=== PATIENT | female | born 1975 | race Caucasian/White ===

== ENCOUNTER 2017-03-28 13:32 | Emergency (ER) | payer MEDICAID, SELFPAY | END 2017-03-28 15:24 | disposition home or self-care (01) | PROVIDERS: Emergency Provider Nurse Practitioner; Family Provider Internal Medicine Adolescent Medicine; Visit Provider Nurse Practitioner | DX: A08.4 Viral intestinal infection, unspecified (principal); E78.5 Hyperlipidemia, unspecified; Z87.891 Personal history of nicotine dependence | CPT/HCPCS: 87804; 99201 ==

== ENCOUNTER 2017-04-06 15:56 | Emergency (ER) | payer OTHER, MEDICAID, SELFPAY | END 2017-04-06 18:46 | disposition left against medical advice (07) | LOC: UTC 16:13 | PROVIDERS: Emergency Provider Nurse Practitioner Family; Family Provider Internal Medicine Adolescent Medicine; PCP Internal Medicine Adolescent Medicine | DX: Z53.29 Procedure and treatment not carried out because of patient's decision for other reasons (principal) ==

== ENCOUNTER → 2017-06-15 17:10 | Outpatient (CLI) | payer MEDICAID, SELFPAY ==
--- NOTE | 2017-06-15 17:43 | XR_ITS ---
XR knee RT 3V HISTORY: ITS.REASON: RIGHT ANTERIOR KNEE PAIN ORDERING PHYSICIAN: Alia Recinos PATIENT AGE: 41 years COMPARISON: None FINDINGS: No fracture or dislocation. No lytic or blastic change. Normal mineralization. There is mild bony spurring along the lateral tibial plateau. No lytic or blastic change. IMPRESSION: Mild osteoarthritis of the lateral compartment
== END ==
PROVIDERS: PCP Nurse Practitioner Family; Visit Provider Nurse Practitioner Family
DX: M25.561 Pain in right knee (principal)
CPT/HCPCS: 73562

== ENCOUNTER 2017-06-24 17:41 | Emergency (ER) | payer MEDICAID, SELFPAY ==
[2017-06-24 18:03] VITALS: BP 138/92; PULSE 68; RESP 20; TEMP 36.6; O2SAT 97; BMI 34.4
--- NOTE | 2017-06-24 18:19 | HMH.EDUTC ---
[facility] [place] Disposition Clinical Impression: Viral upper respiratory illness Disposition: Home, Self-Care Condition on Discharge: Good Instructions: DI for Viral Upper Respiratory Infection -- Adult Additional Instructions: * Monitor Temp. Tylenol and/or Ibuprofen as needed. ER if fever is no less than 101 despite alternating Tylenol and Ibuprofen * Encourage fluids, water, Gatorade, powerade, pedialyte if infant/toddler/or child * Warm salt water gargles for throat irritation *Warm fluids *Sore throat lozenges *Sleep elevated *humidifier or vaporizer Lots of rest Increase fluids, water, Gatorade, powerade *Bromfed may cause drowsiness. Know how it effect you or your child. Before driving, caring for small children or sending your child to school *Your throat swab was sent to lab for culture. Those results area typically sent to your primary care physician. Be sure to follow up in 2-3 days if no improvement so they can review those results and treat if necessary If you dont have primary care I recommend you get one, but in the mean time you will have to return to a walk in clinic Follow up IMMEDIATELY for new or worsening of symptoms OR no noticeable improvement over the next 48-72 hours. 911 immediately for any life threatening symptoms such as chest pain or difficulty breathing Prescriptions: Brompheniramine/Pseudoephed/Dm [Bromfed DM Cough Syrup 5mL] 10 ml PO Q4HP PRN #350 ml PRN Reason: Cough Referrals: Alia Recinos APRN [Primary Care Provider] - Time of Disposition: 18:30 Medical Decision Making - Medical Records Medical records reviewed: Yes: I reviewed the patient's medical records. - Cassius Inquiry Pt receiving controlled substance: No Cassius was queried for this patient: No Vital Signs: 06/24/17 18:03 Temperature 97.9 F Temperature Source Oral Pulse Rate [Right Brachial] 68 Respiratory Rate 20 Blood Pressure [Right Arm] 138/92 Blood Pressure Mean [Right Arm] 107 Blood Pressure Source [Right Arm] Automatic Cuff Blood Pressure Position [Right Arm] Sitting 02 Sat by Pulse Oximetry 97 Oxygen Delivery Method Room Air - Lab Data Lab results reviewed: Yes: I reviewed the patient's lab results. [facility] [place] HPI - General Stated complaint: weakness, body aches Time Seen by Provider: 06/24/17 18:05 Mode of Arrival: Family Vehicle Source of Information: Patient Limitations: No Limitations Description of Symptoms (Recalled from Triage Doc. by RN): SORE THROAT, BODY AHES AND CHILLS X 2 DAYS HEENT Symptoms (Recalled from RN notes): Yes Resp Symptoms (Recalled from RN notes): No Skin Symptoms (Recalled from RN notes): No MS Symptoms (Recalled from RN notes): Yes Functional Status (Recalled from RN notes): N/A - History of Present Illness Provider Complaint: Patient state that she has been having chills, body aches, nausea and sore throat for about 2 days now State that she was recently around someone with the flu State that today she has wanted to lay around alot so she was worried that she may have the flu so she came in to get checked out - Related Data Home Medications Medication Instructions Recorded Confirmed ALPRAZolam [Xanax 0.5mg tab] 0.5 mg PO BID 06/24/17 06/24/17 Cetirizine HCl [Zyrtec] 10 mg PO DAILY 06/24/17 06/24/17 Imipramine HCl 50 mg PO DAILY 06/24/17 06/24/17 Montelukast Sodium [Singulair 10mg 10 mg PO PM 06/24/17 06/24/17 tablet] Pantoprazole Sodium [Protonix 40mg 40 mg PO DAILY 06/24/17 06/24/17 tablet] Previous Rx's Medication Instructions Recorded Brompheniramine/Pseudoephed/Dm 10 ml PO Q4HP PRN #350 ml 06/24/17 [Bromfed DM Cough Syrup 5mL] Allergies Allergy/AdvReac Type Severity Reaction Status Date / Time codeine Allergy Intermediate CHEST PAIN Verified 06/24/17 18:07 - Worker's Comp Is this a Worker's Comp case?: No [facility] History I have reviewed the patient's past medical history: Yes Laterality Cases: Bilateral: Myringotomy (Ear Tubes)
--- NOTE | 2017-06-24 18:25 | ED_ITS ---
[facility] [place] Disposition Clinical Impression: Viral upper respiratory illness Disposition: Home, Self-Care Condition on Discharge: Good Instructions: DI for Viral Upper Respiratory Infection -- Adult Additional Instructions: * Monitor Temp. Tylenol and/or Ibuprofen as needed. ER if fever is no less than 101 despite alternating Tylenol and Ibuprofen * Encourage fluids, water, Gatorade, powerade, pedialyte if infant/toddler/or child * Warm salt water gargles for throat irritation *Warm fluids *Sore throat lozenges *Sleep elevated *humidifier or vaporizer Lots of rest Increase fluids, water, Gatorade, powerade *Bromfed may cause drowsiness. Know how it effect you or your child. Before driving, caring for small children or sending your child to school *Your throat swab was sent to lab for culture. Those results area typically sent to your primary care physician. Be sure to follow up in 2-3 days if no improvement so they can review those results and treat if necessary If you don? t have primary care I recommend you get one, but in the mean time you will have to return to a walk in clinic Follow up IMMEDIATELY for new or worsening of symptoms OR no noticeable improvement over the next 48-72 hours. 911 immediately for any life threatening symptoms such as chest pain or difficulty breathing Prescriptions: Brompheniramine/Pseudoephed/Dm [Bromfed DM Cough Syrup 5mL] 10 ml PO Q4HP PRN # 350 ml PRN Reason: Cough Referrals: Alia Recinos APRN [Primary Care Provider] - Time of Disposition: 18:30 Medical Decision Making - Medical Records Medical records reviewed: Yes: I reviewed the patient's medical records. - Cassius Inquiry Pt receiving controlled substance: No Cassius was queried for this patient: No Vital Signs: 06/24/17 18:03 Temperature 97.9 F Temperature Source Oral Pulse Rate [Right Brachial] 68 Respiratory Rate 20 Blood Pressure [Right Arm] 138/92 Blood Pressure Mean [Right Arm] 107 Blood Pressure Source [Right Arm] Automatic Cuff Blood Pressure Position [Right Arm] Sitting 02 Sat by Pulse Oximetry 97 Oxygen Delivery Method Room Air - Lab Data Lab results reviewed: Yes: I reviewed the patient's lab results. [facility] [place] HPI - General Stated complaint: weakness, body aches Time Seen by Provider: 06/24/17 18:05 Mode of Arrival: Family Vehicle Source of Information: Patient Limitations: No Limitations Description of Symptoms (Recalled from Triage Doc. by RN): SORE THROAT, BODY AHES AND CHILLS X 2 DAYS HEENT Symptoms (Recalled from RN notes): Yes Resp Symptoms (Recalled from RN notes): No Skin Symptoms (Recalled from RN notes): No MS Symptoms (Recalled from RN notes): Yes Functional Status (Recalled from RN notes): N/A - History of Present Illness Provider Complaint: Patient state that she has been having chills, body aches, nausea and sore throat for about 2 days now State that she was recently around someone with the flu State that today she has wanted to lay around alot so she was worried that she may have the flu so she came in to get checked out - Related Data Home Medications Medication Instructions Recorded Confirmed ALPRAZolam [Xanax 0.5mg tab] 0.5 mg PO BID 06/24/17 06/24/17 Cetirizine HCl [Zyrtec] 10 mg PO DAILY 06/24/17 06/24/17 Imipramine HCl 50 mg PO DAILY 06/24/17 06/24/17 Montelukast Sodium [Singulair 10mg 10 mg PO PM 06/24/17 06/24/17 tablet] Pantoprazole Sodium [Protonix
[2017-06-24 18:44] LABS: UTC Influenza A Antigen Negative (Negative); UTC Influenza B Antigen Negative (Negative); UTC Strep Screen (Rapid) Negative (Negative)
[2017-06-24 18:50] VITALS: BP 136/90; PULSE 70; RESP 20; TEMP 36.6; O2SAT 97
== END 2017-06-24 18:53 | disposition home or self-care (01) ==
PROVIDERS: Emergency Provider Nurse Practitioner; Family Provider Internal Medicine Adolescent Medicine; PCP Nurse Practitioner Family
DX: J06.9 Acute upper respiratory infection, unspecified (principal)
CPT/HCPCS: 87804; 87880; 99202

== ENCOUNTER 2017-07-26 15:00 | Outpatient (RCR) | payer MEDICAID, SELFPAY ==
--- NOTE | 2017-06-20 17:45 | HMH.PTOPEV ---
Rehab Outpatient Evaluation Rehab OP Evaluation Start: 06/20/17 17:23 Freq: Status: Active Protocol: Document 06/20/17 17:23 JESUSMARSHA (Rec: 06/20/17 17:38 FLIP [id number]) Electronically Signed By Luis Miguel Sena, PT 06/20/17 17:23 Outpatient Therapy Subjective History Subjective History Patient is a 41 year old female presenting to outpatient PT with reports of right knee pain of insidious onset starting approximatley 1 year ago with the most recent exacerbation starting 1 week ago. She was recently prescribed oral anti- inflammatories and bought a neoprene sleeve knee brace, both which have provided minimal relief. Most recent diagnostics indicate mild OA. Significant genu valgus noted . Chief Complaint Pain Stiff Clicks Swelling Catches/Locks Weakness Symptom Type Ache Sharp Shooting Symptoms Relieved By Rest/Positioning Brace/Support OTC Meds Prescription Meds Symptoms Aggravated By Sitting Standing Bending/Stooping Physical Activity Walking Prior Functional Limitations None Current Functional Limitations Lifting Housework Driving Sleeping Standing Sitting Squatting Recreation Activity Walking Stairs Balance Bending/Stooping Symptom Description Constant but Variable Level of pain today (0-10) 5 Pain scale - at its best (0-10) 10 Pain scale - at its worst (0-10) 5 Hip/Knee Eval Gait Observation General Gait Pattern Observation Antalgic Gait Palpation Tenderness right Knee Palpation Finding Tenderness
== END 2017-07-26 15:01 | disposition home or self-care (01) ==
LOC: PT 15:00
PROVIDERS: Family Provider Internal Medicine Adolescent Medicine; PCP Nurse Practitioner Family; Visit Provider Nurse Practitioner Family
DX: M25.561 Pain in right knee (principal)
CPT/HCPCS: 97014; 97016; 97033; 97035; 97110; G0283

== ENCOUNTER → 2017-09-21 15:43 | Outpatient (CLI) | payer MEDICAID, SELFPAY | PROVIDERS: Family Provider Internal Medicine Adolescent Medicine; PCP Internal Medicine Adolescent Medicine; Referring Provider Nurse Practitioner Family; Visit Provider Nurse Practitioner Family | DX: Z12.31 Encounter for screening mammogram for malignant neoplasm of breast (principal); Z00.00 Encounter for general adult medical examination without abnormal findings ==

== ENCOUNTER → 2017-09-28 17:04 | Outpatient (CLI) | payer MEDICAID, SELFPAY ==
[2017-09-28 17:37] LABS: Basophils % 0.4 % (0.1-2.0); Eosinophils # 0.2 K/mm3 (0.0-0.4); Eosinophils % 1.6 % (0.1-12.0); Hematocrit 41.5 % (37.0-47.0); Hemoglobin 13.1 g/dL (12.2-16.2); Lymphocytes # 3.3 K/mm3 (0.7-4.5); Lymphocytes % 29.9 K/mm3 (10-50); Mean Corpuscular HGB Conc 31.6 g/dL (31.8-35.4); Mean Corpuscular Hemoglobin 28.7 pg (27.0-31.2); Mean Corpuscular Volume 90.8 fl (81-99); Mean Platelet Volume 7.2 fl (7.4-10.4); Monocytes # 0.5 K/mm3 (0.1-1.0); Monocytes % 4.9 % (1.7-9.3); Neutrophils # 6.9 K/mm3 (1.8-7.8); Neutrophils % 63.1 % (37.0-80.0); Platelet Count 445 K/mm3 (142-424); Red Blood Count 4.57 M/mm3 (4.20-5.40); Red Cell Distribution Width 13.4 % (11.5-17.5); White Blood Count 10.9 K/mm3 (4.8-10.8)
[2017-09-28 18:12] LABS: Alanine Aminotransferase 34 U/L (12-78); Albumin Level 3.6 gm/dL (3.4-5.0); Alkaline Phosphatase 92 U/L (46-116); Anion Gap 14.1 mEq/L (5-15); Aspartate Amino Transferase 21 U/L (15-37); Bilirubin,Total 0.5 mg/dL (0.2-1.0); Blood Urea Nitrogen 7 mg/dL (7-18); Calcium 8.8 mg/dL (8.5-10.1); Carbon Dioxide 26 mmol/L (21.0-32.0); Chloride 105 mmol/L (98-107); Chol/HDL Ratio 6.2 (1-3.5); Cholesterol 231 mg/dL (140-200); Creatinine,Serum 0.84 mg/dL (0.55-1.02); Estimated Glomerular Filt Rate 74 ml/min (>60); GFR (African American) 90 ML/MIN (>60); Globulin 3.6 gm/dl (1.3-3.2); Glucose 90 mg/dL (74-106); HDL Cholesterol 37 mg/dL (29-89); LDL Cholesterol 153 mg/dL (0-130); Potassium 4.1 mmoL/L (3.5-5.1); Sodium 141 mmol/L (136-145); Thyroid Stimulating Hormone 1.35 uIU/ml (0.358-3.740); Total Protein,Serum 7.2 gm/dL (6.4-8.2); Triglycerides 203 mg/dL (30-200); VLDL Cholesterol 41 mg/dL (0-40)
[2017-09-30 18:07] LABS: Vitamin B12 1472 pg/mL (232-1245)
[2017-09-30 18:09] LABS: Vitamin D 25 Hydroxy 24.7 ng/mL (30.0-100.0)
== END ==
PROVIDERS: Visit Provider Nurse Practitioner Family
DX: Z00.00 Encounter for general adult medical examination without abnormal findings (principal); R53.83 Other fatigue
CPT/HCPCS: 36415; 80053; 80061; 82607; 82652; 84443; 85025

== ENCOUNTER 2017-10-10 20:36 | Observation (INO) ==
[2017-10-10 21:05] LABS: Microscopic, Urine URINE MICROSCOPIC (MICROSCOPIC)
[2017-10-10 21:08] LABS: Appearance,Urine CLEAR (Clear); Bilirubin,Urine Negative (Negative); Blood, Urine Negative (Negative); Color,Urine YELLOW (Yellow); Glucose,Urine (UA) Negative (Negative); Ketones,Urine Negative (Negative); Leukocyte Esterase,Urine Negative (Negative); PH,Urine 7.5 (5.0-8.5); Protein,Urine Negative (Negative); Urobilinogen,Urine 0.2 EU/dl (0.2)
[2017-10-10 21:12] LABS: Basophils # 0.1 K/mm3 (0-0.2); Basophils % 0.4 % (0.1-2.0); Eosinophils # 0.2 K/mm3 (0.0-0.4); Eosinophils % 1.2 % (0.1-12.0); Hematocrit 40.4 % (37.0-47.0); Hemoglobin 12.9 g/dL (12.2-16.2); Lymphocytes # 3.7 K/mm3 (0.7-4.5); Lymphocytes % 28.3 K/mm3 (10-50); Mean Corpuscular HGB Conc 31.9 g/dL (31.8-35.4); Mean Platelet Volume 7.2 fl (7.4-10.4); Monocytes # 0.7 K/mm3 (0.1-1.0); Monocytes % 5.1 % (1.7-9.3); Neutrophils # 8.4 K/mm3 (1.8-7.8); Platelet Count 423 K/mm3 (142-424); Red Blood Count 4.44 M/mm3 (4.20-5.40); Red Cell Distribution Width 13.7 % (11.5-17.5)
[2017-10-10 21:21] LABS: Albumin Level 3.4 gm/dL (3.4-5.0); Albumin/Globulin Ratio 0.8 (1.1-1.8); Anion Gap 9.9 mEq/L (5-15); Bilirubin,Total 0.5 mg/dL (0.2-1.0); Calcium 9.1 mg/dL (8.5-10.1); Globulin 4.3 gm/dl (1.3-3.2); Potassium 3.9 mmoL/L (3.5-5.1); Total Protein,Serum 7.7 gm/dL (6.4-8.2)
[2017-10-10 21:31] LABS: Bacteria,Urine Trace /lpf
--- NOTE | 2017-10-10 23:36 | Emergency Department Note ---
ED Disposition Clinical Impression: Diverticulitis Disposition: Admitted as Observation Condition on Discharge: Good Instructions: DI for Acute Abdomen Referrals: Darnell Montemayor MD [Primary Care Provider] - - Critical Care Critical Care Time: No Attestation: On 10/10/17, the high probability of a clinically significant, sudden or life threatening deterioration of the following system(s) required my full and direct attention, intervention and personal management. The time I documented below is in addition to time spent performing reported procedures but includes the following listed in this critical care notation. Medical Decision Making - Medical Records Medical records reviewed: Yes: I reviewed the patient's medical records. - Cassius Inquiry Pt receiving controlled substance: No Vital Signs: 10/10/17 20:44 Temperature 98.5 F Temperature Source Oral Pulse Rate [Right Radial] 111 H Respiratory Rate 20 Blood Pressure [Right Arm] 123/99 Blood Pressure Mean [Right Arm] 107 02 Sat by Pulse Oximetry 95 - Lab Data Lab results reviewed: Yes: I reviewed the patient's lab results. Lab Results 10/10/17 20:49: Urine Color Yellow, Urine Appearance Clear, Urine pH 7.5, Ur Specific [place] 1.010, Urine Protein Negative, Urine Glucose (UA) Negative, Urine Ketones Negative, Urine Blood Negative, Urine Nitrate Negative, Urine Bilirubin Negative, Urine Urobilinogen 0.2, Ur Leukocyte Esterase Negative, Urine RBC None, Urine WBC None, Ur Squamous Epith Cells 3-5, Urine Bacteria Trace 10/10/17 20:49: Urine HCG, Qual Negative 10/10/17 21:00: WBC 13.0 H, RBC 4.44, Hgb 12.9, Hct 40.4, MCV 91.0, MCH 29.0, MCHC 31.9, RDW 13.7, Plt Count 423, MPV 7.2 L, Neut % (Auto) 65.0, Lymph % (Auto ) 28.3, [place] % (Auto) 5.1, Eos % (Auto) 1.2, Baso % (Auto) 0.4, Neut # (Auto) 8.4 H, Lymph # (Auto) 3.7, [place] # (Auto) 0.7, Eos # (Auto) 0.2, Baso # (Auto) 0.1 10/10/17 21:00: Sodium 140, Potassium 3.9, Chloride 106, Carbon Dioxide 28, Anion Gap 9.9, BUN 9, Creatinine 0.92, Estimated Creat Clear 146, Estimated GFR 67, Est GFR ( Amer) 81, Glucose 102, Calcium 9.1, Total Bilirubin 0.5, AST 18, ALT 29, Alkaline Phosphatase 105, Total Protein 7.7, Albumin 3.4, Globulin 4.3 H, Albumin/Globulin Ratio 0.8 L, Amylase 36, Lipase 217 10/10/17 21:00: ESR 51 H 10/10/17 21:00: C-Reactive Protein 1.5 H 10/10/17 22:00: Lactic Acid 0.6 Result diagrams: 10/10/17 21:00 10/10/17 21:00 Orders (Tests/Meds): ED MEDICATIONS Generic Name Dose Route Start Last Admin Trade Name Freq PRN Reason Stop Dose Admin Levofloxacin/Dextrose 750 mg in 150 mls @ 100 mls/hr 10/10/17 22:08 Levofloxacin 750mg/150ml Premix IV 10/24/17 22:07 Q24H DIO Protocol Metronidazole 100 mls @ 100 mls/hr 10/10/17 22:08 10/10/17 22:30 Flagyl 500mg/100ml Ivpb IV 10/24/17 22:07 100 mls/hr Q8H DIO Administration Protocol Discontinued Medications Generic Name Dose Route Start Last Admin Trade Name Freq PRN Reason Stop Dose Admin Sodium Chloride 1,000 mls @ 999 mls/hr 10/10/17 21:00 10/10/17 20:57 Sod Chlor 0.9% 1000ml Bag IV 10/10/17 22:00 999 mls/hr .Q1H1M DIO Administration Sodium Chloride 1,000 mls @ 999 mls/hr 10/10/17 22:15 10/10/17 22:30 Sod Chlor 0.9% 1000ml Bag IV 10/10/17 23:15 999 mls/hr .Q1H1M DIO Administration Ketorolac Tromethamine 30 mg 10/10/17 20:48 10/10/17 20:57 Toradol 30mg/Ml Vial IV 10/10/17 20:49 30 mg ONCE ONE Administration Morphine Sulfate 4 mg 10/10/17 22:09 10/10/17 22:30 Morphine 4mg/Ml Syringe IV 10/10/17 22:10 4 mg ONCE ONE Administration Ondansetron HCl 4 mg 10/10/17 20:48 10/10/17 20:57 Zofran 4mg/2ml Vial IV 10/10/17 20:49 4 mg ONCE ONE Administration Ondansetron HCl 4 mg 10/10/17 22:09 10/10/17 22:30 Zofran 4mg/2ml Vial IV 10/10/17 22:10 4 mg ONCE ONE Administration Ondansetron HCl 4 mg 10/10/17 22:09 10/10/17 20:58 Zofran 4mg/2ml Vial IV 10/10/17 22:10 4 mg ONCE ONE Administration ORDERS Category Date Time Status CT abdomen pelvis wo con Stat Cat Scan 10/10/17 20:48 Taken Blood Culture Stat Micro 10/10/17 22:00 Received - CT Data CT Scan: Abdomen, Pelvis Time Received: 23:[address] Reviewed: Yes: I have viewed the radiologist's interpretation Preliminary Findings: Abnormal (diverticulitis) Nausea/Vomiting/Diarrhea HPI - General Chief complaint: Abdominal Pain Stated complaint: under right breast pain Time Seen by Provider: 10/10/17 21:00 Mode of Arrival: Family Vehicle Source of Information: Patient, Relative, Medical Record Limitations: No Limitations Description of Symptoms (Recalled from ER Triage Doc. by RN): pt with c/o chills , pain under right breast that radiates into right side of abdomen. denies n/v/ d. pt states she chronically has difficulty voiding and pain with urination. - History of Present Illness HPI Narrative: pt with progressive abd pain mostly on rt with inc pain tonight - she has nausea and loose stool but no blood in stool - no fever - has seen pcp for same pain MD complaint: nausea, vomiting, abdominal pain Onset (ago): day(s) Associated Abdominal Pain: Yes Location of pain: RUQ, RLQ Severity: moderate Consistency: colicky Associated symptoms: fever/chills - Related Data Home Medications Medication Instructions Recorded Confirmed ALPRAZolam [Xanax 0.5mg tab] 0.5 mg PO BID 06/24/17 10/10/17 Cetirizine HCl [Zyrtec] 10 mg PO DAILY 06/24/17 10/10/17 Montelukast Sodium [Singulair 10mg 10 mg PO PM 06/24/17 10/10/17 tablet] Pantoprazole Sodium [Protonix 40mg 40 mg PO DAILY 06/24/17 10/10/17 tablet] Atorvastatin Calcium [Atorvastatin 20 mg PO DAILY 10/10/17 10/10/17 20mg Tab] Citalopram Hydrobromide [Celexa 10 mg PO DAILY 10/10/17 10/10/17 10mg Tablet] Linaclotide [Linzess] 72 mcg PO DAILY 10/10/17 10/10/17 Allergies Allergy/AdvReac Type Severity Reaction Status Date / Time codeine Allergy Intermediate CHEST PAIN Verified 10/10/17 20:48 [facility] History I have reviewed the patient's past medical history: Yes Medical History: Denies:: Cancer, Diabetes Mellitus Type 1, Diabetes Mellitus Type 2, Hypertension, MRSA Laterality Cases: Bilateral: Myringotomy (Ear Tubes) Amputation: No Fractures: No - Social History Smoking Status: Current every day smoker Alcohol Intake: never - Psychiatric History Expresses thoughts of harming self/others: None Suicide Plan Description: No Plan ROS Obtained: Yes All systems reviewed & no additional complaints - Constitutional Constitutional: Reports as per HPI, Reports chills, Denies fever(s) - Eyes Eyes: Denies change in vision - ENT Ears, Nose, Mouth, and Throat: Denies sore throat - Cardiovascular Cardiovascular: Denies chest pain - Respiratory Respiratory: No cough - Gastrointestinal Gastrointestingal: Reports: abdominal pain, nausea. Denies: diarrhea, vomiting - Genitourinary Female Genitourinary: Denies hematuria - Musculoskeletal Musculoskeletal: Denies joint pain, Denies joint swelling - Integumentary/Breasts Skin/Breast: Denies rash - Neurologic Neurologic: Denies headache(s), Denies seizure-like activity Physical Exam - General General appearance: in no apparent distress - Head Head exam: normocephalic - Eye Eye exam: Present: PERRL, EOMI. Absent: scleral icterus - ENT ENT exam: Present: mucous membranes moist - Neck Neck exam: Present: trachea midline - Respiratory Respiratory exam: Absent: respiratory distress - Cardiovascular Cardiovascular exam: Present: regular rate. Absent: systolic murmur - Abdominal Exam Abdominal exam: Present: soft, tenderness Abdominal tenderness: Present: RUQ, RLQ, moderate - Extremities Exam Extremities exam: Present: full ROM - Back Exam Back exam: Absent: CVA tenderness (R) - Neurological Exam Neurological exam: Present: alert, oriented X3, CN II-XII intact - Psychiatric Psychiatric exam: Present: normal affect - Skin Skin exam: Absent: rash
[2017-10-11 06:19] LABS: Anion Gap 9.9 mEq/L (5-15); Potassium 3.9 mmoL/L (3.5-5.1)
[2017-10-11 06:33] LABS: Basophils % 0.3 % (0.1-2.0); Eosinophils # 0.2 K/mm3 (0.0-0.4); Eosinophils % 1.8 % (0.1-12.0); Hematocrit 38.2 % (37.0-47.0); Lymphocytes # 2.9 K/mm3 (0.7-4.5); Lymphocytes % 31.7 K/mm3 (10-50); Mean Corpuscular HGB Conc 31.3 g/dL (31.8-35.4); Mean Corpuscular Hemoglobin 28.6 pg (27.0-31.2); Mean Corpuscular Volume 91.4 fl (81-99); Mean Platelet Volume 7.3 fl (7.4-10.4); Monocytes # 0.5 K/mm3 (0.1-1.0); Monocytes % 5.1 % (1.7-9.3); Neutrophils # 5.5 K/mm3 (1.8-7.8); Neutrophils % 61.1 % (37.0-80.0); Platelet Count 381 K/mm3 (142-424); Red Blood Count 4.18 M/mm3 (4.20-5.40); Red Cell Distribution Width 13.5 % (11.5-17.5)
[2017-10-11 06:34] LABS: Calcium 7.9 mg/dL (8.5-10.1)
--- NOTE | 2017-10-11 07:44 | History & Physical Report ---
*Admission Date: 10/11/17 *Chief complaint: Abdominal pain *History of present illness: 41-year-old white female with no significant GI history except for cholecystectomy in the remote past she has had 2-3 weeks of insidious abdominal pain that is failed to improve with OTC therapy. She has had some diarrhea, some swelling and cramping, has had both upper quadrants hurting and yesterday evening began to have bilateral lower quadrant pain. Came to the emergency department, found to have mild leukocytosis, significant tenderness in her abdomen and CT scan was done which revealed diverticulitis of the sigmoid colon. Interested reader refer to the CT scan report. She is admitted for IV antibiotics and steroids. [facility] History I have reviewed the patient's past medical history: Yes Medical History: Reports:: Hyperlipidemia, MRSA (spider bite in 2010) Denies:: Cancer, Diabetes Mellitus Type 1, Diabetes Mellitus Type 2, Hypertension Other Medical History: Reports: Thyroid Disease Laterality Cases: Bilateral: Myringotomy (Ear Tubes) Other Surgeries: Yes: Colonoscopy Amputation: No Fractures: No - *Social History Educational Level: Completed High School Smoking Status: Former smoker Alcohol Intake: never Occupational Status: employed Housing: house Household Members: children - Psychiatric History Expresses thoughts of harming self/others: None Suicide Plan Description: No Plan *Family Hx:: Cancer, Heart Attack, Hypertension Review of Systems - Review of Systems Review of systems:: pertinent systems reviewed and negative unless documented below - Constitutional Reports anorexia, Denies body ache(s) - Eyes Denies blind spots, Denies blurry vision - ENT Denies abnormal hearing, Denies bleeding gums - *Cardiovascular Denies chest pain, Denies chest pain at rest, Denies excessive sweating - *Respiratory Denies change in phlegm color, Denies chest congestion - *Gastrointestinal Reports abdominal pain, Reports belching - *Neurologic Denies headache(s), Denies seizure-like activity Meds Home Medications Medication Instructions Recorded Confirmed Type ALPRAZolam [Xanax 0.5mg tab] 0.5 mg PO BID 06/24/17 10/11/17 History Cetirizine HCl [Zyrtec] 10 mg PO DAILY 06/24/17 10/11/17 History Montelukast Sodium [Singulair 10mg 10 mg PO PM 06/24/17 10/11/17 History tablet] Pantoprazole Sodium [Protonix 40mg 40 mg PO DAILY 06/24/17 10/11/17 History tablet] Atorvastatin Calcium [Atorvastatin 20 mg PO DAILY 10/10/17 10/11/17 History 20mg Tab] Citalopram Hydrobromide [Celexa 10 mg PO DAILY 10/10/17 10/11/17 History 10mg Tablet] Linaclotide [Linzess] 72 mcg PO DAILY 10/10/17 10/10/17 History Famotidine [Pepcid] 20 mg PO BID 10/11/17 10/11/17 History Ibuprofen [Ibuprofen 800mg Tab] 800 mg PO TID 10/11/17 10/11/17 History Varenicline Tartrate [Chantix 1mg 1 mg PO BID 10/11/17 10/11/17 History tablet] Allergies Allergy/AdvReac Type Severity Reaction Status Date / Time codeine Allergy Intermediate CHEST PAIN Verified 10/10/17 20:48 Exam Vital signs and Labs for Last 24 Hours: Temp Pulse Resp BP Pulse Ox 97.8 F 83 16 112/56 95 10/11/17 04:00 10/11/17 04:00 10/11/17 04:00 10/11/17 04:00 10/11/17 04:00 Laboratory Results - last 24 hr 10/10/17 20:49: Urine Color Yellow, Urine Appearance Clear, Urine pH 7.5, Ur Specific [place] 1.010, Urine Protein Negative, Urine Glucose (UA) Negative, Urine Ketones Negative, Urine Blood Negative, Urine Nitrate Negative, Urine Bilirubin Negative, Urine Urobilinogen 0.2, Ur Leukocyte Esterase Negative, Urine RBC None, Urine WBC None, Ur Squamous Epith Cells 3-5, Urine Bacteria Trace 10/10/17 20:49: Urine HCG, Qual Negative 10/10/17 21:00: WBC 13.0 H, RBC 4.44, Hgb 12.9, Hct 40.4, MCV 91.0, MCH 29.0, MCHC 31.9, RDW 13.7, Plt Count 423, MPV 7.2 L, Neut % (Auto) 65.0, Lymph % (Auto ) 28.3, [place] % (Auto) 5.1, Eos % (Auto) 1.2, Baso % (Auto) 0.4, Neut # (Auto) 8.4 H, Lymph # (Auto) 3.7, [place] # (Auto) 0.7, Eos # (Auto) 0.2, Baso # (Auto) 0.1 10/10/17 21:00: Sodium 140, Potassium 3.9, Chloride 106, Carbon Dioxide 28, Anion Gap 9.9, BUN 9, Creatinine 0.92, Estimated Creat Clear 146, Estimated GFR 67, Est GFR ( Amer) 81, Glucose 102, Calcium 9.1, Total Bilirubin 0.5, AST 18, ALT 29, Alkaline Phosphatase 105, Total Protein 7.7, Albumin 3.4, Globulin 4.3 H, Albumin/Globulin Ratio 0.8 L, Amylase 36, Lipase 217 10/10/17 21:00: ESR 51 H 10/10/17 21:00: C-Reactive Protein 1.5 H 10/10/17 22:00: Lactic Acid 0.6 10/11/17 05:45: WBC 9.0 D, RBC 4.18 L, Hgb 12.0 L, Hct 38.2, MCV 91.4, MCH 28.6 , MCHC 31.3 L, RDW 13.5, Plt Count 381, MPV 7.3 L, Neut % (Auto) 61.1, Lymph % ( Auto) 31.7, [place] % (Auto) 5.1, Eos % (Auto) 1.8, Baso % (Auto) 0.3, Neut # (Auto ) 5.5, Lymph # (Auto) 2.9, [place] # (Auto) 0.5, Eos # (Auto) 0.2, Baso # (Auto) 0.0 10/11/17 05:45: Sodium 141, Potassium 3.9, Chloride 110 H, Carbon Dioxide 25, Anion Gap 9.9, BUN 8, Creatinine 0.81, Estimated Creat Clear 166, Estimated GFR 78, Est GFR ( Amer) 94, Glucose 100, Calcium 7.9 L D I & O for Last 24 hours: Intake & Output 10/08/17 10/09/17 10/10/17 10/11/17 11:59 11:59 11:59 11:59 Intake Total 1999 Balance 1999 Weight 256 lb 3.011 oz Narrative: Patient is pleasant, alert, oriented 3. No jaundice or scleral icterus. Lungs in the anterior youngblood are clear, heart rate regular. Abdomen is soft but tender in the sigmoid area of the abdomen. No rebound or guarding. No peritoneal signs. No CVA tenderness. No abdominal bruising. No distal edema. Able to move all extremities well. H&P: Result - Labs Labs: Short CBC 10/10/17 10/11/17 Range/Units 21:00 05:45 WBC 13.0 H 9.0 D (4.8-10.8) K/mm3 Hgb 12.9 12.0 L (12.2-16.2) g/dL Hct 40.4 38.2 (37.0-47.0) % Plt Count 423 381 (142-424) K/mm3 BMP 10/10/17 10/11/17 21:00 05:45 Sodium 140 141 Potassium 3.9 3.9 Chloride 106 110 H Carbon Dioxide 28 25 BUN 9 8 Creatinine 0.92 0.81 Glucose 102 100 Calcium 9.1 7.9 L D Liver Function 10/10/17 Range/Units 21:00 Total Bilirubin 0.5 (0.2-1.0) mg/dL AST 18 (15-37) U/L ALT 29 (12-78) U/L Alkaline Phosphatase 105 (46-116) U/L Albumin 3.4 (3.4-5.0) gm/dL Urine 10/10/17 Range/Units 20:49 Urine Color Yellow (Yellow) Urine Appearance Clear (Clear) Urine pH 7.5 (5.0-8.5) Ur Specific [place] 1.010 (1.005-1.030) Urine Protein Negative (Negative) Urine Glucose (UA) Negative (Negative) Assessment and Plan (1) Diverticulitis Current visit: Yes Status: Acute Category: Medical Code(s): K57.92 - Diverticulitis of intestine, part unspecified, without perforation or abscess without bleeding Agree with admission to hospital. IV steroids, IV antibiotics. Advance to clear liquids. Patient will need colonoscopy when this problem has calm down. Surgical consultation to follow in hospital.
--- NOTE | 2017-10-11 08:31 | Pharmacy Consult Notes ---
[facility] Pharmacy VTE Monitoring - Patient Demographics Admission date: 10/11/17 Report Date: 10/11/17 Time: 08:31 Allergies/Adverse Reactions: Patient Allergies codeine Allergy (Intermediate, Verified 10/10/17 20:48) CHEST PAIN Height: 1.75 m Weight: 116.205 kg Patient Problems: Current Active Problems Diverticulitis (Acute) - VTE Risk Labs: VTE Related Lab Results Hgb 12.0 g/dL (12.2-16.2) L 10/11/17 05:45 Hct 38.2 % (37.0-47.0) 10/11/17 05:45 Plt Count 381 K/mm3 (142-424) 10/11/17 05:45 BUN 8 mg/dL (7-18) 10/11/17 05:45 Creatinine 0.81 mg/dL (0.55-1.02) 10/11/17 05:45 Estimated Creat Clear 166 mL/min (0-300) 10/11/17 05:45 Was VTE Risk Assessment Performed: Yes VTE Score: 5 VTE Risk Level: Low Risk Clinical Trial Participant: No - Prophylaxis VTE Prophylaxis Ordered?: Yes Types of VTE Prophylaxis: TEDS Knee High
--- NOTE | 2017-10-11 09:54 | Consult Report ---
*Admission Date: 10/11/17 *Chief complaint: Right-sided abdominal pain *History of present illness: This is a 41-year-old female seen in consultation from Dr. Montemayor for evaluation regarding diverticulitis. She has a long history of pain that is mostly in the right upper quadrant. She presented to the emergency department overnight with increasing right upper quadrant pain and vague pain within the lower abdomen. She was found to have radiographic evidence of sigmoid diverticulitis. No jaundice. No definitive fevers. She describes her pain as "pretty much on the right side and sharp". Some nausea. No jaundice. She is status post laparoscopic cholecystectomy. Below is a forwarded copy of the patient's history of present illness from her admission H&P: 41-year-old white female with no significant GI history except for cholecystectomy in the remote past she has had 2-3 weeks of insidious abdominal pain that is failed to improve with OTC therapy. She has had some diarrhea, some swelling and cramping, has had both upper quadrants hurting and yesterday evening began to have bilateral lower quadrant pain. Came to the emergency department, found to have mild leukocytosis, significant tenderness in her abdomen and CT scan was done which revealed diverticulitis of the sigmoid colon. Interested reader refer to the CT scan report. She is admitted for IV antibiotics and steroids. Review of Systems - Constitutional Denies lack of energy - Eyes Denies change in vision - *Cardiovascular Denies chest pain - *Respiratory Denies cough - *Gastrointestinal Reports abdominal pain, Reports nausea, Denies vomiting blood, Denies bright, red blood in stools, Denies black, tarry stools - *Neurologic Denies abnormal hearing, Denies headache(s), Denies seizure-like activity - Hematologic/Lymphatic Denies easy bleeding [facility] History Medical History: Reports:: Hyperlipidemia, MRSA (spider bite in 2010) Denies:: Cancer, Diabetes Mellitus Type 1, Diabetes Mellitus Type 2, Hypertension Other Medical History: Reports: Thyroid Disease Laterality Cases: Bilateral: Myringotomy (Ear Tubes) Other Surgeries: Yes: Colonoscopy Amputation: No Fractures: No - *Social History Educational Level: Completed High School Smoking Status: Former smoker Alcohol Intake: never Occupational Status: employed Housing: house Household Members: children - Psychiatric History Expresses thoughts of harming self/others: None Suicide Plan Description: No Plan *Family Hx:: Cancer, Heart Attack, Hypertension Meds Home Medications Medication Instructions Recorded Confirmed Type ALPRAZolam [Xanax 0.5mg tab] 0.5 mg PO BID 06/24/17 10/11/17 History Cetirizine HCl [Zyrtec] 10 mg PO DAILY 06/24/17 10/11/17 History Montelukast Sodium [Singulair 10mg 10 mg PO PM 06/24/17 10/11/17 History tablet] Pantoprazole Sodium [Protonix 40mg 40 mg PO DAILY 06/24/17 10/11/17 History tablet] Atorvastatin Calcium [Atorvastatin 20 mg PO HS 10/10/17 10/11/17 History 20mg Tab] Citalopram Hydrobromide [Celexa 10 mg PO DAILY 10/10/17 10/11/17 History 10mg Tablet] Famotidine [Pepcid] 20 mg PO BID 10/11/17 10/11/17 History Ibuprofen [Ibuprofen 800mg Tab] 800 mg PO TID 10/11/17 10/11/17 History Varenicline Tartrate [Chantix 1mg 1 mg PO BID 10/11/17 10/11/17 History tablet] Allergies Allergy/AdvReac Type Severity Reaction Status Date / Time codeine Allergy Intermediate CHEST PAIN Verified 10/10/17 20:48 Exam Vital signs and Labs for Last 24 Hours: Temp Pulse Resp BP Pulse Ox 98.1 F 78 18 124/71 96 10/11/17 07:46 10/11/17 07:46 10/11/17 07:46 10/11/17 07:46 10/11/17 08:38 Laboratory Results - last 24 hr 10/10/17 20:49: Urine Color Yellow, Urine Appearance Clear, Urine pH 7.5, Ur Specific [place] 1.010, Urine Protein Negative, Urine Glucose (UA) Negative, Urine Ketones Negative, Urine Blood Negative, Urine Nitrate Negative, Urine Bilirubin Negative, Urine Urobilinogen 0.2, Ur Leukocyte Esterase Negative, Urine RBC None, Urine WBC None, Ur Squamous Epith Cells 3-5, Urine Bacteria Trace 10/10/17 20:49: Urine HCG, Qual Negative 10/10/17 21:00: WBC 13.0 H, RBC 4.44, Hgb 12.9, Hct 40.4, MCV 91.0, MCH 29.0, MCHC 31.9, RDW 13.7, Plt Count 423, MPV 7.2 L, Neut % (Auto) 65.0, Lymph % (Auto ) 28.3, [place] % (Auto) 5.1, Eos % (Auto) 1.2, Baso % (Auto) 0.4, Neut # (Auto) 8.4 H, Lymph # (Auto) 3.7, [place] # (Auto) 0.7, Eos # (Auto) 0.2, Baso # (Auto) 0.1 10/10/17 21:00: Sodium 140, Potassium 3.9, Chloride 106, Carbon Dioxide 28, Anion Gap 9.9, BUN 9, Creatinine 0.92, Estimated Creat Clear 146, Estimated GFR 67, Est GFR ( Amer) 81, Glucose 102, Calcium 9.1, Total Bilirubin 0.5, AST 18, ALT 29, Alkaline Phosphatase 105, Total Protein 7.7, Albumin 3.4, Globulin 4.3 H, Albumin/Globulin Ratio 0.8 L, Amylase 36, Lipase 217 10/10/17 21:00: ESR 51 H 10/10/17 21:00: C-Reactive Protein 1.5 H 10/10/17 22:00: Lactic Acid 0.6 10/11/17 05:45: WBC 9.0 D, RBC 4.18 L, Hgb 12.0 L, Hct 38.2, MCV 91.4, MCH 28.6 , MCHC 31.3 L, RDW 13.5, Plt Count 381, MPV 7.3 L, Neut % (Auto) 61.1, Lymph % ( Auto) 31.7, [place] % (Auto) 5.1, Eos % (Auto) 1.8, Baso % (Auto) 0.3, Neut # (Auto ) 5.5, Lymph # (Auto) 2.9, [place] # (Auto) 0.5, Eos # (Auto) 0.2, Baso # (Auto) 0.0 10/11/17 05:45: Sodium 141, Potassium 3.9, Chloride 110 H, Carbon Dioxide 25, Anion Gap 9.9, BUN 8, Creatinine 0.81, Estimated Creat Clear 166, Estimated GFR 78, Est GFR ( Amer) 94, Glucose 100, Calcium 7.9 L D I & O for Last 24 hours: Intake & Output 10/08/17 10/09/17 10/10/17 10/11/17 11:59 11:59 11:59 11:59 Intake Total 1999 Balance 1999 Weight 256 lb 3.011 oz - Constitutional no acute distress - *Routine Respiratory Exam Absent: respiratory distress - *Routine Cardiovascular Exam Present: RRR - *Routine Abdominal Exam Present: soft, tenderness Comments: epigastric and RUQ TTP (minimal TTP otherwise) Results - Labs 10/11/17 05:45 10/11/17 05:45 Laboratory Results - last 24 hr 10/10/17 20:49: Urine Color Yellow, Urine Appearance Clear, Urine pH 7.5, Ur Specific [place] 1.010, Urine Protein Negative, Urine Glucose (UA) Negative, Urine Ketones Negative, Urine Blood Negative, Urine Nitrate Negative, Urine Bilirubin Negative, Urine Urobilinogen 0.2, Ur Leukocyte Esterase Negative, Urine RBC None, Urine WBC None, Ur Squamous Epith Cells 3-5, Urine Bacteria Trace 10/10/17 20:49: Urine HCG, Qual Negative 10/10/17 21:00: WBC 13.0 H, RBC 4.44, Hgb 12.9, Hct 40.4, MCV 91.0, MCH 29.0, MCHC 31.9, RDW 13.7, Plt Count 423, MPV 7.2 L, Neut % (Auto) 65.0, Lymph % (Auto ) 28.3, [place] % (Auto) 5.1, Eos % (Auto) 1.2, Baso % (Auto) 0.4, Neut # (Auto) 8.4 H, Lymph # (Auto) 3.7, [place] # (Auto) 0.7, Eos # (Auto) 0.2, Baso # (Auto) 0.1 10/10/17 21:00: Sodium 140, Potassium 3.9, Chloride 106, Carbon Dioxide 28, Anion Gap 9.9, BUN 9, Creatinine 0.92, Estimated Creat Clear 146, Estimated GFR 67, Est GFR ( Amer) 81, Glucose 102, Calcium 9.1, Total Bilirubin 0.5, AST 18, ALT 29, Alkaline Phosphatase 105, Total Protein 7.7, Albumin 3.4, Globulin 4.3 H, Albumin/Globulin Ratio 0.8 L, Amylase 36, Lipase 217 07/10/18 21:00: ESR 51 H 10/10/17 21:00: C-Reactive Protein 1.5 H 10/10/17 22:00: Lactic Acid 0.6 10/11/17 05:45: WBC 9.0 D, RBC 4.18 L, Hgb 12.0 L, Hct 38.2, MCV 91.4, MCH 28.6 , MCHC 31.3 L, RDW 13.5, Plt Count 381, MPV 7.3 L, Neut % (Auto) 61.1, Lymph % ( Auto) 31.7, [place] % (Auto) 5.1, Eos % (Auto) 1.8, Baso % (Auto) 0.3, Neut # (Auto ) 5.5, Lymph # (Auto) 2.9, [place] # (Auto) 0.5, Eos # (Auto) 0.2, Baso # (Auto) 0.0 10/11/17 05:45: Sodium 141, Potassium 3.9, Chloride 110 H, Carbon Dioxide 25, Anion Gap 9.9, BUN 8, Creatinine 0.81, Estimated Creat Clear 166, Estimated GFR 78, Est GFR ( Amer) 94, Glucose 100, Calcium 7.9 L D - Imaging CT scan - abdomen: report reviewed, image reviewed CT scan - pelvis: report reviewed, image reviewed Assessment and Plan (1) Diverticulitis Current visit: Yes Status: Acute Category: Medical Code(s): K57.92 - Diverticulitis of intestine, part unspecified, without perforation or abscess without bleeding Continue antibiotics Continue serial abdominal exams Outpatient colonoscopy in 6-8 weeks The patient's long-standing symptoms are not consistent with her acute diagnosis of sigmoid diverticulitis. Consideration of gastroenterology consultation (?Sphincter of Oddi Syndrome or other anomaly) is warranted. As she may benefit from esophagogastroduodenoscopy, HIDA scan, and/or ERCP...her needed colonoscopy will likely be deferred to gastroenterology. (2) RUQ pain Current visit: Yes Status: Acute Category: Medical Code(s): R10.11 - Right upper quadrant pain ? Sphincter of Oddi Syndrome Further evaluation may include ERCP and/or HIDA scan; therefore, possible EGD/ colonoscopy will be deferred to gastroenterology.
[2017-10-12 06:15] LABS: Eosinophils % 0.2 % (0.1-12.0); Hematocrit 39.3 % (37.0-47.0); Hemoglobin 12.3 g/dL (12.2-16.2); Lymphocytes # 1.3 K/mm3 (0.7-4.5); Lymphocytes % 6.8 K/mm3 (10-50); Mean Corpuscular HGB Conc 31.3 g/dL (31.8-35.4); Mean Corpuscular Hemoglobin 28.9 pg (27.0-31.2); Mean Corpuscular Volume 92.3 fl (81-99); Mean Platelet Volume 7.3 fl (7.4-10.4); Monocytes # 0.3 K/mm3 (0.1-1.0); Monocytes % 1.4 % (1.7-9.3); Neutrophils # 17.3 K/mm3 (1.8-7.8); Neutrophils % 91.7 % (37.0-80.0); Platelet Count 424 K/mm3 (142-424); Red Blood Count 4.25 M/mm3 (4.20-5.40); Red Cell Distribution Width 13.4 % (11.5-17.5); White Blood Count 18.8 K/mm3 (4.8-10.8)
[2017-10-12 07:00] LABS: Albumin Level 2.8 gm/dL (3.4-5.0); Albumin/Globulin Ratio 0.7 (1.1-1.8); Bilirubin,Total 0.4 mg/dL (0.2-1.0); Calcium 8.6 mg/dL (8.5-10.1); Globulin 3.9 gm/dl (1.3-3.2); Total Protein,Serum 6.7 gm/dL (6.4-8.2)
--- NOTE | 2017-10-12 07:24 | Progress Note ---
Subjective Patient reports: other (some increased RUQ pain yesterday...better now.) Exam Vital signs and Labs for Last 24 Hours: Temp Pulse Resp BP Pulse Ox 97.7 F 87 16 134/74 90 L 10/12/17 04:00 10/12/17 04:00 10/12/17 04:00 10/12/17 04:00 10/12/17 04:00 Laboratory Results - last 24 hr 10/12/17 05:44: WBC 18.8 H D, RBC 4.25, Hgb 12.3, Hct 39.3, MCV 92.3, MCH 28.9, MCHC 31.3 L, RDW 13.4, Plt Count 424, MPV 7.3 L, Neut % (Auto) 91.7 H, Lymph % ( Auto) 6.8 L, [place] % (Auto) 1.4 L, Eos % (Auto) 0.2, Baso % (Auto) 0.0 L, Neut # (Auto) 17.3 H, Lymph # (Auto) 1.3, [place] # (Auto) 0.3, Eos # (Auto) 0.0, Baso # ( Auto) 0.0 10/12/17 05:44: BUN 5 L D, Creatinine 0.71, Estimated Creat Clear 189, Estimated GFR 90, Est GFR ( Amer) 109, Glucose 160 H D, Calcium 8.6, Total Bilirubin 0.4, ALT 27, Alkaline Phosphatase 81, Total Protein 6.7, Albumin 2.8 L D, Globulin 3.9 H, Albumin/Globulin Ratio 0.7 L I & O for Last 24 hours: Intake & Output 10/09/17 10/10/17 10/11/17 10/12/17 11:59 11:59 11:59 11:59 Intake Total 1999 1422 / 1422 Output Total 850 / 850 Balance 1999 572 / 572 Weight 256 lb 3.011 oz 256 lb 3.011 oz - Constitutional no acute distress - *Routine Respiratory Exam Absent: respiratory distress - *Routine Abdominal Exam Present: soft, tenderness Comments: RUQ TTP essentially unchanged Progress Note: A&P (1) Diverticulitis Status: Acute Assessment and plan: Complete course of abx Close outpatient f/u Outpatient colonoscopy in 6-8 weeks (this can be deferred to gastroenterology secondary to need for evaluation regarding possible Sphincter of Oddi Syndrome) Current Visit: Yes (2) RUQ pain Status: Acute Assessment and plan: Possibility of peptic ulcer disease/gastritis and possibility of Sphincter of Oddi Syndrome Outpatient gastroenterology evaluation with possible HIDA/ERCP Would likely benefit from EGD in near future Current Visit: Yes
[2017-10-12 07:26] LABS: Potassium 4.3 mmoL/L (3.5-5.1)
[2017-10-12 07:29] VITALS: BP 122/74
[2017-10-12 07:35] LABS: Anion Gap 14.3 mEq/L (5-15)
[2017-10-12 08:23] LABS: Lymphocytes % 5 % (10-50); Neutrophils % 94 % (42-76); Total Cells Counted 100
[2017-10-12 08:31] LABS: RBC Morphology Normal
--- NOTE | 2017-10-12 08:56 | Discharge Summary ---
General - General Admission date:: 10/10/17 Discharge date: 10/12/17 HPI HPI: This is a 41-year-old female seen in consultation from Dr. Montemayor for evaluation regarding diverticulitis. She has a long history of pain that is mostly in the right upper quadrant. She presented to the emergency department overnight with increasing right upper quadrant pain and vague pain within the lower abdomen. She was found to have radiographic evidence of sigmoid diverticulitis. No jaundice. No definitive fevers. She describes her pain as "pretty much on the right side and sharp". Some nausea. No jaundice. She is status post laparoscopic cholecystectomy. Below is a forwarded copy of the patient's history of present illness from her admission H&P: 41-year-old white female with no significant GI history except for cholecystectomy in the remote past she has had 2-3 weeks of insidious abdominal pain that is failed to improve with OTC therapy. She has had some diarrhea, some swelling and cramping, has had both upper quadrants hurting and yesterday evening began to have bilateral lower quadrant pain. Came to the emergency department, found to have mild leukocytosis, significant tenderness in her abdomen and CT scan was done which revealed diverticulitis of the sigmoid colon. Interested reader refer to the CT scan report. She is admitted for IV antibiotics and steroids. Hospital Course Hospital Course: Patient was admitted for IV antibiotics and steroids. She was given IV infusions of levaquin and flagyl, as well as solu-medrol. CT of the abdomen/ pelvis was obtained which showed mild diverticulitis of rectosigmoid area and previous cholecystectomy with no ductal dilatation. Surgery was consulted for evaluation. Lower abdominal pain and tenderness has improved. RUQ pain has been an ongoing issue. Surgery recommends referral to Dr. Brice for evaluation of possible PUD/gastritis verses Spincter of Oddi Syndrome. She will need colonoscopy as outpatient in 6-7 weeks, as well. Her diet has been increased and she is tolerating well with no nausea, vomiting or increase in pain. Discharge home on flagyl and prednisone. See medication reconciliation for complete list. FU with myself in one week, Dr. Hewitt in 1-[address] Brice when available. Objective Vital signs: Temp Pulse Resp BP Pulse Ox 98.4 F 83 16 122/74 96 10/12/17 07:28 10/12/17 07:28 10/12/17 07:28 10/12/17 07:28 10/12/17 07:28 Narrative: Alert and oriented x3. Rate and rhythm regular. No LE edema. LS clear. Abdomen soft with RUQ tenderness, no rebound or guarding. No distention Results Labs on day of discharge: Labs from last 24 hours 10/12/17 10/12/17 05:44 05:44 WBC 18.8 H D RBC 4.25 Hgb 12.3 Hct 39.3 MCV 92.3 MCH 28.9 MCHC 31.3 L RDW 13.4 Plt Count 424 MPV 7.3 L Neut % (Auto) 91.7 H Lymph % (Auto) 6.8 L [place] % (Auto) 1.4 L Eos % (Auto) 0.2 Baso % (Auto) 0.0 L Neut # (Auto) 17.3 H Lymph # (Auto) 1.3 [place] # (Auto) 0.3 Eos # (Auto) 0.0 Baso # (Auto) 0.0 Total Counted 100 Neutrophils % (Manual) 94 H Band Neutrophils % 1.0 Lymphocytes % (Manual) 5 L Platelet Estimate Normal RBC Morphology Normal Sodium 141 Potassium 4.3 Chloride 111 H Carbon Dioxide 20 L Anion Gap 14.3 BUN 5 L D Creatinine 0.71 Estimated Creat Clear 189 Estimated GFR 90 Est GFR ( Amer) 109 Glucose 160 H D Calcium 8.6 Total Bilirubin 0.4 AST 16 ALT 27 Alkaline Phosphatase 81 Total Protein 6.7 Albumin 2.8 L D Globulin 3.9 H Albumin/Globulin Ratio 0.7 L DS: Diagnosis - Discharge Diagnosis (1) Diverticulitis Status: Acute (2) RUQ pain Status: Acute Discharge Plan - Patient Discharge Instructions ACTIVITY: Continue current activity DIET: continue same diet Patient Instructions: Low-Fiber/Low-Residue Diet - Follow up Plan Follow up with: Neo Hewitt MD [Staff Physician] - 1 week Unknown provider or service follow up:: FU with myself in one week, FU with Dr. Brice when available Disposition: Home, Self-Snf Medications: Home Medications Medication Instructions Recorded Confirmed Type ALPRAZolam [Xanax 0.5mg tab] 0.5 mg PO BID 06/24/17 10/11/17 History Cetirizine HCl [Zyrtec] 10 mg PO DAILY 06/24/17 10/11/17 History Montelukast Sodium [Singulair 10mg 10 mg PO PM 06/24/17 10/11/17 History tablet] Pantoprazole Sodium [Protonix 40mg 40 mg PO DAILY 06/24/17 10/11/17 History tablet] Atorvastatin Calcium [Atorvastatin 20 mg PO HS 10/10/17 10/11/17 History 20mg Tab] Citalopram Hydrobromide [Celexa 10 mg PO DAILY 10/10/17 10/11/17 History 10mg Tablet] Famotidine [Pepcid] 20 mg PO BID 10/11/17 10/11/17 History Ibuprofen [Ibuprofen 800mg Tab] 800 mg PO TID 10/11/17 10/11/17 History Varenicline Tartrate [Chantix 1mg 1 mg PO BID 10/11/17 10/11/17 History tablet] Prescriptions/Medication Reconciliation: New predniSONE [Deltasone 20mg tablet] 20 mg PO BID 5 Days #10 tab metroNIDAZOLE [Flagyl] 500 mg PO TID 7 Days #21 tab Continue Pantoprazole Sodium [Protonix 40mg tablet] 40 mg PO DAILY Montelukast Sodium [Singulair 10mg tablet] 10 mg PO PM Cetirizine HCl [Zyrtec] 10 mg PO DAILY ALPRAZolam [Xanax 0.5mg tab] 0.5 mg PO BID Citalopram Hydrobromide [Celexa 10mg Tablet] 10 mg PO DAILY Atorvastatin Calcium [Atorvastatin 20mg Tab] 20 mg PO HS Varenicline Tartrate [Chantix 1mg tablet] 1 mg PO BID Famotidine [Pepcid] 20 mg PO BID Discontinued Ibuprofen [Ibuprofen 800mg Tab] 800 mg PO TID
== END 2017-10-12 10:30 | disposition home or self-care (01) ==
LOC: ER 20:36 → 2ND 20:36
PROVIDERS: ADMIT Emergency Medicine; ATTEND Internal Medicine Adolescent Medicine

== ENCOUNTER → 2017-10-18 15:47 | Outpatient (CLI) | payer MEDICAID, SELFPAY ==
[2017-10-18 16:03] LABS: Basophils % 0.2 % (0.1-2.0); Eosinophils # 0.3 K/mm3 (0.0-0.4); Hematocrit 39.1 % (37.0-47.0); Hemoglobin 12.5 g/dL (12.2-16.2); Lymphocytes # 3.2 K/mm3 (0.7-4.5); Lymphocytes % 24.5 K/mm3 (10-50); Mean Corpuscular HGB Conc 32.1 g/dL (31.8-35.4); Mean Corpuscular Hemoglobin 29.5 pg (27.0-31.2); Mean Corpuscular Volume 91.8 fl (81-99); Mean Platelet Volume 7.5 fl (7.4-10.4); Monocytes # 0.4 K/mm3 (0.1-1.0); Neutrophils # 9.1 K/mm3 (1.8-7.8); Neutrophils % 70.4 % (37.0-80.0); Platelet Count 418 K/mm3 (142-424); Red Blood Count 4.26 M/mm3 (4.20-5.40); Red Cell Distribution Width 13.4 % (11.5-17.5); White Blood Count 12.9 K/mm3 (4.8-10.8)
--- NOTE | 2017-10-18 16:04 | MR_ITS ---
MR knee RT w con Ordering Physician: Alia Recinos Patient Age: 41 years: Female HISTORY: ITS.REASON: RIGHT ANTERIOR KNEE PAIN Anterior right knee pain. Pain extends lateral. TECHNIQUE: Sagittal STIR, T1, T2, axial T1 and T2. On 1.5T Siemens wide bore MRI. 3-D MR myelogram image set obtained & performed on MRI workstation. Additional sagittal thin section T2 weighted dataset obtained from this latter acquisition as well (---76 CPT) COMPARISON : Plain films of right knee 06/15/2017 FINDINGS Patellofemoral joint. Normal relationships. Cartilage fairly well-maintained Moderate joint effusion most evident at suprapatellar bursa. Prominent Martines's cyst posterior to the knee 4.5 cm AP, X up to nearly 9 length extending down towards posterior aspect of the upper calf overlying the medial head of gastrocnemius.. In fact the entire Martines's cyst extends beyond the field of view on sagittal images of the with inferior aspect imaged on axial views. There is some wispy edema inferior to this overlying gastrocnemius Lateral compartment . Lateral meniscal tear most pronounced at the body of lateral meniscus and extending towards anterior horn.. There may be a subtle oblique tear at the posterior horn as well but this is less definitive Bone signal changes at lateral margin lateral tibial plateau. These reflect reactive bone changes along with some small osteochondral irregularities seen at the lateral tibial plateau. Both contributing to the increased signal beneath the articular cortex at lateral tibial plateau. . Early Arthritic changes at the lateral compartment with mild joint space narrowing subtle chondral thinning most evident towards its lateral margin and likely involving both lateral tibial plateau and lateral femoral condyle.. Marginal osteophytes most evident about the lateral compartment, most evident laterally lateral margin. Medial compartment. Cartilage well-maintained Medial meniscus intact. The generous volume. Linear signal at posterior horn most likely reflecting grade 2 signal I do not see definitive claudication with the inferior surface although this is somewhat questionable on sagittal image 22 is there is a could be a very subtle inferior meniscal surface disruption. Equivocal at best. The ACL, PCL intact. The medial and lateral collateral ligaments intact. The quadriceps and patellar tendon intact. Minimal nonspecific fluid overlying patella noted. IMPRESSION-------- 1. Lateral meniscal tear. A meniscal tear Most pronounced at the body & extending towards anterior hornlateral meniscus. 2. Joint effusion. 3. Very large Martines's cyst which extends for ~ 9 cm in length. It overlies the medial head gastrocnemius as it extends into the upper calf. Likely palpable . 4... Early degenerative changes, most evident at lateral compartment. ... Mild chondral thinning well compartment.. ... Minor osteochondral irregularities lateral tibial plateau. .
[2017-10-18 16:14] LABS: Alanine Aminotransferase 31 U/L (12-78); Albumin/Globulin Ratio 0.9 (1.1-1.8); Alkaline Phosphatase 96 U/L (46-116); Anion Gap 8.8 mEq/L (5-15); Aspartate Amino Transferase 10 U/L (15-37); Bilirubin,Total 0.5 mg/dL (0.2-1.0); Blood Urea Nitrogen 8 mg/dL (7-18); Calcium 8.6 mg/dL (8.5-10.1); Carbon Dioxide 28 mmol/L (21.0-32.0); Chloride 104 mmol/L (98-107); Creatinine,Serum 1.07 mg/dL (0.55-1.02); Estimated Glomerular Filt Rate 56 ml/min (>60); GFR (African American) 68 ML/MIN (>60); Globulin 3.5 gm/dl (1.3-3.2); Glucose 122 mg/dL (74-106); Potassium 3.8 mmoL/L (3.5-5.1); Sodium 137 mmol/L (136-145); Total Protein,Serum 6.5 gm/dL (6.4-8.2)
== END ==
PROVIDERS: Nurse Practitioner Family; Family Provider Internal Medicine Adolescent Medicine; PCP Internal Medicine Adolescent Medicine; Visit Provider Nurse Practitioner Family
DX: K57.32 Diverticulitis of large intestine without perforation or abscess without bleeding (principal); M25.561 Pain in right knee
CPT/HCPCS: 36415; 73722; 80053; 85025

== ENCOUNTER → 2017-10-30 16:45 | Outpatient (CLI) | payer MEDICAID, SELFPAY ==
[2017-10-30 16:59] LABS: Basophils % 0.4 % (0.1-2.0); Eosinophils # 0.1 K/mm3 (0.0-0.4); Eosinophils % 0.8 % (0.1-12.0); Lymphocytes # 3.4 K/mm3 (0.7-4.5); Lymphocytes % 33.5 K/mm3 (10-50); Mean Corpuscular HGB Conc 33.4 g/dL (31.8-35.4); Mean Corpuscular Hemoglobin 30.9 pg (27.0-31.2); Mean Corpuscular Volume 92.3 fl (81-99); Mean Platelet Volume 6.9 fl (7.4-10.4); Monocytes # 0.4 K/mm3 (0.1-1.0); Monocytes % 3.6 % (1.7-9.3); Neutrophils # 6.3 K/mm3 (1.8-7.8); Neutrophils % 61.7 % (37.0-80.0); Platelet Count 400 K/mm3 (142-424); White Blood Count 10.3 K/mm3 (4.8-10.8)
[2017-10-30 18:43] LABS: Carbon Dioxide 28 mmol/L (21.0-32.0)
[2017-10-30 18:56] LABS: Anion Gap 13.9 mEq/L (5-15); Blood Urea Nitrogen 7 mg/dL (7-18); Calcium 8.6 mg/dL (8.5-10.1); Chloride 106 mmol/L (98-107); Creatinine,Serum 0.88 mg/dL (0.55-1.02); Estimated Glomerular Filt Rate 70 ml/min (>60); GFR (African American) 85 ML/MIN (>60); Glucose 92 mg/dL (74-106); Potassium 3.9 mmoL/L (3.5-5.1); Sodium 142 mmol/L (136-145)
[2017-11-01 17:12] LABS: Vitamin B12 494 pg/mL (232-1245)
== END ==
PROVIDERS: Visit Provider Nurse Practitioner Family
DX: D72.829 Elevated white blood cell count, unspecified (principal); E87.6 Hypokalemia; E53.8 Deficiency of other specified B group vitamins
CPT/HCPCS: 36415; 80048; 82607; 85025

== ENCOUNTER → 2017-11-29 13:47 | Outpatient (CLI) | payer MEDICAID, SELFPAY ==
--- NOTE | 2017-11-29 14:00 | XR_ITS ---
XR hand RT min 3V HISTORY: Pain ITS.REASON: ARTHRITIS, CMC ORDERING PHYSICIAN: Darnell Montemayor MD PATIENT AGE: 42 years COMPARISON: 08/17/2016 FINDINGS: There are osteoarthritic changes of the first metacarpal carpal joint with some bony hypertrophic changes at the base of the second metacarpal and base of the first metacarpal. No fracture or dislocation. No erosive change. IMPRESSION: Osteoarthritic change of the first metacarpal carpal joint otherwise negative
[2017-11-29 14:05] LABS: Basophils % 0.3 % (0.1-2.0); Eosinophils # 0.1 K/mm3 (0.0-0.4); Hematocrit 37.8 % (37.0-47.0); Hemoglobin 12.3 g/dL (12.2-16.2); Lymphocytes % 33.1 K/mm3 (10-50); Mean Corpuscular HGB Conc 32.4 g/dL (31.8-35.4); Mean Corpuscular Hemoglobin 29.8 pg (27.0-31.2); Mean Corpuscular Volume 91.9 fl (81-99); Monocytes # 0.3 K/mm3 (0.1-1.0); Monocytes % 3.8 % (1.7-9.3); Neutrophils # 5.6 K/mm3 (1.8-7.8); Neutrophils % 61.8 % (37.0-80.0); Platelet Count 366 K/mm3 (142-424); Red Blood Count 4.12 M/mm3 (4.20-5.40); Red Cell Distribution Width 13.6 % (11.5-17.5); White Blood Count 9.1 K/mm3 (4.8-10.8)
[2017-11-29 15:25] LABS: Erythrocyte Sedimentation Rate 34 mm/hr (0-20)
[2017-11-29 15:36] LABS: Alanine Aminotransferase 30 U/L (12-78); Albumin Level 3.3 gm/dL (3.4-5.0); Alkaline Phosphatase 90 U/L (46-116); Anion Gap 13.1 mEq/L (5-15); Aspartate Amino Transferase 12 U/L (15-37); Bilirubin,Total 0.6 mg/dL (0.2-1.0); Blood Urea Nitrogen 9 mg/dL (7-18); Calcium 9.1 mg/dL (8.5-10.1); Carbon Dioxide 27 mmol/L (21.0-32.0); Chloride 105 mmol/L (98-107); Creatinine,Serum 0.91 mg/dL (0.55-1.02); Estimated Glomerular Filt Rate 67 ml/min (>60); GFR (African American) 82 ML/MIN (>60); Globulin 3.4 gm/dl (1.3-3.2); Glucose 101 mg/dL (74-106); Potassium 4.1 mmoL/L (3.5-5.1); Sodium 141 mmol/L (136-145); Total Protein,Serum 6.7 gm/dL (6.4-8.2); Uric Acid 3.9 mg/dL (2.6-7.2)
== END ==
PROVIDERS: PCP Internal Medicine Adolescent Medicine; Visit Provider Internal Medicine Adolescent Medicine
DX: M18.11 Unilateral primary osteoarthritis of first carpometacarpal joint, right hand (principal)
CPT/HCPCS: 36415; 73130; 80053; 84550; 85025; 85651

== ENCOUNTER → 2018-03-01 18:28 | Outpatient (CLI) | payer MEDICAID, SELFPAY ==
[2018-03-01 18:32] LABS: Adenovirus F 40/41, stool Not Detected (NotDetected); Astrovirus Not Detected (NotDetected); Campylobacter Not Detected (NotDetected); Clostridium Difficile A/B, PCR Not Detected (NotDetected); Cryptosporidium Not Detected (NotDetected); Cyclospora Cayetanesis Not Detected (NotDetected); Entamoeba histolytica Not Detected (NotDetected); Enteroaggregative E coli Not Detected (NotDetected); Enteropathogenic E coli Not Detected (NotDetected); Enterotoxigenic E coli Not Detected (NotDetected); Giardia lamblia Not Detected (NotDetected); Norovirus Not Detected (NotDetected); Plesimonas Shigalloides, PCR Not Detected (NotDetected); Rotavirus A Not Detected (NotDetected); Salmonella, PCR Not Detected (NotDetected); Sapovirus Not Detected (NotDetected); Shiga-like toxin E coli Not Detected (NotDetected); Shigella Enterovasive E coli Not Detected (NotDetected); Vibrio Cholerae Not Detected (NotDetected); Vibrio, PCR Not Detected (NotDetected); Yersinia Entercolitica, PCR Not Detected (NotDetected)
== END ==
PROVIDERS: Visit Provider Internal Medicine Adolescent Medicine
DX: R10.32 Left lower quadrant pain (principal)
CPT/HCPCS: 87507

== ENCOUNTER → 2018-05-17 14:58 | Outpatient (CLI) | payer MEDICAID, SELFPAY ==
[2018-05-17 15:45] LABS: HCG Qualitative, Serum Negative (Negative)
[2018-05-17 15:51] LABS: Basophils # 0.1 K/mm3 (0-0.2); Basophils % 0.5 % (0.1-2.0); Eosinophils # 0.1 K/mm3 (0.0-0.4); Eosinophils % 0.9 % (0.1-12.0); Hematocrit 40.3 % (37.0-47.0); Hemoglobin 12.8 g/dL (12.2-16.2); Lymphocytes # 3.1 K/mm3 (0.7-4.5); Lymphocytes % 33.9 % (10-50); Mean Corpuscular HGB Conc 31.6 g/dL (31.8-35.4); Mean Corpuscular Hemoglobin 30.3 pg (27.0-31.2); Mean Corpuscular Volume 95.7 fl (81-99); Mean Platelet Volume 7.2 fl (7.4-10.4); Monocytes # 0.4 K/mm3 (0.1-1.0); Monocytes % 4.2 % (1.7-9.3); Neutrophils # 5.5 K/mm3 (1.8-7.8); Neutrophils % 60.5 % (37.0-80.0); Platelet Count 424 K/mm3 (142-424); Red Blood Count 4.21 M/mm3 (4.20-5.40); Red Cell Distribution Width 13.9 % (11.5-17.5)
[2018-05-17 18:15] LABS: Anion Gap 11.1 mEq/L (5-15); Blood Urea Nitrogen 8 mg/dL (7-18); Calcium 8.7 mg/dL (8.5-10.1); Carbon Dioxide 28 mmol/L (21.0-32.0); Chloride 106 mmol/L (98-107); Creatinine,Serum 0.88 mg/dL (0.55-1.02); Estimated Glomerular Filt Rate 70 ml/min (>60); GFR (African American) 85 ML/MIN (>60); Glucose 110 mg/dL (74-106); Potassium 4.1 mmoL/L (3.5-5.1); Sodium 141 mmol/L (136-145)
== END ==
PROVIDERS: PCP Internal Medicine Adolescent Medicine; Visit Provider Orthopaedic Surgery
DX: Z01.818 Encounter for other preprocedural examination (principal); S83.241A Other tear of medial meniscus, current injury, right knee, initial encounter
CPT/HCPCS: 36415; 80048; 84703; 85025

== ENCOUNTER → 2018-05-25 09:00 | Outpatient (CLI) | payer MEDICAID, SELFPAY ==
--- NOTE | 2018-05-25 09:09 | XR_ITS ---
XR knee RT 2V HISTORY: Follow-up surgery, knee pain ITS.REASON: ap lateral NON WEIGHTBEARING ORDERING PHYSICIAN: Francois Brody MD PATIENT AGE: 42 years COMPARISON: 05/22/2018 FINDINGS: Status post subchondral plasty in the lateral aspect of the proximal tibia with increased density in that region along with a central lucency from the needle tract. Normal alignment. No fracture or dislocation. There is mild osteoarthritic change of the lateral compartment. IMPRESSION: Status post subchondral plasty lateral aspect of the proximal tibia with mild osteoarthritis
== END ==
PROVIDERS: PCP Internal Medicine Adolescent Medicine; Visit Provider Orthopaedic Surgery
DX: Z47.89 Encounter for other orthopedic aftercare (principal); M25.561 Pain in right knee
CPT/HCPCS: 73560

== ENCOUNTER → 2018-07-06 08:50 | Outpatient (CLI) | payer MEDICAID, SELFPAY ==
--- NOTE | 2018-07-06 09:02 | XR_ITS ---
XR XR knee RT 4V Comparison: May 25, 2018 & May 22, 2018 intraoperative images History: Previous procedure May2018 Technique: Weightbearing AP, lateral and [place] views were performed as well as oblique. Findings: . There is increased bone density seen at the lateral proximal tibia- beneath the lateral tibial plateau reflecting the previous subchondral plasty performed in May. On this area appears similar distribution to what was seen on the prior 05/25/2018 right knee study. Similar if degree of bone density. Slightly slightly denser appearance on today's study I believe merely due to technique Degenerative arthritic changes at the right knee are again evident with narrowing of the lateral compartment.-Narrowing lateral compartment & Slightly more evident on today's standing films versus previous nonweightbearing views from 05/25/2018.. Marginal osteophytes most evident about the margin of the lateral compartment-these is been seen previously Patellofemoral relationships appear normal. Medial compartment maintained unremarkable. No joint effusion. IMPRESSION 1. Status post subchondral plasty of beneath the lateral tibial plateau. Similar appearance to the previous 05/25/2018 study. 2. Degenerative arthritic changes at the lateral compartment. Narrowing lateral joint space and marginal osteophytes
== END ==
PROVIDERS: PCP Internal Medicine Adolescent Medicine; Visit Provider Orthopaedic Surgery
DX: M25.561 Pain in right knee (principal); Z09 Encounter for follow-up examination after completed treatment for conditions other than malignant neoplasm
CPT/HCPCS: 73564

== ENCOUNTER 2018-07-19 10:30 | Outpatient (RCR) | payer MEDICAID, SELFPAY ==
--- NOTE | 2018-06-11 14:13 | HMH.PTOPEV ---
PT Outpatient Evaluation Rehab PT Outpatient Evaluation Start: 06/11/18 14:05 Freq: Status: Active Protocol: Document 06/11/18 14:05 FRANDY (Rec: 06/11/18 14:12 FRANDY [id number]) Electronically Signed By Chris Diaz, PT 06/11/18 14:05 Outpatient Therapy Subjective History Subjective History Pt presents s/p R knee scope w /lateral meniscectomy, and subchondroplasty on 05/22/18. Pt reports significant post-op R knee soreness, and numbness around incision area. Pt reports limited ROM and strength d/t pain w/follow-up scheduled for 07/06/18. Chief Complaint Pain Stiff Paresthesia Weakness Symptom Type Ache Sharp Dull Numbness Symptoms Relieved By Rest/Positioning Ice Symptoms Aggravated By Standing Physical Activity Walking Prior Functional Limitations Housework Standing Walking Bending/Stooping Current Functional Limitations Housework Standing Squatting Walking Stairs Symptom Description Constant but Variable Level of pain today (0-10) 3 Pain scale - at its best (0-10) 2 Pain scale - at its worst (0-10) 6 Hip/Knee Eval Gait Observation General Gait Pattern Observation Antalgic Gait Wide Based Gait Decrease Weight Bear (R) Assistive Device Assistive Devices None / NA Palpation Tenderness right Knee Palpation Finding Tenderness Knee Palpation Overall Comment 3/4 lateral jt line, anterio- medial jt line MMT Hip Flexion Strength Grade 4- Good- Hip Abduction Strength Grade 4- Good- Hip Adduction Strength Grade 4- Good- Hip Extension Strength Grade 4 Good Hip External Rotation Strength Grade 4 Good Hip Internal Rotation Strength Grade 4 Good Knee Extension Strength Grade 4- Good- Knee Flexion Strength Grade 4- Good- ROM left Knee Flexion Active Range of Motion ( 0-135 degrees) Knee ROM Reason Not Measured Within Functional Limits ri
== END 2018-07-19 10:35 | disposition home or self-care (01) ==
LOC: PT 10:30
PROVIDERS: Visit Provider Orthopaedic Surgery
DX: M25.561 Pain in right knee (principal)
CPT/HCPCS: 97010; 97014; 97016; 97033; 97035; 97110; 97163; 97164; G0283

== ENCOUNTER → 2018-07-23 10:37 | Outpatient (CLI) | payer MEDICAID, SELFPAY ==
--- NOTE | 2018-07-23 10:39 | MR_ITS ---
MR knee RT wo con Ordering Physician: Francois Brody MD Patient Age: 42 years: Female HISTORY: ITS.REASON: surgery 05/22/18, still having pain Diffuse pain about the knee. Swelling. TECHNIQUE: Multiplanar multisequence imaging on 1.5 [facility]. COMPARISON :Plain films right knee now just become available. 07/06/2018 into May MRI of right knee 10/18/2017 & FINDINGS MEDIAL COMPARTMENT Interval left meniscal repair May 2017. With Marked changes at lateral compartment The anterior horn & body region of the lateral meniscus now with diffuse increased intensity signal. Appear to be diffuse edematous and suspect meniscal injury and possible additional meniscal tears involving anterior horn & anterior body with this MR appearance- although this appearance requires correlation with surgical history/procedure. On sagittal image 7 there appears to be a Horizontal meniscal tear likely extends to the free inner margin. This is near the posterior horn, body junction.. Continuing further posteriorly the at the far posterior meniscus and meniscal root appear intact.. Moving further posteriorly, the posterior horn lateral meniscus it now appears quite truncation. Abrupt loss of inner margin. Slight increased signal here throughout the posterior horn. This may reflect meniscal trimming/postsurgical change although could reflect interval inner margin tear tear. ------ The arthritic changes, marginal osteophytes & Diffuse chondral loss at lateral Compartment was seen before but appears more pronounced today. Additional chondral thinning and edema lateral compartment.. There is a now a large area of abnormal signal beneath the lateral tibial plateau. I suspect there may have been a a previous subchondral plasty procedure accounting for these changes beneath the lateral tibial plateau. Period prior sclerosis is been seen on May and now recent plain films right knee If no interval subchondroplasty then this may reflect reactive bone change or mightalso consider with this appearance bone infarct or AVN. . This low signal area from the subchoplasty procedure spans spans 2.5 cm, immediately at and beneath the lateral tibial plateau cortex. High signal bone edema pattern then surrounding this low signal area. The bone edema extending to the proximal tibial metaphysis laterally & tracking towards tibial spines medially. There is a subtle line transversing this low signal area-possibly reflect residual of the old close growth plate or less likely a microfracture transversing this region. I would note that the Cortex of the tibial plateau remains intact with no focal defect nor concavity.. No impaction.. Its configuration appears similar to previous study. No discrete cortical disruption or fracture involving the tibial plateau cortex .--- LATERAL COMPARTMENT the lateral compartment remains well maintained. The lateral meniscus intact. Cartilage at the joint space better maintained. 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 This Martines's cyst extends at least 9 cm length overlying the medial head of gastrocnemius, x 2.2 cm wide times at least 3.5 cm AP. There could be some minimal leakage from the Martines's cyst as it has somewhat ill-defined margins. Or this could be merely some generalized edema adjacent to it. PATELLOFEMORAL JOINT.. Slight motion the axial view but patellofemoral joint appears stable and intact. Cartilage well-maintained. LIGAMENTS/tendons The ACL and PCL intact. Medial collateral and lateral collateral ligaments unremarkable. . There is slight redundancy of the patellar tendon inferiorly near its its tibial insertion of but I see no associated tear of patellar tendon nor quadriceps tendon. S
== END ==
PROVIDERS: PCP Internal Medicine Adolescent Medicine; Visit Provider Orthopaedic Surgery
DX: M25.561 Pain in right knee (principal); Z09 Encounter for follow-up examination after completed treatment for conditions other than malignant neoplasm
CPT/HCPCS: 73721

== ENCOUNTER → 2018-07-26 10:27 | Outpatient (CLI) | payer MEDICAID, SELFPAY ==
[2018-07-26 10:47] LABS: Basophils % 0.3 % (0.1-2.0); Eosinophils # 0.1 K/mm3 (0.0-0.4); Eosinophils % 1.1 % (0.1-12.0); Hematocrit 39.4 % (37.0-47.0); Lymphocytes % 30.2 % (10-50); Mean Corpuscular HGB Conc 32.9 g/dL (31.8-35.4); Mean Corpuscular Hemoglobin 30.5 pg (27.0-31.2); Mean Corpuscular Volume 92.8 fl (81-99); Mean Platelet Volume 6.6 fl (7.4-10.4); Monocytes # 0.4 K/mm3 (0.1-1.0); Monocytes % 4.1 % (1.7-9.3); Neutrophils # 6.3 K/mm3 (1.8-7.8); Neutrophils % 64.3 % (37.0-80.0); Platelet Count 413 K/mm3 (142-424); Red Blood Count 4.24 M/mm3 (4.20-5.40); Red Cell Distribution Width 13.2 % (11.5-17.5); White Blood Count 9.8 K/mm3 (4.8-10.8)
[2018-07-26 11:07] LABS: C-Reactive Protein 0.8 mg/L (0.0-0.9)
[2018-07-26 11:32] LABS: Erythrocyte Sedimentation Rate 47 mm/hr (0-20)
== END ==
PROVIDERS: Visit Provider Orthopaedic Surgery
DX: Z48.89 Encounter for other specified surgical aftercare (principal)
CPT/HCPCS: 36415; 85025; 85651; 86140; 87070; 87205

== ENCOUNTER → 2018-08-02 08:56 | Outpatient (CLI) | payer MEDICAID, SELFPAY ==
[2018-08-02 09:13] LABS: Basophils # 0.1 K/mm3 (0-0.2); Basophils % 0.8 % (0.1-2.0); Eosinophils # 0.1 K/mm3 (0.0-0.4); Eosinophils % 1.9 % (0.1-12.0); Hematocrit 38.3 % (37.0-47.0); Hemoglobin 12.8 g/dL (12.2-16.2); Lymphocytes # 2.7 K/mm3 (0.7-4.5); Mean Corpuscular HGB Conc 33.3 g/dL (31.8-35.4); Mean Corpuscular Hemoglobin 30.4 pg (27.0-31.2); Mean Corpuscular Volume 91.1 fl (81-99); Mean Platelet Volume 6.7 fl (7.4-10.4); Monocytes # 0.3 K/mm3 (0.1-1.0); Monocytes % 4.4 % (1.7-9.3); Neutrophils # 4.2 K/mm3 (1.8-7.8); Neutrophils % 56.9 % (37.0-80.0); Platelet Count 465 K/mm3 (142-424); White Blood Count 7.4 K/mm3 (4.8-10.8)
[2018-08-02 09:51] LABS: C-Reactive Protein 0.6 mg/L (0.0-0.9)
[2018-08-02 10:02] LABS: Erythrocyte Sedimentation Rate 48 mm/hr (0-20)
--- NOTE | 2018-08-02 11:55 | XR_ITS ---
XR knee RT 4V HISTORY: Persistent knee pain ITS.REASON: 4 views weightbearing ORDERING PHYSICIAN: Francois Brody MD PATIENT AGE: 42 years COMPARISON: 07/06/2018 FINDINGS: Status post lateral subchondral plasty of the proximal tibia. There are mild osteoarthritic changes of the medial and lateral compartment. IMPRESSION: No change osteoarthritic changes and post subacute chondroplasty changes of the right lateral tibial condyle
== END ==
PROVIDERS: PCP Internal Medicine Adolescent Medicine; Visit Provider Orthopaedic Surgery
DX: Z09 Encounter for follow-up examination after completed treatment for conditions other than malignant neoplasm (principal); B99.9 Unspecified infectious disease; M25.561 Pain in right knee
CPT/HCPCS: 36415; 73564; 85025; 85651; 86140

== ENCOUNTER → 2018-08-09 16:17 | Outpatient (CLI) | payer MEDICAID, SELFPAY ==
[2018-08-09 16:43] LABS: Basophils # 0.1 K/mm3 (0-0.2); Basophils % 0.7 % (0.1-2.0); Eosinophils % 0.5 % (0.1-12.0); Hematocrit 38.2 % (37.0-47.0); Hemoglobin 12.7 g/dL (12.2-16.2); Lymphocytes # 2.9 K/mm3 (0.7-4.5); Lymphocytes % 36.8 % (10-50); Mean Corpuscular HGB Conc 33.4 g/dL (31.8-35.4); Mean Corpuscular Hemoglobin 30.3 pg (27.0-31.2); Mean Corpuscular Volume 90.9 fl (81-99); Mean Platelet Volume 6.9 fl (7.4-10.4); Monocytes # 0.4 K/mm3 (0.1-1.0); Neutrophils # 4.5 K/mm3 (1.8-7.8); Neutrophils % 56.8 % (37.0-80.0); Platelet Count 462 K/mm3 (142-424); Red Cell Distribution Width 13.1 % (11.5-17.5); White Blood Count 7.9 K/mm3 (4.8-10.8)
[2018-08-09 16:54] LABS: C-Reactive Protein < 0.2 mg/L (0.0-0.9)
[2018-08-09 17:51] LABS: Erythrocyte Sedimentation Rate 30 mm/hr (0-20)
== END ==
PROVIDERS: Visit Provider Orthopaedic Surgery
DX: Z48.89 Encounter for other specified surgical aftercare (principal)
CPT/HCPCS: 36415; 85025; 85651; 86140

== ENCOUNTER → 2018-08-10 07:43 | Outpatient (CLI) | payer MEDICAID, SELFPAY ==
--- NOTE | 2018-08-10 07:45 | NM_ITS ---
NM bone 3 phase CLINICAL INDICATION: Right knee pain and swelling, recent knee surgery ITS.REASON: rule out infection; limited study RIGHT KNEE. ORDERING PHYSICIAN: Francois Brody MD PATIENT AGE: 42 years Comparison: 08/02/2018 DOSE: 26.3 mCi technetium MDP FINDINGS: Limited images are obtained of the knees. Blood flow images show increased blood flow to the lateral aspect of the right knee. Blood flow and delayed images also show increased activity to the lateral aspect of the right knee in the proximal right tibia laterally becoming intense on the delayed images. These findings are suspicious for osteomyelitis. IMPRESSION: Abnormal 3 phase bone scan showing increased activity to the lateral aspect of the right knee/proximal tibia on all 3 phases consistent with osteomyelitis
== END ==
PROVIDERS: PCP Internal Medicine Adolescent Medicine; Visit Provider Orthopaedic Surgery
DX: Z48.89 Encounter for other specified surgical aftercare (principal); B99.9 Unspecified infectious disease; M17.11 Unilateral primary osteoarthritis, right knee
CPT/HCPCS: 78315; A9503

== ENCOUNTER → 2018-08-28 17:02 | Outpatient (CLI) | payer MEDICAID, SELFPAY ==
[2018-08-28 17:42] LABS: Basophils % 0.6 % (0.1-2.0); Eosinophils % 0.5 % (0.1-12.0); Hematocrit 37.6 % (37.0-47.0); Hemoglobin 12.8 g/dL (12.2-16.2); Lymphocytes # 2.6 K/mm3 (0.7-4.5); Mean Corpuscular Hemoglobin 30.5 pg (27.0-31.2); Mean Corpuscular Volume 89.5 fl (81-99); Mean Platelet Volume 6.8 fl (7.4-10.4); Monocytes # 0.3 K/mm3 (0.1-1.0); Monocytes % 3.8 % (1.7-9.3); Neutrophils # 4.2 K/mm3 (1.8-7.8); Neutrophils % 59.2 % (37.0-80.0); Platelet Count 382 K/mm3 (142-424); Red Cell Distribution Width 13.2 % (11.5-17.5); White Blood Count 7.1 K/mm3 (4.8-10.8)
[2018-08-28 17:50] LABS: C-Reactive Protein 0.5 mg/L (0.0-0.9)
[2018-08-28 18:21] LABS: Erythrocyte Sedimentation Rate 33 mm/hr (0-20)
== END ==
PROVIDERS: Visit Provider Orthopaedic Surgery
DX: Z48.89 Encounter for other specified surgical aftercare (principal); Z09 Encounter for follow-up examination after completed treatment for conditions other than malignant neoplasm
CPT/HCPCS: 36415; 85025; 85651; 86140

== ENCOUNTER 2018-09-01 13:15 | Emergency (ER) | payer MEDICAID, SELFPAY ==
[2018-09-01 13:28] VITALS: BP 133/87; PULSE 102; RESP 20; TEMP 37.1; O2SAT 96; BMI 34.2
--- NOTE | 2018-09-01 13:31 | HMH.EDUTC ---
[facility] [place] Disposition Clinical Impression: Vomiting and diarrhea Disposition: Home, Self-Care Condition on Discharge: Good Instructions: Diarrhea, DI for Nausea -- Adult, DI for Vomiting -- Adult, Nausea and Vomiting-Adult Additional Instructions: ? Drink extra fluids with and between meals. If you have difficulty drinking, try very small amounts of water or suck on ice chips. ? Avoid fruit juices, as these do not replace minerals and can actually increase diarrhea. ? Children and adults can use sports drinks to replenish electrolytes. Younger children and infants should use products formulated for children, like oral rehydration solutions. ? Eat food in small amounts and let your stomach recover. ? Get lots of rest. You may feel tired or weak. ? No greasy or fried foods for the next 24-48 hours BRAT diet Bananas Rice Apples and [place] ? Make sure to drink plenty of liquids ? Return if needed ? Straight to ER if any life threatening symptoms ? Zofran as prescribed You was given out patient order for a diarrhea panel, collect diarrhea sample and bring back to hospital to out patient lab then follow up with family doctor the next day or call back to the [facility] for results Follow up with family doctor in the next 48-72 hours or sooner if no improvement or any worsening of symptoms Prescriptions: Ondansetron [Zofran 4mg ODT] 4 mg PO Q8HP PRN #10 tab.rapdis PRN Reason: Nausea Referrals: Darnell Montemayor MD [Primary Care Provider] - As needed Forms: Work/School Release Medical Decision Making - Cassius Inquiry Pt receiving controlled substance: No Cassius was queried for this patient: No Vital Signs: 09/01/18 13:28 Temperature 98.7 F Temperature Source Oral Pulse Rate [Right Brachial] 102 H Respiratory Rate 20 Blood Pressure [Right Arm] 133/87 Blood Pressure Mean [Right Arm] 102 Blood Pressure Source [Right Arm] Automatic Cuff Blood Pressure Position [Right Arm] Sitting 02 Sat by Pulse Oximetry 96 Oxygen Delivery Method Room Air Orders (Tests/Meds): ED MEDICATIONS Discontinued Medications Generic Name Dose Route Start Last Admin Trade Name Freq PRN Reason Stop Dose Admin Ondansetron HCl 4 mg 09/01/18 13:33 09/01/18 13:35 Zofran 4mg Odt SL 09/01/18 13:34 4 mg ONCE ONE Administration - Reevaluation(s) Time: 13:51 Reevaluation #1: Patient state that nausea is much better after medication and able to drink water without vomiting [facility] [place] HPI - General Stated complaint: Vomiting/Fever Time Seen by Provider: 09/01/18 13:32 Mode of Arrival: Family Vehicle Source of Information: Patient Limitations: No Limitations Description of Symptoms (Recalled from Triage Doc. by RN): c/o nausea and vomiting and cant keep anything down since last night HEENT Symptoms (Recalled from RN notes): No Resp Symptoms (Recalled from RN notes): No Skin Symptoms (Recalled from RN notes): No MS Symptoms (Recalled from RN notes): No Functional Status (Recalled from RN notes): n/a - History of Present Illness Provider Complaint: Patient state that last night she started having nausea, vomiting, and diarrhea States that she hasn't been able to keep anything down States that this morning she felt like she had a fever and took some Tyelnol States that she laid back down and has continued to have vomiting and diarrhea so she came in States that she is unsure if she has been around someone with the virus but she works at a [employer] - Related Data Home Medications Medication Instructions Recorded Confirmed ALPRAZolam [Xanax 0.5mg tab] 0.5 mg PO BID 06/24/17 08/02/18 Cetirizine HCl [Zyrtec] 10 mg PO DAILY 06/24/17 08/02/18 Pantoprazole Sodium [Protonix 40mg 40 mg PO DAILY 06/24/17 08/02/18 tablet] Atorvastatin Calcium [Atorvastatin 20 mg PO HS 10/10/17 08/02/18 20mg Tab] Citalopram Hydrobromide [Celexa 10 mg PO DAILY 10/10/17 08/02/18 10mg Tablet] Famotidine [Pepcid] 20 mg PO BID 10/11/17 08/02/18 di
--- NOTE | 2018-09-01 13:36 | ED_ITS ---
[facility] [place] Clinical Impression: Vomiting and diarrhea Disposition: Home, Self-Care Condition on Discharge: Good Instructions: Diarrhea, DI for Nausea -- Adult, DI for Vomiting -- Adult, Nausea and Vomiting-Adult Additional Instructions: ? Drink extra fluids with and between meals. If you have difficulty drinking, try very small amounts of water or suck on ice chips. ? Avoid fruit juices, as these do not replace minerals and can actually increase diarrhea. ? Children and adults can use sports drinks to replenish electrolytes. Younger children and infants should use products formulated for children, like oral rehydration solutions. ? Eat food in small amounts and let your stomach recover. ? Get lots of rest. You may feel tired or weak. ? No greasy or fried foods for the next 24-48 hours BRAT diet Bananas Rice Apples and [place] ? Make sure to drink plenty of liquids ? Return if needed ? Straight to ER if any life threatening symptoms ? Zofran as prescribed You was given out patient order for a diarrhea panel, collect diarrhea sample and bring back to hospital to out patient lab then follow up with family doctor the next day or call back to the [facility] for results Follow up with family doctor in the next 48-72 hours or sooner if no improvement or any worsening of symptoms Prescriptions: Ondansetron [Zofran 4mg ODT] 4 mg PO Q8HP PRN #10 tab.rapdis PRN Reason: Nausea Referrals: Darnell Montemayor MD [Primary Care Provider] - As needed Forms: Work/School Release Medical Decision Making - Cassius Inquiry Pt receiving controlled substance: No Cassius was queried for this patient: No Vital Signs: 09/01/18 13:28 Temperature 98.7 F Temperature Source Oral Pulse Rate [Right Brachial] 102 H Respiratory Rate 20 Blood Pressure [Right Arm] 133/87 Blood Pressure Mean [Right Arm] 102 Blood Pressure Source [Right Arm] Automatic Cuff Blood Pressure Position [Right Arm] Sitting 02 Sat by Pulse Oximetry 96 Oxygen Delivery Method Room Air Orders (Tests/Meds): ED MEDICATIONS Discontinued Medications Generic Name Dose Route Start Last Admin Trade Name Freq PRN Reason Stop Dose Admin Ondansetron HCl 4 mg 09/01/18 13:33 09/01/18 13:35 Zofran 4mg Odt SL 09/01/18 13:34 4 mg ONCE ONE Administration - Reevaluation(s) Time: 13:51 Reevaluation #1: Patient state that nausea is much better after medication and able to drink water without vomiting [facility] [place] HPI - General Stated complaint: Vomiting/Fever Time Seen by Provider: 09/01/18 13:32 Mode of Arrival: Family Vehicle Source of Information: Patient Limitations: No Limitations Description of Symptoms (Recalled from Triage Doc. by RN): c/o nausea and vomiting and cant keep anything down since last night HEENT Symptoms (Recalled from RN notes): No Resp Symptoms (Recalled from RN notes): No Skin Symptoms (Recalled from RN notes): No MS Symptoms (Recalled from RN notes): No Functional Status (Recalled from RN notes): n/a - History of Present Illness Provider Complaint: Patient state that last night she started having nausea, vomiting, and diarrhea States that she hasn't been able to keep anything down States that this morning she felt like she had a fever and took some Tyelnol States that she laid back down and has continued to have vomiting and d
[2018-09-01 13:53] VITALS: BP 133/87; PULSE 102; RESP 20; TEMP 37.1; O2SAT 96
== END 2018-09-01 13:57 | disposition home or self-care (01) ==
PROVIDERS: Emergency Provider Nurse Practitioner; PCP Internal Medicine Adolescent Medicine
DX: R11.2 Nausea with vomiting, unspecified (principal); F41.8 Other specified anxiety disorders; K21.9 Gastro-esophageal reflux disease without esophagitis; F17.210 Nicotine dependence, cigarettes, uncomplicated; Z88.5 Allergy status to narcotic agent
CPT/HCPCS: 99201

== ENCOUNTER → 2018-09-06 11:01 | Outpatient (CLI) | payer MEDICAID, SELFPAY ==
[2018-09-06 13:28] LABS: Alanine Aminotransferase 32 U/L (12-78); Albumin Level 3.2 gm/dL (3.4-5.0); Albumin/Globulin Ratio 0.9 (1.1-1.8); Alkaline Phosphatase 99 U/L (46-116); Anion Gap 11.6 mEq/L (5-15); Aspartate Amino Transferase 16 U/L (15-37); Bilirubin,Total 0.5 mg/dL (0.2-1.0); Blood Urea Nitrogen 8 mg/dL (7-18); Calcium 8.6 mg/dL (8.5-10.1); Carbon Dioxide 26 mmol/L (21.0-32.0); Chloride 108 mmol/L (98-107); Chol/HDL Ratio 4.3 (1-3.5); Cholesterol 171 mg/dL (140-200); Estimated Glomerular Filt Rate 78 ml/min (>60); GFR (African American) 95 ML/MIN (>60); Globulin 3.4 gm/dl (1.3-3.2); Glucose 97 mg/dL (74-106); HDL Cholesterol 40 mg/dL (29-89); LDL Cholesterol 98 mg/dL (0-130); Potassium 4.6 mmoL/L (3.5-5.1); Sodium 141 mmol/L (136-145); Thyroid Stimulating Hormone 0.93 uIU/ml (0.358-3.740); Total Protein,Serum 6.6 gm/dL (6.4-8.2); Triglycerides 166 mg/dL (30-200); VLDL Cholesterol 33 mg/dL (0-40)
[2018-09-07 20:49] LABS: Vitamin B12 316 pg/mL (232-1245); Vitamin D 25 Hydroxy 30.7 ng/mL (30.0-100.0)
== END ==
PROVIDERS: Visit Provider Nurse Practitioner Family
DX: Z00.00 Encounter for general adult medical examination without abnormal findings (principal); F41.1 Generalized anxiety disorder; R53.83 Other fatigue
CPT/HCPCS: 36415; 80053; 80061; 82607; 82652; 84443

== ENCOUNTER → 2018-09-11 12:10 | Outpatient (CLI) | payer MEDICAID, SELFPAY ==
--- NOTE | 2018-09-11 12:14 | NVE_ITS ---
Venous Exam Indications: 729.81 Swelling of limb. IMPRESSIONS 1. There is no evidence of significant Reflux. 2. No evidence of deep or superficial vein thrombosis involving the right lower extremity Right lower extremity venous duplex evaluation. Doppler flow study including spectral analysis, color and munroe scale imaging. Location: Vascular laboratory. Patient status: Outpatient. CRITICAL FINDINGS - Reported to: Chen Montemayor's office - Read back and verified. - 09/11/18 - 1230 - None Tables: Venous flow and imaging: + +-------+ + Location Overall Flow properties + +-------+ + Right common femoral Patent Normal phasicity; spontaneous; normal augmentation; compressible + +-------+ + Right saphenofemoral junction Patent Compressible + +-------+ + Right profunda femoral Patent Compressible + +-------+ + Right femoral Patent Normal phasicity; spontaneous; normal augmentation; compressible + +-------+ + Right greater saphenous Patent Normal phasicity; spontaneous; normal augmentation; compressible + +-------+ + Right popliteal Patent Normal phasicity; spontaneous; normal augmentation; compressible + +-------+ + Right posterior tibial Patent Compressible + +-------+ + Right peroneal Patent Compressible + +-------+ + Right gastrocnemius Patent Compressible + +-------+ + Right soleal Patent Compressible + +-------+ + (Report amended ) Electronically signed by: Luke Yanes [id number]
== END ==
PROVIDERS: PCP Internal Medicine Adolescent Medicine; Visit Provider Nurse Practitioner
DX: M79.604 Pain in right leg (principal); M79.89 Other specified soft tissue disorders
CPT/HCPCS: 93971

== ENCOUNTER → 2018-09-12 12:26 | Outpatient (CLI) | payer MEDICAID, SELFPAY ==
--- NOTE | 2018-09-12 12:29 | XR_ITS ---
XR knee RT 4V HISTORY: Status post surgery/subchondral plasty ITS.REASON: sp RT knee surgery follow up sx 05/22/18 ORDERING PHYSICIAN: Francois Brody MD PATIENT AGE: 42 years COMPARISON: 08/02/2018 FINDINGS: There are mild osteoarthritic changes of the lateral compartment and patellofemoral joint. Heterogeneous sclerosis involves the proximal aspect of the tibia laterally consistent with subchondral plasty. No fracture or dislocation. No lytic changes. IMPRESSION: No change osteoarthritis of the right knee with post subchondral plasty changes
[2018-09-12 12:46] LABS: MANUAL DIFFERENTIAL MANUAL DIFFERENTIAL (MANUAL DIFF)
[2018-09-12 13:18] LABS: Basophils % 0.5 % (0.1-2.0); Eosinophils # 0.1 K/mm3 (0.0-0.4); Eosinophils % 1.1 % (0.1-12.0); Hemoglobin 12.3 g/dL (12.2-16.2); Lymphocytes # 2.2 K/mm3 (0.7-4.5); Lymphocytes % 33.2 % (10-50); Mean Corpuscular HGB Conc 33.1 g/dL (31.8-35.4); Mean Corpuscular Hemoglobin 30.2 pg (27.0-31.2); Mean Corpuscular Volume 91.1 fl (81-99); Monocytes # 0.4 K/mm3 (0.1-1.0); Monocytes % 6.2 % (1.7-9.3); Platelet Count 446 K/mm3 (142-424); Red Blood Count 4.07 M/mm3 (4.20-5.40); Red Cell Distribution Width 13.7 % (11.5-17.5); White Blood Count 6.8 K/mm3 (4.8-10.8)
[2018-09-12 13:43] LABS: C-Reactive Protein < 0.2 mg/L (0.0-0.9)
[2018-09-12 14:07] LABS: Erythrocyte Sedimentation Rate 35 mm/hr (0-20)
[2018-09-12 14:45] LABS: Eosinophils % 1 % (0-3); Lymphocytes % 33 % (10-50); Monocytes % 5 % (2-9); Neutrophils % 60 % (42-76); Platelet Estimate Slight Increase; RBC Morphology Normal; Total Cells Counted 100
== END ==
PROVIDERS: PCP Internal Medicine Adolescent Medicine; Visit Provider Orthopaedic Surgery
DX: Z09 Encounter for follow-up examination after completed treatment for conditions other than malignant neoplasm (principal)
CPT/HCPCS: 36415; 73564; 85007; 85014; 85018; 85048; 85049; 85651; 86140

== ENCOUNTER 2018-09-14 15:30 | Outpatient (RCR) | payer MEDICAID, SELFPAY ==
--- NOTE | 2018-09-06 11:18 | HMH.PTOPEV ---
PT Outpatient Evaluation Rehab PT Outpatient Evaluation Start: 09/06/18 11:05 Freq: Status: Active Protocol: Document 09/06/18 11:06 FLIP (Rec: 09/06/18 11:18 FLIP [id number]) Electronically Signed By Luis Miguel Sena, PT 09/06/18 11:06 Outpatient Therapy Subjective History Subjective History Patient is a 42 year old female presenting to outpatient PT with reports of chronic knee pain. Pain is insidious in nature. She has previously underwent 2 episodes of PT for the R knee. She had R knee arthroscopy on 05/22/18. She had 8 visits of PT and was experiencing persistent pain levels. Follow-up with MD revealed a bone infection. Pt reports that she has been taking oral anti-biotics for approximately 4 weeks. Initial onset of R knee pain began approx 1 year ago. Comorbidities include elevated BMI. Chief Complaint Pain,Stiff,Swelling,Weakness Symptom Type Ache,Sharp Symptoms Relieved By Rest/Positioning,Prescription Meds Symptoms Aggravated By Sitting,Standing,Bending/ Stooping,Physical Activity, Walking,Lifting Prior Functional Limitations None Current Functional Limitations Housework,Standing,Sitting, Squatting,Recreation Activity, Walking,Stairs,Balance,Bending /Stooping Symptom Description Constant but Variable Level of pain today (0-10) 4 Pain scale - at its best (0-10) 4 Pain scale - at its worst (0-10) 7 Hip/Knee Eval Gait Observation General Gait Pattern Observation No Deviations/Normal Assistive Device Assistive Devices None / NA Palpation Tenderness right Knee Palpation Finding Tenderness Knee Palpation Overall Comment med/lat joint line; lateral HS insertion; popliteal fossa MMT Hip Flexion Strength Grade 4 Good Hip Abduction Strength Grade 4- Good- Hip Adduction Strength Grade 4- Good- Hip Extension Strength Grade 4 Good Hip External Rotation Strength Grade 4- Good- Hip Internal Rotation Strength Grade 4- Good- Knee Extension Strength Grade 4- Good- Knee Flexion Strength Grade 3+ Fair+ ROM Hip ROM Re
== END 2018-09-14 15:35 | disposition home or self-care (01) ==
LOC: PT 15:30
PROVIDERS: Visit Provider Orthopaedic Surgery
DX: M25.561 Pain in right knee (principal); M17.11 Unilateral primary osteoarthritis, right knee
CPT/HCPCS: 97163

== ENCOUNTER → 2018-10-29 07:54 | Outpatient (CLI) | payer MEDICAID, SELFPAY ==
--- NOTE | 2018-10-29 07:55 | MR_ITS ---
MR knee RT wo con HISTORY: Right knee pain, injury, right knee surgery and meniscal tear May 23, 2018, recent injury with pain and instability with inability to straighten leg ITS.REASON: evaluate for mensical tear ORDERING PHYSICIAN: Francois Brody MD PATIENT AGE: 43 years Comparison: 05/25/2018, 09/12/2018 TECHNIQUE: Standard multiplanar multiecho sequences are performed without contrast. FINDINGS: The anterior cruciate ligament is ill-defined and is not identified in its entirety consistent with at least partial tear or severe sprain of the ACL. The PCL appears intact. There is some thinning of the lateral collateral ligament at the tibiofibular component which may be due to a partial chronic tear. The medial collateral ligament has an unremarkable appearance. The quadriceps tendon is unremarkable. There is some buckling of the patellar tendon but no obvious tendon tear. Tendinopathy/tendinosis suspected in the proximal patellar tendon with increased T1 and T2 signal. Menisci: The anterior horn of the lateral meniscus is not identified and could be due to prior meniscectomy or chronic meniscal tear with maceration. Horizontal tear suspected in the posterior horn of the lateral meniscus similar to the previous exam. Not significant changed and nondisplaced. Similar to the previous exam Unremarkable medial meniscus. There is a small knee joint effusion.. There is a Martines's cyst as before. There does remain diffuse decreased T1 and heterogeneous PD and T2 signal within the subarticular region of the right lateral tibial plateau consistent with a prior study subchondroplasty This had a similar appearance on the previous exam. IMPRESSION: 1. Suspect tear or severe sprain of the anterior cruciate ligament 2. No change in the postsurgical changes of the lateral meniscus anterior horn. 3. No change nondisplaced horizontal tear posterior horn medial meniscus. 4. No change in the subchondroplasty changes with medium sized knee joint effusion and Martines's cyst
== END ==
PROVIDERS: PCP Internal Medicine Adolescent Medicine; Visit Provider Orthopaedic Surgery
DX: S89.91XA Unspecified injury of right lower leg, initial encounter (principal)
CPT/HCPCS: 73721

== ENCOUNTER 2018-12-25 19:51 | Inpatient (IN) ==
[2018-12-25 20:16] LABS: Basophils % 0.3 % (0.1-2.0); Eosinophils # 0.1 K/mm3 (0.0-0.4); Eosinophils % 1.1 % (0.1-12.0); Hematocrit 41.7 % (37.0-47.0); Hemoglobin 12.9 g/dL (12.2-16.2); Lymphocytes # 2.7 K/mm3 (0.7-4.5); Lymphocytes % 22.9 % (10-50); Mean Corpuscular Volume 95.7 fl (81-99); Mean Platelet Volume 7.3 fl (7.4-10.4); Monocytes # 0.4 K/mm3 (0.1-1.0); Monocytes % 3.1 % (1.7-9.3); Neutrophils # 8.6 K/mm3 (1.8-7.8); Neutrophils % 72.7 % (37.0-80.0); Platelet Count 466 K/mm3 (142-424); Red Blood Count 4.36 M/mm3 (4.20-5.40); Red Cell Distribution Width 14.4 % (11.5-17.5); White Blood Count 11.8 K/mm3 (4.8-10.8)
[2018-12-25 20:20] LABS: Microscopic, Urine URINE MICROSCOPIC (MICROSCOPIC)
[2018-12-25 20:22] LABS: Appearance,Urine CLEAR (Clear); Bilirubin,Urine Negative (Negative); Blood, Urine Negative (Negative); Color,Urine YELLOW (Yellow); Glucose,Urine (UA) Negative (Negative); Ketones,Urine Negative (Negative); Leukocyte Esterase,Urine Negative (Negative); Protein,Urine Negative (Negative); Specific Gravity, Urine 1.015 (1.005-1.030); Urobilinogen,Urine 0.2 EU/dl (0.2)
--- NOTE | 2018-12-25 20:23 | Emergency Department Note ---
ED Disposition Clinical Impression: Diverticulitis, Hypokalemia, Obesity (BMI 30.0-34.9) Disposition: Admitted As Inpatient Condition on Discharge: Good Instructions: DI for Acute Abdomen Referrals: Darnell Montemayor MD [Primary Care Provider] - - Critical Care Critical Care Time: No Attestation: On , the high probability of a clinically significant, sudden or life threatenin g deterioration of the following system(s) required my full and direct attention, intervention and personal management. The time I documented below is in addition to time spent performing reported procedures but includes the following listed in this critical care notation. Medical Decision Making - Medical Records Medical records reviewed: Yes: I reviewed the patient's medical records. - Cassius Inquiry Pt receiving controlled substance: No Vital Signs: 12/25/18 20:02 Temperature 98.2 F Temperature Source Oral Pulse Rate [Right Brachial] 119 H Respiratory Rate 17 Blood Pressure [Right Arm] 122/84 Blood Pressure Mean [Right Arm] 96 Blood Pressure Source [Right Arm] Automatic Cuff Blood Pressure Position [Right Arm] Sitting 02 Sat by Pulse Oximetry 97 Oxygen Delivery Method Room Air - Lab Data Lab results reviewed: Yes: I reviewed the patient's lab results. Lab Results 12/25/18 20:07: WBC 11.8 H, RBC 4.36, Hgb 12.9, Hct 41.7, MCV 95.7, MCH 29.6, M CHC 31.0 L, RDW 14.4, Plt Count 466 H, MPV 7.3 L, Neut % (Auto) 72.7, Lymph % (Auto) 22.9, [place] % (Auto) 3.1, Eos % (Auto) 1.1, Baso % (Auto) 0.3, Neut # (Auto) 8.6 H, Lymph # (Auto) 2.7, [place] # (Auto) 0.4, Eos # (Auto) 0.1, Baso # (Auto) 0.0 12/25/18 20:07: Sodium 140, Potassium 2.9 L*, Chloride 101, Carbon Dioxide 28, Anion Gap 13.9, BUN 3 L, Creatinine 0.92, Estimated Creat Clear 134, Estimated GFR 66, Est GFR ( Amer) 80, Glucose 115 H, Calcium 8.8, Total Bilirubin 0.7, AST 13 L, ALT 22, Alkaline Phosphatase 112, Total Protein 7.5, Albumin 3.0 L, Globulin 4.5 H, Albumin/Globulin Ratio 0.7 L, Amylase 20 L, Lipase 78 12/25/18 20:15: Urine Color Yellow, Urine Appearance Clear, Urine pH 6.0, Ur Specific [place] 1.015, Urine Protein Negative, Urine Glucose (UA) Negative, Urine Ketones Negative, Urine Blood Negative, Urine Nitrate Negative, Urine Bilirubin Negative, Urine Urobilinogen 0.2, Ur Leukocyte Esterase Negative, Urine WBC 3-5, Ur Squamous Epith Cells 5-10, Urine Bacteria 1+, Urine Mucus 1+ 12/25/18 21:45: Lactate 0.4 Result diagrams: 12/25/18 20:07 12/25/18 20:07 Orders (Tests/Meds): ED MEDICATIONS Discontinued Medications Generic Name Dose Route Start Last Admin Trade Name Freq PRN Reason Stop Dose Admin Ioversol 75 ml 12/25/18 21:06 12/25/18 21:08 Rad-Optiray 350 100ml Vial IV 12/25/18 21:07 75 ml ONCE ONE Administration Protocol Morphine Sulfate 4 mg 12/25/18 20:07 12/25/18 20:23 Morphine 4mg/Ml Syringe IV 12/25/18 20:08 4 mg ONCE ONE Administration Ondansetron HCl 4 mg 12/25/18 20:07 12/25/18 20:23 Zofran 4mg/2ml Vial IV 12/25/18 20:08 4 mg ONCE ONE Administration Sodium Chloride 10 ml 12/25/18 21:06 12/25/18 21:08 Rad-Saline Flush 10ml Syringe IV 12/25/18 21:07 10 ml ONCE ONE Administration ORDERS Category Date Time Status CT abdomen pelvis w con Stat Cat Scan 12/25/18 20:07 Taken - CT Data CT Scan: Abdomen, Pelvis Time Received: 21:[address] Reviewed: Yes: I have viewed the radiologist's interpretation Preliminary Findings: Abnormal (diverticulitis) - Physician Consults Physician Consulted: deneen Reason -: Admission Nausea/Vomiting/Diarrhea HPI - General Chief complaint: Abdominal Pain Stated complaint: abd pain Time Seen by Provider: 12/25/18 20:10 Mode of Arrival: Family Vehicle Source of Information: Patient, Relative, Medical Record Limitations: No Limitations Description of Symptoms (Recalled from ER Triage Doc. by RN): PT STATES IS HAVING RECURRENT LEFT AND MID ABD PAIN; HISTORY OF CHRONIC DIVERTICULITIS; JUST COMPLETED ATB'S - History of Present Illness HPI Narrative: pt with progressive lt side abd pain over the last few dayswith hx of diverticulitis - has also seen dr dennis Zamudio MD complaint: nausea, abdominal pain Onset (ago): day(s) Associated Abdominal Pain: Yes Location of pain: LLQ Severity: moderate Associated symptoms: denies other symptoms - Related Data Home Medications Medication Instructions Recorded Confirmed ALPRAZolam [Xanax 0.5mg tab] 0.5 mg PO BID 06/24/17 12/25/18 Cetirizine HCl [Zyrtec] 10 mg PO DAILY 06/24/17 12/25/18 Atorvastatin Calcium [Atorvastatin 20 mg PO HS 10/10/17 12/25/18 20mg Tab] Citalopram Hydrobromide [Celexa 10 mg PO DAILY 10/10/17 12/25/18 10mg Tablet] Famotidine [Pepcid] 20 mg PO BID 10/11/17 12/25/18 diclofenac sodium 75 mg 75 mg PO BID 12/06/17 12/25/18 tablet,delayed release Montelukast Sodium [Montelukast 10 mg PO HS 12/11/17 12/25/18 10mg Tab] hydrocodone 5 mg-acetaminophen 325 1 tab PO Q4-6H PRN 09/14/18 12/25/18 mg tablet Ciprofloxacin HCl [Cipro 500mg 500 mg PO BID 12/25/18 Tab] Ibuprofen [Ibuprofen 800mg 800 mg PO TID 12/25/18 12/25/18 Tablet] Previous Rx's Medication Instructions Recorded Albuterol Sulfate [Albuterol HFA 1 - 2 puffs IH Q4-6H PRN #1 inh 02/19/18 Inhaler] Ondansetron [Zofran 4mg ODT] 4 mg PO Q8HP PRN #10 tab.rapdis 09/01/18 Oxycodone HCl/Acetaminophen 1 tab PO Q6H PRN 3 Days #12 tab 11/10/18 [Percocet 10-325 mg Tablet] Allergies Allergy/AdvReac Type Severity Reaction Status Date / Time codeine Allergy Intermediate CHEST PAIN Verified 11/08/18 10:23 [facility] History - Hepatitis A Screen Drug use history?: No High risk sexual behaviors?: No History of sexually transmitted infection?: No Currently employed?: No Childcare worker?: Yes Do you have indoor plumbing?: Yes Do you have electricity?: Yes Attestation statement:: This patient has been screened for Hepatitis A risk factors. I have reviewed the patient's past medical history: Yes Medical History: Reports:: Anxiety, Depression, Gastroesophageal Reflux Disease(GERD), Hyperlipidemia, MRSA Denies:: Cancer, Diabetes Mellitus Type 1, Diabetes Mellitus Type 2, Hyp ertension, Internal Pacemaker, Seizures Other Medical History: Reports: Anemia, Arthritis, Thyroid Disease. Denies: Blood Transfusion Reaction Laterality Cases: Left: Other, Right: Arthroscopy Knee, Bilateral: Myringotomy (Ear Tubes) Other Surgeries: Yes: Cholecystectomy, Colonoscopy. No: Pacemaker Amputation: No Fractures: No - Social History Smoking Status: Current some day smoker Tobacco Type: cigarettes # Packs/Day (cigarettes): 1 Alcohol Intake: never Alcohol Intake Frequency:: other Substance Use Type: denies use Occupational Status: employed Housing: house Household Members: children - Psychiatric History Pschychiatric History:: Reports:: Anxiety, Depression Family Hx:: Cancer, Heart Attack, Hypertension ROS Obtained: Yes All systems reviewed & no additional complaints - Constitutional Constitutional: Denies fever(s) - Eyes Eyes: Denies change in vision - ENT Ears, Nose, Mouth, and Throat: Denies sore throat - Cardiovascular Cardiovascular: Denies chest pain - Respiratory Respiratory: No cough - Gastrointestinal Gastrointestingal: Reports: as per HPI, abdominal pain, nausea, vomiting. D enies: diarrhea, bright red blood in stools, black, tarry stools - Genitourinary Female Genitourinary: Denies flank pain - Musculoskeletal Musculoskeletal: Denies joint swelling - Integumentary/Breasts Skin/Breast: Denies rash - Neurologic Neurologic: Denies focal weakness, Denies seizure-like activity Physical Exam - General General appearance: alert, obese - Head Head exam: normocephalic - Eye Eye exam: Present: PERRL, EOMI. Absent: scleral icterus - ENT ENT exam: Present: mucous membranes dry - Neck Neck exam: Present: trachea midline - Respiratory Respiratory exam: Absent: respiratory distress - Cardiovascular Cardiovascular exam: Present: regular rate - Abdominal Exam Abdominal exam: Present: soft, tenderness. Absent: guarding, rebound, rigidity Abdominal tenderness: Present: LLQ, moderate - Extremities Exam Extremities exam: Present: full ROM - Neurological Exam Neurological exam: Present: alert, oriented X3, CN II-XII intact - Psychiatric Psychiatric exam: Present: normal affect - Skin Skin exam: Absent: rash
[2018-12-25 20:30] LABS: Albumin/Globulin Ratio 0.7 (1.1-1.8); Anion Gap 13.9 mEq/L (5-15); Bilirubin,Total 0.7 mg/dL (0.2-1.0); Calcium 8.8 mg/dL (8.5-10.1); Globulin 4.5 gm/dl (1.3-3.2); Total Protein,Serum 7.5 gm/dL (6.4-8.2)
[2018-12-25 20:42] LABS: Bacteria,Urine 1+ /lpf; Mucus,Urine 1+ /lpf
[2018-12-26 06:58] LABS: Basophils % 0.2 % (0.1-2.0); Eosinophils # 0.1 K/mm3 (0.0-0.4); Eosinophils % 1.6 % (0.1-12.0); Hematocrit 35.1 % (37.0-47.0); Lymphocytes % 26.2 % (10-50); Mean Corpuscular HGB Conc 30.1 g/dL (31.8-35.4); Mean Corpuscular Volume 96.1 fl (81-99); Mean Platelet Volume 7.3 fl (7.4-10.4); Monocytes # 0.4 K/mm3 (0.1-1.0); Neutrophils # 4.9 K/mm3 (1.8-7.8); Platelet Count 347 K/mm3 (142-424); Red Blood Count 3.66 M/mm3 (4.20-5.40); Red Cell Distribution Width 14.6 % (11.5-17.5); White Blood Count 7.4 K/mm3 (4.8-10.8)
[2018-12-26 07:11] LABS: Anion Gap 8.2 mEq/L (5-15); Calcium 8.1 mg/dL (8.5-10.1); Hemoglobin 10.6 g/dL (12.2-16.2)
--- NOTE | 2018-12-26 07:34 | Pharmacy Consult Notes ---
[facility] Pharmacy VTE Monitoring - Patient Demographics Admission date: 12/25/18 Report Date: 12/26/18 Time: 07:34 Allergies/Adverse Reactions: Patient Allergies codeine Allergy (Intermediate, Verified 11/08/18 10:23) CHEST PAIN Height: 1.8 m Weight: 104.922 kg Patient Problems: Current Active Problems Diverticulitis (Acute) Hypokalemia (Acute) Obesity (BMI 30.0-34.9) (Acute) - VTE Risk Labs: VTE Related Lab Results Hgb 10.6 g/dL (12.2-16.2) L D 12/26/18 05:49 Hct 35.1 % (37.0-47.0) L 12/26/18 05:49 Plt Count 347 K/mm3 (142-424) D 12/26/18 05:49 BUN 4 mg/dL (7-18) L D 12/26/18 05:49 Creatinine 0.82 mg/dL (0.55-1.02) 12/26/18 05:49 Estimated Creat Clear 145 mL/min (50-200) 12/26/18 05:49 VTE Score: 5 VTE Risk Level: Low Risk - Prophylaxis VTE Prophylaxis Ordered?: Yes Types of VTE Prophylaxis: TEDS Knee High Location of Applied Device: Bilateral Lower Extremeties - VTE Diagnosis Confirmed Treatment or plan recommended: Continue Current Treatment
--- NOTE | 2018-12-26 08:33 | History & Physical Report ---
*Admission Date: 12/25/18 *Chief complaint: Left lower quadrant pain *History of present illness: 43-year-old white female with history of recurrent diverticulitis, multiple admissions over the past couple of years, has had several colonoscopies from Dr. Brice as well as Dr. Herrera in [place]. Developed left lower quadrant pain, nausea and abdominal discomfort and came to the emergency department. CT scan confirmed the finding of inflamed acute diverticulitis. Admitted to hospital. This morning she states that she feels somewhat better. Of note has an appointment with Dr. Herrera in [place] tomorrow for reevaluation of her recurrent diverticulitis. He has mentioned before referral for surgical resection of the problem area. [facility] History I have reviewed the patient's past medical history: Yes Medical History: Reports:: Anxiety, Depression, Gastroesophageal Reflux Disease(GERD), Hyperlipidemia, MRSA Denies:: Cancer, Diabetes Mellitus Type 1, Diabetes Mellitus Type 2, Hypertension, Internal Pacemaker, Seizures *Have you ever received a pneumonia vaccine?: No *Have you received a flu vaccine this season?: No Other Medical History: Reports: Anemia, Arthritis, Thyroid Disease. Denies: Blood Transfusion Reaction Laterality Cases: Left: Other, Right: Arthroscopy Knee, Bilateral: Myringotomy (Ear Tubes) Other Surgeries: Yes: Cholecystectomy, Colonoscopy. No: Pacemaker Amputation: No Fractures: No - *Social History Educational Level: Completed High School Smoking Status: Current every day smoker Tobacco Type: cigarettes # Packs/Day (cigarettes): 1 Alcohol Intake: current Alcohol Intake Frequency:: holidays/special occasions only Substance Use Type: denies use *Occupational Status:: unemployed Housing: house Household Members: children *Travel in the last 8 weeks: None - Psychiatric History Pschychiatric History:: Reports:: Anxiety, Depression Family Hx:: Hypertension, Stroke Review of Systems - Review of Systems Review of systems:: pertinent systems reviewed and negative unless documented below - Constitutional Reports anorexia, Reports fever(s) - Eyes Denies blind spots, Denies blurry vision - ENT Denies abnormal hearing, Denies dizziness, Denies dry mouth - *Cardiovascular Denies chest pain, Denies chest pain at rest, Denies excessive sweating, Denies irregular heart rhythm - *Respiratory Denies change in phlegm color, Denies chest congestion, Denies shortness of breath with activity - *Gastrointestinal Reports abdominal pain - *Neurologic Denies localized weakness, Denies seizure-like activity Meds Home Medications Medication Instructions Recorded Confirmed Type ALPRAZolam [Xanax 0.5mg tab] 0.5 mg PO BID 06/24/17 12/25/18 History Cetirizine HCl [Zyrtec] 10 mg PO DAILY 06/24/17 12/25/18 History Atorvastatin Calcium [Atorvastatin 20 mg PO HS 10/10/17 12/25/18 History 20mg Tab] Citalopram Hydrobromide [Celexa 10 mg PO DAILY 10/10/17 12/25/18 History 10mg Tablet] diclofenac sodium 75 mg 75 mg PO DAILY 12/06/17 12/26/18 History tablet,delayed release Montelukast Sodium [Montelukast 10 mg PO HS 12/11/17 12/25/18 History 10mg Tab] hydrocodone 5 mg-acetaminophen 325 1 tab PO Q4-6H PRN 09/14/18 12/25/18 History mg tablet Oxycodone HCl/Acetaminophen 1 tab PO Q6H PRN 3 Days #12 tab 11/10/18 12/25/18 Rx [Percocet 10-325 mg Tablet] Imipramine HCl 50 mg PO DAILY 12/25/18 12/25/18 History raNITIdine HCl [Ranitidine HCl] 150 mg PO BID 12/25/18 12/25/18 History Allergies Allergy/AdvReac Type Severity Reaction Status Date / Time codeine Allergy Intermediate CHEST PAIN Verified 11/08/18 10:23 Exam Vital signs and Labs for Last 24 Hours: Temp Pulse Resp BP Pulse Ox 98.5 F 83 15 101/56 L 93 L 12/26/18 04:00 12/26/18 04:00 12/26/18 04:00 12/26/18 04:00 12/26/18 04:00 Laboratory Results - last 24 hr 12/25/18 20:07: WBC 11.8 H, RBC 4.36, Hgb 12.9, Hct 41.7, MCV 95.7, MCH 29.6, MCHC 31.0 L, RDW 14.4, Plt Count 466 H, MPV 7.3 L, Neut % (Auto) 72.7, Lymph % (Auto) 22.9, [place] % (Auto) 3.1, Eos % (Auto) 1.1, Baso % (Auto) 0.3, Neut # (Auto) 8.6 H, Lymph # (Auto) 2.7, [place] # (Auto) 0.4, Eos # (Auto) 0.1, Baso # (Auto) 0.0 12/25/18 20:07: Sodium 140, Potassium 2.9 L*, Chloride 101, Carbon Dioxide 28, Anion Gap 13.9, BUN 3 L, Creatinine 0.92, Estimated Creat Clear 134, Estimated GFR 66, Est GFR ( Amer) 80, Glucose 115 H, Calcium 8.8, Total Bilirubin 0.7, AST 13 L, ALT 22, Alkaline Phosphatase 112, Total Protein 7.5, Albumin 3.0 L, Globulin 4.5 H, Albumin/Globulin Ratio 0.7 L, Amylase 20 L, Lipase 78 12/25/18 20:15: Urine Color Yellow, Urine Appearance Clear, Urine pH 6.0, Ur Specific [place] 1.015, Urine Protein Negative, Urine Glucose (UA) Negative, Urine Ketones Negative, Urine Blood Negative, Urine Nitrate Negative, Urine Bilirubin Negative, Urine Urobilinogen 0.2, Ur Leukocyte Esterase Negative, Urine WBC 3-5, Ur Squamous Epith Cells 5-10, Urine Bacteria 1+, Urine Mucus 1+ 12/25/18 21:45: Lactate 0.4 12/26/18 05:49: WBC 7.4 D, RBC 3.66 L, Hgb 10.6 L D, Hct 35.1 L, MCV 96.1, MCH 28.9, MCHC 30.1 L, RDW 14.6, Plt Count 347 D, MPV 7.3 L, Neut % (Auto) 66.0, Lymph % (Auto) 26.2, [place] % (Auto) 6.0, Eos % (Auto) 1.6, Baso % (Auto) 0.2, Neut # (Auto) 4.9, Lymph # (Auto) 2.0, [place] # (Auto) 0.4, Eos # (Auto) 0.1, Baso # (Auto) 0.0 12/26/18 05:49: Sodium 141, Potassium 3.2 L, Chloride 106, Carbon Dioxide 30, Anion Gap 8.2, BUN 4 L D, Creatinine 0.82, Estimated Creat Clear 145, Estimated GFR 76, Est GFR ( Amer) 92, Glucose 87 D, Calcium 8.1 L I & O for Last 24 hours: Intake & Output 12/23/18 12/24/18 12/25/18 12/26/18 11:59 11:59 11:59 11:59 Intake Total 546 / 546 Balance 546 / 546 Weight 231 lb 5 oz Narrative: Patient is alert, pleasant. Talkative, oriented x3. Lungs are clear bilaterally. Heart rate regular without murmurs. No CVA tenderness. No clubbing, no edema. Neurologic exam intact. Oropharynx clear. No JVD. Tender in the left lower quadrant, no rebound or guarding. No rash noted Assessment and Plan (1) Diverticulitis Current visit: Yes Status: Acute Category: Medical Code(s): K57.92 - Diverticulitis of intestine, part unspecified, without perforation or abscess without bleeding Recurrent episodes of diverticulitis. Agree with plan from the ER in regards to an IV antibiotics. Clear liquids today. I will get surgery involvement to discuss possible resection of diseased area. (2) Obesity (BMI 30.0-34.9) Current visit: Yes Status: Acute Category: Medical Code(s): E66.9 - Obesity, unspecified Complicates all aspects of her care
--- NOTE | 2018-12-26 11:58 | Consult Report ---
*Admission Date: 12/25/18 *Reason for consult:: Persistent/recurrent diverticulitis *History of present illness: This is a 43-year-old female seen in consultation from the service of Dr. Montemayor for evaluation regarding persistent/recurrent diverticulitis. She states that she was diagnosed with diverticulitis approximately 3 months ago and has been on antibiotics "at least 2 or 3 times". She states that she is "fine while on antibiotics but everything flares up once antibiotics are finished". She is als o been treated for recent C. difficile infection. She was admitted for further evaluation management after presenting yesterday with increasing lower abdominal pain. Please see HPI from admission history and physical forwarded below: 43-year-old white female with history of recurrent diverticulitis, multiple admissions over the past couple of years, has had several colonoscopies from Dr. Brice as well as Dr. Herrera in [place]. Developed left lower quadrant pain, nausea and abdominal discomfort and came to the emergency department. CT scan confirmed the finding of inflamed acute diver ticulitis. Admitted to hospital. This morning she states that she feels somewhat better. Of note has an appointment with Dr. Herrera in [place] tomorrow for reevaluation of her recurrent diverticulitis. He has mentioned before referral for surgical resection of the problem area. Review of Systems - Constitutional Denies chills - Eyes Denies change in vision - ENT Denies change in voice - *Cardiovascular Denies chest pain - *Respiratory Denies cough - *Gastrointestinal Reports abdominal pain, Denies bright, red blood in stools, Denies black, tarry stools - *Genitourinary Denies painful urination - *Musculoskeletal Denies deformity - Integumentary/Breasts Denies changing lesions - *Neurologic Denies abnormal hearing, Denies dizziness, Denies localized weakness, Denies seizure-like activity - Psychiatric Denies anxiety - Hematologic/Lymphatic Denies easy bleeding [facility] History Medical History: Reports:: Anxiety, Depression, Gastroesophageal Reflux Disease(GERD), Hyperlipidemia, MRSA Denies:: Cancer, Diabetes Mellitus Type 1, Diabetes Mellitus Type 2, Hypertension, Internal Pacemaker, Seizures *Have you ever received a pneumonia vaccine?: No *Have you received a flu vaccine this season?: No Other Medical History: Reports: Anemia, Arthritis, Thyroid Disease. Denies: Blood Transfusion Reaction Laterality Cases: Left: Other, Right: Arthroscopy Knee, Bilateral: Myringotomy (Ear Tubes) Other Surgeries: Yes: Cholecystectomy, Colonoscopy. No: Pacemaker Amputation: No Fractures: No - *Social History Educational Level: Completed High School Smoking Status: Current every day smoker Tobacco Type: cigarettes # Packs/Day (cigarettes): 1 Alcohol Intake: current Alcohol Intake Frequency:: holidays/special occasions only Substance Use Type: denies use *Occupational Status:: unemployed Housing: house Household Members: children *Travel in the last 8 weeks: None - Psychiatric History Pschychiatric History:: Reports:: Anxiety, Depression Family Hx:: Hypertension, Stroke Meds Home Medications Medication Instructions Recorded Confirmed Type ALPRAZolam [Xanax 0.5mg tab] 0.5 mg PO BID 06/24/17 12/25/18 History Cetirizine HCl [Zyrtec] 10 mg PO DAILY 06/24/17 12/25/18 History Atorvastatin Calcium [Atorvastatin 20 mg PO HS 10/10/17 12/25/18 History 20mg Tab] Citalopram Hydrobromide [Celexa 10 mg PO DAILY 10/10/17 12/25/18 History 10mg Tablet] diclofenac sodium 75 mg 75 mg PO DAILY 12/06/17 12/26/18 History tablet,delayed release Montelukast Sodium [Montelukast 10 mg PO HS 12/11/17 12/25/18 History 10mg Tab] hydrocodone 5 mg-acetaminophen 325 1 tab PO Q4-6H PRN 09/14/18 12/25/18 History mg tablet Oxycodone HCl/Acetaminophen 1 tab PO Q6H PRN 3 Days #12 tab 11/10/18 12/25/18 Rx [Percocet 10-325 mg Tablet] Imipramine HCl 50 mg PO DAILY 12/25/18 12/25/18 History raNITIdine HCl [Ranitidine HCl] 150 mg PO BID 12/25/18 12/25/18 History Allergies Allergy/AdvReac Type Severity Reaction Status Date / Time codeine Allergy Intermediate CHEST PAIN Verified 11/08/18 10:23 Exam Vital signs and Labs for Last 24 Hours: Temp Pulse Resp BP Pulse Ox 97.6 F 76 16 93/48 L 91 L 12/26/18 08:00 12/26/18 08:00 12/26/18 08:00 12/26/18 08:00 12/26/18 08:00 Laboratory Results - last 24 hr 12/25/18 20:07: WBC 11.8 H, RBC 4.36, Hgb 12.9, Hct 41.7, MCV 95.7, MCH 29.6, MCHC 31.0 L, RDW 14.4, Plt Count 466 H, MPV 7.3 L, Neut % (Auto) 72.7, Lymph % (Auto) 22.9, [place] % (Auto) 3.1, Eos % (Auto) 1.1, Baso % (Auto) 0.3, Neut # (Auto) 8.6 H, Lymph # (Auto) 2.7, [place] # (Auto) 0.4, Eos # (Auto) 0.1, Baso # (Auto) 0.0 12/25/18 20:07: Sodium 140, Potassium 2.9 L*, Chloride 101, Carbon Dioxide 28, Anion Gap 13.9, BUN 3 L, Creatinine 0.92, Estimated Creat Clear 134, Estimated GFR 66, Est GFR ( Amer) 80, Glucose 115 H, Calcium 8.8, Total Bilirubin 0.7, AST 13 L, ALT 22, Alkaline Phosphatase 112, Total Protein 7.5, Albumin 3.0 L, Globulin 4.5 H, Albumin/Globulin Ratio 0.7 L, Amylase 20 L, Lipase 78 12/25/18 20:15: Urine Color Yellow, Urine Appearance Clear, Urine pH 6.0, Ur Specific [place] 1.015, Urine Protein Negative, Urine Glucose (UA) Negative, Urine Ketones Negative, Urine Blood Negative, Urine Nitrate Negative, Urine Bilirubin Negative, Urine Urobilinogen 0.2, Ur Leukocyte Esterase Negative, Urine WBC 3-5, Ur Squamous Epith Cells 5-10, Urine Bacteria 1+, Urine Mucus 1+ 12/25/18 21:45: Lactate 0.4 12/26/18 05:49: WBC 7.4 D, RBC 3.66 L, Hgb 10.6 L D, Hct 35.1 L, MCV 96.1, MCH 28.9, MCHC 30.1 L, RDW 14.6, Plt Count 347 D, MPV 7.3 L, Neut % (Auto) 66.0, Lymph % (Auto) 26.2, [place] % (Auto) 6.0, Eos % (Auto) 1.6, Baso % (Auto) 0.2, Neut # (Auto) 4.9, Lymph # (Auto) 2.0, [place] # (Auto) 0.4, Eos # (Auto) 0.1, Baso # (Auto) 0.0 12/26/18 05:49: Sodium 141, Potassium 3.2 L, Chloride 106, Carbon Dioxide 30, Anion Gap 8.2, BUN 4 L D, Creatinine 0.82, Estimated Creat Clear 145, Estimated GFR 76, Est GFR ( Amer) 92, Glucose 87 D, Calcium 8.1 L I & O for Last 24 hours: Intake & Output 12/23/18 12/24/18 12/25/18 12/26/18 11:59 11:59 11:59 11:59 Intake Total 546 / 546 Balance 546 / 546 Weight 231 lb 5 oz - Constitutional no acute distress - *Routine Respiratory Exam Absent: respiratory distress - *Routine Cardiovascular Exam Present: RRR - *Routine Abdominal Exam Present: soft, tenderness. Absent: distended Results - Labs 12/26/18 05:49 12/26/18 05:49 Laboratory Results - last 24 hr 12/25/18 20:07: WBC 11.8 H, RBC 4.36, Hgb 12.9, Hct 41.7, MCV 95.7, MCH 29.6, MCHC 31.0 L, RDW 14.4, Plt Count 466 H, MPV 7.3 L, Neut % (Auto) 72.7, Lymph % (Auto) 22.9, [place] % (Auto) 3.1, Eos % (Auto) 1.1, Baso % (Auto) 0.3, Neut # (A uto) 8.6 H, Lymph # (Auto) 2.7, [place] # (Auto) 0.4, Eos # (Auto) 0.1, Baso # (Auto) 0.0 12/25/18 20:07: Sodium 140, Potassium 2.9 L*, Chloride 101, Carbon Dioxide 28, Anion Gap 13.9, BUN 3 L, Creatinine 0.92, Estimated Creat Clear 134, Estimated GFR 66, Est GFR ( Amer) 80, Glucose 115 H, Calcium 8.8, Total Bilirubin 0.7, AST 13 L, ALT 22, Alkaline Phosphatase 112, Total Protein 7.5, Albumin 3.0 L, Globulin 4.5 H, Albumin/Globulin Ratio 0.7 L, Amylase 20 L, Lipase 78 12/25/18 20:15: Urine Color Yellow, Urine Appearance Clear, Urine pH 6.0, Ur Specific [place] 1.015, Urine Protein Negative, Urine Glucose (UA) Negative, Urine Ketones Negative, Urine Blood Negative, Urine Nitrate Negative, Urine Bilirubin Negative, Urine Urobilinogen 0.2, Ur Leukocyte Esterase Negative, Urine WBC 3-5, Ur Squamous Epith Cells 5-10, Urine Bacteria 1+, Urine Mucus 1+ 12/25/18 21:45: Lactate 0.4 12/26/18 05:49: WBC 7.4 D, RBC 3.66 L, Hgb 10.6 L D, Hct 35.1 L, MCV 96.1, MCH 28.9, MCHC 30.1 L, RDW 14.6, Plt Count 347 D, MPV 7.3 L, Neut % (Auto) 66.0, Lymph % (Auto) 26.2, [place] % (Auto) 6.0, Eos % (Auto) 1.6, Baso % (Auto) 0.2, Neut # (Auto) 4.9, Lymph # (Auto) 2.0, [place] # (Auto) 0.4, Eos # (Auto) 0.1, Baso # (Auto) 0.0 12/26/18 05:49: Sodium 141, Potassium 3.2 L, Chloride 106, Carbon Dioxide 30, Anion Gap 8.2, BUN 4 L D, Creatinine 0.82, Estimated Creat Clear 145, Estimated GFR 76, Est GFR ( Amer) 92, Glucose 87 D, Calcium 8.1 L - Imaging CT scan - abdomen: report reviewed, image reviewed CT scan - pelvis: report reviewed, image reviewed Assessment and Plan (1) Diverticulitis Current visit: Yes Status: Acute Category: Medical Code(s): K57.92 - Diverticulitis of intestine, part unspecified, without perforation or abscess without bleeding Recurrent/persistent diverticulitis with approximately 3 months of fluctuating symptomatology and a history of hospitalizations previously. Continue antibiotics for now No need for emergent surgical intervention Her current episode represents a significant recurrence and is also a somewhat complicated variant of diverticulitis. I have discussed and have recommended elective (unless her condition deteriorates and more urgent intervention becomes necessary) surgical resection. She wishes to have ongoing discussion with her chainstitch seat joiner (Dr. Herrera) prior to making any further decisions. She does seem interested in surgical resection and understands that ideally this would be done at a time other than "an acute flareup". She is uncertain if she prefers to have this done at this facility or at a facility with "full-time gastroentero logy services". Specifically she may prefer to have interventions completed in [place] where her chainstitch seat joiner practices. (2) Obesity (BMI 30.0-34.9) Current visit: Yes Status: Acute Category: Medical Code(s): E66.9 - Obesity, unspecified
--- NOTE | 2018-12-26 17:54 | Discharge Summary ---
General - General Admission date:: 12/25/18 Discharge date: 12/26/18 HPI HPI: 43-year-old white female with history of recurrent diverticulitis, multiple admissions over the past couple of years, has had several colonoscopies from Dr. Brice as well as Dr. Herrera in [place]. Developed left lower quadrant pain, nausea and abdominal discomfort and came to the emergency department. CT scan confirmed the finding of inflamed acute diverticulitis. Admitted to hospital. This morning she states that she feels somewhat better. Of note has an appointment with Dr. Herrera in [place] tomorrow for reevaluation of her recurrent diverticulitis. He has mentioned before referral for surgical resection of the problem area. Hospital Course Hospital Course: Patient was admitted, placed on IV antibiotics, tolerated this well. Surgical consultation obtained, agreed with current inpatient plan and slowly advance diet as well as contemplation of subtotal colon resection in the near future because of repetitive episodes of diverticulitis. Patient did well through the day and began to eat a little better. She was able to tolerate p.o. medications and fluids and plan will be to discharge her home tonight on antibiotics and low-dose steroids. I will have her see her internal medicine specialist in [place], they will discuss further referral for surgery/repeat colonoscopy. Objective Vital signs: Temp Pulse Resp BP Pulse Ox 98.0 F 96 H 18 108/66 L 96 12/26/18 16:00 12/26/18 16:00 12/26/18 16:00 12/26/18 16:00 12/26/18 16:00 Narrative: Alert, oriented x3. Neurologically intact, oropharynx clear, no JVD. Lungs clear, heart rate regular, abdomen obese but soft, still with tenderness in the left lower quadrant but much better with no rebound or guarding. No edema or clubbing. Results Labs on day of discharge: Labs from last 24 hours 12/26/18 12/26/18 12/25/18 05:49 05:49 21:45 WBC 7.4 D RBC 3.66 L Hgb 10.6 L D Hct 35.1 L MCV 96.1 MCH 28.9 MCHC 30.1 L RDW 14.6 Plt Count 347 D MPV 7.3 L Neut % (Auto) 66.0 Lymph % (Auto) 26.2 [place] % (Auto) 6.0 Eos % (Auto) 1.6 Baso % (Auto) 0.2 Neut # (Auto) 4.9 Lymph # (Auto) 2.0 [place] # (Auto) 0.4 Eos # (Auto) 0.1 Baso # (Auto) 0.0 Sodium 141 Potassium 3.2 L Chloride 106 Carbon Dioxide 30 Anion Gap 8.2 BUN 4 L D Creatinine 0.82 Estimated Creat Clear 145 Estimated GFR 76 Est GFR ( Amer) 92 Glucose 87 D Lactate 0.4 Calcium 8.1 L Total Bilirubin AST ALT Alkaline Phosphatase Total Protein Albumin Globulin Albumin/Globulin Ratio Amylase Lipase Urine Color Urine Appearance Urine pH Ur Specific [place] Urine Protein Urine Glucose (UA) Urine Ketones Urine Blood Urine Nitrate Urine Bilirubin Urine Urobilinogen Ur Leukocyte Esterase Urine WBC Ur Squamous Epith Cells Urine Bacteria Urine Mucus 12/25/18 12/25/18 12/25/18 20:15 20:07 20:07 WBC 11.8 H RBC 4.36 Hgb 12.9 Hct 41.7 MCV 95.7 MCH 29.6 MCHC 31.0 L RDW 14.4 Plt Count 466 H MPV 7.3 L Neut % (Auto) 72.7 Lymph % (Auto) 22.9 [place] % (Auto) 3.1 Eos % (Auto) 1.1 Baso % (Auto) 0.3 Neut # (Auto) 8.6 H Lymph # (Auto) 2.7 [place] # (Auto) 0.4 Eos # (Auto) 0.1 Baso # (Auto) 0.0 Sodium 140 Potassium 2.9 L* Chloride 101 Carbon Dioxide 28 Anion Gap 13.9 BUN 3 L Creatinine 0.92 Estimated Creat Clear 134 Estimated GFR 66 Est GFR ( Amer) 80 Glucose 115 H Lactate Calcium 8.8 Total Bilirubin 0.7 AST 13 L ALT 22 Alkaline Phosphatase 112 Total Protein 7.5 Albumin 3.0 L Globulin 4.5 H Albumin/Globulin Ratio 0.7 L Amylase 20 L Lipase 78 Urine Color Yellow Urine Appearance Clear Urine pH 6.0 Ur Specific [place] 1.015 Urine Protein Negative Urine Glucose (UA) Negative Urine Ketones Negative Urine Blood Negative Urine Nitrate Negative Urine Bilirubin Negative Urine Urobilinogen 0.2 Ur Leukocyte Esterase Negative Urine WBC 3-5 Ur Squamous Epith Cells 5-10 Urine Bacteria 1+ Urine Mucus 1+ DS: Diagnosis - Discharge Diagnosis (1) Diverticulitis Status: Acute (2) Obesity (BMI 30.0-34.9) Status: Acute Discharge Plan - Patient Discharge Instructions ACTIVITY: Continue current activity DIET: continue same diet, low fat, low cholesterol Patient Instructions: [place] Diet, DI for Diverticulitis, DI for Hypokalemia - Follow up Plan Follow up with: Noam Herrera [Referring] - Disposition: Home, Self-Chcf Medications: Home Medications Medication Instructions Recorded Confirmed Type ALPRAZolam [Xanax 0.5mg tab] 0.5 mg PO BID 06/24/17 12/25/18 History Cetirizine HCl [Zyrtec] 10 mg PO DAILY 06/24/17 12/25/18 History Atorvastatin Calcium [Atorvastatin 20 mg PO HS 10/10/17 12/25/18 History 20mg Tab] Citalopram Hydrobromide [Celexa 10 mg PO DAILY 10/10/17 12/25/18 History 10mg Tablet] diclofenac sodium 75 mg 75 mg PO DAILY 12/06/17 12/26/18 History tablet,delayed release Montelukast Sodium [Montelukast 10 mg PO HS 12/11/17 12/25/18 History 10mg Tab] hydrocodone 5 mg-acetaminophen 325 1 tab PO Q4-6H PRN 09/14/18 12/25/18 History mg tablet Oxycodone HCl/Acetaminophen 1 tab PO Q6H PRN 3 Days #12 tab 11/10/18 12/25/18 Rx [Percocet 10-325 mg Tablet] Imipramine HCl 50 mg PO DAILY 12/25/18 12/25/18 History raNITIdine HCl [Ranitidine HCl] 150 mg PO BID 12/25/18 12/25/18 History Naloxegol Oxalate [Movantik] 25 mg PO DAILY 12/26/18 12/26/18 History levoFLOXacin [Levaquin 500mg 500 mg PO DAILY #7 tab 12/26/18 Rx tab] metroNIDAZOLE [Flagyl 500mg 500 mg PO TID #21 tab 12/26/18 Rx Tablet] predniSONE [Deltasone 20mg 20 mg PO BID 7 Days #14 tab 12/26/18 Rx tablet] raNITIdine HCl [Ranitidine HCl] 150 mg PO BID 12/26/18 12/26/18 History Prescriptions/Medication Reconciliation: New metroNIDAZOLE [Flagyl 500mg Tablet] 500 mg PO TID #21 tab levoFLOXacin [Levaquin 500mg tab] 500 mg PO DAILY #7 tab predniSONE [Deltasone 20mg tablet] 20 mg PO BID 7 Days #14 tab Continued diclofenac sodium 75 mg tablet,delayed release 75 mg PO DAILY hydrocodone 5 mg-acetaminophen 325 mg tablet 1 tab PO Q4-6H PRN PRN Reason: PAIN Cetirizine HCl [Zyrtec] 10 mg PO DAILY ALPRAZolam [Xanax 0.5mg tab] 0.5 mg PO BID Citalopram Hydrobromide [Celexa 10mg Tablet] 10 mg PO DAILY Atorvastatin Calcium [Atorvastatin 20mg Tab] 20 mg PO HS Montelukast Sodium [Montelukast 10mg Tab] 10 mg PO HS Oxycodone HCl/Acetaminophen [Percocet 10-325 mg Tablet] 1 tab PO Q6H PRN 3 Days #12 tab PRN Reason: Moderate Pain Imipramine HCl 50 mg PO DAILY raNITIdine HCl [Ranitidine HCl] 150 mg PO BID Naloxegol Oxalate [Movantik] 25 mg PO DAILY raNITIdine HCl [Ranitidine HCl] 150 mg PO BID - Problem Reconciliation Problems Reviewed?: Yes
== END 2018-12-26 18:35 | disposition home or self-care (01) | DRG 392 ==
LOC: ER 19:51 → 2ND 22:30
PROVIDERS: ADMIT Internal Medicine Adolescent Medicine; ATTEND Internal Medicine Adolescent Medicine
CPT/HCPCS: 36415; 74177; 80048; 80053; 81001; 82150; 83605; 83690; 85025; 96365; 96367; 96375; 99284; J1956; J2405; Q9967

== ENCOUNTER 2019-01-14 09:00 | Outpatient (RCR) | payer MEDICAID, OTHER, SELFPAY | END 2019-01-14 09:05 | disposition home or self-care (01) | LOC: PT 09:00 | PROVIDERS: Visit Provider Orthopaedic Surgery | DX: S89.91XD Unspecified injury of right lower leg, subsequent encounter (principal) | CPT/HCPCS: 97010; 97014; 97016; 97033; 97035; 97110; 97163; 97164; G0283 ==

== ENCOUNTER → 2019-02-21 11:59 | Outpatient (CLI) | payer OTHER, SELFPAY ==
[2019-02-21 13:35] LABS: Alanine Aminotransferase 26 U/L (12-78); Albumin Level 2.9 gm/dL (3.4-5.0); Albumin/Globulin Ratio 0.8 (1.1-1.8); Alkaline Phosphatase 113 U/L (46-116); Anion Gap 9.2 mEq/L (5-15); Aspartate Amino Transferase 19 U/L (15-37); Bilirubin,Total 0.9 mg/dL (0.2-1.0); Blood Urea Nitrogen 10 mg/dL (7-18); Carbon Dioxide 26 mmol/L (21.0-32.0); Chloride 105 mmol/L (98-107); Chol/HDL Ratio 3.7 (1-3.5); Cholesterol 201 mg/dL (140-200); Creatinine,Serum 0.82 mg/dL (0.55-1.02); Estimated Glomerular Filt Rate 76 ml/min (>60); GFR (African American) 92 ML/MIN (>60); Globulin 3.5 gm/dl (1.3-3.2); Glucose 86 mg/dL (74-106); HDL Cholesterol 54 mg/dL (29-89); LDL Cholesterol 124 mg/dL (0-130); Potassium 4.2 mmoL/L (3.5-5.1); Sodium 136 mmol/L (136-145); Total Protein,Serum 6.4 gm/dL (6.4-8.2); Triglycerides 113 mg/dL (30-200); VLDL Cholesterol 23 mg/dL (0-40)
[2019-02-25 06:36] LABS: Vitamin B12 307 pg/mL (232-1245); Vitamin D 25 Hydroxy 22.3 ng/mL (30.0-100.0)
== END ==
PROVIDERS: Visit Provider Nurse Practitioner Family
DX: E78.5 Hyperlipidemia, unspecified (principal); E53.8 Deficiency of other specified B group vitamins; R53.83 Other fatigue; E55.9 Vitamin D deficiency, unspecified
CPT/HCPCS: 36415; 80053; 80061; 82607; 82652

== ENCOUNTER → 2019-06-05 10:05 | Outpatient (CLI) | payer OTHER, SELFPAY ==
[2019-06-05 10:37] LABS: Basophils % 0.4 % (0.1-2.0); Eosinophils # 0.1 K/mm3 (0.0-0.4); Eosinophils % 1.1 % (0.1-12.0); Hematocrit 40.2 % (37.0-47.0); Hemoglobin 12.8 g/dL (12.2-16.2); Lymphocytes # 2.1 K/mm3 (0.7-4.5); Lymphocytes % 20.9 % (10-50); Mean Corpuscular HGB Conc 31.8 g/dL (31.8-35.4); Mean Corpuscular Volume 94.2 fl (81-99); Mean Platelet Volume 7.4 fl (7.4-10.4); Monocytes # 0.4 K/mm3 (0.1-1.0); Monocytes % 3.7 % (1.7-9.3); Neutrophils # 7.4 K/mm3 (1.8-7.8); Platelet Count 444 K/mm3 (142-424); Red Blood Count 4.27 M/mm3 (4.20-5.40); Red Cell Distribution Width 14.6 % (11.5-17.5)
[2019-06-05 11:28] LABS: Alanine Aminotransferase 26 U/L (12-78); Albumin Level 3.4 g/dl (3.5-5.0); Albumin/Globulin Ratio 1.3 (1.1-1.8); Alkaline Phosphatase 87 U/L (38-126); Aspartate Amino Transferase 22 U/L (14-36); Bilirubin,Total 0.5 mg/dl (0.2-1.3); Blood Urea Nitrogen 10 mg/dl (7-17); Calcium 9.3 mg/dl (8.4-10.2); Carbon Dioxide 30 mmol/L (22.0-30.0); Chloride 104 mmol/L (98-107); Chol/HDL Ratio 3.6 (1-3.5); Cholesterol 175 mg/dl (140-200); Estimated Glomerular Filt Rate 91 ml/min (>60); GFR (African American) 110 ML/MIN (>60); Globulin 2.7 g/dL (1.3-3.2); Glucose 100 mg/dl (74-100); HDL Cholesterol 49 mg/dl (40-60); Sodium 136 mmol/L (136-145); Total Protein,Serum 6.1 g/dl (6.3-8.2); Triglycerides 135 mg/dl (30-150); VLDL Cholesterol 27 mg/dL (0-40)
[2019-06-05 11:39] LABS: Direct LDL Cholesterol 92.68 mg/dL (100-129)
[2019-06-05 11:45] LABS: Barbiturates Screen,Urine Negative ng/ml (<200); Benzodiazepines Screen,Urine Positive ng/ml (<200)
[2019-06-05 11:46] LABS: Amphetamine/Metha Screen,Urine Negative ng/ml (<1000)
[2019-06-05 11:47] LABS: Cannabinoid Screen,Urine Negative ng/ml (<50); Methadone Screen,Urine Negative ng/ml (<300)
[2019-06-05 11:48] LABS: Cocaine Screen,Urine Negative ng/ml (<300)
[2019-06-05 11:49] LABS: Opiate Screen,Urine Negative ng/ml (<300); Phencyclidine Screen,Urine Negative ng/ml (<25)
== END ==
PROVIDERS: Visit Provider Internal Medicine Adolescent Medicine
DX: E78.5 Hyperlipidemia, unspecified (principal); F41.8 Other specified anxiety disorders; M17.11 Unilateral primary osteoarthritis, right knee
CPT/HCPCS: 36415; 80053; 80061; 80305; 85025

== ENCOUNTER → 2019-08-20 14:51 | Outpatient (CLI) | payer OTHER, SELFPAY ==
--- NOTE | 2019-08-20 14:56 | XR_ITS ---
PROCEDURE: XR KNEE RT 3V CLINICAL INDICATION: RT KNEE PAIN Right knee pain following injury COMPARISON: [id number] XR knee RT 3V from 06/15/2017 KNEELMRT XR knee RT 2V from 05/22/2018 KNEELMRT XR knee RT 2V from 05/25/2018 [id number] XR knee RT 4V from 07/06/2018 FINDINGS: Osteosclerosis is present involving the medial tibial plateau consistent with sub chondroplasty changes. There are osteoarthritic changes involving all 3 compartments. Increased density is present in the suprapatellar region consistent with knee joint effusion. Subcortical lucency is present involving the proximal aspect of the tibia laterally IMPRESSION: The osteoarthritic changes with suprapatellar effusion. Status post sub chondroplasty of the proximal tibia laterally. There is a sub chondral lucency in this region possibly related to the previous trocar track from the subchondroplasty. Dictated by: Luke Yanes MD 08/20/2019 15:25 Electronically signed by Luke Yanes MD in [place] 08/20/2019 15:25
== END ==
PROVIDERS: PCP Nurse Practitioner Family; Visit Provider Nurse Practitioner Family
DX: M25.561 Pain in right knee (principal)
CPT/HCPCS: 73562

== ENCOUNTER 2019-11-17 12:09 | Emergency (ER) | payer OTHER, SELFPAY ==
[2019-11-17 12:10] VITALS: BP 144/86; PULSE 119; RESP 18; TEMP 36.8; O2SAT 98; BMI 29.9
--- NOTE | 2019-11-17 12:16 | HMH.EDABDPAI ---
ED Disposition Clinical Impression: Colitis Disposition: Home, Self-Care Condition on Discharge: Good Instructions: DI for Colitis Additional Instructions: Follow-up with your colorectal surgeon or GI doctor within the next several days for reevaluation. Return to the emergency department if you develop fever, acute worsening of symptoms. Consider using Imodium [id number] if needed for diarrhea. Prescriptions: Dicyclomine HCl [Bentyl 10mg capsule] 20 mg PO TID PRN 5 Days cap PRN Reason: abdominal pain Prescription Printed Ondansetron [Zofran 4mg ODT] 4 mg PO Q6 PRN #10 tab.rapdis PRN Reason: Nausea Prescription Printed Referrals: Darnell Montemayor MD [Primary Care Provider] - 3 days - Critical Care Critical Care Time: No Attestation: On , the high probability of a clinically significant, sudden or life threatening deterioration of the following system(s) required my full and direct attention, intervention and personal management. The time I documented below is in addition to time spent performing reported procedures but includes the following listed in this critical care notation. Medical Decision Making - Medical Records Medical records reviewed: Yes: I reviewed the patient's medical records. - Cassius Inquiry Pt receiving controlled substance: No Vital Signs: 11/17/19 12:10 11/17/19 13:10 11/17/19 13:26 Temperature 98.2 F Temperature Source Oral Pulse Rate [Left Radial] 119 H 74 82 Respiratory Rate 18 20 Blood Pressure [Right Arm] 144/86 H 117/77 117/77 Blood Pressure Mean [Right Arm] 105 90 90 Blood Pressure Source [Right Arm] Automatic Cuff Blood Pressure Position [Right Arm] Sitting Sitting Sitting 02 Sat by Pulse Oximetry 98 97 Oxygen Delivery Method Room Air Room Air - Lab Data Lab Results 11/17/19 12:30: WBC 11.3 H, RBC 4.41, Hgb 13.3, Hct 39.6, MCV 89.8, MCH 30.0, MCHC 33.4, RDW 14.5, Plt Count 509 H, MPV 7.2 L, Neut % (Auto) 72.2, Lymph % (Auto) 22.7, [place] % (Auto) 3.6, Eos % (Auto) 1.2, Baso % (Auto) 0.3, Neut # (Auto) 8.2 H, Lymph # (Auto) 2.6, [place] # (Auto) 0.4, Eos # (Auto) 0.1, Baso # (Auto) 0.0 11/17/19 12:30: Sodium 140, Potassium 3.8, Chloride 108 H, Carbon Dioxide 25, Anion Gap 10.8, BUN 7, Creatinine 0.70, Estimated Creat Clear 156, Estimated GFR 90, Est GFR ( Amer) 109, Glucose 99, Calcium 9.2, Total Bilirubin 0.7, AST 17, ALT 15, Alkaline Phosphatase 111, Total Protein 7.0, Albumin 3.7, Globulin 3.3 H, Albumin/Globulin Ratio 1.1, Lipase 62 11/17/19 12:30: Lactate 0.8 Result diagrams: 11/17/19 12:30 11/17/19 12:30 Orders (Tests/Meds): ED MEDICATIONS Generic Name Dose Route Start Last Admin Trade Name Freq PRN Reason Stop Dose Admin Sodium Chloride 1,000 mls @ 999 mls/hr 11/17/19 12:30 11/17/19 13:01 Sod Chlor 0.9% 1000ml Bag IV 11/17/19 13:30 999 mls/hr .Q1H1M DIO Administration Discontinued Medications Generic Name Dose Route Start Last Admin Trade Name Freq PRN Reason Stop Dose Admin Dicyclomine HCl 20 mg 11/17/19 13:00 11/17/19 13:02 Dicyclomine 20mg/2ml Vial IM 11/17/19 13:01 20 mg ONCE ONE Administration Ioversol 75 ml 11/17/19 12:58 11/17/19 12:59 Rad-Optiray 350 100ml Vial IV 11/17/19 12:59 75 ml ONCE ONE Administration Protocol Sodium Chloride 10 ml 11/17/19 12:58 11/17/19 13:00 Rad-Saline Flush 10ml Syringe IV 11/17/19 12:59 10 ml ONCE ONE Administration ORDERS Category Date Time Status CT abdomen pelvis w con Stat Cat Scan 11/17/19 12:23 Taken - CT Data CT Scan: Abdomen, Pelvis Time Received: 13:[address] Reviewed: Yes: I have reviewed the patient's CT results Findings Narrative: Colitis, No diverticulitis, no perforation Medical Decision Narrative: Patient with CT scan that shows colitis, no abscess or perforation. No need for antibiotics at this time, no diverticulitis. She is given fluids with improving heart rate. Tolerating p.o. well. Discha
--- NOTE | 2019-11-17 12:23 | CT_ITS ---
PROCEDURE: CT ABDOMEN PELVIS W CON CLINICAL INDICATION: bloody diarrhea history of diverticulitis COMPARISON: CT CT ABDOMEN PELVIS W CON from 12/25/2018 TECHNIQUE: IV Contrast: 75ML OPTIRAY 350 Oral Contrast none given Axial images obtained with sagittal and coronal reformats. All CT scans at the facility use one or more dose reduction, viz: automated exposure control, ma/kV adjustment per patient size (including targeted exams where dose is matched to indication, i.e. head), or iterative reconstruction technique. FINDINGS: Lower thorax: The lower lung [place] are clear and there is no pleural fluid. ABDOMEN: Liver: No masses or biliary dilatation. Gallbladder: Post cholecystectomy. Pancreas: No masses or peripancreatic fluid collections. Spleen: unremarkable Adrenals: unremarkable Kidneys/ureters: The kidneys are normal size and show symmetrical function both appearing normal. ABDOMEN & PELVIS: Stomach bowel: The stomach and duodenal sweep appear normal. The small bowel is grossly normal. There is moderate scattered stool and gas in the ascending and transverse colon. There is mild wall thickening of the proximal transverse colon possibly due to lack of distention and or a focal area of colitis. The descending and sigmoid colon is basically decompressed. There are surgical clips in the lower sigmoid colon and there is mild bowel wall thickening in the lower sigmoid colon possibly postsurgical nature and/or secondary to repeated episodes of diverticulitis. There is no evidence of acute diverticulitis at this time. Peritoneum: There is minimal postsurgical scarring in the periumbilical location. Lymph nodes: No enlarged lymph nodes apparent. Vasculature: No evidence of abdominal aortic aneurysm. No retroperitoneal hemorrhage evident. Bones: No acute fracture PELVIS: Reproductive: The uterus is normal size and in the midline. There is a hypodense oval lesion right adnexa likely an ovarian cyst measuring approximately 3 point 5 cm in greatest long axis diameter. There is a surgical clip left-sided pelvis probably from previous tubal ligation. Bladder: The urinary bladder is decompressed. There is no free fluid in the pelvis. Appendix: There are no findings to suggest appendicitis. IMPRESSION: Postsurgical changes lower sigmoid colon, question focal area of colitis involving the proximal and mid transverse colon. Dictated by: Dr. Stepan Loco MD 11/17/2019 19:26 Dr. Stepan Loco MD in [place] 11/17/2019 19:26
--- NOTE | 2019-11-17 12:36 | PC.NURSE ---
notified RT of incentive spirometer order, spoke with maria t
--- NOTE | 2019-11-17 12:41 | PC.NURSE ---
GONE TO CT
[2019-11-17 12:49] LABS: Basophils % 0.3 % (0.1-2.0); Eosinophils # 0.1 K/mm3 (0.0-0.4); Eosinophils % 1.2 % (0.1-12.0); Hematocrit 39.6 % (37.0-47.0); Hemoglobin 13.3 g/dL (12.2-16.2); Lymphocytes # 2.6 K/mm3 (0.7-4.5); Lymphocytes % 22.7 % (10-50); Mean Corpuscular HGB Conc 33.4 g/dL (31.8-35.4); Mean Corpuscular Volume 89.8 fl (81-99); Mean Platelet Volume 7.2 fl (7.4-10.4); Monocytes # 0.4 K/mm3 (0.1-1.0); Monocytes % 3.6 % (1.7-9.3); Neutrophils # 8.2 K/mm3 (1.8-7.8); Neutrophils % 72.2 % (37.0-80.0); Platelet Count 509 K/mm3 (142-424); Red Blood Count 4.41 M/mm3 (4.20-5.40); Red Cell Distribution Width 14.5 % (11.5-17.5); White Blood Count 11.3 K/mm3 (4.8-10.8)
[2019-11-17 12:51] LABS: Chloride 108 mmol/L (98-107)
[2019-11-17 12:52] LABS: Potassium 3.8 mmoL/L (3.5-5.1); Sodium 140 mmol/L (136-145)
[2019-11-17 12:54] LABS: Alanine Aminotransferase 15 U/L (12-78); Alkaline Phosphatase 111 U/L (38-126); Anion Gap 10.8 mEq/L (5-15); Aspartate Amino Transferase 17 U/L (14-36); Bilirubin,Total 0.7 mg/dl (0.2-1.3); Blood Urea Nitrogen 7 mg/dl (7-17); Calcium 9.2 mg/dl (8.4-10.2); Carbon Dioxide 25 mmol/L (22.0-30.0); Creatinine Clearance Estimated 156 mL/min (50-200); Estimated Glomerular Filt Rate 90 ml/min (>60); GFR (African American) 109 ML/MIN (>60); Glucose 99 mg/dl (74-100); Lactic Acid 0.8 mmol/L (0.7-2.1)
[2019-11-17 12:55] LABS: Albumin Level 3.7 g/dl (3.5-5.0); Albumin/Globulin Ratio 1.1 (1.1-1.8); Globulin 3.3 g/dL (1.3-3.2); Lipase 62 U/L (23-300)
[2019-11-17 13:10] VITALS: BP 117/77; PULSE 74; RESP 20; O2SAT 97
[2019-11-17 13:26] VITALS: BP 117/77; PULSE 82
[2019-11-17 13:30] VITALS: BP 136/88; PULSE 76; RESP 20; O2SAT 100
[2019-11-17 14:05] VITALS: BP 127/78; PULSE 87; RESP 16; TEMP 36.6; O2SAT 98
== END 2019-11-17 14:15 | disposition home or self-care (01) ==
PROVIDERS: Emergency Provider Emergency Medicine; PCP Internal Medicine Adolescent Medicine
DX: K52.9 Noninfective gastroenteritis and colitis, unspecified (principal); E78.5 Hyperlipidemia, unspecified; F41.8 Other specified anxiety disorders; K21.9 Gastro-esophageal reflux disease without esophagitis; Z90.49 Acquired absence of other specified parts of digestive tract; F17.210 Nicotine dependence, cigarettes, uncomplicated; Z79.899 Other long term (current) drug therapy
CPT/HCPCS: 74177; 80053; 83605; 83690; 85025; 96365; 96372; 96375; 99283; Q9967

== ENCOUNTER → 2019-12-13 11:59 | Outpatient (CLI) | payer OTHER, SELFPAY ==
[2019-12-13 14:20] LABS: Erythrocyte Sedimentation Rate 31 mm/hr (0-20)
[2019-12-13 15:48] LABS: C-Reactive Protein 4.1 mg/L (0-4)
== END ==
PROVIDERS: Visit Provider Physician Assistant Surgical
DX: M17.11 Unilateral primary osteoarthritis, right knee (principal); Z96.651 Presence of right artificial knee joint
CPT/HCPCS: 36415; 85651; 86140

== ENCOUNTER 2019-12-20 11:45 | Emergency (ER) | payer OTHER, SELFPAY ==
[2019-12-20 11:56] VITALS: BP 124/89; PULSE 104; RESP 20; TEMP 36.7; O2SAT 98; BMI 30.8
--- NOTE | 2019-12-20 11:57 | CT_ITS ---
PROCEDURE: CT ABDOMEN PELVIS W CON CLINICAL INDICATION: Pain off and on for 1 week, history of partial sigmoid colon resection this past April for diverticulitis COMPARISON: CT CT ABDOMEN PELVIS W CON from 11/17/2019 TECHNIQUE: IV Contrast: 75ML OPTIRAY 350 Oral Contrast none given Axial images obtained with sagittal and coronal reformats. All CT scans at the facility use one or more dose reduction, viz: automated exposure control, ma/kV adjustment per patient size (including targeted exams where dose is matched to indication, i.e. head), or iterative reconstruction technique. FINDINGS: Lower thorax: The lower lung youngblood are clear and there is no pleural fluid. ABDOMEN: Liver: No masses or biliary dilatation. Gallbladder: Post cholecystectomy Pancreas: No masses or peripancreatic fluid collections. Spleen: unremarkable Adrenals: unremarkable Kidneys/ureters: The kidneys are normal size and show symmetrical function both appearing normal. ABDOMEN & PELVIS: Stomach bowel: The stomach is moderately distended with ingested food particles. There are mildly dilated proximal small bowel loops the mid and distal small bowel appear normal. There is a moderately large amount stool in the ascending and transverse colon. The descending colon is decompressed. There are postsurgical changes with surgical sutures at the anastomotic site lower sigmoid colon. Peritoneum: No abnormal fluid collections. No obvious inflammatory changes. No free air. Minimal postsurgical scarring of the anterior abdominal wall near the umbilicus. Lymph nodes: No enlarged lymph nodes apparent. Vasculature: No evidence of abdominal aortic aneurysm. No retroperitoneal hemorrhage evident. Bones: No acute fracture PELVIS: Reproductive: The uterus is normal. There are bilateral ovarian cyst the right side measuring 2.5 by 4.1 cm the left side measuring 2.3 x 1.9 cm. There is no free fluid in the pelvis. Surgical clips left side of the pelvis likely from previous tubal ligation. Bladder: Bladder is moderately distended with urine and appears normal. Appendix: The appendix is not definitely identified but there are no pericecal inflammatory changes. IMPRESSION: Mildly dilated fluid-filled loops of proximal small bowel which may reflect a mild degree of enteritis, bilateral ovarian cyst noted no other significant abdominal or pelvic pathology identified. Dictated by: Dr. Stepan Loco MD 12/20/2019 13:30 Dr. Stepan Loco MD in [place] 12/20/2019 13:30
--- NOTE | 2019-12-20 12:07 | PC.NURSE ---
rad notified of ct order
--- NOTE | 2019-12-20 12:10 | HMH.EDABDPAI ---
ED Disposition Clinical Impression: Enteritis Disposition: Home, Self-Care Condition on Discharge: Good Instructions: DI for Enteritis Prescriptions: Promethazine HCl [Phenergan 25mg tab] 25 mg PO TID PRN #12 tab PRN Reason: Nausea And Vomiting Prescription Printed Referrals: Darnell Montemayor MD [Primary Care Provider] - - Critical Care Critical Care Time: No Attestation: On 12/20/19, the high probability of a clinically significant, sudden or life threatening deterioration of the following system(s) required my full and direct attention, intervention and personal management. The time I documented below is in addition to time spent performing reported procedures but includes the following listed in this critical care notation. Medical Decision Making - Medical Records Medical records reviewed: Yes: I reviewed the patient's medical records. - Cassius Inquiry Pt receiving controlled substance: Yes Cassius was queried for this patient: No Risks and benefits of using a controlled substance: were discussed with pt by me Vital Signs: 12/20/19 11:56 Temperature 98.0 F Temperature Source Oral Pulse Rate [Right Radial] 104 H Respiratory Rate 20 Blood Pressure [Right Arm] 124/89 Blood Pressure Mean [Right Arm] 100 Blood Pressure Source [Right Arm] Automatic Cuff Blood Pressure Position [Right Arm] Sitting 02 Sat by Pulse Oximetry 98 Oxygen Delivery Method Room Air - Lab Data Lab Results 12/20/19 12:30: Urine Color Yellow, Urine Appearance Clear, Urine pH 6.0, Ur Specific [place] <= 1.005, Urine Protein Negative, Urine Glucose (UA) Negative, Urine Ketones Negative, Urine Blood Negative, Urine Nitrate Negative, Urine Bilirubin Negative, Urine Urobilinogen 0.2, Ur Leukocyte Esterase Negative, Urine RBC Occasional, Urine WBC 5-10, Ur Squamous Epith Cells 5-10, Urine Bacteria Trace 12/20/19 12:30: WBC 10.6, RBC 4.32, Hgb 13.2, Hct 38.8, MCV 89.8, MCH 30.4, MCHC 33.9, RDW 14.6, Plt Count 444 H, MPV 7.7, Neut % (Auto) 71.6, Lymph % (Auto) 23.3, Bremer % (Auto) 3.6, Eos % (Auto) 1.0, Baso % (Auto) 0.5, Neut # (Auto) 7.6, Lymph # (Auto) 2.5, Bremer # (Auto) 0.4, Eos # (Auto) 0.1, Baso # (Auto) 0.1 12/20/19 12:30: Sodium 139, Potassium 3.6, Chloride 110 H, Carbon Dioxide 25, Anion Gap 7.6, BUN 5 L, Creatinine 0.70, Estimated Creat Clear 156, Estimated GFR 90, Est GFR ( Amer) 109, Glucose 111 H, Calcium 9.1, Total Bilirubin 0.6, AST 21, ALT 19, Alkaline Phosphatase 128 H, Total Protein 6.8, Albumin 3.7, Globulin 3.1, Albumin/Globulin Ratio 1.2, Lipase 76 Result diagrams: 12/20/19 12:30 12/20/19 12:30 Orders (Tests/Meds): ED MEDICATIONS Discontinued Medications Generic Name Dose Route Start Last Admin Trade Name Freq PRN Reason Stop Dose Admin Ioversol 75 ml 12/20/19 13:15 12/20/19 13:16 Rad-Optiray 350 100ml Vial IV 12/20/19 13:16 75 ml ONCE ONE Administration Protocol Morphine Sulfate 4 mg 12/20/19 11:57 12/20/19 12:25 Morphine 4mg/Ml Syringe IV 12/20/19 11:58 4 mg ONCE ONE Administration Ondansetron HCl 4 mg 12/20/19 11:57 12/20/19 12:25 Zofran 4mg/2ml Vial IV 12/20/19 11:58 4 mg ONCE ONE Administration Sodium Chloride 10 ml 12/20/19 13:15 12/20/19 13:16 Rad-Saline Flush 10ml Syringe IV 12/20/19 13:16 10 ml ONCE ONE Administration - CT Data CT Scan: Abdomen, Pelvis Time Received: 13:39 Findings Narrative: IMPRESSION: Mildly dilated fluid-filled loops of proximal small bowel which may reflect a mild degree of enteritis, bilateral ovarian cyst noted no other significant abdominal or pelvic pathology identified. - Reevaluation(s) Time: 13:53 Reevaluation #1: On reevaluation, patient is feeling better. Tolerating oral intake. Repeat abdominal exam does not show any acute abdomen. Patient does need repeat examination as scheduled by her primary creel clerk. If she is having worsening pain or discomfort she is return to the
[2019-12-20 12:50] LABS: Microscopic, Urine URINE MICROSCOPIC (MICROSCOPIC)
[2019-12-20 12:54] LABS: Appearance,Urine CLEAR (Clear); Basophils # 0.1 K/mm3 (0-0.2); Basophils % 0.5 % (0.1-2.0); Bilirubin,Urine Negative (Negative); Blood, Urine Negative (Negative); Color,Urine YELLOW (Yellow); Eosinophils # 0.1 K/mm3 (0.0-0.4); Glucose,Urine (UA) Negative (Negative); Hematocrit 38.8 % (37.0-47.0); Hemoglobin 13.2 g/dL (12.2-16.2); Ketones,Urine Negative (Negative); Leukocyte Esterase,Urine Negative (Negative); Lymphocytes # 2.5 K/mm3 (0.7-4.5); Lymphocytes % 23.3 % (10-50); Mean Corpuscular HGB Conc 33.9 g/dL (31.8-35.4); Mean Corpuscular Hemoglobin 30.4 pg (27.0-31.2); Mean Corpuscular Volume 89.8 fl (81-99); Mean Platelet Volume 7.7 fl (7.4-10.4); Monocytes # 0.4 K/mm3 (0.1-1.0); Monocytes % 3.6 % (1.7-9.3); Neutrophils # 7.6 K/mm3 (1.8-7.8); Neutrophils % 71.6 % (37.0-80.0); Nitrate,Urine Negative (Negative); Platelet Count 444 K/mm3 (142-424); Protein,Urine Negative (Negative); Red Blood Count 4.32 M/mm3 (4.20-5.40); Red Cell Distribution Width 14.6 % (11.5-17.5); Specific Gravity, Urine <= 1.005 (1.005-1.030); Urobilinogen,Urine 0.2 EU/dl (0.2); White Blood Count 10.6 K/mm3 (4.8-10.8)
[2019-12-20 13:03] LABS: Alanine Aminotransferase 19 U/L (12-78); Albumin Level 3.7 g/dl (3.5-5.0); Albumin/Globulin Ratio 1.2 (1.1-1.8); Alkaline Phosphatase 128 U/L (38-126); Anion Gap 7.6 mEq/L (5-15); Aspartate Amino Transferase 21 U/L (14-36); Bilirubin,Total 0.6 mg/dl (0.2-1.3); Blood Urea Nitrogen 5 mg/dl (7-17); Calcium 9.1 mg/dl (8.4-10.2); Carbon Dioxide 25 mmol/L (22.0-30.0); Chloride 110 mmol/L (98-107); Creatinine Clearance Estimated 156 mL/min (50-200); Estimated Glomerular Filt Rate 90 ml/min (>60); GFR (African American) 109 ML/MIN (>60); Globulin 3.1 g/dL (1.3-3.2); Glucose 111 mg/dl (74-100); Lipase 76 U/L (23-300); Potassium 3.6 mmoL/L (3.5-5.1); Sodium 139 mmol/L (136-145); Total Protein,Serum 6.8 g/dl (6.3-8.2)
--- NOTE | 2019-12-20 13:03 | PC.NURSE ---
Pt to rad.
[2019-12-20 13:08] LABS: Bacteria,Urine Trace /lpf; RBC,Urine Occasional #/hpf (0-3)
[2019-12-20 14:46] VITALS: BP 142/87; PULSE 87; RESP 16; TEMP 36.6; O2SAT 98
== END 2019-12-20 14:48 | disposition home or self-care (01) ==
PROVIDERS: Emergency Provider Emergency Medicine; PCP Internal Medicine Adolescent Medicine
DX: K52.9 Noninfective gastroenteritis and colitis, unspecified (principal); E03.9 Hypothyroidism, unspecified; E78.5 Hyperlipidemia, unspecified; F41.8 Other specified anxiety disorders; K21.9 Gastro-esophageal reflux disease without esophagitis; Z88.5 Allergy status to narcotic agent; Z79.899 Other long term (current) drug therapy; F17.210 Nicotine dependence, cigarettes, uncomplicated; Z90.49 Acquired absence of other specified parts of digestive tract
CPT/HCPCS: 74177; 80053; 81001; 83690; 85025; 96374; 96375; 96376; 99283; J2405; Q9967

== ENCOUNTER 2020-01-12 12:32 | Emergency (ER) | payer OTHER, SELFPAY ==
[2020-01-12 13:18] VITALS: BP 127/88; PULSE 82; RESP 18; TEMP 36.8; O2SAT 96; BMI 31.8
--- NOTE | 2020-01-12 13:18 | HMH.EDUTC ---
[facility] [place] Clinical Impression: Viral syndrome Disposition: Home, Self-Care Condition on Discharge: Good Instructions: DI for Viral Syndrome, Preventing the Spread of Coronavirus Discharge Instructions Additional Instructions: Drink plenty of fluids. Take tylenol for pain or fever. Take the medications as directed. Follow up with your regular doctor. GO TO THE ER FOR ANY WORSENING SYMPTOMS FOLLOW THE DIRECTIONS ON THE COVID-19 HAND OUT THAT WE GAVE YOU REGARDING SELF-ISOLATION UNTIL YOU KNOW YOUR COVID-19 RESULTS Prescriptions: Brompheniramine/Pseudoephed/Dm [Bromfed Dm Cough Syrup] 5 ml PO Q6HP PRN #240 syrup PRN Reason: Cough [facility]: [facility] Ondansetron [Zofran 4mg ODT] 4 mg PO Q8HP PRN #9 tab.rapdis PRN Reason: Nausea Transmission Status: Received by [facility] Azithromycin [Z-Domingo 250mg Tab*] 250 mg PO UD DOSE PK #6 tab Transmission Status: [facility] Referrals: Darnlel Montemayor MD [Primary Care Provider] - Forms: Work/School Release Time of Disposition: 13:46 Medical Decision Making - Medical Records Medical records reviewed: No: I reviewed the patient's medical records. - Cassius Inquiry Pt receiving controlled substance: No Vital Signs: 01/12/20 13:18 01/12/20 13:57 Temperature 98.3 F 98.3 F Temperature Source Oral Pulse Rate 82 Pulse Rate [Right Radial] 82 Respiratory Rate 18 18 Blood Pressure 127/88 Blood Pressure [Right Arm] 127/88 Blood Pressure Mean [Right Arm] 101 Blood Pressure Source [Right Arm] Automatic Cuff Blood Pressure Position [Right Arm] Sitting 02 Sat by Pulse Oximetry 96 Oxygen Delivery Method Room Air - Lab Data Lab results reviewed: Yes: I reviewed the patient's lab results. Lab Results 01/12/20 13:36: Influenza Type A Ag Negative, Influenza Type B Ag Negative 01/12/20 13:36: Strep Scn Rapid Clinic Negative Orders (Tests/Meds): ORDERS Category Date Time Status Strep Screen Confirmation Stat Micro 01/12/20 13:36 Re[place] [facility] [place] - General Stated complaint: stomach pain dont feel good Time Seen by Provider: 01/12/20 13:18 - History of Present Illness Provider Complaint: She c/o n/d, abdominal cramping, sinus congestion, sore throat and a cough for the past 3 days. - Related Data Home Medications Medication Instructions Recorded Confirmed ALPRAZolam [Xanax 0.5mg tab] 0.5 mg PO BID 06/24/17 12/25/18 Cetirizine HCl [Zyrtec] 10 mg PO DAILY 06/24/17 12/25/18 Atorvastatin Calcium [Lipitor 20mg 20 mg PO HS 10/10/17 12/25/18 Tab] Citalopram Hydrobromide 10 mg PO DAILY 10/10/17 12/25/18 [Citalopram 10mg Tablet] diclofenac sodium 75 mg 75 mg PO DAILY 12/06/17 12/26/18 tablet,delayed release Montelukast Sodium [Montelukast 10 mg PO HS 12/11/17 12/25/18 10mg Tab] hydrocodone 5 mg-acetaminophen 325 1 tab PO Q4-6H PRN 09/14/18 12/25/18 mg tablet Imipramine HCl 50 mg PO DAILY 12/25/18 12/25/18 raNITIdine HCL [Ranitidine HCl] 150 mg PO BID 12/25/18 12/25/18 Naloxegol Oxalate [Movantik] 25 mg PO DAILY 12/26/18 12/26/18 raNITIdine HCL [Ranitidine HCl] 150 mg PO BID 12/26/18 12/26/18 Previous Rx's Medication Instructions Recorded Oxycodone HCl/Acetaminophen 1 tab PO Q6H PRN 3 Days #12 tab 11/10/18 [Percocet 10-325 mg Tablet] levoFLOXacin [Levaquin 500mg 500 mg PO DAILY #7 tab 12/26/18 tab] metroNIDAZOLE [Flagyl 500mg 500 mg PO TID #21 tab 12/26/18 Tablet] predniSONE [Deltasone 20mg 20 mg PO BID 7 Days #14 tab 12/26/18 tablet] Amoxicillin/Potassium Clav 1 tab PO Q12H 7 Days #14 tab 03/20/19 [Augmentin 875-125 Tablet] Fluticasone Propionate [Flonase 2 spr NS DAILY #1 bottle 03/20/19 50mcg nasal spray 16gm] Azithromycin [Z-Domingo 250mg Tab*] 250 mg PO UD DOSE PK #6 tab 03/28/19 Oseltamivir Phosphate [Tamiflu 75 mg PO BID #10 cap 03/28/19 75mg Capsule] methylPREDNISolone [Medrol
--- NOTE | 2020-01-12 13:38 | PC.NURSE ---
notified lab of covid swab order, spoke with anna
[2020-01-12 13:48] LABS: UTC Influenza A Antigen Negative (Negative); UTC Influenza B Antigen Negative (Negative); UTC Strep Screen (Rapid) Negative (Negative)
[2020-01-12 13:57] VITALS: BP 127/88; PULSE 82; RESP 18; TEMP 36.8; O2SAT 96
== END 2020-01-12 14:02 | disposition home or self-care (01) ==
PROVIDERS: Emergency Provider Nurse Practitioner Family; PCP Internal Medicine Adolescent Medicine
DX: B34.9 Viral infection, unspecified (principal); Z20.828 Contact with and (suspected) exposure to other viral communicable diseases; F41.8 Other specified anxiety disorders; E78.5 Hyperlipidemia, unspecified; K21.9 Gastro-esophageal reflux disease without esophagitis; F17.210 Nicotine dependence, cigarettes, uncomplicated; Z90.49 Acquired absence of other specified parts of digestive tract
CPT/HCPCS: 87804; 87880; 99202; U0003

== ENCOUNTER 2020-01-14 20:30 | Emergency (ER) | payer OTHER, SELFPAY ==
[2020-01-14 20:41] VITALS: BP 119/73; PULSE 95; RESP 17; TEMP 36.7; O2SAT 97; BMI 33.7
--- NOTE | 2020-01-14 20:56 | HMH.EDNVD ---
ED Disposition Clinical Impression: Abdominal pain Qualifiers: Abdominal location: lower abdomen, unspecified Qualified Code(s): R10.30 - Lower abdominal pain, unspecified Disposition: Left Against Medical Advice Condition on Discharge: Good Instructions: DI for Acute Abdomen Additional Instructions: call pcp - felt better after meds and wanted no more testing Referrals: Darnell Montemayor MD [Primary Care Provider] - - Critical Care Critical Care Time: No Attestation: On 01/14/20, the high probability of a clinically significant, sudden or life threatening deterioration of the following system(s) required my full and direct attention, intervention and personal management. The time I documented below is in addition to time spent performing reported procedures but includes the following listed in this critical care notation. Medical Decision Making - Medical Records Medical records reviewed: Yes: I reviewed the patient's medical records. - Cassius Inquiry Pt receiving controlled substance: No Vital Signs: 01/14/20 20:41 01/14/20 21:00 01/14/20 21:38 Temperature 98.1 F 98 F Temperature Source Oral Oral Pulse Rate 80 Pulse Rate [Right Brachial] 95 H 89 Respiratory Rate 17 17 16 Blood Pressure 141/79 H Blood Pressure [Right Arm] 119/73 125/74 Blood Pressure Mean [Right Arm] 88 91 Blood Pressure Source Automatic Cuff Blood Pressure Source [Right Arm] Automatic Cuff Automatic Cuff Blood Pressure Position Sitting Blood Pressure Position [Right Arm] Sitting Supine 02 Sat by Pulse Oximetry 97 98 Oxygen Delivery Method Room Air Room Air Room Air - Lab Data Lab results reviewed: Yes: I reviewed the patient's lab results. Orders (Tests/Meds): ED MEDICATIONS Generic Name Dose Route Start Last Admin Trade Name Freq PRN Reason Stop Dose Admin Sodium Chloride 500 mls @ 999 mls/hr 01/14/20 21:15 01/14/20 21:06 Sod Chlor 0.9% 1000ml Bag IV 01/14/20 21:45 999 mls/hr .Q31M DIO Administration Sodium Chloride 8 ml 01/14/20 21:01 Sodium Chloride 0.9% 10ml Vial IV 02/13/20 21:00 NEEDED PRN dilute pepcid Discontinued Medications Generic Name Dose Route Start Last Admin Trade Name Freq PRN Reason Stop Dose Admin Famotidine 20 mg 01/14/20 21:01 01/14/20 21:04 Famotidine 20mg/2ml Vial IV 01/14/20 21:02 20 mg ONCE ONE Administration Ketorolac Tromethamine 30 mg 01/14/20 21:01 01/14/20 21:04 Ketorolac 30mg/Ml Vial IV 01/14/20 21:02 30 mg ONCE ONE Administration Metoclopramide HCl 10 mg 01/14/20 21:01 01/14/20 21:04 Metoclopramide Hcl 10mg/2ml Vial IVP 01/14/20 21:02 10 mg ONCE ONE Administration Ondansetron HCl 4 mg 01/14/20 21:03 01/14/20 21:04 Ondansetron 4mg/2ml Vial IV 01/14/20 21:04 4 mg ONCE ONE Administration Nausea/Vomiting/Diarrhea HPI - General Chief complaint: Abdominal Pain Stated complaint: lOWER ABD PAIN Time Seen by Provider: 01/14/20 20:56 Mode of Arrival: Family Vehicle Source of Information: Patient, Medical Record Limitations: No Limitations Description of Symptoms (Recalled from ER Triage Doc. by RN): LOW ABD PAIN THAT BEGAN TODAY/RADIATES THROUGH TRUNK TO RIGHT FLANK; STATES IS BEGAN THIS MORNING, HAD A FEW EPISODES OF MUCOUSY BLOOD TINGED DIARRHEA THROUGHOUT THE DAY; WAS TESTED FOR COVID ON MONDAY IN [facility] AND FOUND TO BE NEGATIVE WHEN SHE PRESENTED FOR SINUS INFECTION SYMPTOMS. PROVIDER PLACED HER ON A ZPACK WHICH SHE IS CURRENTLY ON THROUGH TOMORROW. DENIES N/V. AFEBRILE AT TIME OF TRIAGE - History of Present Illness HPI Narrative: pt with abd pain over the last few days with nausea and no fever/vomiting or diarrhea- had colon surg for diverticulitis - MD complaint: nausea, abdominal pain Onset (ago): day(s) Associated Abdominal Pain: Yes Location of pain: LLQ, RLQ Severity: moderate Quality: sharp Consistency: intermittent Associated symptoms: denies other symptoms - Related Data Home
[2020-01-14 21:00] VITALS: BP 125/74; PULSE 89; RESP 17; O2SAT 98
[2020-01-14 21:38] VITALS: BP 141/79; PULSE 80; RESP 16; TEMP 36.6; O2SAT 98
== END 2020-01-14 22:09 | disposition left against medical advice (07) ==
PROVIDERS: Emergency Provider Emergency Medicine; PCP Internal Medicine Adolescent Medicine
DX: R10.31 Right lower quadrant pain (principal); R10.32 Left lower quadrant pain; K57.32 Diverticulitis of large intestine without perforation or abscess without bleeding; F41.8 Other specified anxiety disorders; K21.9 Gastro-esophageal reflux disease without esophagitis; E78.5 Hyperlipidemia, unspecified; F17.210 Nicotine dependence, cigarettes, uncomplicated; Z88.5 Allergy status to narcotic agent; Z79.899 Other long term (current) drug therapy; Z90.49 Acquired absence of other specified parts of digestive tract
CPT/HCPCS: 96365; 99283; J2405

== ENCOUNTER 2020-03-07 16:44 | Emergency (ER) | payer OTHER, SELFPAY ==
[2020-03-07 16:50] VITALS: BP 127/81; PULSE 90; RESP 20; TEMP 36.6; O2SAT 98; BMI 30.8
[2020-03-07 17:11] LABS: UTC Influenza A Antigen Negative (Negative); UTC Influenza B Antigen Negative (Negative); UTC Strep Screen (Rapid) Negative (Negative)
--- NOTE | 2020-03-07 17:18 | HMH.EDUTC ---
[facility] [place] Clinical Impression: Maxillary sinusitis, acute Qualifiers: Recurrence: non-recurrent Qualified Code(s): J01.00 - Acute maxillary sinusitis, unspecified Disposition: Home, Self-Care Condition on Discharge: Good Instructions: Sinusitis, DI for Sinusitis Additional Instructions: Start antibiotic patient to take as ordered for a full length of time even if you feel better. Sinus infections do not get better overnight. It may take 2-3 days to notice much improvement so be sure to use conservative measures as discussed for symptoms. Flonase 1 spray each nostril daily to help with nasal congestion, sinus and ear pressure/information Increase fluids Humidifier/vaporizer as needed Tylenol and ibuprofen as needed for fever or pain. If symptoms do not improve or get worse return or be seen in the ER Follow-up with primary care this week isolate until test results are known Prescriptions: Fluticasone Propionate [Flonase 50mcg nasal spray 16gm] 1 spr NS DAILY 14 Days #1 bottle Prescription Printed Azithromycin [Zithromax 250mg tab] 250 mg PO DIRECTED #6 tab Prescription Printed Referrals: Darnell Montemayor MD [Primary Care Provider] - Time of Disposition: 17:36 Medical Decision Making - Cassius Inquiry Pt receiving controlled substance: No Vital Signs: 03/07/20 16:50 Temperature 97.9 F Temperature Source Oral Pulse Rate [Right Brachial] 90 Respiratory Rate 20 Blood Pressure [Right Arm] 127/81 Blood Pressure Mean [Right Arm] 96 Blood Pressure Source [Right Arm] Automatic Cuff Blood Pressure Position [Right Arm] Sitting 02 Sat by Pulse Oximetry 98 Oxygen Delivery Method Room Air - Lab Data Lab Results 03/07/20 17:09: Influenza Type A Ag Negative, Influenza Type B Ag Negative 03/07/20 17:09: Strep Scn Rapid Clinic Negative Orders (Tests/Meds): ORDERS Category Date Time Status Covid-19 Nasal PCR ([facility]) Routine Lab 03/07/20 17:09 Ordered Strep Screen Confirmation Stat Micro 03/07/20 17:09 Received [facility] [place]PI - General Chief complaint: Ur[facility] Stated complaint: Sore throat, head congestion Time Seen by Provider: 03/07/20 17:18 Mode of Arrival: Ambulatory Source of Information: Patient Description of Symptoms (Recalled from Triage Doc. by RN): PATIENT C/O SORE THROAT, CONGESTION, HEADACHE, EAR PAIN AND DIZZINESS X 2 DAYS. STATE SHE WAS POSSIBLY INDIRECTLY EXPOSED TO COVID HEENT Symptoms (Recalled from RN notes): Yes Resp Symptoms (Recalled from RN notes): Yes Skin Symptoms (Recalled from RN notes): No MS Symptoms (Recalled from RN notes): No Functional Status (Recalled from RN notes): WNL - History of Present Illness Provider Complaint: 44 yr old female presents for sore throat, headache,green nasal drainage, dizziness, slight soa and fever. pt states she was exposed to someone that was positive - Related Data Home Medications Medication Instructions Recorded Confirmed ALPRAZolam [Xanax 0.5mg tab] 0.5 mg PO BID 06/24/17 12/25/18 Cetirizine HCl [Zyrtec] 10 mg PO DAILY 06/24/17 12/25/18 Atorvastatin Calcium [Lipitor 20mg 20 mg PO HS 10/10/17 12/25/18 Tab] Citalopram Hydrobromide 10 mg PO DAILY 10/10/17 12/25/18 [Citalopram 10mg Tablet] diclofenac sodium 75 mg 75 mg PO DAILY 12/06/17 12/26/18 tablet,delayed release Montelukast Sodium [Montelukast 10 mg PO HS 12/11/17 12/25/18 10mg Tab] hydrocodone 5 mg-acetaminophen 325 1 tab PO Q4-6H PRN 09/14/18 12/25/18 mg tablet Imipramine HCl 50 mg PO DAILY 12/25/18 12/25/18 raNITIdine HCL [Ranitidine HCl] 150 mg PO BID 12/25/18 12/25/18 Naloxegol Oxalate [Movantik] 25 mg PO DAILY 12/26/18 12/26/18 raNITIdine HCL [Ranitidine HCl] 150 mg PO BID 12/26/18 12/26/18 Previous Rx's Medication Instructions Recorded Oxycodone HCl/Acetaminophen 1 tab PO Q6H PRN 3 Days #12 tab 11/10/18 [Percocet 10-325 mg Tablet] levoFLOXacin [Levaquin 500mg 500 mg PO DAILY #7 tab 12/26/18 tab
[2020-03-07 17:36] VITALS: BP 127/81; PULSE 90; RESP 20; TEMP 36.6; O2SAT 98
--- NOTE | 2020-03-08 08:57 | PC.NURSE ---
patient notified of positive covid results
== END 2020-03-07 17:40 | disposition home or self-care (01) ==
PROVIDERS: Emergency Provider Nurse Practitioner Family; PCP Internal Medicine Adolescent Medicine
DX: U07.1 COVID-19 (principal); E78.5 Hyperlipidemia, unspecified; K21.9 Gastro-esophageal reflux disease without esophagitis; F41.8 Other specified anxiety disorders; F17.210 Nicotine dependence, cigarettes, uncomplicated; Z90.49 Acquired absence of other specified parts of digestive tract; Z88.5 Allergy status to narcotic agent; Z79.899 Other long term (current) drug therapy
CPT/HCPCS: 87804; 87880; 99202; U0003

== ENCOUNTER 2020-03-12 13:15 | Emergency (ER) | payer OTHER, SELFPAY ==
[2020-03-12 13:30] VITALS: BP 106/68; PULSE 66; RESP 20; TEMP 36.6; O2SAT 95; BMI 30.8
--- NOTE | 2020-03-12 13:49 | HMH.EDUTC ---
[facility] [place] Imp[place]: COVID-19 Disposition: Home, Self-Care Condition on Discharge: Good Instructions: Preventing the Spread of Coronavirus Discharge Instructions Additional Instructions: Drink plenty of fluids. Take tylenol for pain or fever. Return if you begin to have difficulty breathing. Follow up with your regular doctor. GO TO THE ER FOR ANY WORSENING SYMPTOMS Referrals: Darnell Montemayor MD [Primary Care Provider] - Time of Disposition: 14:01 Medical Decision Making - Medical Records Medical records reviewed: No: I reviewed the patient's medical records. - Cassius Inquiry Pt receiving controlled substance: No Vital Signs: 03/12/20 13:30 03/12/20 14:11 Temperature 97.9 F 97.9 F Temperature Source Oral Pulse Rate 66 Pulse Rate [Left Brachial] 66 Respiratory Rate 20 20 Blood Pressure 106/68 L Blood Pressure [Left Arm] 106/68 L Blood Pressure Mean [Left Arm] 80 Blood Pressure Source [Left Arm] Automatic Cuff Blood Pressure Position [Left Arm] Sitting 02 Sat by Pulse Oximetry 95 Oxygen Delivery Method Room Air Orders (Tests/Meds): ORDERS Category Date Time Status Covid-19 Nasal PCR Sendout [facility] Routine Lab 03/12/20 13:30 [place] [facility] - General Stated complaint: RETEST FOR COVID Time Seen by Provider: 03/12/20 13:50 - History of Present Illness Provider Complaint: She tested positive for covid last week. She has not had any symptoms for the past 5 days. She needs a negative test to be allowed to go back to work. - Related Data Home Medications Medication Instructions Recorded Confirmed ALPRAZolam [Xanax 0.5mg tab] 0.5 mg PO BID 06/24/17 12/25/18 Cetirizine HCl [Zyrtec] 10 mg PO DAILY 06/24/17 12/25/18 Atorvastatin Calcium [Lipitor 20mg 20 mg PO HS 10/10/17 12/25/18 Tab] Citalopram Hydrobromide 10 mg PO DAILY 10/10/17 12/25/18 [Citalopram 10mg Tablet] diclofenac sodium 75 mg 75 mg PO DAILY 12/06/17 12/26/18 tablet,delayed release Montelukast Sodium [Montelukast 10 mg PO HS 12/11/17 12/25/18 10mg Tab] hydrocodone 5 mg-acetaminophen 325 1 tab PO Q4-6H PRN 09/14/18 12/25/18 mg tablet Imipramine HCl 50 mg PO DAILY 12/25/18 12/25/18 raNITIdine HCL [Ranitidine HCl] 150 mg PO BID 12/25/18 12/25/18 Naloxegol Oxalate [Movantik] 25 mg PO DAILY 12/26/18 12/26/18 raNITIdine HCL [Ranitidine HCl] 150 mg PO BID 12/26/18 12/26/18 Previous Rx's Medication Instructions Recorded Oxycodone HCl/Acetaminophen 1 tab PO Q6H PRN 3 Days #12 tab 11/10/18 [Percocet 10-325 mg Tablet] levoFLOXacin [Levaquin 500mg 500 mg PO DAILY #7 tab 12/26/18 tab] metroNIDAZOLE [Flagyl 500mg 500 mg PO TID #21 tab 12/26/18 Tablet] predniSONE [Deltasone 20mg 20 mg PO BID 7 Days #14 tab 12/26/18 tablet] Amoxicillin/Potassium Clav 1 tab PO Q12H 7 Days #14 tab 03/20/19 [Augmentin 875-125 Tablet] Fluticasone Propionate [Flonase 2 spr NS DAILY #1 bottle 03/20/19 50mcg nasal spray 16gm] Azithromycin [Z-Domingo 250mg Tab*] 250 mg PO UD DOSE PK #6 tab 03/28/19 Oseltamivir Phosphate [Tamiflu 75 mg PO BID #10 cap 03/28/19 75mg Capsule] methylPREDNISolone [Medrol] 4 mg PO DIRECTED 6 Days #21 03/28/19 tab.ds.pk Dicyclomine HCl [Bentyl 10mg 20 mg PO TID PRN 5 Days cap 11/17/19 capsule] Ondansetron [Zofran 4mg ODT] 4 mg PO Q6 PRN #10 tab.rapdis 11/17/19 Promethazine HCl [Phenergan 25mg 25 mg PO TID PRN #12 tab 12/20/19 tab] Azithromycin [Z-Domingo 250mg Tab*] 250 mg PO UD DOSE PK #6 tab 01/12/20 Brompheniramine/Pseudoephed/Dm 5 ml PO Q6HP PRN #240 syrup 01/12/20 [Bromfed Dm Cough Syrup] Ondansetron [Zofran 4mg ODT] 4 mg PO Q8HP PRN #9 tab.rapdis 01/12/20 Azithromycin [Zithromax 250mg 250 mg PO DIRECTED #6 tab 03/07/20 tab] Fluticasone Propionate [Flonase 1 spr NS DAILY 14 Days #1 bottle 03/07/20 50mcg nasal spray 16gm] Allergies Allergy/AdvReac Type Severity Reaction Status Date
[2020-03-12 14:11] VITALS: BP 106/68; PULSE 66; RESP 20; TEMP 36.6; O2SAT 95
[2020-03-14 14:01] LABS: Covid-19 Nasal PCR Sendout Lex Not Detected
== END 2020-03-12 14:15 | disposition home or self-care (01) ==
PROVIDERS: Emergency Provider Nurse Practitioner Family; PCP Internal Medicine Adolescent Medicine
DX: Z86.19 Personal history of other infectious and parasitic diseases (principal)
CPT/HCPCS: 99201; U0004

== ENCOUNTER 2020-04-05 15:35 | Emergency (ER) | payer OTHER, SELFPAY ==
[2020-04-05 16:20] VITALS: BP 137/79; PULSE 71; RESP 20; TEMP 36.6; O2SAT 98; BMI 33.2
[2020-04-05 17:06] VITALS: BP 137/79; PULSE 71; RESP 20; TEMP 36.6; O2SAT 98
--- NOTE | 2020-04-05 17:07 | HMH.EDUTC ---
[facility] [place] Disposition Clinical Impression: Maxillary sinusitis, acute Qualifiers: Recurrence: non-recurrent Qualified Code(s): J01.00 - Acute maxillary sinusitis, unspecified Disposition: Home, Self-Care Condition on Discharge: Good Instructions: Sinusitis, DI for Sinusitis Additional Instructions: Start antibiotic patient to take as ordered for a full length of time even if you feel better. Sinus infections do not get better overnight. It may take 2-3 days to notice much improvement so be sure to use conservative measures as discussed for symptoms. Flonase 1 spray each nostril daily to help with nasal congestion, sinus and ear pressure/information Increase fluids Humidifier/vaporizer as needed Tylenol and ibuprofen as needed for fever or pain. If symptoms do not improve or get worse return or be seen in the ER Follow-up with primary care this week Prescriptions: Fluticasone Propionate [Flonase 50mcg nasal spray 16gm] 1 spr NS DAILY 14 Days #1 bottle Transmission Status: Pending to [id number] Azithromycin [Zithromax 250mg tab] 250 mg PO DIRECTED #6 tab Transmission Status: Pending to [id number] Referrals: Darnell Montemayor MD [Primary Care Provider] - Time of Disposition: 17:12 Medical Decision Making - Cassius Inquiry Pt receiving controlled substance: No Vital Signs: 04/05/20 16:20 04/05/20 17:06 Temperature 97.8 F 97.8 F Temperature Source Oral Pulse Rate 71 Pulse Rate [Left Brachial] 71 Respiratory Rate 20 20 Blood Pressure 137/79 Blood Pressure [Left Arm] 137/79 Blood Pressure Mean [Left Arm] 98 Blood Pressure Source [Left Arm] Automatic Cuff Blood Pressure Position [Left Arm] Sitting 02 Sat by Pulse Oximetry 98 Oxygen Delivery Method Room Air [facility] [place] HPI - General Chief complaint: Urgent Treatment Center Stated complaint: Sinus pressure Time Seen by Provider: 04/05/20 17:08 Mode of Arrival: Ambulatory Source of Information: Patient Limitations: No Limitations Description of Symptoms (Recalled from Triage Doc. by RN): PATIENT C/O NASAL AND SINUS PRESSURE AND EAR PAIN X 2 DAYS HEENT Symptoms (Recalled from RN notes): Yes Resp Symptoms (Recalled from RN notes): No Skin Symptoms (Recalled from RN notes): No MS Symptoms (Recalled from RN notes): No Functional Status (Recalled from RN notes): WNL - History of Present Illness Provider Complaint: 44 yr old female presents for sinus pressure, rt ear pain and green sinus drainage. - Related Data Home Medications Medication Instructions Recorded Confirmed ALPRAZolam [Xanax 0.5mg tab] 0.5 mg PO BID 06/24/17 12/25/18 Cetirizine HCl [Zyrtec] 10 mg PO DAILY 06/24/17 12/25/18 Atorvastatin Calcium [Lipitor 20mg 20 mg PO HS 10/10/17 12/25/18 Tab] Citalopram Hydrobromide 10 mg PO DAILY 10/10/17 12/25/18 [Citalopram 10mg Tablet] diclofenac sodium 75 mg 75 mg PO DAILY 12/06/17 12/26/18 tablet,delayed release Montelukast Sodium [Montelukast 10 mg PO HS 12/11/17 12/25/18 10mg Tab] hydrocodone 5 mg-acetaminophen 325 1 tab PO Q4-6H PRN 09/14/18 12/25/18 mg tablet Imipramine HCl 50 mg PO DAILY 12/25/18 12/25/18 raNITIdine HCL [Ranitidine HCl] 150 mg PO BID 12/25/18 12/25/18 Naloxegol Oxalate [Movantik] 25 mg PO DAILY 12/26/18 12/26/18 raNITIdine HCL [Ranitidine HCl] 150 mg PO BID 12/26/18 12/26/18 Previous Rx's Medication Instructions Recorded Oxycodone HCl/Acetaminophen 1 tab PO Q6H PRN 3 Days #12 tab 11/10/18 [Percocet 10-325 mg Tablet] levoFLOXacin [Levaquin 500mg 500 mg PO DAILY #7 tab 12/26/18 tab] metroNIDAZOLE [Flagyl 500mg 500 mg PO TID #21 tab 12/26/18 Tablet] predniSONE [Deltasone 20mg 20 mg PO BID 7 Days #14 tab 12/26/18 tablet] Amoxicillin/Potassium Clav 1 tab PO Q12H 7 Days #14 tab 03/20/19 [Augmentin 875-125 Tablet] Fluticasone Propionate [Flonase 2 spr NS DAILY #1 bottle 03/20/19 50mcg nasal spray 16gm] Azithromycin [Z-Domingo 250mg Tab*] 250 mg P
== END 2020-04-05 17:19 | disposition home or self-care (01) ==
PROVIDERS: Emergency Provider Nurse Practitioner Family; PCP Internal Medicine Adolescent Medicine
DX: J01.00 Acute maxillary sinusitis, unspecified (principal); F41.8 Other specified anxiety disorders; K21.9 Gastro-esophageal reflux disease without esophagitis; E78.5 Hyperlipidemia, unspecified; F17.210 Nicotine dependence, cigarettes, uncomplicated; Z79.899 Other long term (current) drug therapy
CPT/HCPCS: 99202; G0463

== ENCOUNTER 2020-05-11 16:58 | Emergency (ER) | payer OTHER, SELFPAY ==
[2020-05-11 17:19] VITALS: BP 154/84; PULSE 82; RESP 16; TEMP 36.3; O2SAT 96; BMI 32.4
--- NOTE | 2020-05-11 17:56 | HMH.EDUTC ---
[facility] [place] Clinical Impression: Exposure to COVID-19 virus Otitis media Qualifiers: Otitis media type: suppurative Chronicity: acute Laterality: bilateral Recurrence: non-recurrent Spontaneous tympanic membrane rupture: without spontaneous rupture Qualified Code(s): H66.003 - Acute suppurative otitis media without spontaneous rupture of ear drum, bilateral Sinusitis Qualifiers: Sinusitis location: unspecified location Chronicity: acute Recurrence: non-recurrent Qualified Code(s): J01.90 - Acute sinusitis, unspecified Disposition: Home, Self-Care Condition on Discharge: Good Instructions: Middle Ear Infection, DI for Sinusitis Additional Instructions: Drink plenty of fluids. Take tylenol for pain or fever. Return if you begin to have difficulty breathing. Follow up with your regular doctor. GO TO THE ER FOR ANY WORSENING SYMPTOMS Prescriptions: Benzonatate [Tessalon Perle 100mg Cap] 100 mg PO TIDP PRN #30 cap PRN Reason: Cough Transmission Status: Received by [facility] Azithromycin [Z-Domingo 250mg Tab*] 250 mg PO UD DOSE PK #6 tab Transmission Status: Received by [facility] Referrals: Darnell Montemayor MD [Primary Care Provider] - Forms: Work/School Release Time of Disposition: 18:05 Medical Decision Making - Medical Records Medical records reviewed: No: I reviewed the patient's medical records. - Cassius Inquiry Pt receiving controlled substance: No Vital Signs: 05/11/20 17:19 05/11/20 18:14 Temperature 97.3 F L 97.6 F Temperature Source Tympanic Tympanic Pulse Rate 79 Pulse Rate [Right] 82 Respiratory Rate 16 16 Blood Pressure 141/82 H Blood Pressure [Right Arm] 154/84 H Blood Pressure Mean [Right Arm] 107 Blood Pressure Source [Right Arm] Automatic Cuff Blood Pressure Position [Right Arm] Sitting 02 Sat by Pulse Oximetry 96 Oxygen Delivery Method Room Air Room Air [facility] [place] - General Stated complaint: Ears, ESPINOZA, Upper Leg pain Time Seen by Provider: 05/11/20 17:56 Mode of Arrival: Ambulatory Source of Information: Patient Limitations: No Limitations Description of Symptoms (Recalled from Triage Doc. by RN): pt states her head is hurting and she is sensitive to noise. the tops of her legs are aching ad her right ear is ringing. HEENT Symptoms (Recalled from RN notes): Yes (ESPINOZA, ears ringing) Resp Symptoms (Recalled from RN notes): No Skin Symptoms (Recalled from RN notes): No MS Symptoms (Recalled from RN notes): Yes (legs aching) Functional Status (Recalled from RN notes): na - History of Present Illness Provider Complaint: She states that she has had bilateral ear pain, body aches and sinus congestion for the past 2 days. - Related Data Home Medications Medication Instructions Recorded Confirmed ALPRAZolam [Xanax 0.5mg tab] 0.5 mg PO BID 06/24/17 12/25/18 Cetirizine HCl [Zyrtec] 10 mg PO DAILY 06/24/17 12/25/18 Atorvastatin Calcium [Lipitor 20mg 20 mg PO HS 10/10/17 12/25/18 Tab] Citalopram Hydrobromide 10 mg PO DAILY 10/10/17 12/25/18 [Citalopram 10mg Tablet] diclofenac sodium 75 mg 75 mg PO DAILY 12/06/17 12/26/18 tablet,delayed release Montelukast Sodium [Montelukast 10 mg PO HS 12/11/17 12/25/18 10mg Tab] hydrocodone 5 mg-acetaminophen 325 1 tab PO Q4-6H PRN 09/14/18 12/25/18 mg tablet Imipramine HCl 50 mg PO DAILY 12/25/18 12/25/18 raNITIdine HCL [Ranitidine HCl] 150 mg PO BID 12/25/18 12/25/18 Naloxegol Oxalate [Movantik] 25 mg PO DAILY 12/26/18 12/26/18 raNITIdine HCL [Ranitidine HCl] 150 mg PO BID 12/26/18 12/26/18 Previous Rx's Medication Instructions Recorded Oxycodone HCl/Acetaminophen 1 tab PO Q6H PRN 3 Days #12 tab 11/10/18 [Percocet 10-325 mg Tablet] levoFLOXacin [Levaquin 500mg 500 mg PO DAILY #7 tab 12/26/18 tab] metroNIDAZOLE [Flagyl 500mg 500 mg PO TID #21 tab 12/26/18 Tablet] predniSONE [Deltasone 20mg 20 mg PO BID 7 Days #14 tab 12/26/18 tablet] Amoxicilli
[2020-05-11 18:14] VITALS: BP 141/82; PULSE 79; RESP 16; TEMP 36.4
== END 2020-05-11 18:18 | disposition home or self-care (01) ==
PROVIDERS: Emergency Provider Nurse Practitioner Family; PCP Internal Medicine Adolescent Medicine
DX: Z20.822 Contact with and (suspected) exposure to COVID-19 (principal); H66.003 Acute suppurative otitis media without spontaneous rupture of ear drum, bilateral; J01.90 Acute sinusitis, unspecified; E03.9 Hypothyroidism, unspecified; F41.8 Other specified anxiety disorders; K21.9 Gastro-esophageal reflux disease without esophagitis; E78.5 Hyperlipidemia, unspecified; Z88.5 Allergy status to narcotic agent; Z79.899 Other long term (current) drug therapy
CPT/HCPCS: 99202; G0463; U0003

== ENCOUNTER → 2020-06-13 09:51 | Outpatient (CLI) | payer OTHER, SELFPAY ==
--- NOTE | 2020-06-13 10:44 | XR_ITS ---
PROCEDURE: XR HAND RT MIN 3V CLINICAL INDICATION: PAIN IN RIGHT FINGERS COMPARISON: CR HANDR3 HAND-RT 3 VIEWS from 01/02/2015 CR HANDR3 HAND-RT 3 VIEWS from 07/15/2015 CR HANDR3 HAND-RT 3 VIEWS from 08/17/2016 CR [id number] XR hand RT min 3V from 11/29/2017 FINDINGS: No fracture or dislocation. No lytic or blastic change. There is normal mineralization. Moderate osteoarthritic changes are present at the 1st metacarpal-carpal joint. Periarticular ossification noted with a calcific body lateral to the joint space. Osteoarthritic changes have progressed since 11/29/2017. Other findings:None. IMPRESSION: Progressive osteoarthritic changes the 1st metacarpal-carpal joint Dictated by: Luke Yanes MD 06/13/2020 11:34 Luke Yanes MD in [place] 06/13/2020 11:34
[2020-06-13 12:20] LABS: Basophils % 0.4 % (0.1-2.0); Eosinophils # 0.1 K/mm3 (0.0-0.4); Eosinophils % 1.4 % (0.1-12.0); Hematocrit 42.5 % (37.0-47.0); Hemoglobin 13.2 g/dL (12.2-16.2); Lymphocytes # 2.4 K/mm3 (0.7-4.5); Lymphocytes % 26.4 % (10-50); Mean Corpuscular HGB Conc 31.1 g/dL (31.8-35.4); Mean Corpuscular Hemoglobin 29.4 pg (27.0-31.2); Mean Corpuscular Volume 94.5 fl (81-99); Mean Platelet Volume 7.5 fl (7.4-10.4); Monocytes # 0.4 K/mm3 (0.1-1.0); Monocytes % 4.4 % (1.7-9.3); Neutrophils # 6.2 K/mm3 (1.8-7.8); Neutrophils % 67.4 % (37.0-80.0); Platelet Count 452 K/mm3 (142-424); Red Cell Distribution Width 14.2 % (11.5-17.5); White Blood Count 9.2 K/mm3 (4.8-10.8)
[2020-06-13 12:53] LABS: Alanine Aminotransferase 18 U/L (12-78); Albumin/Globulin Ratio 1.3 (1.1-1.8); Alkaline Phosphatase 117 U/L (38-126); Anion Gap 9.8 mEq/L (5-15); Aspartate Amino Transferase 20 U/L (14-36); Bilirubin,Total 0.9 mg/dl (0.2-1.3); Blood Urea Nitrogen 10 mg/dl (7-17); Calcium 9.4 mg/dl (8.4-10.2); Carbon Dioxide 27 mmol/L (22.0-30.0); Chloride 106 mmol/L (98-107); Chol/HDL Ratio 4.2 (1-3.5); Cholesterol 204 mg/dl (140-200); Estimated Glomerular Filt Rate 78 ml/min (>60); GFR (African American) 94 ML/MIN (>60); Globulin 3.1 g/dL (1.3-3.2); Glucose 97 mg/dl (74-100); HDL Cholesterol 49 mg/dl (40-60); Potassium 4.8 mmoL/L (3.5-5.1); Sodium 138 mmol/L (136-145); Total Protein,Serum 7.1 g/dl (6.3-8.2); Triglycerides 172 mg/dl (30-150); VLDL Cholesterol 34 mg/dL (0-40)
[2020-06-13 13:04] LABS: Direct LDL Cholesterol 107.29 mg/dL (100-129)
[2020-06-13 13:13] LABS: Free Thyroxine Index 3.2 ug/dL (5.93-13.13); T4 (Thyroxine) 9.4 ug/dl (5.53-11.0); Triiodothryronine (T3) Uptake 34 % (23.5-40.5)
[2020-06-13 13:13] LABS: 25-OH Vitamin D, Total 24.1 ng/mL (30-100)
[2020-06-13 13:14] LABS: HCG,Quantitative < 2 mIU/ml (0-5.42)
[2020-06-13 13:26] LABS: Thyroid Stimulating Hormone 0.91 uIU/mL (0.465-4.68)
[2020-06-13 13:43] LABS: Vitamin B12 794 pg/mL (239-931)
[2020-06-14 10:31] LABS: Prolactin 26.1 ng/mL (4.8-23.3)
== END ==
PROVIDERS: Nurse Practitioner Family; PCP Internal Medicine Adolescent Medicine; Referring Provider Internal Medicine Adolescent Medicine; Visit Provider Internal Medicine Adolescent Medicine
DX: M79.644 Pain in right finger(s) (principal); E78.5 Hyperlipidemia, unspecified; E53.8 Deficiency of other specified B group vitamins; E55.9 Vitamin D deficiency, unspecified; N93.9 Abnormal uterine and vaginal bleeding, unspecified
CPT/HCPCS: 36415; 73130; 80053; 80061; 82306; 82607; 84146; 84436; 84443; 84479; 84702; 85025

== ENCOUNTER → 2020-07-15 09:27 | Outpatient (CLI) | payer OTHER, SELFPAY ==
--- NOTE | 2020-07-15 09:39 | XR_ITS ---
PROCEDURE: XR HAND LT MIN 3V CLINICAL INDICATION: LT hand pain COMPARISON: CR HANDR3 HAND-RT 3 VIEWS from 07/15/2015 CR HANDR3 HAND-RT 3 VIEWS from 08/17/2016 CR [id number] XR hand RT min 3V from 11/29/2017 CR XR HAND RT MIN 3V from 06/13/2020 FINDINGS: No fracture or dislocation. No lytic or blastic change. There is normal mineralization. Osteoarthritic changes are present at the 1st metacarpal-carpal joint with subcortical cystic changes the trapezium and minimal fragmentation of the tip of the trapezium at the base of the 2nd metacarpal region. Cystic changes are also present in the proximal aspect of the scaphoid and the lateral aspect of the capitate Other findings:None. IMPRESSION: Degenerative changes of the wrist with cystic changes of the trapezium scaphoid and capitate. Consider follow-up wrist films in 3-6 months to confirm stability. Dictated by: Luke Yanes MD 07/15/2020 14:06 Luke Yanes MD in [place] 07/15/2020 14:06
== END ==
PROVIDERS: PCP Internal Medicine Adolescent Medicine; Visit Provider Orthopaedic Surgery
DX: M79.642 Pain in left hand (principal); M79.641 Pain in right hand
CPT/HCPCS: 73130

== ENCOUNTER 2020-07-15 10:38 | Outpatient (RCR) | payer OTHER, SELFPAY | END 2020-07-15 12:00 | disposition home or self-care (01) | LOC: OT 10:38 | PROVIDERS: PCP Internal Medicine Adolescent Medicine; Visit Provider Orthopaedic Surgery | DX: M79.642 Pain in left hand (principal); M79.641 Pain in right hand | CPT/HCPCS: 97760; 97763 ==

== ENCOUNTER 2020-08-29 16:20 | Emergency (ER) | payer OTHER, SELFPAY ==
[2020-08-29 16:31] VITALS: BP 131/69; PULSE 82; RESP 18; TEMP 36.6; O2SAT 99; BMI 31.4
--- NOTE | 2020-08-29 16:39 | HMH.EDGENADL ---
ED Disposition Clinical Impression: Rectal bleeding Abdominal pain Qualifiers: Abdominal location: lower abdomen, unspecified Qualified Code(s): R10.30 - Lower abdominal pain, unspecified Disposition: Home, Self-Care Condition on Discharge: Good Instructions: DI for Acute Abdominal Pain, DI for Rectal Bleeding Additional Instructions: Use laxative as prescribed by Dr. Herrera. Follow-up with Dr. Herrera regarding further evaluation of rectal bleeding and abdominal pain. Additional instructions for ABDOMINAL PAIN: Return immediately if severe abdominal pain, vomiting, shortness of breath, fever, vomiting of blood or abdominal distention. Referrals: Darnell Montemayor MD [Primary Care Provider] - - Critical Care Critical Care Time: No Attestation: On 08/29/20, the high probability of a clinically significant, sudden or life threatening deterioration of the following system(s) required my full and direct attention, intervention and personal management. The time I documented below is in addition to time spent performing reported procedures but includes the following listed in this critical care notation. Medical Decision Making - Cassius Inquiry Pt receiving controlled substance: No Vital Signs: 08/29/20 16:31 Temperature 97.8 F Temperature Source Oral Pulse Rate [Left Radial] 82 Respiratory Rate 18 Blood Pressure [Right Arm] 131/69 Blood Pressure Mean [Right Arm] 89 Blood Pressure Source [Right Arm] Automatic Cuff Blood Pressure Position [Right Arm] Sitting 02 Sat by Pulse Oximetry 99 Oxygen Delivery Method Room Air - Lab Data Lab Results 08/29/20 16:40: WBC 11.2 H, RBC 3.93 L, Hgb 11.6 L, Hct 35.3 L, MCV 89.7, MCH 29.6, MCHC 33.0, RDW 14.7, Plt Count 446 H, MPV 7.2 L, Neut % (Auto) 64.5, Lymph % (Auto) 29.2, Smyth % (Auto) 4.6, Eos % (Auto) 1.1, Baso % (Auto) 0.5, Neut # (Auto) 7.2, Lymph # (Auto) 3.3, Smyth # (Auto) 0.5, Eos # (Auto) 0.1, Baso # (Auto) 0.1 08/29/20 16:40: Sodium 138, Potassium 3.5, Chloride 109 H, Carbon Dioxide 26, Anion Gap 6.5, BUN 11, Creatinine 0.80, Estimated Creat Clear 143, Estimated GFR 78, Est GFR ( Amer) 94, Glucose 93, Calcium 8.5, Total Bilirubin 0.5, AST 18, ALT 21, Alkaline Phosphatase 109, Total Protein 6.4, Albumin 3.6, Globulin 2.8, Albumin/Globulin Ratio 1.3, Lipase 116 08/29/20 16:40: Serum HCG, Qual Negative Result diagrams: 08/29/20 16:40 08/29/20 16:40 Orders (Tests/Meds): ED MEDICATIONS Discontinued Medications Generic Name Dose Route Start Last Admin Trade Name Isabel PRN Reason Stop Dose Admin Iopamidol 75 ml 08/29/20 17:03 08/29/20 17:03 Iopamidol-370 (76%);100ml Bottle IV 08/29/20 17:04 75 ml ONCE ONE Administration Sodium Chloride 10 ml 08/29/20 17:03 08/29/20 17:03 Sodium Chloride 0.9% 10ml Syr (Rad Only) IV 08/29/20 17:04 10 ml ONCE ONE Administration - CT Data CT Scan: Abdomen, Pelvis Time Received: 17:[address] Reviewed: Yes: I have viewed the radiologist's interpretation Findings Narrative: PROCEDURE INFORMATION: Exam: CT Abdomen And Pelvis With Contrast Exam date and time: 08/29/2020 4:41 PM Age: 44 years old Clinical indication: Abdominal pain; Localized; Prior surgery; Surgery date: 6+ months; Surgery type: Colon surgery; Patient HX: Abdomen pain, lower cramping x 1 week TECHNIQUE: Imaging protocol: Computed tomography of the abdomen and pelvis with contrast. Radiation optimization: All CT scans at this facility use at least one of these dose optimization techniques: automated exposure control; mA and/or kV adjustment per patient size (includes targeted exams where dose is matched to clinical indication); or iterative reconstruction. Contrast material: ISOVUE; Contrast volume: 75 ml; Contrast route: IV; COMPARISON: CT ABDOMEN PELVIS W CON 12/20/2019 1:08 PM FINDINGS: Lungs: Lung bases are clear. Liver: There is enlargement of the liver, measuring 18 cm. There
--- NOTE | 2020-08-29 16:41 | CT_ITS ---
PROCEDURE INFORMATION: Exam: CT Abdomen And Pelvis With Contrast Exam date and time: 08/29/2020 4:41 PM Age: 44 years old Clinical indication: Abdominal pain; Localized; Prior surgery; Surgery date: 6+ months; Surgery type: Colon surgery; Patient HX: Abdomen pain, lower cramping x 1 week TECHNIQUE: Imaging protocol: Computed tomography of the abdomen and pelvis with contrast. Radiation optimization: All CT scans at this facility use at least one of these dose optimization techniques: automated exposure control; mA and/or kV adjustment per patient size (includes targeted exams where dose is matched to clinical indication); or iterative reconstruction. Contrast material: ISOVUE; Contrast volume: 75 ml; Contrast route: IV; COMPARISON: CT ABDOMEN PELVIS W CON 12/20/2019 1:08 PM FINDINGS: Lungs: Lung bases are clear. Liver: There is enlargement of the liver, measuring 18 cm. There is a diffuse decrease in hepatic parenchymal density, consistent with fatty infiltration. The liver is otherwise unremarkable. Gallbladder and bile ducts: Prior cholecystectomy. There is no evidence of biliary ductal dilation. Pancreas: Normal. No ductal dilation. Spleen: Normal. No splenomegaly. Adrenal glands: Normal. No mass. Kidneys and ureters: Normal. No hydronephrosis. Stomach and bowel: [place] colonic anastomosis in the rectosigmoid junction without complications. No bowel obstruction or significant bowel wall thickening. Submucosal fat deposition in the sigmoid, this is chronic and related to excessive body fat content or sequela of prior infectious/inflammatory process. There is mildly excessive colonic stool content. Appendix: Appendix is not confidently visualized on this examination, however there are no significant inflammatory changes to the right lower quadrant. Intraperitoneal space: Unremarkable. No free air. No significant fluid collection. Vasculature: Unremarkable. No abdominal aortic aneurysm. Lymph nodes: Unremarkable. No enlarged lymph nodes. Urinary bladder: The bladder is decompressed. Reproductive: Tubal ligation clips noted in the left adnexa. The reproductive organs are otherwise unremarkable. Bones/joints: No acute skeletal pathology. Mild multilevel degenerative changes of the spine, as manifested by multilevel anterior osteophytes and multilevel decrease in intervertebral disc space. Soft tissues: No acute soft tissue findings. IMPRESSION: 1. Negative for acute abdominopelvic pathology. 2. Incidental findings as detailed above.
[2020-08-29 16:52] LABS: Basophils # 0.1 K/mm3 (0-0.2); Basophils % 0.5 % (0.1-2.0); Eosinophils # 0.1 K/mm3 (0.0-0.4); Eosinophils % 1.1 % (0.1-12.0); Hematocrit 35.3 % (37.0-47.0); Hemoglobin 11.6 g/dL (12.2-16.2); Lymphocytes # 3.3 K/mm3 (0.7-4.5); Lymphocytes % 29.2 % (10-50); Mean Corpuscular Hemoglobin 29.6 pg (27.0-31.2); Mean Corpuscular Volume 89.7 fl (81-99); Mean Platelet Volume 7.2 fl (7.4-10.4); Monocytes # 0.5 K/mm3 (0.1-1.0); Monocytes % 4.6 % (1.7-9.3); Neutrophils # 7.2 K/mm3 (1.8-7.8); Neutrophils % 64.5 % (37.0-80.0); Platelet Count 446 K/mm3 (142-424); Red Blood Count 3.93 M/mm3 (4.20-5.40); Red Cell Distribution Width 14.7 % (11.5-17.5); White Blood Count 11.2 K/mm3 (4.8-10.8)
[2020-08-29 16:58] LABS: HCG Qualitative, Serum Negative (Negative)
[2020-08-29 17:01] LABS: Alanine Aminotransferase 21 U/L (12-78); Albumin Level 3.6 g/dl (3.5-5.0); Albumin/Globulin Ratio 1.3 (1.1-1.8); Alkaline Phosphatase 109 U/L (38-126); Anion Gap 6.5 mEq/L (5-15); Aspartate Amino Transferase 18 U/L (14-36); Bilirubin,Total 0.5 mg/dl (0.2-1.3); Blood Urea Nitrogen 11 mg/dl (7-17); Calcium 8.5 mg/dl (8.4-10.2); Carbon Dioxide 26 mmol/L (22.0-30.0); Chloride 109 mmol/L (98-107); Creatinine Clearance Estimated 143 mL/min (50-200); Estimated Glomerular Filt Rate 78 ml/min (>60); GFR (African American) 94 ML/MIN (>60); Globulin 2.8 g/dL (1.3-3.2); Glucose 93 mg/dl (74-100); Lipase 116 U/L (23-300); Potassium 3.5 mmoL/L (3.5-5.1); Sodium 138 mmol/L (136-145); Total Protein,Serum 6.4 g/dl (6.3-8.2)
[2020-08-29 17:25] VITALS: BP 143/89; PULSE 83; RESP 18; TEMP 36.7; O2SAT 98
== END 2020-08-29 17:50 | disposition home or self-care (01) ==
PROVIDERS: Emergency Provider Emergency Medicine; PCP Internal Medicine Adolescent Medicine
DX: R10.30 Lower abdominal pain, unspecified (principal); K62.5 Hemorrhage of anus and rectum; F41.8 Other specified anxiety disorders; K21.9 Gastro-esophageal reflux disease without esophagitis; E78.5 Hyperlipidemia, unspecified; Z79.899 Other long term (current) drug therapy
CPT/HCPCS: 74177; 80053; 83690; 84703; 85025; 99282; Q9967

== ENCOUNTER 2020-09-17 14:57 | Emergency (ER) | payer OTHER, SELFPAY ==
[2020-09-17 15:00] VITALS: BP 116/68; PULSE 77; RESP 19; TEMP 37.2; O2SAT 96; BMI 37.8
[2020-09-17 15:27] LABS: UTC Strep Screen (Rapid) Negative (Negative)
--- NOTE | 2020-09-17 15:29 | HMH.EDUTC ---
[facility] [place] Disposition Clinical Impression: Sore throat (viral) Disposition: Home, Self-Care Condition on Discharge: Good Instructions: Sore Throat, DI for Nausea -- Adult Additional Instructions: *Monitor Temp, Over the counter Motrin or Tylenol as directed/as needed Tylenol every 4 hours and Motrin every 6 hours (as long as your family doctor has told you that you can take it) for fever or pain. and straight to ER if unable to lower temp less than 101.0 after medication given *Warm salt water gargles may help to soothe the throat *Throat Lozenges *Warm fluids like tea with honey may help to soothe the throat *Sleep elevated *Humidifier/Vaporizer *Flonase 2 sprays in each nostril daily but be aware that it may take 2-3 days before you notice improvement Your throat swab was sent for culture. Those results are typically sent to your primary care. Be sure to follow up in 2-3 days with your family doctor/primary care physician if no improvement so they can review those result and treat if necessary. If you don?t have a primary care doctor, I recommend you get one but in the mean time, you will have to return to a walk in clinic Follow up IMMEDIATELY for new or worsening symptoms or no Noticeable improvement over the next 48-72 hours. 911 for difficulty breathing or swallowing Referrals: Darnell Montemayor MD [Primary Care Provider] - As needed Forms: Work/School Release Medical Decision Making - Cassius Inquiry Pt receiving controlled substance: No Cassius was queried for this patient: No Vital Signs: 09/17/20 15:00 Temperature 98.9 F Temperature Source Oral Pulse Rate [Right Brachial] 77 Respiratory Rate 19 Blood Pressure [Right Arm] 116/68 Blood Pressure Mean [Right Arm] 84 Blood Pressure Source [Right Arm] Automatic Cuff Blood Pressure Position [Right Arm] Sitting 02 Sat by Pulse Oximetry 96 Oxygen Delivery Method Room Air - Lab Data Lab results reviewed: Yes: I reviewed the patient's lab results. Lab Results 09/17/20 15:05: Strep Scn Rapid Clinic Negative Orders (Tests/Meds): ORDERS Category Date Time Status Strep Screen Confirmation Stat Micro 09/17/20 15:05 Received Medical Decision Narrative: Patient states that she has medication at home for nausea does not need meds but needs note for work [facility] [place] HPI - General Stated complaint: abdominal pain,diarrhea,sore throat Time Seen by Provider: 09/17/20 15:29 Mode of Arrival: Ambulatory Source of Information: Patient Limitations: No Limitations Description of Symptoms (Recalled from Triage Doc. 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 - Related Data Home Medications Medication Instructions Recorded Confirmed ALPRAZolam [Xanax 0.5mg tab] 0.5 mg PO BID 06/24/17 09/08/20 diclofenac sodium 75 mg 75 mg PO DAILY 12/06/17 09/08/20 tablet,delayed release Montelukast Sodium [Montelukast 10 mg PO HS 12/11/17 09/08/20 10mg Tab] atorvastatin 40 mg tablet 40 mg PO tab 07/15/20 09/08/20 cetirizine 10 mg tablet 10 mg PO tab 07/15/20 09/08/20 citalopram 20 mg tablet 20 mg PO tab 07/15/20 09/08/20 pantoprazole 40 mg tablet,delayed 40 mg PO tab 07/15/20 09/08/20 release venlafaxine 37.5 mg 37.5 mg PO cap 07/15/20 09/08/20 capsule,extended release 24 hr Allergies Allergy/AdvReac Type Severity Reaction Status Date / Time codeine Allergy Intermediate CHEST PAIN Verified 09/08/20 10:18 - Worker's Comp Is this a Worker's Comp
[2020-09-17 15:37] VITALS: BP 116/68; PULSE 77; RESP 19; TEMP 37.2; O2SAT 96
== END 2020-09-17 15:43 | disposition home or self-care (01) ==
PROVIDERS: Emergency Provider Nurse Practitioner; PCP Internal Medicine Adolescent Medicine
DX: J02.8 Acute pharyngitis due to other specified organisms (principal); F41.8 Other specified anxiety disorders; K21.9 Gastro-esophageal reflux disease without esophagitis; E78.5 Hyperlipidemia, unspecified; F17.210 Nicotine dependence, cigarettes, uncomplicated; Z88.5 Allergy status to narcotic agent
CPT/HCPCS: 87880; 99202; G0463

== ENCOUNTER → 2020-10-27 17:46 | Outpatient (CLI) | payer OTHER, SELFPAY ==
[2020-10-27 18:06] LABS: Basophils % 0.4 % (0.1-2.0); Eosinophils # 0.1 K/mm3 (0.0-0.4); Eosinophils % 1.4 % (0.1-12.0); Hematocrit 36.5 % (37.0-47.0); Hemoglobin 11.8 g/dL (12.2-16.2); Lymphocytes # 2.9 K/mm3 (0.7-4.5); Lymphocytes % 31.8 % (10-50); Mean Corpuscular HGB Conc 32.3 g/dL (31.8-35.4); Mean Corpuscular Hemoglobin 29.2 pg (27.0-31.2); Mean Corpuscular Volume 90.2 fl (81-99); Mean Platelet Volume 9.3 fl (7.4-10.4); Monocytes # 0.5 K/mm3 (0.1-1.0); Monocytes % 5.8 % (1.7-9.3); Neutrophils # 5.6 K/mm3 (1.8-7.8); Neutrophils % 60.6 % (37.0-80.0); Platelet Count 424 K/mm3 (142-424); Red Blood Count 4.04 M/mm3 (4.20-5.40); Red Cell Distribution Width 15.7 % (11.5-17.5); White Blood Count 9.2 K/mm3 (4.8-10.8)
[2020-10-27 18:09] LABS: Alanine Aminotransferase 24 U/L (12-78); Albumin Level 3.5 g/dl (3.5-5.0); Albumin/Globulin Ratio 1.3 (1.1-1.8); Alkaline Phosphatase 112 U/L (38-126); Anion Gap 8.4 mEq/L (5-15); Aspartate Amino Transferase 46 U/L (14-36); Bilirubin,Total 0.7 mg/dl (0.2-1.3); Blood Urea Nitrogen 11 mg/dl (7-17); Calcium 8.4 mg/dl (8.4-10.2); Carbon Dioxide 25 mmol/L (22.0-30.0); Chloride 109 mmol/L (98-107); Estimated Glomerular Filt Rate 78 ml/min (>60); GFR (African American) 94 ML/MIN (>60); Globulin 2.7 g/dL (1.3-3.2); Glucose 93 mg/dl (74-100); Potassium 4.4 mmoL/L (3.5-5.1); Sodium 138 mmol/L (136-145); Total Protein,Serum 6.2 g/dl (6.3-8.2)
[2020-10-27 18:40] LABS: Thyroid Stimulating Hormone 0.53 uIU/mL (0.465-4.68)
[2020-10-27 18:58] LABS: Vitamin B12 523 pg/mL (239-931)
[2020-10-27 20:07] LABS: 25-OH Vitamin D, Total 41.1 ng/mL (30-100)
[2020-10-30 09:20] LABS: Hep A Ab, IgM Negative (Negative); Hepatitis B Core Antibody IgM Negative (Negative); Hepatitis B Surface Antigen Negative (Negative); Hepatitis C Antibody <0.1 s/co ratio (0.0-0.9)
== END ==
PROVIDERS: Internal Medicine Adolescent Medicine; Visit Provider Nurse Practitioner Family
DX: R74.8 Abnormal levels of other serum enzymes (principal); R53.83 Other fatigue; E66.9 Obesity, unspecified; Z68.32 Body mass index [BMI] 32.0-32.9, adult
CPT/HCPCS: 80053; 80074; 82306; 82607; 84443; 85025

== ENCOUNTER → 2020-11-06 07:37 | Outpatient (CLI) | payer OTHER, SELFPAY ==
--- NOTE | 2020-11-06 07:39 | US_ITS ---
PROCEDURE: US LIVER CLINICAL INDICATION: ELEVATED LIVER ENZYMES COMPARISON: No exams were available for comparison FINDINGS: PANCREAS: Unremarkable. No obvious mass or abnormal fluid collection. No ductal dilatation LIVER: No focal liver lesions demonstrated. Homogeneous echogenicity. No intrahepatic biliary ductal dilatation evident. There is appropriate direction of blood flow within a non dilated portal vein RIGHT KIDNEY: Unremarkable. Normal size and echogenicity. No hydronephrosis GALLBLADDER: Prior cholecystectomy. Common bile duct is normal in diameter at 3 mm. IMPRESSION: Prior cholecystectomy otherwise negative Dictated by: Luke Yanes MD 11/06/2020 12:58 Luke Yanes MD in [place] 11/06/2020 12:58
== END ==
PROVIDERS: PCP Internal Medicine Adolescent Medicine; Visit Provider Nurse Practitioner Family
DX: R74.8 Abnormal levels of other serum enzymes (principal)
CPT/HCPCS: 76705

== ENCOUNTER 2020-11-06 20:35 | Emergency (ER) | payer OTHER, SELFPAY ==
[2020-11-06 21:05] VITALS: BP 149/73; PULSE 84; RESP 20; TEMP 36.6; O2SAT 98; BMI 34.2
--- NOTE | 2020-11-06 21:44 | HMH.EDUTC ---
[facility] [place]: Exposure to COVID-19 virus Disposition: Home, Self-Care Condition on Discharge: Good Instructions: Cough, DI for Cough -- Adult, DI for Nasal Congestion Additional Instructions: *Monitor Temp, Over the counter Motrin or Tylenol as directed/as needed Tylenol every 4 hours and Motrin every 6 hours (as long as your family doctor has told you that you can take it) for fever or pain. and straight to ER if unable to lower temp less than 101.0 after medication given *Warm salt water gargles may help to soothe the throat *Throat Lozenges *Warm fluids like tea with honey may help to soothe the throat *Sleep elevated *Humidifier/Vaporizer Follow up IMMEDIATELY for new or worsening symptoms or no Noticeable improvement over the next 48-72 hours. 911 for difficulty breathing or swallowing You were tested for today for COVID19 your test result should be back in the next 24-48 hours, you may call to the [facility] to see if your test results are back in the next 48 hours [phone] [facility] hours are 9am-9pm You was given a handout with instructions for Self Quarantine and Self isolation for while you wait on test results and what to do if they are positive If you are positive the Health Dept will be contacting you also Referrals: Darnell Montemayor MD [Primary Care Provider] - As needed Forms: Work/School Release Time of Disposition: 21:49 Medical Decision Making - Cassius Inquiry Pt receiving controlled substance: No Cassius was queried for this patient: No Vital Signs: 11/06/20 21:05 11/06/20 21:45 Temperature 97.8 F 97.8 F Temperature Source Oral Pulse Rate 84 Pulse Rate [Right Brachial] 84 Respiratory Rate 20 20 Blood Pressure 149/73 H Blood Pressure [Right Arm] 149/73 H Blood Pressure Mean [Right Arm] 98 Blood Pressure Source [Right Arm] Automatic Cuff Blood Pressure Position [Right Arm] Sitting 02 Sat by Pulse Oximetry 98 Oxygen Delivery Method Room Air Orders (Tests/Meds): ORDERS Category Date Time Status Covid-19 Nasal PCR ([facility]) Routine Lab 11/06/20 21:39 [place] [facility] [place] - General Stated complaint: sore throat cough congestion headache Time Seen by Provider: 11/06/20 21:44 Mode of Arrival: Ambulatory Source of Information: Patient Limitations: No Limitations Description of Symptoms (Recalled from Triage Doc. by RN): PATIENT C/O CONGESTION, HEADACHE, SORE THROAT, AND BODY ACHES. 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 - Related Data Home Medications Medication Instructions Recorded Confirmed ALPRAZolam [Xanax 0.5mg tab] 0.5 mg PO BID 06/24/17 09/08/20 diclofenac sodium 75 mg 75 mg PO DAILY 12/06/17 09/08/20 tablet,delayed release Montelukast Sodium [Montelukast 10 mg PO HS 12/11/17 09/08/20 10mg Tab] atorvastatin 40 mg tablet 40 mg PO tab 07/15/20 09/08/20 cetirizine 10 mg tablet 10 mg PO tab 07/15/20 09/08/20 citalopram 20 mg tablet 20 mg PO tab 07/15/20 09/08/20 pantoprazole 40 mg tablet,delayed 40 mg PO tab 07/15/20 09/08/20 release venlafaxine 37.5 mg 37.5 mg PO cap 07/15/20 09/08/20 capsule,extended release 24 hr Allergies Allergy/AdvReac Type Severity Reaction Status Date / Time codeine Allergy Intermediate CHEST PAIN Verified 09/08/20 10:18 - Worker's Comp Is this a Worker's Comp case?: No H History - Hepatitis A Screen Drug use history?: No High risk sexual behaviors?: No History of sexually transmitted infe
[2020-11-06 21:45] VITALS: BP 149/73; PULSE 84; RESP 20; TEMP 36.6; O2SAT 98
[2020-11-06 21:56] LABS: UTC Strep Screen (Rapid) Negative (Negative)
== END 2020-11-06 21:51 | disposition home or self-care (01) ==
PROVIDERS: Emergency Provider Nurse Practitioner; PCP Internal Medicine Adolescent Medicine
DX: J06.9 Acute upper respiratory infection, unspecified (principal); Z20.822 Contact with and (suspected) exposure to COVID-19; F41.8 Other specified anxiety disorders; K21.9 Gastro-esophageal reflux disease without esophagitis; E78.5 Hyperlipidemia, unspecified
CPT/HCPCS: 87880; 99203; G0463; U0003

== ENCOUNTER 2020-11-17 20:40 | Emergency (ER) | payer OTHER, SELFPAY ==
[2020-11-17 20:40] VITALS: BP 160/60; PULSE 82; RESP 20; TEMP 36.9; O2SAT 98; BMI 32.3
[2020-11-17 21:05] LABS: Adenovirus F 40/41, stool Not Detected (NotDetected); Astrovirus Not Detected (NotDetected); Campylobacter Not Detected (NotDetected); Clostridium Difficile A/B, PCR Not Detected (NotDetected); Cryptosporidium Not Detected (NotDetected); Cyclospora Cayetanesis Not Detected (NotDetected); Entamoeba histolytica Not Detected (NotDetected); Enteroaggregative E coli Not Detected (NotDetected); Enteropathogenic E coli Not Detected (NotDetected); Enterotoxigenic E coli Not Detected (NotDetected); Giardia lamblia Not Detected (NotDetected); Norovirus Not Detected (NotDetected); Plesimonas Shigalloides, PCR Not Detected (NotDetected); Rotavirus A Not Detected (NotDetected); Salmonella, PCR Not Detected (NotDetected); Sapovirus Not Detected (NotDetected); Shiga-like toxin E coli Not Detected (NotDetected); Shigella Enterovasive E coli Not Detected (NotDetected); Vibrio Cholerae Not Detected (NotDetected); Vibrio, PCR Not Detected (NotDetected); Yersinia Entercolitica, PCR Not Detected (NotDetected)
--- NOTE | 2020-11-17 21:25 | HMH.EDUTC ---
[facility] [place] Clinical Impression: Vomiting and diarrhea Disposition: Home, Self-Care Condition on Discharge: Good Instructions: Nausea and Vomiting-Adult, DI for Vomiting -- Adult, Diarrhea, Dicyclomine Additional Instructions: Drink extra fluids with and between meals. If you have difficulty drinking, try very small amounts of water or suck on ice chips. ? Avoid fruit juices, as these do not replace minerals and can actually increase diarrhea. ? Children and adults can use sports drinks to replenish electrolytes. Younger children and infants should use products formulated for children, like oral rehydration solutions. ? Eat food in small amounts and let your stomach recover. ? Get lots of rest. You may feel tired or weak. ? No greasy or fried foods for the next 24-48 hours BRAT diet Bananas Rice Apples and [place] ? Make sure to drink plenty of liquids ? Return if needed ? Straight to ER if any life threatening symptoms ? Zofran as prescribed by your family Doctor ? Follow up with family doctor in the next 48-72 hours if no improvement or any worsening of symptoms Call back tomorrow or follow up with your Family Doctor for the results of your Diarrhea panel and further treatment Prescriptions: Dicyclomine HCl [Bentyl 10mg capsule] 10 mg PO TID PRN #9 cap PRN Reason: Cramping Transmission Status: Pending to [facility] Referrals: Darnell Montemayor MD [Primary Care Provider] - As needed Forms: Work/School Release Time of Disposition: 22:00 Medical Decision Making - Cassius Inquiry Pt receiving controlled substance: No Cassius was queried for this patient: No Vital Signs: 11/17/20 20:40 11/17/20 21:49 Temperature 98.5 F 98.5 F Temperature Source Temporal Artery Scan Pulse Rate 82 Pulse Rate [Right Brachial] 82 Respiratory Rate 20 20 Blood Pressure 160/60 H Blood Pressure [Right Arm] 160/60 H Blood Pressure Mean [Right Arm] 93 Blood Pressure Source [Right Arm] Automatic Cuff Blood Pressure Position [Right Arm] Sitting 02 Sat by Pulse Oximetry 98 Oxygen Delivery Method Room Air Orders (Tests/Meds): ED MEDICATIONS Discontinued Medications Generic Name Dose Route Start Last Admin Trade Name Freq PRN Reason Stop Dose Admin Dicyclomine HCl 10 mg 11/17/20 21:39 11/17/20 21:47 Dicyclomine 10mg Capsule PO 11/17/20 21:40 10 mg ONCE ONE Administration Ondansetron HCl 4 mg 11/17/20 21:39 11/17/20 21:47 Ondansetron 4mg Odt SL 11/17/20 21:40 4 mg ONCE ONE Administration ORDERS Category Date Time Status Diarrhea 23 Panel, PCR Stat Lab 11/17/20 20:55 Received Medical Decision Narrative: Patient state that she is taking zofran currently by her PCP without reactions or complications but not taken any today After medication patient state that she feels much better no longer having cramping and nausea has improved [facility] [place] HPI - General Stated complaint: Abd pain Time Seen by Provider: 11/17/20 21:25 Mode of Arrival: Ambulatory Source of Information: Patient Limitations: No Limitations Description of Symptoms (Recalled from Triage Doc. by RN): PATIENT C/O ABDOMINAL PAIN WITH NAUSEA AND SOFT STOOL X 3 DAYS HEENT Symptoms (Recalled from RN notes): No Resp Symptoms (Recalled from RN notes): No Skin Symptoms (Recalled from RN notes): No MS Symptoms (Recalled from RN notes): No Functional Status (Recalled from RN notes): WNL - History of Present Illness Provider Complaint: Patient state that she has been having nausea, cramping and soft stool State that she feels like she may have a stomach bug States that she has zofran at home but has not taken any States that today she came in wanting to get her stool checked to see if she may have a virus - Related Data Home Medications Medication Instructions Recorded Confirmed ALPRAZolam [Xanax 0.5mg tab] 0.5 mg PO BID 06/24/17 09/08/20 diclofenac sodium 75 mg 75 mg PO DAILY 12/06/17 09/08/20 tablet,delayed release
[2020-11-17 21:49] VITALS: BP 160/60; PULSE 82; RESP 20; TEMP 36.9; O2SAT 98
== END 2020-11-17 22:06 | disposition home or self-care (01) ==
PROVIDERS: Emergency Provider Nurse Practitioner; PCP Internal Medicine Adolescent Medicine
DX: Z20.822 Contact with and (suspected) exposure to COVID-19 (principal); R11.10 Vomiting, unspecified; R19.7 Diarrhea, unspecified; F41.8 Other specified anxiety disorders; K21.9 Gastro-esophageal reflux disease without esophagitis; F17.210 Nicotine dependence, cigarettes, uncomplicated; Z88.5 Allergy status to narcotic agent; Z79.899 Other long term (current) drug therapy
CPT/HCPCS: 87507; 99202; G0463

== ENCOUNTER 2020-11-29 16:22 | Emergency (ER) | payer OTHER, SELFPAY ==
[2020-11-29 18:45] VITALS: BP 153/101; PULSE 69; RESP 18; TEMP 36.5; O2SAT 96; BMI 33.7
[2020-11-29 18:49] VITALS: BP 153/101; PULSE 69; RESP 19; TEMP 36.8
--- NOTE | 2020-11-29 19:10 | HMH.EDUTC ---
[facility] [place] Clinical Impression: Post-nasal drainage Disposition: Home, Self-Care Condition on Discharge: Good Instructions: DI for Viral Upper Respiratory Infection -- Adult Additional Instructions: You have been tested for COVID19. Please isolate as if you are positive until test results received. Prescriptions: Amoxicillin [Amoxicillin 875MG Tab] 875 mg PO Q12H #20 tab Transmission Status: Pending to [facility] predniSONE [Prednisone 20mg Tab] 20 mg PO BID 5 Days #10 tab Transmission Status: Pending to [facility] Referrals: Darnell Montemayor MD [Primary Care Provider] - Time of Disposition: 19:19 Medical Decision Making - Cassius Inquiry Pt receiving controlled substance: No Vital Signs: 11/29/20 18:45 11/29/20 18:49 Temperature 97.7 F 98.2 F Temperature Source Oral Pulse Rate 69 Pulse Rate [Left] 69 Respiratory Rate 18 19 Blood Pressure 153/101 H Blood Pressure [Right Arm] 153/101 H Blood Pressure Mean [Right Arm] 118 02 Sat by Pulse Oximetry 96 - Lab Data Lab results reviewed: Yes: I reviewed the patient's lab results. Orders (Tests/Meds): ORDERS Category Date Time Status Covid-19 Nasal PCR ([facility]) Routine Lab 11/29/20 18:45 Received [facility] [place] HPI - General Stated complaint: SOB,Cough<ESPINOZA Time Seen by Provider: 11/29/20 19:10 Mode of Arrival: Ambulatory Source of Information: Patient Limitations: No Limitations Description of Symptoms (Recalled from Triage Doc. by RN): pt states she is having soa, cough, and sore throat. HEENT Symptoms (Recalled from RN notes): Yes (sore throat) Resp Symptoms (Recalled from RN notes): Yes (soa and cough) Skin Symptoms (Recalled from RN notes): No MS Symptoms (Recalled from RN notes): No Functional Status (Recalled from RN notes): na - History of Present Illness Provider Complaint: Headache, cough, sore throat X 2 days. No fever. Feels like stuff is stuck in her throat/can't swallow, but no difficulty breathing. Has nasal congestion. No vomiting or diarrhea. No known COVID19 exposure. Onset (ago): day(s) (2) Relieving factors: none Exacerbating factors: none Associated symptoms: cough, headaches Treatments prior to arrival: none - Related Data Home Medications Medication Instructions Recorded Confirmed ALPRAZolam [Xanax 0.5mg tab] 0.5 mg PO BID 06/24/17 09/08/20 diclofenac sodium 75 mg 75 mg PO DAILY 12/06/17 09/08/20 tablet,delayed release Montelukast Sodium [Montelukast 10 mg PO HS 12/11/17 09/08/20 10mg Tab] atorvastatin 40 mg tablet 40 mg PO tab 07/15/20 09/08/20 cetirizine 10 mg tablet 10 mg PO tab 07/15/20 09/08/20 citalopram 20 mg tablet 20 mg PO tab 07/15/20 09/08/20 pantoprazole 40 mg tablet,delayed 40 mg PO tab 07/15/20 09/08/20 release venlafaxine 37.5 mg 37.5 mg PO cap 07/15/20 09/08/20 capsule,extended release 24 hr Previous Rx's Medication Instructions Recorded Dicyclomine HCl [Bentyl 10mg 10 mg PO TID PRN #9 cap 11/17/20 capsule] Amoxicillin [Amoxicillin 875MG 875 mg PO Q12H #20 tab 11/29/20 Tab] predniSONE [Prednisone 20mg 20 mg PO BID 5 Days #10 tab 11/29/20 Tab] Allergies Allergy/AdvReac Type Severity Reaction Status Date / Time codeine Allergy Intermediate CHEST PAIN Verified 09/08/20 10:18 - Worker's Comp Is this a Worker's Comp case?: No [facility] History - Hepatitis A Screen Drug use history?: No High risk sexual behaviors?: No History of sexually transmitted infection?: No Currently employed?: No Childcare worker?: No Do you have indoor plumbing?: Yes Do you have electricity?: Yes Attestation statement:: This patient has been screened for Hepatitis A risk factors. I have reviewed the patient's past medical history: Yes Medical History: Reports:: Anxiety, Depression, Gastroesophageal Reflux Disease(GERD), Hyperlipidemia, MRSA Denies:: Cancer, Diabetes Mellitus Type 1, Diabetes Mellitus Type 2, Hypertension, Internal
[2020-11-29 22:14] LABS: UTC Strep Screen (Rapid) Negative (Negative)
== END 2020-11-29 19:25 | disposition home or self-care (01) ==
PROVIDERS: Emergency Provider Physician Assistant; PCP Internal Medicine Adolescent Medicine
DX: Z20.822 Contact with and (suspected) exposure to COVID-19 (principal); R09.82 Postnasal drip; R05 Cough; K21.9 Gastro-esophageal reflux disease without esophagitis; F41.8 Other specified anxiety disorders; E78.5 Hyperlipidemia, unspecified; F17.210 Nicotine dependence, cigarettes, uncomplicated
CPT/HCPCS: 87880; 99203; G0463; U0003

== ENCOUNTER 2020-12-01 08:58 | Emergency (ER) | payer OTHER, SELFPAY ==
[2020-12-01 09:10] VITALS: BP 141/86; PULSE 87; RESP 19; TEMP 37.1; O2SAT 100; BMI 32.8
[2020-12-01 09:37] LABS: UTC Strep Screen (Rapid) Positive (Negative)
--- NOTE | 2020-12-01 09:39 | HMH.EDUTC ---
[facility] – [place] Dis[place] Clinical Impression: Strep throat Disposition: Home, Self-Care Condition on Discharge: Good Instructions: DI for Strep Throat, Strep Throat Additional Instructions: Continue taking Amoxicillin and Prednisone as prescribed *Monitor Temp, Over the counter Motrin or Tylenol as directed/as needed Tylenol every 4 hours and Motrin every 6 hours (as long as your family doctor has told you that you can take it) for fever or pain. and straight to ER if unable to lower temp less than 101.0 after medication given *Warm salt water gargles may help to soothe the throat *Throat Lozenges *Warm fluids like tea with honey may help to soothe the throat *Sleep elevated *Humidifier/Vaporizer Follow up IMMEDIATELY for new or worsening symptoms or no Noticeable improvement over the next 48-72 hours. 911 for difficulty breathing or swallowing You were tested for today for COVID19 your test result should be back in the next 24-48 hours, you may call to the [facility] to see if your test results are back in the next 48 hours [phone] [facility] hours are 9am-9pm You was given a handout with instructions for Self Quarantine and Self isolation for while you wait on test results and what to do if they are positive If you are positive the Health Dept will be contacting you also Make sure to take your Vitamins Vit. C Vit D and Zinc if you can take them Referrals: Darnell Montemayor MD [Primary Care Provider] - As needed Forms: Work/School Release Time of Disposition: 09:49 Medical Decision Making - Cassius Inquiry Pt receiving controlled substance: No Cassius was queried for this patient: No Vital Signs: 12/01/20 09:10 Temperature 98.7 F Temperature Source Oral Pulse Rate [Right Brachial] 87 Respiratory Rate 19 Blood Pressure [Right Arm] 141/86 H Blood Pressure Mean [Right Arm] 104 Blood Pressure Source [Right Arm] Automatic Cuff Blood Pressure Position [Right Arm] Sitting 02 Sat by Pulse Oximetry 100 Oxygen Delivery Method Room Air - Lab Data Lab results reviewed: Yes: I reviewed the patient's lab results. Lab Results 12/01/20 09:18: Strep Scn Rapid Clinic Positive A Orders (Tests/Meds): ORDERS Category Date Time Status Covid-19 Nasal PCR ([facility]) Routine Lab 12/01/20 09:18 Ordered [facility] [place] HPI - General Stated complaint: Sore throat; aches; SOB Time Seen by Provider: 12/01/20 09:43 Mode of Arrival: Ambulatory Source of Information: Patient Limitations: No Limitations Description of Symptoms (Recalled from Triage Doc. 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 because she wasnt feeling any better before going around them - Related Data Home Medications Medication Instructions Recorded Confirmed ALPRAZolam [Xanax 0.5mg tab] 0.5 mg PO BID 06/24/17 09/08/20 diclofenac sodium 75 mg 75 mg PO DAILY 12/06/17 09/08/20 tablet,delayed release Montelukast Sodium [Montelukast 10 mg PO HS 12/11/17 09/08/20 10mg Tab] atorvastatin 40 mg tablet 40 mg PO tab 07/15/20 09/08/20 cetirizine 10 mg tablet 10 mg PO tab 07/15/20 09/08/20 citalopram 20 mg tablet 20 mg PO tab 07/15/20 09/08/20 pantoprazole 40 mg tablet,delayed 40 mg PO tab 07/15/20 09/08/20 release venlafaxine 37.5 mg 37.5 mg PO cap 07/15/20 09/08/20 capsule,extended release 24 hr Previous Rx's Medication Instructions Record
[2020-12-01 09:58] VITALS: BP 141/86; PULSE 87; RESP 19; TEMP 37.1; O2SAT 100
== END 2020-12-01 10:03 | disposition home or self-care (01) ==
PROVIDERS: Emergency Provider Nurse Practitioner; PCP Internal Medicine Adolescent Medicine
DX: J02.0 Streptococcal pharyngitis (principal); Z20.822 Contact with and (suspected) exposure to COVID-19; F41.8 Other specified anxiety disorders; K21.9 Gastro-esophageal reflux disease without esophagitis; E78.5 Hyperlipidemia, unspecified; F17.210 Nicotine dependence, cigarettes, uncomplicated
CPT/HCPCS: 87880; 99202; G0463; U0003

== ENCOUNTER 2020-12-27 17:11 | Emergency (ER) | payer OTHER, SELFPAY ==
[2020-12-27 18:30] VITALS: BP 133/78; PULSE 86; RESP 18; TEMP 36.6; O2SAT 98; BMI 33.5
--- NOTE | 2020-12-27 18:55 | HMH.EDUTC ---
[facility] [place] Disposition Clinical Impression: UTI (urinary tract infection) Qualifiers: Urinary tract infection type: site unspecified Hematuria presence: with hematuria Qualified Code(s): N39.0 - Urinary tract infection, site not specified; R31.9 - Hematuria, unspecified Disposition: Home, Self-Care Condition on Discharge: Good Instructions: Urinary Tract Infection, DI for Urinary Tract Infection (UTI) Additional Instructions: Drink plenty of fluids. Take tylenol or ibuprofen for pain or fever. Take the medications as directed. Follow up with your regular doctor. GO TO THE ER FOR ANY WORSENING SYMPTOMS The pyridium will make your urine turn orange, this is an expected side effect. It will stain your clothes if it comes into contact with them. Prescriptions: Sulfamethoxazole/Trimethoprim [Bactrim DS tablet] 1 each PO BID 7 Days #14 tab Transmission Status: Pending to [facility] Phenazopyridine HCl [Pyridium 200mg Tablet] 200 pow PO TID #6 tab Transmission Status: Pending to [facility] Ondansetron [Zofran 4mg ODT] 4 mg PO DAILYP PRN #12 tab PRN Reason: Nausea Transmission Status: Pending to [facility] Referrals: Darnell Montemayor MD [Primary Care Provider] - Forms: Work/School Release Time of Disposition: 19:12 Medical Decision Making - Medical Records Medical records reviewed: No: I reviewed the patient's medical records. - Cassius Inquiry Pt receiving controlled substance: No Vital Signs: 12/27/20 18:30 Temperature 97.9 F Temperature Source Oral Pulse Rate [Right Brachial] 86 Respiratory Rate 18 Blood Pressure [Right Arm] 133/78 Blood Pressure Mean [Right Arm] 96 Blood Pressure Source [Right Arm] Automatic Cuff Blood Pressure Position [Right Arm] Sitting 02 Sat by Pulse Oximetry 98 Oxygen Delivery Method Room Air - Lab Data Lab results reviewed: Yes: I reviewed the patient's lab results. Lab Results 12/27/20 18:46: Urine Color [place], Urine Appearance Clear, Urine pH 5.0, Ur Specific [place] 1.025, Urine Protein 1+, Urine Glucose (UA) 100, Urine Ketones Trace, Urine Blood Negative, Urine Nitrate Positive A, Urine Bilirubin Negative, Urine Urobilinogen 2, Ur Leukocyte Esterase Negative Orders (Tests/Meds): ED MEDICATIONS Discontinued Medications Generic Name Dose Route Start Last Admin Trade Name Isabel PRN Reason Stop Dose Admin Ceftriaxone Sodium 1 gm 12/27/20 19:06 Ceftriaxone 1gm Vial IM 12/27/20 19:07 ONCE ONE Lidocaine HCl 0 ml 12/27/20 19:06 Lidocaine 1% 5ml Pf Vial IM 12/27/20 19:07 ONCE ONE ORDERS Category Date Time Status Urine Culture Stat Micro 12/27/20 18:30 Received [facility] [place] HPI - General Stated complaint: possible uti Time Seen by Provider: 12/27/20 18:55 Mode of Arrival: Ambulatory Source of Information: Patient Limitations: No Limitations Description of Symptoms (Recalled from Triage Doc. by RN): PATIENT C/O LOWER BACK AND PELVIC PAIN X 2 DAYS HEENT Symptoms (Recalled from RN notes): No Resp Symptoms (Recalled from RN notes): No Skin Symptoms (Recalled from RN notes): No MS Symptoms (Recalled from RN notes): No Functional Status (Recalled from RN notes): WNL - History of Present Illness Provider Complaint: She states that for the past 3 days she has been having low back pain, urinary frequency and dysuria. - Related Data Home Medications Medication Instructions Recorded Confirmed ALPRAZolam [Xanax 0.5mg tab] 0.5 mg PO BID 06/24/17 12/09/20 diclofenac sodium 75 mg 75 mg PO DAILY 12/06/17 12/09/20 tablet,delayed release Montelukast Sodium [Montelukast 10 mg PO HS 12/11/17 12/09/20 10mg Tab] atorvastatin 40 mg tablet 40 mg PO tab 07/15/20 12/09/20 cetirizine 10 mg tablet 10 mg PO tab 07/15/20 12/09/20 citalopram 20 mg tablet 20 mg PO tab 07/15/20 12/09/20 pantoprazole 40 mg tablet,delayed 40 mg PO tab 07/15/20 12/09/20 release venlafaxine 37.5 mg 37.5 mg PO cap 0
[2020-12-27 19:08] LABS: Apearance,Urine Clear (Clear); Bilirubin,Urine Negative (Negative); Blood, Urine Negative (Negative); Color,Urine Orange (Yellow); Glucose,Urine (UA) 100 (Negative); Ketones,Urine TRACE (Negative); Protein,Urine 1+ (Negative); Specific Gravity, Urine 1.025 (1.005-1.030); Urobilinogen,Urine 2 EU/dl (0.2)
[2020-12-27 19:09] LABS: UTC Leukocyte Esterase,Urine Negative (Negative); UTC Nitrate,Urine Positive (Negative)
[2020-12-27 19:15] VITALS: BP 133/78; PULSE 86; RESP 18; TEMP 36.6; O2SAT 98
== END 2020-12-27 19:21 | disposition home or self-care (01) ==
PROVIDERS: Emergency Provider Nurse Practitioner Family; PCP Internal Medicine Adolescent Medicine
DX: N39.0 Urinary tract infection, site not specified (principal)
CPT/HCPCS: 81003; 87086; 96372; 99202; G0463

== ENCOUNTER 2021-01-07 09:05 | Emergency (ER) | payer OTHER, SELFPAY ==
[2021-01-07 09:06] VITALS: BP 148/85; PULSE 91; RESP 21; TEMP 37.1; O2SAT 98; BMI 34.7
[2021-01-07 09:34] LABS: UTC Strep Screen (Rapid) Negative (Negative)
--- NOTE | 2021-01-07 09:50 | HMH.EDUTC ---
[facility] [place] Disposition Clinical Impression: Viral upper respiratory illness Disposition: Home, Self-Care Condition on Discharge: Good Instructions: Common Cold, DI for Viral Upper Respiratory Infection -- Adult Additional Instructions: *Monitor Temp, Over the counter Motrin or Tylenol as directed/as needed Tylenol every 4 hours and Motrin every 6 hours (as long as your family doctor has told you that you can take it) for fever or pain. and straight to ER if unable to lower temp less than 101.0 after medication given *Warm salt water gargles may help to soothe the throat *Throat Lozenges *Warm fluids like tea with honey may help to soothe the throat *Sleep elevated *Humidifier/Vaporizer *Flonase 2 sprays in each nostril daily but be aware that it may take 2-3 days before you notice improvement Your throat swab was sent for culture. Those results are typically sent to your primary care. Be sure to follow up in 2-3 days with your family doctor/primary care physician if no improvement so they can review those result and treat if necessary. If you don?t have a primary care doctor, I recommend you get one but in the mean time, you will have to return to a walk in clinic Follow up IMMEDIATELY for new or worsening symptoms or no Noticeable improvement over the next 48-72 hours. 911 for difficulty breathing or swallowing You were tested for today for COVID19 your test result should be back in the next 24-48 hours, you may call to the [facility] to see if your test results are back in the next 48 hours [phone] [facility] hours are 9am-9pm You was given a handout with instructions for Self Quarantine and Self isolation for while you wait on test results and what to do if they are positive If you are positive the Health Dept will be contacting you also Make sure to take your Vitamins Vit. C Vit D and Zinc if you can take them Referrals: Darnell Montemayor MD [Primary Care Provider] - As needed Forms: Work/School Release Time of Disposition: 10:01 Medical Decision Making - Cassius Inquiry Pt receiving controlled substance: No Cassius was queried for this patient: No Vital Signs: 01/07/21 09:06 Temperature 98.7 F Temperature Source Oral Pulse Rate [Right Radial] 91 H Respiratory Rate 21 Blood Pressure [Right Arm] 148/85 H Blood Pressure Mean [Right Arm] 106 Blood Pressure Source [Right Arm] Automatic Cuff Blood Pressure Position [Right Arm] Sitting 02 Sat by Pulse Oximetry 98 Oxygen Delivery Method Room Air - Lab Data Lab results reviewed: Yes: I reviewed the patient's lab results. Lab Results 01/07/21 09:15: Strep Scn Rapid Clinic Negative Orders (Tests/Meds): ORDERS Category Date Time Status Covid-19 Nasal PCR ([facility]) Routine Lab 01/07/21 09:18 Received Strep Screen Confirmation Stat Micro 01/07/21 09:15 Received [facility] [place] HPI - General Stated complaint: covid symptoms Time Seen by Provider: 01/07/21 09:50 Mode of Arrival: Ambulatory Source of Information: Patient Limitations: No Limitations Description of Symptoms (Recalled from Triage Doc. by RN): C/O sore throat, ESPINOZA, fever, nauseas, ear pain since Monday HEENT Symptoms (Recalled from RN notes): Yes (ESPINOZA, sore throat) Resp Symptoms (Recalled from RN notes): No Skin Symptoms (Recalled from RN notes): No MS Symptoms (Recalled from RN notes): No Functional Status (Recalled from RN notes): n/a - History of Present Illness Provider Complaint: Patient states that she has not been feeling well for a couple of days States that she has been having sore throat, pain in her ears, headache and fever on and off States that today she was still feeling bad and had some diarrhea so she came in to get checked States that she is unsure if she has been around anyone with COVID or not - Related Data Home Medications Medication Instructions Recorded Confirmed ALPRAZolam [Xanax 0.5mg tab] 0.5 mg PO BID 06/24/17 12/09/20 diclofenac sodium 75 mg 75 mg PO DAILY 12/06/17 12/09/20 t
[2021-01-07 10:12] VITALS: BP 148/85; PULSE 91; RESP 21; TEMP 37.1; O2SAT 98
== END 2021-01-07 10:13 | disposition home or self-care (01) ==
PROVIDERS: Emergency Provider Nurse Practitioner; PCP Internal Medicine Adolescent Medicine
DX: Z20.822 Contact with and (suspected) exposure to COVID-19 (principal)
CPT/HCPCS: 87880; 99203; C9803; G0463; U0003; U0005

== ENCOUNTER 2021-01-14 20:11 | Emergency (ER) | payer OTHER, SELFPAY ==
[2021-01-14 20:59] VITALS: BP 147/88; PULSE 116; RESP 19; TEMP 37.8; O2SAT 96; BMI 34.4
[2021-01-14 21:13] LABS: UTC Strep Screen (Rapid) Negative (Negative)
--- NOTE | 2021-01-14 21:39 | HMH.EDUTC ---
[facility] [place] Clinical Impression: Viral syndrome Otitis media Qualifiers: Otitis media type: suppurative Chronicity: acute Laterality: bilateral Recurrence: non-recurrent Spontaneous tympanic membrane rupture: without spontaneous rupture Qualified Code(s): H66.003 - Acute suppurative otitis media without spontaneous rupture of ear drum, bilateral Disposition: Home, Self-Care Condition on Discharge: Good Instructions: DI for Viral Syndrome, DI for COVID-19 (Suspected or Confirmed ), Preventing the Spread of Coronavirus Discharge Instructions Additional Instructions: Drink plenty of fluids. Take tylenol or ibuprofen for pain or fever. Take the medications as directed. Follow up with your regular doctor. GO TO THE ER FOR ANY WORSENING SYMPTOMS Quarantine until you know the results of your covid-19 test. If it is positive, the health department should call you and give you further instructions about your length of Quarantine and other things. Notify your school or workplace of your results and follow their instructions regarding return to work/school. Prescriptions: Brompheniramine/Pseudoephed/Dm [Bromfed Dm Cough Syrup] 5 ml PO Q6HP PRN #240 ml PRN Reason: Cough Transmission Status: Received by [facility] Ondansetron [Zofran 4mg ODT] 4 mg PO Q8HP PRN #12 tab PRN Reason: Nausea Transmission Status: Received by [facility] Azithromycin [Z-Domingo 250mg Tab*] 250 mg PO UD DOSE PK #6 tab Transmission Status: Received by [facility] Referrals: Darnell Montemayor MD [Primary Care Provider] - Forms: Work/School Release Time of Disposition: 22:16 Medical Decision Making - Medical Records Medical records reviewed: No: I reviewed the patient's medical records. - Cassius Inquiry Pt receiving controlled substance: No Vital Signs: 01/14/21 20:59 01/14/21 22:16 Temperature 100.1 F H 98.9 F Temperature Source Oral Pulse Rate 116 H Pulse Rate [Left] 116 H Respiratory Rate 19 18 Blood Pressure 147/88 H Blood Pressure [Right Arm] 147/88 H Blood Pressure Mean [Right Arm] 107 02 Sat by Pulse Oximetry 96 - Lab Data Lab results reviewed: Yes: I reviewed the patient's lab results. Lab Results 01/14/21 21:03: Strep Scn Rapid Clinic Negative 01/14/21 22:09: Influenza Type A Ag Negative, Influenza Type B Ag Negative Orders (Tests/Meds): ED MEDICATIONS Discontinued Medications Generic Name Dose Route Start Last Admin Trade Name Isabel PRN Reason Stop Dose Admin Ibuprofen 800 mg 01/14/21 21:43 01/14/21 21:44 Ibuprofen 400 Mg Tablet PO 01/14/21 21:44 800 mg ONCE ONE Administration Ondansetron HCl 4 mg 01/14/21 21:50 Ondansetron 4mg Odt SL 01/14/21 21:51 ONCE ONE ORDERS Category Date Time Status Full Resp Panel w/COVID ([facility]) Routine Lab 01/14/21 21:16 Received Strep Screen Confirmation Stat Micro 01/14/21 21:03 Received [facility] UTC HPI - General Stated complaint: Fever,chills,sore throat,ESPINOZA Time Seen by Provider: 01/14/21 21:39 Mode of Arrival: Ambulatory Source of Information: Patient Limitations: No Limitations Description of Symptoms (Recalled from Triage Doc. by RN): pt states she has a sore throat, ESPINOZA, body aches, ears hurting, cough, chills and fever. this was all sudden onset this am. HEENT Symptoms (Recalled from RN notes): Yes (sore throat, ESPINOZA, ears hurt) Resp Symptoms (Recalled from RN notes): Yes (cough) Skin Symptoms (Recalled from RN notes): No MS Symptoms (Recalled from RN notes): No Functional Status (Recalled from RN notes): chills, fever and body aches - History of Present Illness Provider Complaint: She states that she has had chilling, runny nose, sore throat, bilateral ear pain and a dry cough since earlier today. She denies any shortness of breath. She has been vaccinated against covid-19. She denies any known exposure to covid-19 or other illnesses. - Related Data Home Medications Medication In
[2021-01-14 22:15] LABS: UTC Influenza A Antigen Negative (Negative); UTC Influenza B Antigen Negative (Negative)
[2021-01-14 22:16] VITALS: BP 147/88; PULSE 116; RESP 18; TEMP 37.2
[2021-01-14 22:47] LABS: Adenovirus,PCR Not Detected (NotDetected); Bordetella Pertussis Not Detected (NotDetected); Chlamydophila Pneumoniae, PCR Not Detected (NotDetected); Coronavirus 19, PCR Not Detected (NotDetected); Coronavirus 229E Not Detected (NotDetected); Coronavirus NL63 Not Detected (NotDetected); Coronavirus OC43 Not Detected (NotDetected); Coronovirus HKU1,PCR Not Detected (NotDetected); Human Metapneumovirus Not Detected (NotDetected); Influenza A, PCR Not Detected (NotDetected); Influenza AH1, 2009 Not Detected (NotDetected); Influenza AH1, PCR Not Detected (NotDetected); Influenza AH3,PCR Not Detected (NotDetected); Influenza B, PCR Not Detected (NotDetected); Mycoplasma Pneumoniae, PCR Not Detected (NotDetected); Parainfluenza 1, PCR Not Detected (NotDetected); Parainfluenza 2, PCR Not Detected (NotDetected); Parainfluenza 3, PCR Not Detected (NotDetected); Parainfluenza 4, PCR Not Detected (NotDetected); Rhinovirus/Enterovirus Not Detected (NotDetected)
[2021-01-15 03:04] LABS: Respiratory Syncytial Virus Detected (NotDetected)
== END 2021-01-14 22:21 | disposition home or self-care (01) ==
PROVIDERS: Emergency Provider Nurse Practitioner Family; PCP Internal Medicine Adolescent Medicine
DX: H66.003 Acute suppurative otitis media without spontaneous rupture of ear drum, bilateral (principal); B34.9 Viral infection, unspecified; F41.8 Other specified anxiety disorders; E78.5 Hyperlipidemia, unspecified; B97.4 Respiratory syncytial virus as the cause of diseases classified elsewhere; Z79.899 Other long term (current) drug therapy
CPT/HCPCS: 87581; 87632; 87798; 87804; 87880; 99203; C9803; G0463; U0003; U0005

== ENCOUNTER 2021-01-16 17:28 | Emergency (ER) | payer OTHER, SELFPAY ==
[2021-01-16 17:31] VITALS: BP 173/84; PULSE 128; RESP 20; TEMP 36.8; O2SAT 97; BMI 36.2
--- NOTE | 2021-01-16 17:45 | XR_ITS ---
PROCEDURE INFORMATION: Exam: XR Chest Exam date and time: 01/16/2021 5:45 PM Age: 45 years old Clinical indication: Cough; Additional info: Cough, wheezing- covid TECHNIQUE: Imaging protocol: XR of the chest. Views: 2 views. COMPARISON: CR CXR1 CHEST-PORTABLE 01/04/2016 12:49 PM FINDINGS: Airway: Patent Lungs: Patchy/ground-glass opacification in the right upper lung. Subtle streak like opacifications in the right infrahilar region. Remainder of the lungs are clear. Pleural spaces: Unremarkable. No pleural effusion. No pneumothorax. Heart/Mediastinum: Unremarkable. No cardiomegaly. Bones/joints: No acute skeletal abnormality or aggressive osseous lesion. IMPRESSION: Concern for early/developing airspace and interstitial disease in the right lung, as detailed above.
[2021-01-16 18:00] VITALS: BP 153/83; PULSE 121; O2SAT 98
--- NOTE | 2021-01-16 18:02 | HMH.EDGENADL ---
ED Disposition Clinical Impression: RSV infection Pneumonia Qualifiers: Pneumonia type: due to unspecified organism Laterality: right Lung location: unspecified part of lung Qualified Code(s): J18.9 - Pneumonia, unspecified organism Disposition: Home, Self-Care Condition on Discharge: Fair Instructions: DI for Respiratory Syncytial Virus -- Adults, DI for Pneumonia -- Adult Additional Instructions: Albuterol metered-dose inhaler 4 times a day as needed. Continue Zithromax. Omnicef, start tomorrow evening. Tessalon Perles as needed for cough. Off work until no fever and symptoms are improving. Prescriptions: Cefdinir [Omnicef 300mg Capsule] 300 mg PO BID #20 cap Transmission Status: Pending to [facility] Benzonatate [Tessalon Perle 100mg Cap] 100 mg PO TIDP PRN #20 cap PRN Reason: Cough Transmission Status: Pending to [facility] Referrals: Darnell Montemayor MD [Primary Care Provider] - Forms: Work/School Release - Critical Care Critical Care Time: No Attestation: On 01/16/21, the high probability of a clinically significant, sudden or life threatening deterioration of the following system(s) required my full and direct attention, intervention and personal management. The time I documented below is in addition to time spent performing reported procedures but includes the following listed in this critical care notation. Medical Decision Making - Cassius Inquiry Pt receiving controlled substance: No Vital Signs: 01/16/21 17:31 01/16/21 18:00 01/16/21 18:30 Temperature 98.3 F Temperature Source Oral Pulse Rate 121 H 106 H Pulse Rate [Left Radial] 128 H Respiratory Rate 20 18 Blood Pressure 153/83 H 127/79 Blood Pressure [Right Arm] 173/84 H Blood Pressure Mean 97 91 Blood Pressure Mean [Right Arm] 113 Blood Pressure Source [Right Arm] Automatic Cuff 02 Sat by Pulse Oximetry 97 98 98 Oxygen Delivery Method Room Air 01/16/21 19:00 Temperature Temperature Source Pulse Rate 103 H Pulse Rate [Left Radial] Respiratory Rate Blood Pressure 155/94 H Blood Pressure [Right Arm] Blood Pressure Mean 103 Blood Pressure Mean [Right Arm] Blood Pressure Source [Right Arm] 02 Sat by Pulse Oximetry 98 Oxygen Delivery Method - Lab Data Lab Results 01/16/21 18:05: WBC 15.1 H, RBC 4.09 L, Hgb 12.7, Hct 39.3, MCV 96.1, MCH 31.1, MCHC 32.4, RDW 14.6, Plt Count 425 H, MPV 8.1, Neut % (Auto) 84.2 H, Lymph % (Auto) 10.4, [place] % (Auto) 4.4, Eos % (Auto) 0.8, Baso % (Auto) 0.3, Neut # (Auto) 12.7 H, Lymph # (Auto) 1.6, [place] # (Auto) 0.7, Eos # (Auto) 0.1, Baso # (Auto) 0.0, Total Counted 100, Neutrophils % (Manual) 84 H, Lymphocytes % (Manual) 9 L, Monocytes % (Manual) 6, Basophils % (Manual) 1.0, Platelet Estimate Normal, RBC Morphology Normal 01/16/21 18:05: Sodium 140, Potassium 3.5, Chloride 108 H, Carbon Dioxide 29, Anion Gap 6.5, BUN 5 L, Creatinine 0.70, Estimated Creat Clear 187, Estimated GFR 90, Est GFR ( Amer) 109, Glucose 112 H, Calcium 8.6, Total Bilirubin 0.3, AST 31, ALT 32, Alkaline Phosphatase 115, Total Protein 7.1, Albumin 3.5, Globulin 3.6 H, Albumin/Globulin Ratio 1.0 L 01/16/21 19:28: SARS-CoV-2 (PCR) Not detected, Influenza A Untype (PCR) Not detected, Influenza Type B (PCR) Not detected Result diagrams: 01/16/21 18:05 01/16/21 18:05 Orders (Tests/Meds): ED MEDICATIONS Generic Name Dose Route Start Last Admin Trade Name Freq PRN Reason Stop Dose Admin Benzonatate 100 mg 01/16/21 18:15 01/16/21 18:15 Benzonatate 100mg Capsule PO 02/15/21 18:14 100 mg ONCE DIO Administration Sodium Chloride 1,000 mls @ 999 mls/hr 01/16/21 18:15 01/16/21 18:10 Sod Chlor 0.9% 1000ml Bag IV 01/16/21 19:15 999 mls/hr .Q1H1M DIO Administration Discontinued Medications Generic Name Dose Route Start Last Admin Trade Name Freq PRN Reason Stop Dose Admin Acetaminophen 1,000 mg 01/16/21 17:58 01/16/21 18:00 Acetaminophen
[2021-01-16 18:16] LABS: Basophils % 0.3 % (0.1-2.0); Eosinophils # 0.1 K/mm3 (0.0-0.4); Eosinophils % 0.8 % (0.1-12.0); Hematocrit 39.3 % (37.0-47.0); Hemoglobin 12.7 g/dL (12.2-16.2); Lymphocytes # 1.6 K/mm3 (0.7-4.5); Lymphocytes % 10.4 % (10-50); Mean Corpuscular HGB Conc 32.4 g/dL (31.8-35.4); Mean Corpuscular Hemoglobin 31.1 pg (27.0-31.2); Mean Corpuscular Volume 96.1 fl (81-99); Mean Platelet Volume 8.1 fl (7.4-10.4); Monocytes # 0.7 K/mm3 (0.1-1.0); Monocytes % 4.4 % (1.7-9.3); Neutrophils # 12.7 K/mm3 (1.8-7.8); Neutrophils % 84.2 % (37.0-80.0); Platelet Count 425 K/mm3 (142-424); Red Blood Count 4.09 M/mm3 (4.20-5.40); Red Cell Distribution Width 14.6 % (11.5-17.5); White Blood Count 15.1 K/mm3 (4.8-10.8)
[2021-01-16 18:17] LABS: MANUAL DIFFERENTIAL MANUAL DIFFERENTIAL (MANUAL DIFF)
[2021-01-16 18:25] LABS: Alanine Aminotransferase 32 U/L (12-78); Albumin Level 3.5 g/dl (3.5-5.0); Alkaline Phosphatase 115 U/L (38-126); Anion Gap 6.5 mEq/L (5-15); Aspartate Amino Transferase 31 U/L (14-36); Bilirubin,Total 0.3 mg/dl (0.2-1.3); Blood Urea Nitrogen 5 mg/dl (7-17); Calcium 8.6 mg/dl (8.4-10.2); Carbon Dioxide 29 mmol/L (22.0-30.0); Chloride 108 mmol/L (98-107); Creatinine Clearance Estimated 187 mL/min (50-200); Estimated Glomerular Filt Rate 90 ml/min (>60); GFR (African American) 109 ML/MIN (>60); Globulin 3.6 g/dL (1.3-3.2); Glucose 112 mg/dl (74-100); Lymphocytes % 9 % (10-50); Monocytes % 6 % (2-9); Neutrophils % 84 % (42-76); Platelet Estimate Normal; Potassium 3.5 mmoL/L (3.5-5.1); RBC Morphology Normal; Sodium 140 mmol/L (136-145); Total Cells Counted 100; Total Protein,Serum 7.1 g/dl (6.3-8.2)
[2021-01-16 18:30] VITALS: BP 127/79; PULSE 106; RESP 18; O2SAT 98
[2021-01-16 19:00] VITALS: BP 155/94; PULSE 103; O2SAT 98
[2021-01-16 19:37] LABS: Coronavirus 19, PCR Not Detected (NotDetected); Influenza A, PCR Not Detected (NotDetected); Influenza B, PCR Not Detected (NotDetected)
[2021-01-16 20:56] VITALS: BP 155/94; PULSE 103; RESP 16; TEMP 37.1; O2SAT 98
== END 2021-01-16 21:04 | disposition home or self-care (01) ==
PROVIDERS: Emergency Provider Emergency Medicine; PCP Internal Medicine Adolescent Medicine
DX: J18.9 Pneumonia, unspecified organism (principal); B97.4 Respiratory syncytial virus as the cause of diseases classified elsewhere; K21.9 Gastro-esophageal reflux disease without esophagitis; F41.8 Other specified anxiety disorders
CPT/HCPCS: 71046; 80053; 85007; 85025; 96365; 99283; C9803; U0003; U0005

== ENCOUNTER → 2021-02-13 10:26 | Outpatient (CLI) | payer OTHER, SELFPAY ==
[2021-02-13 13:01] LABS: Alanine Aminotransferase 20 U/L (12-78); Albumin Level 3.7 g/dl (3.5-5.0); Albumin/Globulin Ratio 1.3 (1.1-1.8); Alkaline Phosphatase 104 U/L (38-126); Anion Gap 9.3 mEq/L (5-15); Aspartate Amino Transferase 24 U/L (14-36); Bilirubin,Total 0.7 mg/dl (0.2-1.3); Blood Urea Nitrogen 9 mg/dl (7-17); Calcium 9.2 mg/dl (8.4-10.2); Carbon Dioxide 29 mmol/L (22.0-30.0); Chloride 104 mmol/L (98-107); Chol/HDL Ratio 3.7 (1-3.5); Cholesterol 188 mg/dl (140-200); Estimated Glomerular Filt Rate 108 ml/min (>60); GFR (African American) 130 ML/MIN (>60); Globulin 2.9 g/dL (1.3-3.2); Glucose 93 mg/dl (74-100); HDL Cholesterol 51 mg/dl (40-60); Potassium 4.3 mmoL/L (3.5-5.1); Sodium 138 mmol/L (136-145); Total Protein,Serum 6.6 g/dl (6.3-8.2); Triglycerides 153 mg/dl (30-150); VLDL Cholesterol 31 mg/dL (0-40)
[2021-02-13 13:12] LABS: Direct LDL Cholesterol 101.91 mg/dL (100-129)
[2021-02-13 13:49] LABS: Vitamin B12 937 pg/mL (239-931)
[2021-02-13 13:58] LABS: Basophils # 0.1 K/mm3 (0-0.2); Basophils % 0.9 % (0.1-2.0); Eosinophils # 0.2 K/mm3 (0.0-0.4); Eosinophils % 2.3 % (0.1-12.0); Hemoglobin 13.5 g/dL (12.2-16.2); Lymphocytes # 2.7 K/mm3 (0.7-4.5); Lymphocytes % 36.2 % (10-50); Mean Corpuscular HGB Conc 32.9 g/dL (31.8-35.4); Mean Corpuscular Hemoglobin 31.5 pg (27.0-31.2); Mean Corpuscular Volume 95.6 fl (81-99); Mean Platelet Volume 9.4 fl (7.4-10.4); Monocytes # 0.4 K/mm3 (0.1-1.0); Monocytes % 4.8 % (1.7-9.3); Neutrophils # 4.2 K/mm3 (1.8-7.8); Neutrophils % 55.7 % (37.0-80.0); Platelet Count 474 K/mm3 (142-424); Red Blood Count 4.29 M/mm3 (4.20-5.40); Red Cell Distribution Width 14.5 % (11.5-17.5); White Blood Count 7.5 K/mm3 (4.8-10.8)
== END ==
PROVIDERS: Visit Provider Nurse Practitioner Family
DX: Z00.00 Encounter for general adult medical examination without abnormal findings (principal); E78.5 Hyperlipidemia, unspecified; E53.8 Deficiency of other specified B group vitamins; E55.9 Vitamin D deficiency, unspecified
CPT/HCPCS: 36415; 80053; 80061; 82607; 82652; 85025

== ENCOUNTER → 2021-03-04 10:58 | Outpatient (CLI) | payer OTHER, SELFPAY ==
--- NOTE | 2021-03-04 11:00 | MM_ITS ---
PROCEDURE INFORMATION: Exam: MG Bilateral Screening 3D Mammography Exam date and time: 03/04/2021 11:00 AM Age: 45 years old Clinical indication: Encounter for screening mammogram for malignant neoplasm of breast TECHNIQUE: Imaging protocol: Bilateral screening tomosynthesis and 2D mammography including computer-aided detection (CAD) when performed. COMPARISON: 1. MG DMSB DIG MAMM-SCREEN ROBBIN W/CAD 12/30/2016 4:33 PM 2. MG DMDXUAVR DIG MAMM-DX UNI ADD VIEWS-RT 02/02/2015 1:55 PM FINDINGS: MAMMOGRAPHY: Breast composition: The breasts are almost entirely fatty. Mass: None. Architectural distortion: None. Calcifications: No suspicious calcifications. Asymmetric density: None. Skin thickening: None. Axillary adenopathy: None. IMPRESSION: No mammographic evidence of malignancy. Annual screening is recommended unless otherwise clinically indicated. ASSESSMENT: BI-RADS Category 1: Negative
== END ==
PROVIDERS: PCP Internal Medicine Adolescent Medicine; Visit Provider Nurse Practitioner Family
DX: Z12.31 Encounter for screening mammogram for malignant neoplasm of breast (principal)
CPT/HCPCS: 77063; 77067

== ENCOUNTER 2021-03-15 09:03 | Emergency (ER) | payer OTHER, SELFPAY ==
[2021-03-15 09:15] VITALS: BP 105/74; PULSE 97; RESP 16; TEMP 36.6; O2SAT 98; BMI 33.5
--- NOTE | 2021-03-15 09:59 | HMH.EDUTC ---
[facility] [place] Clinical Impression: Gastroenteritis Disposition: Home, Self-Care Condition on Discharge: Good Instructions: Viral Gastroenteritis, DI for Viral Gastroenteritis -- Adult Additional Instructions: Drink plenty of fluids. Water or an electrolyte sports drink like gator-bell would be best. Take tylenol or ibuprofen for pain or fever. Take the zofran as directed for nausea. Follow up with your regular doctor if your symptoms persist for more than the next 24 hours. GO TO THE ER FOR ANY WORSENING SYMPTOMS, especially for worsening abdominal pain or fever. Prescriptions: Ondansetron [Zofran 4mg ODT] 4 mg PO Q8HP PRN #20 tab PRN Reason: Nausea Transmission Status: Received by [facility] Referrals: Darnell Montemayor MD [Primary Care Provider] - Forms: Work/School Release Time of Disposition: 10:03 Medical Decision Making - Medical Records Medical records reviewed: No: I reviewed the patient's medical records. - Cassius Inquiry Pt receiving controlled substance: No Vital Signs: 03/15/21 09:15 03/15/21 10:10 Temperature 97.9 F 97.9 F Temperature Source Oral Pulse Rate 97 H Pulse Rate [Left] 97 H Respiratory Rate 16 16 Blood Pressure 105/74 L Blood Pressure [Right Arm] 105/74 L Blood Pressure Mean [Right Arm] 84 02 Sat by Pulse Oximetry 98 - Lab Data Lab results reviewed: Yes: I reviewed the patient's lab results. Lab Results 03/15/21 09:20: Strep Scn Rapid Clinic Negative Orders (Tests/Meds): ORDERS Category Date Time Status Strep Screen Confirmation Stat Micro 03/15/21 09:20 Received [facility] [place] - General Stated complaint: nausea, abdominal pain Time Seen by Provider: 03/15/21 09:25 Mode of Arrival: Ambulatory Source of Information: Patient Limitations: No Limitations Description of Symptoms (Recalled from Triage Doc. by RN): pt c/o abdominal cramping, nausea, and diarrhea. ongoing since last night. pt is on her menstrual cycle at this time. HEENT Symptoms (Recalled from RN notes): No Resp Symptoms (Recalled from RN notes): No Skin Symptoms (Recalled from RN notes): No MS Symptoms (Recalled from RN notes): No Functional Status (Recalled from RN notes): wnl - History of Present Illness Provider Complaint: She states that since last night she has had n/v/d. She believes that she has a stomach virus. - Related Data Home Medications Medication Instructions Recorded Confirmed ALPRAZolam [Xanax 0.5mg tab] 0.5 mg PO BID 06/24/17 12/09/20 diclofenac sodium 75 mg 75 mg PO DAILY 12/06/17 12/09/20 tablet,delayed release Montelukast Sodium [Montelukast 10 mg PO HS 12/11/17 12/09/20 10mg Tab] atorvastatin 40 mg tablet 40 mg PO tab 07/15/20 12/09/20 cetirizine 10 mg tablet 10 mg PO tab 07/15/20 12/09/20 citalopram 20 mg tablet 20 mg PO tab 07/15/20 12/09/20 pantoprazole 40 mg tablet,delayed 40 mg PO tab 07/15/20 12/09/20 release venlafaxine 37.5 mg 37.5 mg PO cap 07/15/20 12/09/20 capsule,extended release 24 hr furosemide 20 mg tablet 20 mg PO tab 12/09/20 12/09/20 trazodone 50 mg tablet 50 mg PO tab 12/09/20 12/09/20 Previous Rx's Medication Instructions Recorded Dicyclomine HCl [Bentyl 10mg 10 mg PO TID PRN #9 cap 11/17/20 capsule] Ondansetron [Zofran 4mg ODT] 4 mg PO DAILYP PRN #12 tab 12/27/20 Phenazopyridine HCl [Pyridium 200 pow PO TID #6 tab 12/27/20 200mg Tablet] Sulfamethoxazole/Trimethoprim 1 each PO BID 7 Days #14 tab 12/27/20 [Bactrim DS tablet] Azithromycin [Z-Domingo 250mg Tab*] 250 mg PO UD DOSE PK #6 tab 01/14/21 Brompheniramine/Pseudoephed/Dm 5 ml PO Q6HP PRN #240 ml 01/14/21 [Bromfed Dm Cough Syrup] Ondansetron [Zofran 4mg ODT] 4 mg PO Q8HP PRN #12 tab 01/14/21 Benzonatate [Tessalon Perle 100mg 100 mg PO TIDP PRN #20 cap 01/16/21 Cap] Cefdinir [Omnicef 300mg Capsule] 300 mg PO BID #20 cap 01/16/21 Ondansetron [Zofran 4mg ODT] 4 mg PO Q8HP PRN #20 tab 03/15
[2021-03-15 10:10] VITALS: BP 105/74; PULSE 97; RESP 16; TEMP 36.6
[2021-03-15 10:34] LABS: UTC Strep Screen (Rapid) Negative (Negative)
== END 2021-03-15 10:17 | disposition home or self-care (01) ==
PROVIDERS: Emergency Provider Nurse Practitioner Family; PCP Internal Medicine Adolescent Medicine
DX: K52.9 Noninfective gastroenteritis and colitis, unspecified (principal); F41.8 Other specified anxiety disorders; K21.9 Gastro-esophageal reflux disease without esophagitis; Z87.891 Personal history of nicotine dependence
CPT/HCPCS: 87880; 99202; G0463

== ENCOUNTER → 2021-03-31 15:16 | Outpatient (CLI) | payer OTHER, SELFPAY | PROVIDERS: Visit Provider Nurse Practitioner | DX: Z20.822 Contact with and (suspected) exposure to COVID-19 (principal) | CPT/HCPCS: C9803; U0003; U0005 ==

== ENCOUNTER 2021-04-05 09:00 | Emergency (ER) | payer OTHER, SELFPAY ==
[2021-04-05 09:05] VITALS: BP 157/80; PULSE 116; RESP 18; TEMP 36.7; O2SAT 97; BMI 32.6
[2021-04-05 09:32] LABS: UTC Influenza A Antigen Negative (Negative); UTC Influenza B Antigen Negative (Negative); UTC Strep Screen (Rapid) Negative (Negative)
--- NOTE | 2021-04-05 09:40 | HMH.EDUTC ---
[facility] [place] Clinical Impression: Viral upper respiratory illness Disposition: Home, Self-Care Condition on Discharge: Good Instructions: DI for Fever (Symptom) -- Adult Additional Instructions: *Monitor Temp, Over the counter Motrin or Tylenol as directed/as needed Tylenol every 4 hours and Motrin every 6 hours (as long as your family doctor has told you that you can take it) for fever or pain. and straight to ER if unable to lower temp less than 101.0 after medication given *Warm salt water gargles may help to soothe the throat *Throat Lozenges *Warm fluids like tea with honey may help to soothe the throat *Sleep elevated *Humidifier/Vaporizer Follow up IMMEDIATELY for new or worsening symptoms or no Noticeable improvement over the next 48-72 hours. 911 for difficulty breathing or swallowing You were tested for today for COVID19 your test result should be back in the next 24-48 hours, you may Check your results on the [facility] My Health Portal if you have trouble logging on you may call You was given a handout with instructions for Self Quarantine and Self isolation for while you wait on test results and what to do if they are positive If you are positive the Health Dept will be contacting you also Make sure to take your Vitamins Vit. C Vit D and Zinc if you can take them Prescriptions: Ondansetron [Zofran 4mg ODT] 4 mg PO TIDP PRN #6 tab PRN Reason: Nausea Transmission Status: Received by [facility] Referrals: Alia Recinos APRN [Primary Care Provider] - As needed Forms: Work/School Release Time of Disposition: 09:49 Medical Decision Making - Cassius Inquiry Pt receiving controlled substance: No Cassius was queried for this patient: No Vital Signs: 04/05/21 09:05 04/05/21 09:42 Temperature 98.0 F 98.0 F Temperature Source Oral Pulse Rate 116 H Pulse Rate [Right Brachial] 116 H Respiratory Rate 18 18 Blood Pressure 157/80 H Blood Pressure [Right Arm] 157/80 H Blood Pressure Mean [Right Arm] 105 Blood Pressure Source [Right Arm] Automatic Cuff Blood Pressure Position [Right Arm] Sitting 02 Sat by Pulse Oximetry 97 Oxygen Delivery Method Room Air - Lab Data Lab Results 04/05/21 09:30: Influenza Type A Ag Negative, Influenza Type B Ag Negative 04/05/21 09:30: Strep Scn Rapid Clinic Negative Orders (Tests/Meds): ORDERS Category Date Time Status Strep Screen Confirmation Stat Micro 04/05/21 09:30 Received Medical Decision Narrative: Patient states that she has taken zofran in the past without complication or reaction [facility] [place] HPI - General Stated complaint: fever, sore throat, cough, runny nose headache, co Time Seen by Provider: 04/05/21 09:41 Mode of Arrival: Ambulatory Source of Information: Patient Limitations: No Limitations Description of Symptoms (Recalled from Triage Doc. by RN): PATIENT C/O BODY ACHES, LOSS OF TASTE/SMELL, CHILLS, SOA, AND NAUSEA. RECENTLY EXPOSED TO COVID, STREP AND FLU HEENT Symptoms (Recalled from RN notes): Yes Resp Symptoms (Recalled from RN notes): No Skin Symptoms (Recalled from RN notes): No MS Symptoms (Recalled from RN notes): Yes Functional Status (Recalled from RN notes): WNL - History of Present Illness Provider Complaint: Patient state that around [place] she was exposed to people that have since tested positive for COVID, strep and flu States that today she is feeling achy all over, cough, body aches, chills and loss her sense of taste and smell and nausea State that this morning she was coughing and felt a little winded - Related Data Home Medications Medication Instructions Recorded Confirmed ALPRAZolam [Xanax 0.5mg tab] 0.5 mg PO BID 06/24/17 12/09/20 diclofenac sodium 75 mg 75 mg PO DAILY 12/06/17 12/09/20 tablet,delayed release Montelukast Sodium [Montelukast 10 mg PO HS 12/11/17 12/09/20 10mg Tab] atorvastatin 40 mg tablet 40 mg PO tab 07/15/20 12/09/20 cetirizine 10 mg tablet 10 mg PO tab
[2021-04-05 09:42] VITALS: BP 157/80; PULSE 116; RESP 18; TEMP 36.7; O2SAT 97
== END 2021-04-05 09:57 | disposition home or self-care (01) ==
PROVIDERS: Emergency Provider Nurse Practitioner; PCP Nurse Practitioner Family
DX: J06.9 Acute upper respiratory infection, unspecified (principal); F41.8 Other specified anxiety disorders; K21.9 Gastro-esophageal reflux disease without esophagitis; E78.5 Hyperlipidemia, unspecified
CPT/HCPCS: 87804; 87880; 99203; C9803; G0463; U0003; U0005

== ENCOUNTER → 2021-04-13 15:21 | Outpatient (CLI) | payer OTHER, SELFPAY ==
--- NOTE | 2021-04-13 15:25 | XR_ITS ---
FINAL REPORT CLINICAL HISTORY: right hand pain COMPARISON: June 13, 2020 FINDINGS: RIGHT HAND 3 views were obtained. There is no acute fracture or dislocation. There is moderate to severe degenerative changes at the 1st CMC joint. There is an assumed loose body adjacent to the 1st CMC joint measuring 7 mm. There is no soft tissue abnormality. IMPRESSION: Findings are not significantly changed from the prior exam. Reviewed, Interpreted and Dictated by Nils Morel III, MD Transcribed by Obdulia Parks Authenticated by Nils Morel III, MD on 04/13/2021 04:32:51 PM [facility]
--- NOTE | 2021-04-13 15:25 | XR_ITS ---
FINAL REPORT CLINICAL HISTORY: LEFT HAND PAIN COMPARISON: July 15, 2020 FINDINGS: LEFT HAND Three views were obtained. There is no acute fracture or dislocation. There are mild and moderate degenerative changes of the radial aspect of the wrist. There is a new calcification proximal to the 1st metacarpal which could represent a loose body or fracture fragment. There is no soft tissue abnormality. IMPRESSION: Mild to moderate degenerative changes as described. New calcification proximal to the 1st metacarpal, could represent loose body or fracture fragment. Reviewed, Interpreted and Dictated by Nils Morel III, MD Transcribed by Obdulia Parks Authenticated by Nils Morel III, MD on 04/13/2021 04:32:59 PM [facility]
== END ==
PROVIDERS: PCP Internal Medicine Adolescent Medicine; Visit Provider Orthopaedic Surgery
DX: M79.642 Pain in left hand (principal); M79.641 Pain in right hand
CPT/HCPCS: 73130

== ENCOUNTER 2021-04-26 11:06 | Emergency (ER) | payer OTHER, SELFPAY ==
--- NOTE | 2021-04-26 14:24 | HMH.EDUTC ---
[facility] [place] Clinical Impression: Viral syndrome, Exposure to COVID-19 virus Pharyngitis Qualifiers: Pharyngitis/tonsillitis etiology: unspecified etiology Qualified Code(s): J02.9 - Acute pharyngitis, unspecified Disposition: Home, Self-Care Condition on Discharge: Good Instructions: Sore Throat, DI for Pharyngitis/Tonsillopharyngitis -- Adult, DI for COVID-19 (Suspected or Confirmed ), Preventing the Spread of Coronavirus Discharge Instructions Additional Instructions: Drink plenty of fluids. Take tylenol or ibuprofen for pain or fever. Take the medications as directed. Follow up with your regular doctor. GO TO THE ER FOR ANY WORSENING SYMPTOMS Quarantine until you know the results of your covid-19 test. Notify your school or workplace of your results and follow their instructions regarding return to work/school. Prescriptions: Ondansetron [Zofran 4mg ODT] 4 mg PO Q8HP PRN #20 tab PRN Reason: Nausea Transmission Status: Received by [facility] Benzonatate [Benzonatate 100mg cap] 100 mg PO TIDP PRN #30 cap PRN Reason: Cough Transmission Status: Received by [facility] Azithromycin [Z-Domingo 250mg Tab*] 250 mg PO UD DOSE PK #6 tab Transmission Status: Received by [facility] Referrals: Darnell Montemayor MD [Primary Care Provider] - Forms: Work/School Release Time of Disposition: 15:36 Medical Decision Making - Medical Records Medical records reviewed: No: I reviewed the patient's medical records. - Cassius Inquiry Pt receiving controlled substance: No Vital Signs: 04/26/21 14:36 04/26/21 16:04 Temperature 98.3 F 98.3 F Temperature Source Oral Pulse Rate 92 H Pulse Rate [Left] 92 H Respiratory Rate 16 16 Blood Pressure 126/90 Blood Pressure [Right Arm] 126/90 Blood Pressure Mean [Right Arm] 102 02 Sat by Pulse Oximetry 97 - Lab Data Lab results reviewed: Yes: I reviewed the patient's lab results. Lab Results 04/26/21 15:03: Group A Strep Rapid Negative 04/26/21 15:03: Influenza Type A Ag Negative, Influenza Type B Ag Negative Orders (Tests/Meds): ORDERS Category Date Time Status Covid-19 Nasal PCR ([facility]) Routine Lab 04/26/21 15:03 Received Strep Screen Confirmation Stat Micro 04/26/21 15:03 Received [facility] [place]PI - General Stated complaint: covid exposed, sore throat, chills, h/a Time Seen by Provider: 04/26/21 14:24 - History of Present Illness Provider Complaint: She states that for the past 2 days she has had low grade fever, chills, body aches, fatigue, chest tightness with breathing deep, a dry cough and a sore throat. She has been exposed to multiple people with covid-19 at her job. She denies any known strep throat exposure. She has been vaccinated against covid-19. - Related Data Home Medications Medication Instructions Recorded Confirmed ALPRAZolam [Xanax 0.5mg tab] 0.5 mg PO BID 06/24/17 04/13/21 diclofenac sodium 75 mg 75 mg PO DAILY 12/06/17 04/13/21 tablet,delayed release Montelukast Sodium [Montelukast 10 mg PO HS 12/11/17 04/13/21 10mg Tab] atorvastatin 40 mg tablet 40 mg PO tab 07/15/20 04/13/21 cetirizine 10 mg tablet 10 mg PO tab 07/15/20 04/13/21 citalopram 20 mg tablet 20 mg PO tab 07/15/20 04/13/21 pantoprazole 40 mg tablet,delayed 40 mg PO tab 07/15/20 04/13/21 release venlafaxine 37.5 mg 37.5 mg PO cap 07/15/20 04/13/21 capsule,extended release 24 hr furosemide 20 mg tablet 20 mg PO tab 12/09/20 04/13/21 trazodone 50 mg tablet 50 mg PO tab 12/09/20 04/13/21 Previous Rx's Medication Instructions Recorded Dicyclomine HCl [Bentyl 10mg 10 mg PO TID PRN #9 cap 11/17/20 capsule] Ondansetron [Zofran 4mg ODT] 4 mg PO DAILYP PRN #12 tab 12/27/20 Phenazopyridine HCl [Pyridium 200 pow PO TID #6 tab 12/27/20 200mg Tablet] Sulfamethoxazole/Trimethoprim 1 each PO BID 7 Days #14 tab 12/27/20 [Bactrim DS tablet] Azithromycin [Z-Domingo 250mg Tab*] 250 mg PO
[2021-04-26 14:36] VITALS: BP 126/90; PULSE 92; RESP 16; TEMP 36.8; O2SAT 97; BMI 33.0
[2021-04-26 15:05] LABS: UTC Influenza A Antigen Negative (Negative); UTC Influenza B Antigen Negative (Negative)
[2021-04-26 15:34] LABS: Strep Scrn Group A (Rapid) Negative (Negative)
[2021-04-26 16:04] VITALS: BP 126/90; PULSE 92; RESP 16; TEMP 36.8
== END 2021-04-26 16:05 | disposition home or self-care (01) ==
PROVIDERS: Emergency Provider Nurse Practitioner Family; PCP Internal Medicine Adolescent Medicine
DX: B34.9 Viral infection, unspecified (principal); Z20.822 Contact with and (suspected) exposure to COVID-19; J02.9 Acute pharyngitis, unspecified; F41.8 Other specified anxiety disorders; K21.9 Gastro-esophageal reflux disease without esophagitis; E78.5 Hyperlipidemia, unspecified; Z87.891 Personal history of nicotine dependence; Z79.899 Other long term (current) drug therapy
CPT/HCPCS: 87430; 87804; 99203; C9803; G0463; U0003; U0005

== ENCOUNTER 2021-04-30 09:31 | Emergency (ER) | payer OTHER, SELFPAY ==
[2021-04-30 09:42] VITALS: BP 107/70; PULSE 104; RESP 20; TEMP 36.9; O2SAT 95; BMI 33.0
--- NOTE | 2021-04-30 09:56 | HMH.EDUTC ---
[facility] [place] Clinical Impression: Viral syndrome, Bronchitis, Fatigue Disposition: Home, Self-Care Condition on Discharge: Good Instructions: Platelet Count, DI for Acute Bronchitis, DI for Hypokalemia, DI for Viral Syndrome Additional Instructions: Drink plenty of fluids. Take tylenol or ibuprofen for pain or fever. Take the medications as directed. Follow up with your regular doctor. GO TO THE ER FOR ANY WORSENING SYMPTOMS Don't start the oral steroids until tomorrow, since you had the shot here today. Take the potassium chloride tomorrow morning. Your potassium was low on your lab work. That will make you feel very fatigued and bad. The dose today and tomorrow should bring it back up. Try to eat foods high in potassium like green leafy vegetables, potatoes, bananas, avocado, etc. Your platelets were elevated on your blood work. I suspect this is because your blood is concentrated because you have not been able to drink enough fluids, but please follow up with your primary care physician to have this rechecked in the next week or so. Take the baby aspirin until its rechecked, and then follow the instructions of your physician from there. Prescriptions: Aspirin [Aspirin 81mg chewable tab] 81 mg PO DAILY 30 Days #30 tab Transmission Status: Received by [facility] methylPREDNISolone [Medrol] 4 mg PO DIRECTED 6 Days #21 packet Transmission Status: Received by [facility] Cefdinir [Omnicef 300mg Capsule] 300 mg PO BID #20 cap Transmission Status: Received by [facility] Referrals: Darnell Montemayor MD [Primary Care Provider] - Forms: Work/School Release Time of Disposition: 11:28 Medical Decision Making - Medical Records Medical records reviewed: No: I reviewed the patient's medical records. - Cassius Inquiry Pt receiving controlled substance: No Vital Signs: 04/30/21 09:42 04/30/21 12:10 Temperature 98.5 F 98.5 F Temperature Source Oral Pulse Rate 104 H Pulse Rate [Left] 104 H Respiratory Rate 20 20 Blood Pressure 107/70 L Blood Pressure [Right Arm] 107/70 L Blood Pressure Mean [Right Arm] 82 02 Sat by Pulse Oximetry 95 - Lab Data Lab results reviewed: Yes: I reviewed the patient's lab results. Lab Results 04/30/21 09:59: Chlamy pneumoniae PCR Not detected, Adenovirus (PCR) Not detected, B. pertussis DNA (PCR) Not detected, Coronavirus OC43 (PCR) Not detected, Coronavirus HKU1 (PCR) Not detected, Coronavirus 229E (PCR) Not detected, SARS-CoV-2 (PCR) Not detected, Coronavirus NL63 (PCR) Not detected, Human Metapneumovir PCR Not detected, Influenza A (H1) PCR Not detected, Influ A (H1N1/09) PCR Not detected, Influenza A (H3) PCR Not detected, Influenza Type A (PCR) Not detected, Influenza Type B (PCR) Not detected, M. pneumoniae (PCR) Not detected, Parainfluenza 1 (PCR) Not detected, Parainfluenza 2 (PCR) Not detected, Parainfluenza 3 (PCR) Not detected, Parainfluenza 4 (PCR) Not detected, RSV (PCR) Not detected, Entero/Rhino (PCR) Not detected 04/30/21 10:24: WBC 10.7, RBC 4.14 L, Hgb 13.0, Hct 39.4, MCV 95.2, MCH 31.4 H, MCHC 32.9, RDW 14.4, Plt Count 603 H, MPV 7.5, Neut % (Auto) 76.1, Lymph % (Auto) 19.8, [place] % (Auto) 3.0, Eos % (Auto) 0.5, Baso % (Auto) 0.7, Neut # (Auto) 8.1 H, Lymph # (Auto) 2.1, [place] # (Auto) 0.3, Eos # (Auto) 0.1, Baso # (Auto) 0.1 04/30/21 10:24: Sodium 139, Potassium 3.2 L, Chloride 103, Carbon Dioxide 31 H, Anion Gap 8.2, BUN 11, Creatinine 0.80, Estimated Creat Clear 145, Estimated GFR 77, Est GFR ( Amer) 93, Glucose 112 H, Calcium 9.0 Result diagrams: 04/30/21 10:24 04/30/21 10:24 Orders (Tests/Meds): ED MEDICATIONS Discontinued Medications Generic Name Dose Route Start Last Admin Trade Name Freq PRN Reason Stop Dose Admin Sodium Chloride 1,000 mls @ 999 mls/hr 04/30/21 12:15 04/30/21 12:09 Sod Chlor 0.9% 1000ml Bag IV 04/30/21 13:15 999 mls/hr .Q1H1M DIO Administration Methylprednisolone
[2021-04-30 10:25] LABS: Adenovirus,PCR Not Detected (NotDetected); Bordetella Pertussis Not Detected (NotDetected); Chlamydophila Pneumoniae, PCR Not Detected (NotDetected); Coronavirus 19, PCR Not Detected (NotDetected); Coronavirus 229E Not Detected (NotDetected); Coronavirus NL63 Not Detected (NotDetected); Coronavirus OC43 Not Detected (NotDetected); Coronovirus HKU1,PCR Not Detected (NotDetected); Human Metapneumovirus Not Detected (NotDetected); Influenza A, PCR Not Detected (NotDetected); Influenza AH1, 2009 Not Detected (NotDetected); Influenza AH1, PCR Not Detected (NotDetected); Influenza AH3,PCR Not Detected (NotDetected); Influenza B, PCR Not Detected (NotDetected); Mycoplasma Pneumoniae, PCR Not Detected (NotDetected); Parainfluenza 1, PCR Not Detected (NotDetected); Parainfluenza 2, PCR Not Detected (NotDetected); Parainfluenza 3, PCR Not Detected (NotDetected); Parainfluenza 4, PCR Not Detected (NotDetected); Respiratory Syncytial Virus Not Detected (NotDetected); Rhinovirus/Enterovirus Not Detected (NotDetected)
--- NOTE | 2021-04-30 10:25 | XR_ITS ---
FINAL REPORT TECHNIQUE: Chest PA & Lateral CLINICAL HISTORY: cough, congestion COMPARISON: January 16, 2021 FINDINGS: 2 views of the chest were performed. The heart size is normal. The mediastinum is within normal limits. There is no acute cardiopulmonary process. There are no pleural effusions. There is no pneumothorax. The bony thorax appears intact. IMPRESSION: No acute cardiopulmonary process. Reviewed, Interpreted and Dictated by Wili Shell MD Transcribed by Dhruv Guajardo Authenticated by Wili Shell MD on 04/30/2021 11:14:05 AM [facility]
[2021-04-30 10:56] LABS: Basophils # 0.1 K/mm3 (0-0.2); Basophils % 0.7 % (0.1-2.0); Chloride 103 mmol/L (98-107); Eosinophils # 0.1 K/mm3 (0.0-0.4); Eosinophils % 0.5 % (0.1-12.0); Hematocrit 39.4 % (37.0-47.0); Lymphocytes # 2.1 K/mm3 (0.7-4.5); Lymphocytes % 19.8 % (10-50); Mean Corpuscular HGB Conc 32.9 g/dL (31.8-35.4); Mean Corpuscular Hemoglobin 31.4 pg (27.0-31.2); Mean Corpuscular Volume 95.2 fl (81-99); Mean Platelet Volume 7.5 fl (7.4-10.4); Monocytes # 0.3 K/mm3 (0.1-1.0); Neutrophils # 8.1 K/mm3 (1.8-7.8); Neutrophils % 76.1 % (37.0-80.0); Platelet Count 603 K/mm3 (142-424); Potassium 3.2 mmoL/L (3.5-5.1); Red Blood Count 4.14 M/mm3 (4.20-5.40); Red Cell Distribution Width 14.4 % (11.5-17.5); White Blood Count 10.7 K/mm3 (4.8-10.8)
[2021-04-30 10:58] LABS: Sodium 139 mmol/L (136-145)
[2021-04-30 10:59] LABS: Glucose 112 mg/dl (74-100)
[2021-04-30 11:01] LABS: Anion Gap 8.2 mEq/L (5-15); Carbon Dioxide 31 mmol/L (22.0-30.0)
[2021-04-30 11:13] LABS: Blood Urea Nitrogen 11 mg/dl (7-17); Creatinine Clearance Estimated 145 mL/min (50-200); Estimated Glomerular Filt Rate 77 ml/min (>60); GFR (African American) 93 ML/MIN (>60)
[2021-04-30 12:10] VITALS: BP 107/70; PULSE 104; RESP 20; TEMP 36.9
== END 2021-04-30 12:12 | disposition home or self-care (01) ==
PROVIDERS: Emergency Provider Nurse Practitioner Family; PCP Internal Medicine Adolescent Medicine
DX: J20.9 Acute bronchitis, unspecified (principal); Z20.822 Contact with and (suspected) exposure to COVID-19; F41.8 Other specified anxiety disorders; K21.9 Gastro-esophageal reflux disease without esophagitis; E78.5 Hyperlipidemia, unspecified
CPT/HCPCS: 71046; 80048; 85025; 87581; 87632; 87798; 96360; 96365; 96375; 99202; C9803; G0463; U0003; U0005

== ENCOUNTER 2021-05-03 00:26 | Emergency (ER) | payer OTHER, SELFPAY ==
[2021-05-03 00:27] VITALS: BP 113/52; PULSE 92; RESP 16; TEMP 37.1; O2SAT 96; BMI 33.0
--- NOTE | 2021-05-03 00:50 | CT_ITS ---
PROCEDURE INFORMATION: Exam: CT Head Without Contrast Exam date and time: 05/03/2021 12:50 AM Age: 45 years old Clinical indication: Pain; Headache not specified; Additional info: Sudden onset ESPINOZA TECHNIQUE: Imaging protocol: Computed tomography of the head without contrast. Radiation optimization: All CT scans at this facility use at least one of these dose optimization techniques: automated exposure control; mA and/or kV adjustment per patient size (includes targeted exams where dose is matched to clinical indication); or iterative reconstruction. COMPARISON: HEADWO CT head/brain wo con 03/31/2018 9:40 PM FINDINGS: Brain: Normal. No hemorrhage. Unremarkable white matter. No mass effect. Cerebral ventricles: No ventriculomegaly. Paranasal sinuses: Visualized sinuses are unremarkable. No fluid levels. Mastoid air cells: Visualized mastoid air cells are well aerated. Bones/joints: Unremarkable. No acute fracture. Soft tissues: Unremarkable. IMPRESSION: No acute intracranial abnormality.
--- NOTE | 2021-05-03 00:50 | CT_ITS ---
PROCEDURE INFORMATION: Exam: CT Abdomen And Pelvis With Contrast Exam date and time: 05/03/2021 12:50 AM Age: 45 years old Clinical indication: Abdominal pain; Generalized; Prior surgery; Surgery date: 6+ months; Surgery type: Colon surgery for diverticulitis; Additional info: Lower abdominal pain TECHNIQUE: Imaging protocol: Computed tomography of the abdomen and pelvis with contrast. Radiation optimization: All CT scans at this facility use at least one of these dose optimization techniques: automated exposure control; mA and/or kV adjustment per patient size (includes targeted exams where dose is matched to clinical indication); or iterative reconstruction. Contrast material: ISOVUE; Contrast volume: 75 ml; Contrast route: IV; COMPARISON: CT ABDOMEN PELVIS W CON 08/29/2020 4:56 PM FINDINGS: Lungs: The visualized lung bases are clear. Pleural spaces: There are no pleural effusions. Heart: The visualized portions of the heart are unremarkable. There is no evidence of pericardial fluid collections. Liver: There is diffuse decrease in hepatic parenchymal density consistent with fatty infiltration. There is a small region of focal fatty infiltration adjacent to the falciform ligament. Gallbladder and bile ducts: There has been a cholecystectomy. Pancreas: The pancreas is normal. Spleen: The spleen is normal. Adrenal glands: The adrenal glands are normal. Kidneys and ureters: The kidneys are normal. Stomach and bowel: The stomach is normal. The duodenum is unremarkable. Lack of gastrointestinal contrast limits evaluation of bowel. Postsurgical changes involve the rectosigmoid. Unopacified loops of small bowel are within range of normal. There is mildly excessive colonic stool content. No evidence for diverticulitis. Appendix: No evidence of appendicitis. Intraperitoneal space: There is no evidence of free intraperitoneal or pelvic fluid. No evidence of intraperitoneal free air. Vasculature: No abdominal aortic aneurysm. Lymph nodes: There is no evidence of pathologic adenopathy. Urinary bladder: The bladder is decompressed. Reproductive: The uterus is normal. The right ovary is normal. The left ovary is normal. As before, tubal ligation clips are noted in the left adnexal region. Bones/joints: There is no evidence of acute fracture. Soft tissues: No soft tissue swelling is identified. IMPRESSION: 1. Mild constipation. 2. Fatty hepatic infiltration.
[2021-05-03 00:59] LABS: Microscopic, Urine URINE MICROSCOPIC (MICROSCOPIC)
[2021-05-03 01:03] LABS: Appearance,Urine CLEAR (Clear); Bilirubin,Urine Negative (Negative); Blood, Urine 2+ (Negative); Color,Urine YELLOW (Yellow); Glucose,Urine (UA) Negative (Negative); Ketones,Urine Negative (Negative); Leukocyte Esterase,Urine TRACE (Negative); Nitrate,Urine Negative (Negative); PH,Urine 6.5 (5.0-8.5); Protein,Urine Negative (Negative)
[2021-05-03 01:08] LABS: Urine Pregnancy, HCG Qual. Negative (Negative)
[2021-05-03 01:09] LABS: WBC,Urine Occasional #/hpf (0-3)
[2021-05-03 01:10] LABS: Alanine Aminotransferase 19 U/L (12-78); Albumin Level 3.6 g/dl (3.5-5.0); Albumin/Globulin Ratio 1.3 (1.1-1.8); Alkaline Phosphatase 124 U/L (38-126); Anion Gap 8.1 mEq/L (5-15); Aspartate Amino Transferase 19 U/L (14-36); Basophils # 0.2 K/mm3 (0-0.2); Basophils % 1.1 % (0.1-2.0); Bilirubin,Total 0.4 mg/dl (0.2-1.3); Blood Urea Nitrogen 13 mg/dl (7-17); Calcium 8.5 mg/dl (8.4-10.2); Carbon Dioxide 30 mmol/L (22.0-30.0); Chloride 102 mmol/L (98-107); Creatinine Clearance Estimated 129 mL/min (50-200); Eosinophils % 0.2 % (0.1-12.0); Estimated Glomerular Filt Rate 67 ml/min (>60); GFR (African American) 82 ML/MIN (>60); Globulin 2.8 g/dL (1.3-3.2); Glucose 110 mg/dl (74-100); Hematocrit 39.9 % (37.0-47.0); Hemoglobin 12.8 g/dL (12.2-16.2); Lymphocytes # 4.2 K/mm3 (0.7-4.5); Lymphocytes % 32.3 % (10-50); Mean Corpuscular HGB Conc 32.2 g/dL (31.8-35.4); Mean Corpuscular Hemoglobin 31.1 pg (27.0-31.2); Mean Corpuscular Volume 96.5 fl (81-99); Mean Platelet Volume 7.6 fl (7.4-10.4); Monocytes # 0.6 K/mm3 (0.1-1.0); Monocytes % 4.5 % (1.7-9.3); Neutrophils # 8.1 K/mm3 (1.8-7.8); Neutrophils % 61.8 % (37.0-80.0); Platelet Count 523 K/mm3 (142-424); Potassium 3.1 mmoL/L (3.5-5.1); Red Blood Count 4.13 M/mm3 (4.20-5.40); Red Cell Distribution Width 14.4 % (11.5-17.5); Sodium 137 mmol/L (136-145); Total Protein,Serum 6.4 g/dl (6.3-8.2); White Blood Count 13.1 K/mm3 (4.8-10.8)
[2021-05-03 01:13] VITALS: BP 110/72; PULSE 82; O2SAT 96
[2021-05-03 01:13] LABS: Amphetamine/Metha Screen,Urine Negative ng/ml (<1000)
[2021-05-03 01:14] LABS: Barbiturates Screen,Urine Negative ng/ml (<200)
[2021-05-03 01:15] LABS: Benzodiazepines Screen,Urine Positive ng/ml (<200); Cannabinoid Screen,Urine Negative ng/ml (<50)
[2021-05-03 01:16] LABS: C-Reactive Protein 5.4 mg/L (0-4)
[2021-05-03 01:16] LABS: Cocaine Screen,Urine Negative ng/ml (<300); Methadone Screen,Urine Negative ng/ml (<300)
[2021-05-03 01:17] LABS: Opiate Screen,Urine Negative ng/ml (<300)
[2021-05-03 01:18] LABS: Phencyclidine Screen,Urine Negative ng/ml (<25)
[2021-05-03 01:30] LABS: Procalcitonin 0.031 ng/mL (0.0-2.0)
[2021-05-03 01:45] LABS: Erythrocyte Sedimentation Rate 54 mm/hr (0-20)
[2021-05-03 02:00] VITALS: BP 119/75; PULSE 77; O2SAT 98
--- NOTE | 2021-05-03 02:22 | HMH.EDHA ---
ED Disposition Clinical Impression: Headache Qualifiers: Headache type: unspecified Headache chronicity pattern: acute headache Intractability: not intractable Qualified Code(s): R51.9 - Headache, unspecified Disposition: Home, Self-Care Condition on Discharge: Good Instructions: DI for Headache Additional Instructions: call pcp for follow up Referrals: Darnell Montemayor MD [Primary Care Provider] - - Critical Care Critical Care Time: No Attestation: On 05/03/21, the high probability of a clinically significant, sudden or life threatening deterioration of the following system(s) required my full and direct attention, intervention and personal management. The time I documented below is in addition to time spent performing reported procedures but includes the following listed in this critical care notation. Medical Decision Making - Medical Records Medical records reviewed: Yes: I reviewed the patient's medical records. - Cassius Inquiry Pt receiving controlled substance: No Vital Signs: 05/03/21 00:27 Temperature 98.8 F Temperature Source Oral Pulse Rate [Right Radial] 92 H Respiratory Rate 16 Blood Pressure [Right Arm] 113/52 L Blood Pressure Mean [Right Arm] 72 Blood Pressure Source [Right Arm] Automatic Cuff Blood Pressure Position [Right Arm] Supine 02 Sat by Pulse Oximetry 96 Oxygen Delivery Method Room Air - Lab Data Lab results reviewed: Yes: I reviewed the patient's lab results. Lab Results 05/03/21 00:35: Urine Color Yellow, Urine Appearance Clear, Urine pH 6.5, Ur Specific [place] 1.020, Urine Protein Negative, Urine Glucose (UA) Negative, Urine Ketones Negative, Urine Blood 2+, Urine Nitrate Negative, Urine Bilirubin Negative, Urine Urobilinogen 1.0, Ur Leukocyte Esterase Trace, Urine RBC 10-20, Urine WBC Occasional, Ur Squamous Epith Cells 5-10 05/03/21 00:35: Urine Opiates Screen Negative, Urine Methadone Screen Negative, Ur Barbituates Screen Negative, Ur Phencyclidine Scrn Negative, Ur Amphetamines Screen Negative, U Benzodiazepines Scrn Positive H, Urine Cocaine Screen Negative, U Marijuana (THC) Screen Negative 05/03/21 00:35: Urine HCG, Qual Negative 05/03/21 00:54: WBC 13.1 H, RBC 4.13 L, Hgb 12.8, Hct 39.9, MCV 96.5, MCH 31.1, MCHC 32.2, RDW 14.4, Plt Count 523 H, MPV 7.6, Neut % (Auto) 61.8, Lymph % (Auto) 32.3, [place] % (Auto) 4.5, Eos % (Auto) 0.2, Baso % (Auto) 1.1, Neut # (Auto) 8.1 H, Lymph # (Auto) 4.2, [place] # (Auto) 0.6, Eos # (Auto) 0.0, Baso # (Auto) 0.2, ESR 54 H 05/03/21 00:54: Sodium 137, Potassium 3.1 L, Chloride 102, Carbon Dioxide 30, Anion Gap 8.1, BUN 13, Creatinine 0.90, Estimated Creat Clear 129, Estimated GFR 67, Est GFR ( Amer) 82, Glucose 110 H, Calcium 8.5, Magnesium 2.0, Total Bilirubin 0.4, AST 19, ALT 19, Alkaline Phosphatase 124, C-Reactive Protein 5.4 H, Total Protein 6.4, Albumin 3.6, Globulin 2.8, Albumin/Globulin Ratio 1.3, Procalcitonin 0.031 Result diagrams: 05/03/21 00:54 05/03/21 00:54 Orders (Tests/Meds): ED MEDICATIONS Generic Name Dose Route Start Last Admin Trade Name Freq PRN Reason Stop Dose Admin Lactated Ringer's 1,000 mls @ 999 mls/hr 05/03/21 01:00 05/03/21 01:11 Lactated Ringer's 1000 Ml Bag IV 05/03/21 02:00 999 mls/hr .Q1H1M DIO Administration Discontinued Medications Generic Name Dose Route Start Last Admin Trade Name Freq PRN Reason Stop Dose Admin Iopamidol 75 ml 05/03/21 01:34 05/03/21 01:36 Iopamidol-370 (76%);100ml Bottle IV 05/03/21 01:35 75 ml ONCE ONE Administration Ketorolac Tromethamine 30 mg 05/03/21 00:50 05/03/21 01:41 Ketorolac 30mg/Ml Vial IV 05/03/21 00:51 30 mg ONCE ONE Administration Methylprednisolone Sodium Succinate 125 mg 05/03/21 00:50 05/03/21 01:41 Methylprednisolone Sod Succ 125mg Vial IV 05/03/21 00:51 125 mg ONCE ONE Administration Sodium Chloride 10 ml 05/03/21 01:34 05/03/21 01:36 Sodium Chloride 0.9% 10ml Syr (Rad Only) IV 05/03/21 01:35
[2021-05-03 03:01] VITALS: BP 132/81; PULSE 76; RESP 16; TEMP 36.6; O2SAT 98
== END 2021-05-03 03:04 | disposition home or self-care (01) ==
PROVIDERS: Emergency Provider Emergency Medicine; PCP Internal Medicine Adolescent Medicine
DX: R51.9 Headache, unspecified (principal); R10.30 Lower abdominal pain, unspecified; R11.0 Nausea; F41.8 Other specified anxiety disorders; K21.9 Gastro-esophageal reflux disease without esophagitis; E78.5 Hyperlipidemia, unspecified; Z87.891 Personal history of nicotine dependence
CPT/HCPCS: 70450; 74177; 80053; 80305; 81001; 81025; 83735; 84145; 85025; 85651; 86140; 96365; 96375; 99283; Q9967

== ENCOUNTER 2021-05-25 09:18 | Emergency (ER) | payer OTHER, SELFPAY ==
--- NOTE | 2021-05-25 09:31 | HMH.EDUTC ---
[facility] [place] [facility] [place] Clinical Impression: Viral syndrome Disposition: Home, Self-Care Condition on Discharge: Good Instructions: DI for Viral Syndrome, DI for Viral Gastroenteritis -- Adult Additional Instructions: Drink plenty of fluids. Take tylenol or ibuprofen for pain or fever. Take the medications as directed. Follow up with your regular doctor. GO TO THE ER FOR ANY WORSENING SYMPTOMS Quarantine until you know the results of your covid-19 test. Notify your school or workplace of your results and follow their instructions regarding return to work/school. Prescriptions: Ondansetron [Zofran 4mg ODT] 4 mg PO Q8HP PRN #20 tab PRN Reason: Nausea Transmission Status: Pending to [facility] Referrals: Darnell Montemayor MD [Primary Care Provider] - Forms: Work/School Release Time of Disposition: 10:30 Medical Decision Making - Medical Records Medical records reviewed: No: I reviewed the patient's medical records. - Cassius Inquiry Pt receiving controlled substance: No Vital Signs: 05/25/21 09:59 Temperature 97.5 F L Temperature Source Oral Pulse Rate [Left] 79 Respiratory Rate 18 Blood Pressure [Right Arm] 116/77 Blood Pressure Mean [Right Arm] 90 02 Sat by Pulse Oximetry 97 - Lab Data Lab results reviewed: Yes: I reviewed the patient's lab results. Lab Results 05/25/21 10:07: Influenza Type A Ag Negative, Influenza Type B Ag Negative 05/25/21 10:07: Strep Scn Rapid Clinic Negative Orders (Tests/Meds): ORDERS Category Date Time Status Covid-19 Nasal PCR ([facility]) Routine Lab 05/25/21 10:07 Received Strep Screen Confirmation Stat Micro 05/25/21 10:07 Received [facility] [place] [facility] [place] HPI - General Stated complaint: stomach cramps, diarrhea, nausea, ESPINOZA, bodyache Time Seen by Provider: 05/25/21 09:32 - History of Present Illness Provider Complaint: She states that she started having nausea and diarrhea since earlier this morning. Her is having similar symptoms. - Related Data Home Medications Medication Instructions Recorded Confirmed ALPRAZolam [Xanax 0.5mg tab] 0.5 mg PO BID 06/24/17 04/13/21 diclofenac sodium 75 mg 75 mg PO DAILY 12/06/17 04/13/21 tablet,delayed release Montelukast Sodium [Montelukast 10 mg PO HS 12/11/17 04/13/21 10mg Tab] atorvastatin 40 mg tablet 40 mg PO tab 07/15/20 04/13/21 cetirizine 10 mg tablet 10 mg PO tab 07/15/20 04/13/21 citalopram 20 mg tablet 20 mg PO tab 07/15/20 04/13/21 pantoprazole 40 mg tablet,delayed 40 mg PO tab 07/15/20 04/13/21 release venlafaxine 37.5 mg 37.5 mg PO cap 07/15/20 04/13/21 capsule,extended release 24 hr furosemide 20 mg tablet 20 mg PO tab 12/09/20 04/13/21 trazodone 50 mg tablet 50 mg PO tab 12/09/20 04/13/21 Previous Rx's Medication Instructions Recorded Dicyclomine HCl [Bentyl 10mg 10 mg PO TID PRN #9 cap 11/17/20 capsule] Ondansetron [Zofran 4mg ODT] 4 mg PO DAILYP PRN #12 tab 12/27/20 Phenazopyridine HCl [Pyridium 200 pow PO TID #6 tab 12/27/20 200mg Tablet] Sulfamethoxazole/Trimethoprim 1 each PO BID 7 Days #14 tab 12/27/20 [Bactrim DS tablet] Azithromycin [Z-Domingo 250mg Tab*] 250 mg PO UD DOSE PK #6 tab 01/14/21 Brompheniramine/Pseudoephed/Dm 5 ml PO Q6HP PRN #240 ml 01/14/21 [Bromfed Dm Cough Syrup] Ondansetron [Zofran 4mg ODT] 4 mg PO Q8HP PRN #12 tab 01/14/21 Benzonatate [Tessalon Perle 100mg 100 mg PO TIDP PRN #20 cap 01/16/21 Cap] Cefdinir [Omnicef 300mg Capsule] 300 mg PO BID #20 cap 01/16/21 Ondansetron [Zofran 4mg ODT] 4 mg PO Q8HP PRN #20 tab 03/15/21 Ondansetron [Zofran 4mg ODT] 4 mg PO TIDP PRN #6 tab 04/05/21 Azithromycin [Z-Domingo 250mg Tab*] 250 mg PO UD DOSE PK #6 tab 04/26/21 Benzonatate [Benzonatate 100mg 100 mg PO TIDP PRN #30 cap 04/26/21 cap] Ondansetron [Zofran 4mg ODT] 4 mg PO Q8HP PRN #20 tab 04/26/21 Aspirin [Aspirin 81mg chewable 81 mg PO DAILY 30 Days #30 tab 04/30/21 tab] Cefdinir
[2021-05-25 09:59] VITALS: BP 116/77; PULSE 79; RESP 18; TEMP 36.4; O2SAT 97; BMI 32.4
[2021-05-25 10:08] LABS: UTC Strep Screen (Rapid) Negative (Negative)
[2021-05-25 10:09] LABS: UTC Influenza A Antigen Negative (Negative); UTC Influenza B Antigen Negative (Negative)
[2021-05-25 10:32] LABS: Adenovirus,PCR Not Detected (NotDetected); Bordetella Pertussis Not Detected (NotDetected); Chlamydophila Pneumoniae, PCR Not Detected (NotDetected); Coronavirus 19, PCR Not Detected (NotDetected); Coronavirus 229E Not Detected (NotDetected); Coronavirus NL63 Not Detected (NotDetected); Coronavirus OC43 Not Detected (NotDetected); Coronovirus HKU1,PCR Not Detected (NotDetected); Human Metapneumovirus Not Detected (NotDetected); Influenza A, PCR Not Detected (NotDetected); Influenza AH1, 2009 Not Detected (NotDetected); Influenza AH1, PCR Not Detected (NotDetected); Influenza AH3,PCR Not Detected (NotDetected); Influenza B, PCR Not Detected (NotDetected); Mycoplasma Pneumoniae, PCR Not Detected (NotDetected); Parainfluenza 1, PCR Not Detected (NotDetected); Parainfluenza 2, PCR Not Detected (NotDetected); Parainfluenza 3, PCR Not Detected (NotDetected); Parainfluenza 4, PCR Not Detected (NotDetected); Respiratory Syncytial Virus Not Detected (NotDetected); Rhinovirus/Enterovirus Not Detected (NotDetected)
[2021-05-25 10:48] VITALS: BP 116/77; PULSE 79; RESP 18; TEMP 36.4
== END 2021-05-25 10:52 | disposition home or self-care (01) ==
PROVIDERS: Emergency Provider Nurse Practitioner Family; PCP Internal Medicine Adolescent Medicine
DX: B34.9 Viral infection, unspecified (principal); F41.8 Other specified anxiety disorders; K21.9 Gastro-esophageal reflux disease without esophagitis; E03.9 Hypothyroidism, unspecified; Z87.891 Personal history of nicotine dependence; Z79.899 Other long term (current) drug therapy
CPT/HCPCS: 87581; 87632; 87798; 87804; 87880; 99203; C9803; G0463; U0003; U0005

== ENCOUNTER → 2021-06-03 16:01 | Outpatient (CLI) | payer OTHER, SELFPAY ==
--- NOTE | 2021-06-03 16:04 | XR_ITS ---
FINAL REPORT CLINICAL HISTORY: LEFT ANTERIOR KNEE PAIN, no injury. shielded. FINDINGS: LEFT KNEE Five views demonstrate no acute fracture or dislocation. Mild degenerative change is present. There is no joint effusion. The visualized bony structures are well aligned. No soft tissue abnormality is seen. IMPRESSION: No acute process. Reviewed, Interpreted and Dictated by Nils Morel III, MD Transcribed by Funmilayo Mayfield Authenticated by Nils Morel III, MD on 06/03/2021 04:34:18 PM [facility]
== END ==
PROVIDERS: PCP Internal Medicine Adolescent Medicine; Visit Provider Internal Medicine Adolescent Medicine
DX: M25.562 Pain in left knee (principal)
CPT/HCPCS: 73562

== ENCOUNTER 2021-06-17 18:29 | Emergency (ER) | payer OTHER, SELFPAY ==
[2021-06-17 18:43] VITALS: BP 153/79; PULSE 101; RESP 18; TEMP 37.2; O2SAT 95; BMI 33.0
[2021-06-17 18:47] LABS: Adenovirus,PCR Not Detected (NotDetected); Bordetella Pertussis Not Detected (NotDetected); Chlamydophila Pneumoniae, PCR Not Detected (NotDetected); Coronavirus 19, PCR Not Detected (NotDetected); Coronavirus 229E Not Detected (NotDetected); Coronavirus NL63 Not Detected (NotDetected); Coronavirus OC43 Not Detected (NotDetected); Coronovirus HKU1,PCR Not Detected (NotDetected); Human Metapneumovirus Not Detected (NotDetected); Influenza A, PCR Not Detected (NotDetected); Influenza AH1, 2009 Not Detected (NotDetected); Influenza AH1, PCR Not Detected (NotDetected); Influenza AH3,PCR Not Detected (NotDetected); Influenza B, PCR Not Detected (NotDetected); Mycoplasma Pneumoniae, PCR Not Detected (NotDetected); Parainfluenza 1, PCR Not Detected (NotDetected); Parainfluenza 2, PCR Not Detected (NotDetected); Parainfluenza 3, PCR Not Detected (NotDetected); Parainfluenza 4, PCR Not Detected (NotDetected); Respiratory Syncytial Virus Not Detected (NotDetected); Rhinovirus/Enterovirus Not Detected (NotDetected)
--- NOTE | 2021-06-17 18:47 | HMH.EDUTC ---
[facility] [place]ression: Right otitis media Qualifiers: Otitis media type: unspecified Qualified Code(s): H66.91 - Otitis media, unspecified, right ear Disposition: Home, Self-Care Condition on Discharge: Good Instructions: Middle Ear Infection, DI for Sinusitis Additional Instructions: * No sign of bacterial infection. Likely viral. Virus can take 7-14 days to run their course *Nasal saline and bulb syringe or nose lindsey to remove nasal drainage and help with nasal congestion. Hard to eat, drink, or sleep with nasal congestion so important to keep nose cleaned out. *Monitor Temp, Over the counter Motrin or Tylenol as directed/as needed Tylenol every 4 hours and Motrin every 6 hours (as long as your family doctor has told you that you can take it) for fever or pain. and straight to ER if unable to lower temp less than 101.0 after medication given *Warm salt water gargles may help to soothe the throat *Throat Lozenges *Warm fluids like tea with honey may help to soothe the throat *Sleep elevated *Humidifier/Vaporizer Follow up IMMEDIATELY for new or worsening symptoms or no Noticeable improvement over the next 48-72 hours. 911 for difficulty breathing or swallowing You were tested for today for COVID19 your test result should be back in the next 24-48 hours, you may check your results on the [facility] My Health Portal if you have trouble logging on you may call for assistance Make sure to take your Vitamins Vit. C Vit D and Zinc if you can take them Prescriptions: methylPREDNISolone [Medrol 4mg tab] 4 mg PO DIRECTED #21 tab Transmission Status: Pending to [facility] Cefdinir [Omnicef 300mg Capsule] 300 mg PO BID #20 cap Transmission Status: Pending to [facility] Referrals: Darnell Montemayor MD [Primary Care Provider] - As needed Forms: Work/School Release Medical Decision Making - Cassius Inquiry Pt receiving controlled substance: No Cassius was queried for this patient: No Vital Signs: 06/17/21 18:43 Temperature 99 F Temperature Source Oral Pulse Rate [Right Brachial] 101 H Respiratory Rate 18 Blood Pressure [Right Arm] 153/79 H Blood Pressure Mean [Right Arm] 103 Blood Pressure Source [Right Arm] Automatic Cuff Blood Pressure Position [Right Arm] Sitting 02 Sat by Pulse Oximetry 95 Oxygen Delivery Method Room Air Orders (Tests/Meds): ORDERS Category Date Time Status Full Resp Panel w/COVID ([facility]) Routine Lab 06/17/21 18:41 Received Medical Decision Narrative: Patient states that she has taken cefdinir and medrol in the past without reactions or complications [facility] [place] - General Stated complaint: no taste rangel Time Seen by Provider: 06/17/21 18:47 Mode of Arrival: Ambulatory Source of Information: Patient Limitations: No Limitations Description of Symptoms (Recalled from Triage Doc. by RN): headache, cough, no taste HEENT Symptoms (Recalled from RN notes): Yes Resp Symptoms (Recalled from RN notes): No Skin Symptoms (Recalled from RN notes): No MS Symptoms (Recalled from RN notes): No Functional Status (Recalled from RN notes): wnl - History of Present Illness Provider Complaint: Patient state that she has been having pain and pressure in her ears, sinus pain and pressure, headache, body aches and no taste or smell States that he boss was worried and wanted her to get tested for COVID - Related Data Home Medications Medication Instructions Recorded Confirmed ALPRAZolam [Xanax 0.5mg tab] 0.5 mg PO BID 06/24/17 05/25/21 diclofenac sodium 75 mg 75 mg PO DAILY 12/06/17 05/25/21 tablet,delayed release Montelukast Sodium [Montelukast 10 mg PO HS 12/11/17 05/25/21 10mg Tab] atorvastatin 40 mg tablet 40 mg PO tab 07/15/20 05/25/21 cetirizine 10 mg tablet 10 mg PO tab 07/15/20 05/25/21 citalopram 20 mg tablet 20 mg PO tab 07/15/20 05/25/21 pantoprazole 40 mg tablet,delayed 40 mg PO tab 07/15/20 05/25/21 release venlafaxine 37.5 mg 37.5 mg PO
[2021-06-17 19:10] VITALS: BP 153/79; PULSE 101; RESP 18; TEMP 37.2; O2SAT 94
== END 2021-06-17 19:15 | disposition home or self-care (01) ==
PROVIDERS: Emergency Provider Nurse Practitioner; PCP Internal Medicine Adolescent Medicine
DX: H66.91 Otitis media, unspecified, right ear (principal); K21.9 Gastro-esophageal reflux disease without esophagitis; F41.8 Other specified anxiety disorders; E78.5 Hyperlipidemia, unspecified; Z87.891 Personal history of nicotine dependence
CPT/HCPCS: 87581; 87632; 87798; 99213; C9803; G0463; U0003; U0005

== ENCOUNTER 2021-06-30 12:27 | Emergency (ER) | payer OTHER, SELFPAY ==
[2021-06-30 14:19] VITALS: BP 132/66; PULSE 89; RESP 20; TEMP 36.9; O2SAT 97; BMI 33.0
--- NOTE | 2021-06-30 14:22 | HMH.EDUTC ---
[facility] [place]: Influenza A Disposition: Home, Self-Care Condition on Discharge: Good Instructions: Influenza, DI for Influenza -- Adult, Oseltamivir Additional Instructions: Drink plenty of fluids. Take tylenol or ibuprofen for pain or fever. Take the medications as directed. Follow up with your regular doctor. GO TO THE ER FOR ANY WORSENING SYMPTOMS Prescriptions: Promethazine/Dextromethorphan [Promethazine-Dm Syrup] 5 ml PO Q6HP PRN #240 ml PRN Reason: Cough [facility] Ondansetron [Zofran 4mg ODT] 4 mg PO Q8HP PRN #20 tab PRN Reason: Nausea Transmission Status: Received by [facility] Benzonatate [Benzonatate 100mg cap] 100 mg PO TIDP PRN #30 cap PRN Reason: Cough Transmission Status: Received by [facility] Oseltamivir Phosphate [Tamiflu 75mg Capsule] 75 mg PO BID #10 cap Transmission Status: Received by [facility] Referrals: Darnell Montemayor MD [Primary Care Provider] - Forms: Work/School Release Time of Disposition: 14:43 Medical Decision Making - Medical Records Medical records reviewed: No: I reviewed the patient's medical records. - Cassius Inquiry Pt receiving controlled substance: No Vital Signs: 06/30/21 14:19 06/30/21 14:45 Temperature 98.4 F 98.4 F Temperature Source Oral Pulse Rate 89 Pulse Rate [Left] 89 Respiratory Rate 20 20 Blood Pressure 132/66 Blood Pressure [Right Arm] 132/66 Blood Pressure Mean [Right Arm] 88 02 Sat by Pulse Oximetry 97 - Lab Data Lab results reviewed: Yes: I reviewed the patient's lab results. Lab Results 06/30/21 14:28: Influenza Type A Ag Positive A, Influenza Type B Ag Negative [facility] [place] - General Stated complaint: body aches, h/a, fever Time Seen by Provider: 06/30/21 14:22 Mode of Arrival: Ambulatory Source of Information: Patient Limitations: No Limitations Description of Symptoms (Recalled from Triage Doc. by RN): pt c/o body aches, fever, ESPINOZA and chills since yesterday. HEENT Symptoms (Recalled from RN notes): Yes Resp Symptoms (Recalled from RN notes): No Skin Symptoms (Recalled from RN notes): No MS Symptoms (Recalled from RN notes): No Functional Status (Recalled from RN notes): wnl - History of Present Illness Provider Complaint: She c/o chills, fever, cough and feeling bad since yesterday. - Related Data Home Medications Medication Instructions Recorded Confirmed ALPRAZolam [Xanax 0.5mg tab] 0.5 mg PO BID 06/24/17 06/22/21 diclofenac sodium 75 mg 75 mg PO DAILY 12/06/17 06/22/21 tablet,delayed release Montelukast Sodium [Montelukast 10 mg PO HS 12/11/17 06/22/21 10mg Tab] atorvastatin 40 mg tablet 40 mg PO tab 07/15/20 06/22/21 cetirizine 10 mg tablet 10 mg PO tab 07/15/20 06/22/21 citalopram 20 mg tablet 20 mg PO tab 07/15/20 06/22/21 pantoprazole 40 mg tablet,delayed 40 mg PO tab 07/15/20 06/22/21 release venlafaxine 37.5 mg 37.5 mg PO cap 07/15/20 06/22/21 capsule,extended release 24 hr furosemide 20 mg tablet 20 mg PO tab 12/09/20 06/22/21 trazodone 50 mg tablet 50 mg PO tab 12/09/20 06/22/21 hydrochlorothiazide 12.5 mg tablet 12.5 mg PO tab 05/25/21 06/22/21 Previous Rx's Medication Instructions Recorded Dicyclomine HCl [Bentyl 10mg 10 mg PO TID PRN #9 cap 11/17/20 capsule] Phenazopyridine HCl [Pyridium 200 pow PO TID #6 tab 12/27/20 200mg Tablet] Ondansetron [Zofran 4mg ODT] 4 mg PO Q8HP PRN #12 tab 01/14/21 Aspirin [Aspirin 81mg chewable 81 mg PO DAILY 30 Days #30 tab 04/30/21 tab] Cefdinir [Omnicef 300mg Capsule] 300 mg PO BID #20 cap 06/17/21 methylPREDNISolone [Medrol 4mg 4 mg PO DIRECTED #21 tab 06/17/21 tab] Benzonatate [Benzonatate 100mg 100 mg PO TIDP PRN #30 cap 06/30/21 cap] Ondansetron [Zofran 4mg ODT] 4 mg PO Q8HP PRN #20 tab 06/30/21 Oseltamivir Phosphate [Tamiflu 75 mg PO BID #10 cap 06/30/21 75mg Capsu
[2021-06-30 14:45] VITALS: BP 132/66; PULSE 89; RESP 20; TEMP 36.9
[2021-06-30 19:27] LABS: UTC Influenza A Antigen Positive (Negative)
[2021-06-30 19:28] LABS: UTC Influenza B Antigen Negative (Negative)
== END 2021-06-30 15:03 | disposition home or self-care (01) ==
PROVIDERS: Emergency Provider Nurse Practitioner Family; PCP Internal Medicine Adolescent Medicine
DX: J10.1 Influenza due to other identified influenza virus with other respiratory manifestations (principal); F41.8 Other specified anxiety disorders; K21.9 Gastro-esophageal reflux disease without esophagitis; E78.5 Hyperlipidemia, unspecified; Z87.891 Personal history of nicotine dependence
CPT/HCPCS: 87804; 99212; G0463

== ENCOUNTER 2021-07-04 12:23 | Emergency (ER) | payer OTHER, SELFPAY ==
[2021-07-04 12:50] VITALS: BP 114/66; PULSE 83; RESP 18; TEMP 36.7; O2SAT 99; BMI 35.7
[2021-07-04 13:17] LABS: Adenovirus,PCR Not Detected (NotDetected); Bordetella Pertussis Not Detected (NotDetected); Chlamydophila Pneumoniae, PCR Not Detected (NotDetected); Coronavirus 19, PCR Not Detected (NotDetected); Coronavirus 229E Not Detected (NotDetected); Coronavirus NL63 Not Detected (NotDetected); Coronavirus OC43 Not Detected (NotDetected); Coronovirus HKU1,PCR Not Detected (NotDetected); Human Metapneumovirus Not Detected (NotDetected); Influenza A, PCR Not Detected (NotDetected); Influenza AH1, 2009 Not Detected (NotDetected); Influenza AH1, PCR Not Detected (NotDetected); Influenza AH3,PCR Not Detected (NotDetected); Influenza B, PCR Not Detected (NotDetected); Mycoplasma Pneumoniae, PCR Not Detected (NotDetected); Parainfluenza 1, PCR Not Detected (NotDetected); Parainfluenza 2, PCR Not Detected (NotDetected); Parainfluenza 3, PCR Not Detected (NotDetected); Parainfluenza 4, PCR Not Detected (NotDetected); Respiratory Syncytial Virus Not Detected (NotDetected); Rhinovirus/Enterovirus Not Detected (NotDetected)
--- NOTE | 2021-07-04 13:24 | HMH.EDUTC ---
[facility] [place]ression: Influenza A Fatigue Qualifiers: Fatigue type: other Qualified Code(s): R53.83 - Other fatigue Disposition: Home, Self-Care Condition on Discharge: Good Instructions: DI for Influenza -- Adult Additional Instructions: No sign of a bacterial infection. Likely viral. Viruses can take 7-14 days to run their course. Nasal saline and bulb syringe or nose Nicolasa to remove nasal drainage to help with nasal congestion. Hard to eat, drink, sleep with nasal congestion so important to keep this cleaned out. Monitor temp. Tylenol or Motrin as needed for pain or fever Encourage fluids, water, Gatorade, Powerade, Pedialyte if /toddler/child Warm salt water gargles Warm fluids Sore throat lozenges Sleep elevated Humidifier/vaporizer Follow-up immediately for new or worsening symptoms or no noticeable improvement over the next 48-72 hours. Prescriptions: predniSONE [Prednisone 20mg Tab] 20 mg PO BID #10 tab Prescription Printed Referrals: Darnell Montemayor MD [Primary Care Provider] - Time of Disposition: 13:32 Medical Decision Making - Cassius Inquiry Pt receiving controlled substance: No Vital Signs: 07/04/21 12:50 Temperature 98.1 F Temperature Source Oral Pulse Rate [Right Brachial] 83 Respiratory Rate 18 Blood Pressure [Right Arm] 114/66 Blood Pressure Mean [Right Arm] 82 Blood Pressure Source [Right Arm] Automatic Cuff Blood Pressure Position [Right Arm] Sitting 02 Sat by Pulse Oximetry 99 Oxygen Delivery Method Room Air - Lab Data Lab Results 07/04/21 12:58: Group A Strep Rapid Negative Orders (Tests/Meds): ORDERS Category Date Time Status Full Resp Panel w/COVID ([facility]) Routine Lab 07/04/21 13:00 Received Strep Screen Confirmation Stat Micro 07/04/21 12:58 [place] [facility] [place] General Chief complaint: [facility] Stated complaint: soa, dizzy/lightheaded Time Seen by Provider: 07/04/21 13:24 Mode of Arrival: Ambulatory Source of Information: Patient Limitations: No Limitations Description of Symptoms (Recalled from Triage Doc. by RN): PATIENT STATES SHE WAS DIAGNOSED WITH FLU A ON MONDAY HEENT Symptoms (Recalled from RN notes): No Resp Symptoms (Recalled from RN notes): No Skin Symptoms (Recalled from RN notes): No MS Symptoms (Recalled from RN notes): No Functional Status (Recalled from RN notes): WNL - History of Present Illness Provider Complaint: 45 yr old female presents for body aches,sore throat, weakness and congestion. was dx with flu weds and does not feel any better - Related Data Home Medications Medication Instructions Recorded Confirmed ALPRAZolam [Xanax 0.5mg tab] 0.5 mg PO BID 06/24/17 06/22/21 diclofenac sodium 75 mg 75 mg PO DAILY 12/06/17 06/22/21 tablet,delayed release Montelukast Sodium [Montelukast 10 mg PO HS 12/11/17 06/22/21 10mg Tab] atorvastatin 40 mg tablet 40 mg PO tab 07/15/20 06/22/21 cetirizine 10 mg tablet 10 mg PO tab 07/15/20 06/22/21 citalopram 20 mg tablet 20 mg PO tab 07/15/20 06/22/21 pantoprazole 40 mg tablet,delayed 40 mg PO tab 07/15/20 06/22/21 release venlafaxine 37.5 mg 37.5 mg PO cap 07/15/20 06/22/21 capsule,extended release 24 hr furosemide 20 mg tablet 20 mg PO tab 12/09/20 06/22/21 trazodone 50 mg tablet 50 mg PO tab 12/09/20 06/22/21 hydrochlorothiazide 12.5 mg tablet 12.5 mg PO tab 05/25/21 06/22/21 Previous Rx's Medication Instructions Recorded Dicyclomine HCl [Bentyl 10mg 10 mg PO TID PRN #9 cap 11/17/20 capsule] Phenazopyridine HCl [Pyridium 200 pow PO TID #6 tab 12/27/20 200mg Tablet] Ondansetron [Zofran 4mg ODT] 4 mg PO Q8HP PRN #12 tab 01/14/21 Aspirin [Aspirin 81mg chewable 81 mg PO DAILY 30 Days #30 tab 04/30/21 tab] Cefdinir [Omnicef 300mg Capsule] 300 mg PO BID #20 cap 06/17/21 methylPREDNISolone [Medrol 4mg 4 mg PO DIRECTED #21 tab 06/17/21 tab] Benzonatate [Benzonatate 100mg 100 m
[2021-07-04 13:27] LABS: Strep Scrn Group A (Rapid) Negative (Negative)
[2021-07-04 13:33] VITALS: BP 114/66; PULSE 83; RESP 18; TEMP 36.7; O2SAT 99
== END 2021-07-04 13:37 | disposition home or self-care (01) ==
PROVIDERS: Emergency Provider Nurse Practitioner Family; PCP Internal Medicine Adolescent Medicine
DX: J10.1 Influenza due to other identified influenza virus with other respiratory manifestations (principal); R53.83 Other fatigue; R06.02 Shortness of breath; R42 Dizziness and giddiness; D64.9 Anemia, unspecified; Z20.822 Contact with and (suspected) exposure to COVID-19; K21.9 Gastro-esophageal reflux disease without esophagitis; E78.5 Hyperlipidemia, unspecified; M19.90 Unspecified osteoarthritis, unspecified site; F32.A Depression, unspecified; F41.9 Anxiety disorder, unspecified; Z86.14 Personal history of Methicillin resistant Staphylococcus aureus infection; Z87.898 Personal history of other specified conditions; Z79.82 Long term (current) use of aspirin; Z79.899 Other long term (current) drug therapy; Z88.5 Allergy status to narcotic agent
CPT/HCPCS: 87430; 87581; 87632; 87798; 99213; C9803; G0463; U0003; U0005

== ENCOUNTER 2021-08-16 20:10 | Outpatient (CLI) | payer OTHER, SELFPAY | END 2021-08-16 20:36 | disposition home or self-care (01) | LOC: UTC.OUT 20:11 | PROVIDERS: PCP Internal Medicine Adolescent Medicine; Visit Provider Nurse Practitioner Family | DX: Z11.1 Encounter for screening for respiratory tuberculosis (principal) | CPT/HCPCS: 86580 ==

== ENCOUNTER → 2021-08-17 16:41 | Outpatient (CLI) | payer OTHER, SELFPAY ==
[2021-08-17 19:35] LABS: Amphetamine/Metha Screen,Urine Negative ng/ml (<1000); Benzodiazepines Screen,Urine Negative ng/ml (<200)
[2021-08-17 19:36] LABS: Barbiturates Screen,Urine Negative ng/ml (<200); Cannabinoid Screen,Urine Negative ng/ml (<50)
[2021-08-17 19:37] LABS: Cocaine Screen,Urine Negative ng/ml (<300)
[2021-08-17 19:38] LABS: Methadone Screen,Urine Negative ng/ml (<300); Opiate Screen,Urine Negative ng/ml (<300)
[2021-08-17 19:39] LABS: Phencyclidine Screen,Urine Negative ng/ml (<25)
== END ==
PROVIDERS: PCP Internal Medicine Adolescent Medicine; Visit Provider Internal Medicine Adolescent Medicine
DX: Z02.1 Encounter for pre-employment examination (principal)
CPT/HCPCS: 80305

== ENCOUNTER 2021-09-19 20:20 | Emergency (ER) | payer OTHER, SELFPAY ==
[2021-09-19 20:21] VITALS: BP 151/77; PULSE 85; RESP 16; TEMP 36.6; O2SAT 97; BMI 34.4
--- NOTE | 2021-09-19 21:21 | HMH.EDGENADL ---
ED Disposition Clinical Impression: Knee pain, left Qualifiers: Chronicity: acute Qualified Code(s): M25.562 - Pain in left knee Disposition: Home, Self-Care Condition on Discharge: Good Instructions: DI for Knee Pain Additional Instructions: use meds and call pcp for follow up Prescriptions: Ketorolac Tromethamine [Toradol 10mg tablet] 10 mg PO Q6HP PRN #8 tab MDD 40mg/day PRN Reason: Moderate To Severe Pain Transmission Status: Pending to [facility] Referrals: Darnell Montemayor MD [Primary Care Provider] - - Critical Care Critical Care Time: No Attestation: On 09/19/21, the high probability of a clinically significant, sudden or life threatening deterioration of the following system(s) required my full and direct attention, intervention and personal management. The time I documented below is in addition to time spent performing reported procedures but includes the following listed in this critical care notation. Medical Decision Making - Medical Records Medical records reviewed: Yes: I reviewed the patient's medical records. - Cassius Inquiry Pt receiving controlled substance: No Vital Signs: 09/19/21 20:21 Temperature 97.9 F Temperature Source Oral Pulse Rate [Left] 85 Respiratory Rate 16 Blood Pressure [Right Arm] 151/77 H Blood Pressure Mean [Right Arm] 101 02 Sat by Pulse Oximetry 97 Oxygen Delivery Method Room Air - Lab Data Lab results reviewed: Yes: I reviewed the patient's lab results. Orders (Tests/Meds): ED MEDICATIONS Discontinued Medications Generic Name Dose Route Start Last Admin Trade Name Freq PRN Reason Stop Dose Admin Acetaminophen 1,000 mg 09/19/21 20:58 Acetaminophen 500mg Tab PO 09/19/21 20:59 ONCE ONE Medical Decision Narrative: has acute exacerbation of lt knee pain with no reddness or warmth on steroids - pain with wt bearing and pt has crutches at home General Adult HPI - General Chief complaint: PAIN Stated complaint: Pain&swollen Left leg Time Seen by Provider: 09/19/21 21:21 Mode of Arrival: Ambulatory Source of Information: Patient, Medical Record Limitations: No Limitations Description of Symptoms (Recalled from ER Triage Doc. by RN): pt states that she has pain in the left knee that radiates down to foot. pt states that she has arthritis but this pain is way worse. she states it started thursday and now it is unbarable. pt was ambulatory on arrival has not taken anything for pain can not have ibuprophen - History of Present Illness HPI narrative: lt knee hurting over the last week - has seen pcp and on steroids - no known injury - hurts ant lower leg -worse with mov and palpation lt knee Onset (ago): day(s) Location: lower extremity Severity: moderate Quality: sharp Consistency: intermittent Associated symptoms: denies other symptoms Treatments prior to arrival: none - Related Data Home Medications Medication Instructions Recorded Confirmed ALPRAZolam [Xanax 0.5mg tab] 0.5 mg PO BID 06/24/17 06/22/21 diclofenac sodium 75 mg 75 mg PO DAILY 12/06/17 06/22/21 tablet,delayed release Montelukast Sodium [Montelukast 10 mg PO HS 12/11/17 06/22/21 10mg Tab] atorvastatin 40 mg tablet 40 mg PO tab 07/15/20 06/22/21 cetirizine 10 mg tablet 10 mg PO tab 07/15/20 06/22/21 citalopram 20 mg tablet 20 mg PO tab 07/15/20 06/22/21 pantoprazole 40 mg tablet,delayed 40 mg PO tab 07/15/20 06/22/21 release venlafaxine 37.5 mg 37.5 mg PO cap 07/15/20 06/22/21 capsule,extended release 24 hr furosemide 20 mg tablet 20 mg PO tab 12/09/20 06/22/21 trazodone 50 mg tablet 50 mg PO tab 12/09/20 06/22/21 hydrochlorothiazide 12.5 mg tablet 12.5 mg PO tab 05/25/21 06/22/21 Previous Rx's Medication Instructions Recorded Dicyclomine HCl [Bentyl 10mg 10 mg PO TID PRN #9 cap 11/17/20 capsule] Phenazopyridine HCl [Pyridium 200 pow PO TID #6 tab 12/27/20 200mg Tablet] Ondansetron [Zofran 4mg O
[2021-09-19 22:00] VITALS: BP 123/80; PULSE 82; RESP 16; TEMP 36.6; O2SAT 97
== END 2021-09-19 22:02 | disposition home or self-care (01) ==
PROVIDERS: Emergency Provider Emergency Medicine; PCP Internal Medicine Adolescent Medicine
DX: M25.562 Pain in left knee (principal)
CPT/HCPCS: 96372; 99283

== ENCOUNTER → 2021-10-06 12:55 | Outpatient (CLI) | payer OTHER, SELFPAY ==
--- NOTE | 2021-10-06 12:58 | MR_ITS ---
FINAL REPORT CLINICAL HISTORY: PRIMARY OSTEOARTHRITIS OF LT KNEE, LT ANTERIOR KNEE PAIN SWELLING IN THE LEFT KNEE , PAIN SUPERIOR TO PATELLA X 6-9 MONTHS KNEE INSTABILITY NO INJURY/ TRAUMA FINDINGS: Multiplanar MR imaging of the left knee was performed without contrast. There is a tear of the posterior horn of the medial meniscus. There is a tear of the anterior horn, body, and posterior horn of the lateral meniscus. The anterior and posterior cruciate ligaments are intact. The medial collateral ligament is intact. There is a partial tear of the lateral collateral ligament. The patellar and quadriceps tendons are intact. There is no evidence of fracture. There is mild degenerative change and mild chondromalacia. There is moderate lateral compartment chondromalacia with multiple osteochondral lesions at the level of the tibial plateau. Small joint effusion is seen. The musculature is intact. Small popliteal cyst is identified. IMPRESSION: Tear posterior horn medial meniscus. Tear of the anterior horn, body, and posterior horn of the lateral meniscus. Partial tear of the lateral collateral ligament. Degenerative change and chondromalacia. Reviewed, Interpreted and Dictated by Nils Morel III, MD Transcribed by Funmilayo Mayfield Authenticated and . [facility]
== END ==
PROVIDERS: PCP Internal Medicine Adolescent Medicine; Visit Provider Nurse Practitioner Family
DX: M17.12 Unilateral primary osteoarthritis, left knee (principal); M25.562 Pain in left knee; M25.462 Effusion, left knee
CPT/HCPCS: 73721

== ENCOUNTER 2021-12-01 08:46 | Emergency (ER) | payer OTHER, SELFPAY ==
--- NOTE | 2021-12-01 08:51 | EXP.UTC ---
Discharge Plan Disposition Patient Disposition: Home, Self-Care Condition: Good Prescriptions Prescriptions: New benzonatate [benzonatate] 100 mg capsule 100 mg PO TIDP PRN (Reason: Cough) Qty: 30 0RF ondansetron 4 mg Tablet,Disintegrating 4 mg PO Q8H PRN (Reason: Nausea) Qty: 20 0RF No Action diclofenac sodium 75 mg tablet,delayed release (DR/EC) 75 mg PO DAILY pantoprazole 40 mg tablet,delayed release (DR/EC) 40 mg PO venlafaxine 37.5 mg capsule,extended release 24hr 37.5 mg PO atorvastatin 40 mg tablet 40 mg PO cetirizine 10 mg tablet 10 mg PO citalopram 20 mg tablet 20 mg PO hydrochlorothiazide 12.5 mg tablet 12.5 mg PO trazodone 50 mg tablet 50 mg PO furosemide 20 mg tablet 20 mg PO alprazolam 0.5 tablet 0.5 mg PO BID Label Comments: dicyclomine 10 MG capsule 10 mg PO TID PRN (Reason: Cramping) Qty: 9 0RF phenazopyridine 200 MG tablet 200 pow PO TID Qty: 6 0RF prednisone 20 MG tablet 20 mg PO BID Qty: 10 0RF montelukast 10 MG tablet 10 mg PO HS ondansetron 4 MG tablet,disintegrating 4 mg PO Q8HP PRN (Reason: Nausea) Qty: 12 0RF aspirin 81 MG tablet,chewable 81 mg PO DAILY 30 Days Qty: 30 0RF methylprednisolone 4 MG tablet 4 mg PO DIRECTED Qty: 21 0RF Rx Instructions: Take as directed on package instructions cefdinir 300 MG capsule 300 mg PO BID Qty: 20 0RF promethazine-DM 120 ML syrup 5 ml PO Q6HP PRN (Reason: Cough) Qty: 240 0RF benzonatate 100 MG capsule 100 mg PO TIDP PRN (Reason: Cough) Qty: 30 0RF oseltamivir 75 MG capsule 75 mg PO BID Qty: 10 0RF ondansetron 4 MG tablet,disintegrating 4 mg PO Q8HP PRN (Reason: Nausea) Qty: 20 0RF ketorolac 10 MG tablet 10 mg PO Q6HP MDD 40mg/day PRN (Reason: Moderate To Severe Pain) Qty: 8 0RF Rx Instructions: Therapy initiated with IV/IM dose Referrals Follow up/Referrals: Darnell Montemayor MD [Primary Care Provider] - See instructions Activity Restrictions/Add. Instructions Additional Instructions/Restrictions: Drink plenty of fluids. Take tylenol or ibuprofen for pain or fever. Take the medications as directed. Follow up with your regular doctor. GO TO THE ER FOR ANY WORSENING SYMPTOMS Quarantine until you know the results of your covid-19 test. Notify your school or workplace of your results and follow their instructions regarding return to work/school. Clinical Impressions Clinical Impression: Acute viral syndrome, Close exposure to COVID-19 virus Pharyngitis Qualifiers: Pharyngitis/tonsillitis etiology: unspecified etiology Qualified Code(s): J02.9 - Acute pharyngitis, unspecified Stand Alone Forms Stand Alone Forms: Work/School Release Instructions Patient Instructions: DI for Viral Syndrome, Coronavirus Disease 2019, Preventing the Spread of Coronavirus Discharge Instructions Discharge ED Provider: Chano Warren [facility] General Stated complaint: Covid exposure, ESPINOZA, Fever, bodyaches Time Seen by Provider: 12/01/21 08:54 History of Present Illness Provider Complaint: She states that for the past 2 days she has had sore throat, chills, body aches and low grade fever. She has been exposed to covid-19 in her house. Related Data Home Medications Medication Instructions Recorded Confirmed alprazolam 0.5 mg tablet 0.5 mg PO BID Anxiety 06/24/17 06/22/21 diclofenac sodium 75 mg 75 mg PO DAILY inflammation 12/06/17 06/22/21 tablet,delayed release montelukast 10 mg tablet 10 mg PO HS Allergy symptoms 12/11/17 06/22/21 atorvastatin 40 mg tablet 40 mg PO 07/15/20 06/22/21 cetirizine 10 mg tablet 10 mg PO 07/15/20 06/22/21 citalopram 20 mg tablet 20 mg PO 07/15/20 06/22/21 pantoprazole 40 mg tablet,delayed 40 mg PO 07/15/20 06/22/21 release venlafaxine 37.5 mg 37.5 mg PO 07/15/20 06/22/21 capsule,extended release 24 hr furosemide
[2021-12-01 08:59] VITALS: BP 134/79; PULSE 94; RESP 17; TEMP 36.4; O2SAT 97; BMI 32.1
[2021-12-01 09:25] VITALS: BP 134/79; PULSE 94; RESP 17; TEMP 36.4
== END 2021-12-01 09:25 | disposition home or self-care (01) ==
PROVIDERS: Emergency Provider Nurse Practitioner Family; PCP Internal Medicine Adolescent Medicine
DX: U07.1 COVID-19 (principal); J02.9 Acute pharyngitis, unspecified
CPT/HCPCS: 99212; C9803; G0463; U0003; U0005

== ENCOUNTER 2021-12-23 09:43 | Emergency (ER) | payer OTHER, SELFPAY ==
[2021-12-23 10:50] VITALS: BP 124/78; PULSE 89; RESP 18; TEMP 36.9; O2SAT 98; BMI 33.3
[2021-12-23 11:09] LABS: UTC Influenza A Antigen Negative (Negative); UTC Strep Screen (Rapid) Negative (Negative)
[2021-12-23 11:10] LABS: UTC Influenza B Antigen Negative (Negative)
--- NOTE | 2021-12-23 11:42 | EXP.UTC ---
Discharge Plan Disposition Patient Disposition: Home, Self-Care Condition: Good Prescriptions Prescriptions: New cefdinir 300 mg capsule 300 mg PO BID Qty: 20 0RF No Action diclofenac sodium 75 mg tablet,delayed release (DR/EC) 75 mg PO DAILY pantoprazole 40 mg tablet,delayed release (DR/EC) 40 mg PO venlafaxine 37.5 mg capsule,extended release 24hr 37.5 mg PO atorvastatin 40 mg tablet 40 mg PO cetirizine 10 mg tablet 10 mg PO citalopram 20 mg tablet 20 mg PO hydrochlorothiazide 12.5 mg tablet 12.5 mg PO trazodone 50 mg tablet 50 mg PO furosemide 20 mg tablet 20 mg PO alprazolam 0.5 tablet 0.5 mg PO BID Label Comments: dicyclomine 10 MG capsule 10 mg PO TID PRN (Reason: Cramping) Qty: 9 0RF phenazopyridine 200 MG tablet 200 pow PO TID Qty: 6 0RF prednisone 20 MG tablet 20 mg PO BID Qty: 10 0RF montelukast 10 MG tablet 10 mg PO HS ondansetron 4 MG tablet,disintegrating 4 mg PO Q8HP PRN (Reason: Nausea) Qty: 12 0RF aspirin 81 MG tablet,chewable 81 mg PO DAILY 30 Days Qty: 30 0RF methylprednisolone 4 MG tablet 4 mg PO DIRECTED Qty: 21 0RF Rx Instructions: Take as directed on package instructions cefdinir 300 MG capsule 300 mg PO BID Qty: 20 0RF promethazine-DM 120 ML syrup 5 ml PO Q6HP PRN (Reason: Cough) Qty: 240 0RF benzonatate 100 MG capsule 100 mg PO TIDP PRN (Reason: Cough) Qty: 30 0RF oseltamivir 75 MG capsule 75 mg PO BID Qty: 10 0RF ondansetron 4 MG tablet,disintegrating 4 mg PO Q8HP PRN (Reason: Nausea) Qty: 20 0RF ketorolac 10 MG tablet 10 mg PO Q6HP MDD 40mg/day PRN (Reason: Moderate To Severe Pain) Qty: 8 0RF Rx Instructions: Therapy initiated with IV/IM dose benzonatate [benzonatate] 100 mg capsule 100 mg PO TIDP PRN (Reason: Cough) Qty: 30 0RF ondansetron 4 mg Tablet,Disintegrating 4 mg PO Q8H PRN (Reason: Nausea) Qty: 20 0RF Referrals Follow up/Referrals: Darnell Montemayor MD [Primary Care Provider] - See instructions Activity Restrictions/Add. Instructions Additional Instructions/Restrictions: *Monitor Temp, Over the counter Motrin or Tylenol as directed/as needed Tylenol every 4 hours and Motrin every 6 hours (as long as your family doctor has told you that you can take it) for fever or pain. and straight to ER if unable to lower temp less than 101.0 after medication given *Warm salt water gargles may help to soothe the throat *Throat Lozenges? *Warm fluids like tea with honey may help to soothe the throat? *Sleep elevated *Humidifier/Vaporizer Your throat swab was sent for culture. Those results are typically sent to your primary care. Be sure to follow up in 2-3 days with your family doctor/primary care physician if no improvement so they can review those result and treat if necessary. If you don?t have a primary care doctor, I recommend you get one but in the mean time, you will have to return to a walk in clinic Follow up IMMEDIATELY for new or worsening symptoms or no Noticeable improvement over the next 48-72 hours. 911 for difficulty breathing or swallowing You were tested for today for COVID19 your test result should be back in the next 24-48 hours, you may check your results on the [facility] My Health Portal Make sure to take your Vitamins Vit. C Vit D and Zinc if you can take them Clinical Impressions Clinical Impression: Right otitis media Stand Alone Forms Stand Alone Forms: Work/School Release Instructions Patient Instructions: Middle Ear Infection, Sore Throat Discharge ED Provider: Nadya Hanna [facility] [place] HPI General Stated complaint: body aches,sore throat,ear pain Mode of Arrival: Ambulatory Source of Information: Patient Limitations: No Limitations Time Seen by Provider: 12/23/21 11:42 Description of Symptoms (Recalled from Triage Doc. by RN): GERI
[2021-12-23 11:51] VITALS: BP 0/0; PULSE 124; RESP 20; TEMP 37.3; O2SAT 100
[2021-12-23 11:59] LABS: Adenovirus,PCR Not Detected (NotDetected); Bordetella Pertussis Not Detected (NotDetected); Chlamydophila Pneumoniae, PCR Not Detected (NotDetected); Coronavirus 229E Not Detected (NotDetected); Coronavirus NL63 Not Detected (NotDetected); Coronavirus OC43 Not Detected (NotDetected); Coronovirus HKU1,PCR Not Detected (NotDetected); Human Metapneumovirus Not Detected (NotDetected); Influenza A, PCR Not Detected (NotDetected); Influenza AH1, 2009 Not Detected (NotDetected); Influenza AH1, PCR Not Detected (NotDetected); Influenza AH3,PCR Not Detected (NotDetected); Influenza B, PCR Not Detected (NotDetected); Mycoplasma Pneumoniae, PCR Not Detected (NotDetected); Parainfluenza 1, PCR Not Detected (NotDetected); Parainfluenza 2, PCR Not Detected (NotDetected); Parainfluenza 3, PCR Not Detected (NotDetected); Parainfluenza 4, PCR Not Detected (NotDetected); Respiratory Syncytial Virus Not Detected (NotDetected); Rhinovirus/Enterovirus Not Detected (NotDetected)
[2021-12-23 14:00] LABS: Coronavirus 19, PCR Detected (NotDetected)
== END 2021-12-23 11:55 | disposition home or self-care (01) ==
PROVIDERS: Emergency Provider Nurse Practitioner; PCP Internal Medicine Adolescent Medicine
DX: H66.91 Otitis media, unspecified, right ear (principal)
CPT/HCPCS: 87581; 87632; 87798; 87804; 87880; 99212; C9803; G0463; U0003; U0005

== ENCOUNTER 2021-12-31 09:46 | Emergency (ER) | payer OTHER, SELFPAY ==
[2021-12-31 10:43] VITALS: BP 141/86; PULSE 97; RESP 19; TEMP 36.6; O2SAT 100; BMI 34.1
--- NOTE | 2021-12-31 10:47 | EXP.UTC ---
Discharge Plan Disposition Patient Disposition: Home, Self-Care Condition: Good Prescriptions Prescriptions: No Action diclofenac sodium 75 mg tablet,delayed release (DR/EC) 75 mg PO DAILY pantoprazole 40 mg tablet,delayed release (DR/EC) 40 mg PO venlafaxine 37.5 mg capsule,extended release 24hr 37.5 mg PO atorvastatin 40 mg tablet 40 mg PO cetirizine 10 mg tablet 10 mg PO citalopram 20 mg tablet 20 mg PO hydrochlorothiazide 12.5 mg tablet 12.5 mg PO trazodone 50 mg tablet 50 mg PO furosemide 20 mg tablet 20 mg PO alprazolam 0.5 tablet 0.5 mg PO BID Label Comments: dicyclomine 10 MG capsule 10 mg PO TID PRN (Reason: Cramping) Qty: 9 0RF phenazopyridine 200 MG tablet 200 pow PO TID Qty: 6 0RF prednisone 20 MG tablet 20 mg PO BID Qty: 10 0RF cefdinir 300 mg capsule 300 mg PO BID Qty: 20 0RF montelukast 10 MG tablet 10 mg PO HS ondansetron 4 MG tablet,disintegrating 4 mg PO Q8HP PRN (Reason: Nausea) Qty: 12 0RF aspirin 81 MG tablet,chewable 81 mg PO DAILY 30 Days Qty: 30 0RF methylprednisolone 4 MG tablet 4 mg PO DIRECTED Qty: 21 0RF Rx Instructions: Take as directed on package instructions cefdinir 300 MG capsule 300 mg PO BID Qty: 20 0RF promethazine-DM 120 ML syrup 5 ml PO Q6HP PRN (Reason: Cough) Qty: 240 0RF benzonatate 100 MG capsule 100 mg PO TIDP PRN (Reason: Cough) Qty: 30 0RF oseltamivir 75 MG capsule 75 mg PO BID Qty: 10 0RF ondansetron 4 MG tablet,disintegrating 4 mg PO Q8HP PRN (Reason: Nausea) Qty: 20 0RF ketorolac 10 MG tablet 10 mg PO Q6HP MDD 40mg/day PRN (Reason: Moderate To Severe Pain) Qty: 8 0RF Rx Instructions: Therapy initiated with IV/IM dose benzonatate [benzonatate] 100 mg capsule 100 mg PO TIDP PRN (Reason: Cough) Qty: 30 0RF ondansetron 4 mg Tablet,Disintegrating 4 mg PO Q8H PRN (Reason: Nausea) Qty: 20 0RF Referrals Follow up/Referrals: Darnell Montemayor MD [Primary Care Provider] - See instructions Activity Restrictions/Add. Instructions Additional Instructions/Restrictions: *Monitor Temp, Over the counter Motrin or Tylenol as directed/as needed Tylenol every 4 hours and Motrin every 6 hours (as long as your family doctor has told you that you can take it) for fever or pain. and straight to ER if unable to lower temp less than 101.0 after medication given *Warm salt water gargles may help to soothe the throat *Throat Lozenges? *Warm fluids like tea with honey may help to soothe the throat? *Sleep elevated *Humidifier/Vaporizer Over the counter Mucinex if you can take it can help to clear the congestion Follow up IMMEDIATELY for new or worsening symptoms or no Noticeable improvement over the next 48-72 hours. 911 for difficulty breathing or swallowing Clinical Impressions Clinical Impression: Viral syndrome Stand Alone Forms Stand Alone Forms: Work/School Release Instructions Patient Instructions: Coronavirus Disease 2019, Sore Throat Discharge ED [place]ady[place] [facility] [place] General Stated complaint: covid pos 12/23, soa, weakness Mode of Arrival: Ambulatory Source of Information: Patient Limitations: No Limitations Time Seen by Provider: 12/31/21 10:47 Description of Symptoms (Recalled from Triage Doc. by RN): COVID positive on 12/23. C/O SOA, pain in back and chest HEENT Symptoms (Recalled from RN notes): No Resp Symptoms (Recalled from RN notes): Yes (COVID, SOA, pain in back and chest) Skin Symptoms (Recalled from RN notes): No MS Symptoms (Recalled from RN notes): No Functional Status (Recalled from RN notes): n/a History of Present Illness Provider Complaint: Patient states that she tested positive for COVID about a week ago States that since then she has been having chills, body aches, pain in back at times with cough and nasal congestion
[2021-12-31 11:08] VITALS: BP 141/86; PULSE 97; RESP 18; TEMP 36.8; O2SAT 98
== END 2021-12-31 11:10 | disposition home or self-care (01) ==
PROVIDERS: Emergency Provider Nurse Practitioner; PCP Internal Medicine Adolescent Medicine
DX: B34.9 Viral infection, unspecified (principal); R07.9 Chest pain, unspecified; M54.9 Dorsalgia, unspecified; R06.02 Shortness of breath; R51.9 Headache, unspecified; R11.0 Nausea; R05.9 Cough, unspecified; I10 Essential (primary) hypertension; E78.5 Hyperlipidemia, unspecified; M79.10 Myalgia, unspecified site; F17.210 Nicotine dependence, cigarettes, uncomplicated; Z79.52 Long term (current) use of systemic steroids; Z79.82 Long term (current) use of aspirin; Z79.899 Other long term (current) drug therapy; Z88.5 Allergy status to narcotic agent
CPT/HCPCS: 99212; G0463

== ENCOUNTER 2022-03-14 08:53 | Emergency (ER) | payer OTHER, SELFPAY ==
[2022-03-14 10:08] VITALS: BP 144/71; PULSE 121; RESP 18; TEMP 37.7; O2SAT 96; BMI 33.0
--- NOTE | 2022-03-14 10:08 | EXP.UTC ---
Discharge Plan Disposition Patient Disposition: Home, Self-Care Condition: Good Prescriptions Prescriptions: New azithromycin [Zithromax] 250 mg tablet 250 mg PO UD DOSE PK Qty: 6 0RF Rx Instructions: Take two (2) tablets today, then one (1) tablet days #2 thru #5 benzonatate [benzonatate] 100 mg capsule 100 mg PO TIDP PRN (Reason: Cough) Qty: 30 0RF methylprednisolone 4 mg Tablets,Dose Pack 4 mg PO DIRECTED Qty: 21 0RF oseltamivir [Tamiflu] 75 mg capsule 75 mg PO BID Qty: 10 0RF No Action diclofenac sodium 75 mg tablet,delayed release (DR/EC) 75 mg PO DAILY pantoprazole 40 mg tablet,delayed release (DR/EC) 40 mg PO venlafaxine 37.5 mg capsule,extended release 24hr 37.5 mg PO atorvastatin 40 mg tablet 40 mg PO cetirizine 10 mg tablet 10 mg PO citalopram 20 mg tablet 20 mg PO hydrochlorothiazide 12.5 mg tablet 12.5 mg PO trazodone 50 mg tablet 50 mg PO furosemide 20 mg tablet 20 mg PO alprazolam 0.5 tablet 0.5 mg PO BID Label Comments: dicyclomine 10 MG capsule 10 mg PO TID PRN (Reason: Cramping) Qty: 9 0RF phenazopyridine 200 MG tablet 200 pow PO TID Qty: 6 0RF prednisone 20 MG tablet 20 mg PO BID Qty: 10 0RF cefdinir 300 mg capsule 300 mg PO BID Qty: 20 0RF montelukast 10 MG tablet 10 mg PO HS ondansetron 4 MG tablet,disintegrating 4 mg PO Q8HP PRN (Reason: Nausea) Qty: 12 0RF aspirin 81 MG tablet,chewable 81 mg PO DAILY 30 Days Qty: 30 0RF methylprednisolone 4 MG tablet 4 mg PO DIRECTED Qty: 21 0RF Rx Instructions: Take as directed on package instructions cefdinir 300 MG capsule 300 mg PO BID Qty: 20 0RF promethazine-DM 120 ML syrup 5 ml PO Q6HP PRN (Reason: Cough) Qty: 240 0RF benzonatate 100 MG capsule 100 mg PO TIDP PRN (Reason: Cough) Qty: 30 0RF oseltamivir 75 MG capsule 75 mg PO BID Qty: 10 0RF ondansetron 4 MG tablet,disintegrating 4 mg PO Q8HP PRN (Reason: Nausea) Qty: 20 0RF ketorolac 10 MG tablet 10 mg PO Q6HP MDD 40mg/day PRN (Reason: Moderate To Severe Pain) Qty: 8 0RF Rx Instructions: Therapy initiated with IV/IM dose benzonatate [benzonatate] 100 mg capsule 100 mg PO TIDP PRN (Reason: Cough) Qty: 30 0RF ondansetron 4 mg Tablet,Disintegrating 4 mg PO Q8H PRN (Reason: Nausea) Qty: 20 0RF Referrals Follow up/Referrals: Darnell Montemayor MD [Primary Care Provider] - See instructions Activity Restrictions/Add. Instructions Additional Instructions/Restrictions: Drink plenty of fluids. Take tylenol or ibuprofen for pain or fever. Take the medications as directed. Follow up with your regular doctor. GO TO THE ER FOR ANY WORSENING SYMPTOMS Clinical Impressions Clinical Impression: Influenza Stand Alone Forms Stand Alone Forms: Work/School Release Instructions Patient Instructions: DI for Influenza -- Adult, Oseltamivir Discharge ED Provider: Chano Warren [facility] General Stated complaint: sore throat,cough,headache,body aches Time Seen by Provider: 03/14/22 10:08 History of Present Illness Provider Complaint: She states that for the past 1 day she has had fever, chills, cough, sore throat and body aches. Related Data Home Medications Medication Instructions Recorded Confirmed alprazolam 0.5 mg tablet 0.5 mg PO BID Anxiety 06/24/17 06/22/21 diclofenac sodium 75 mg 75 mg PO DAILY inflammation 12/06/17 06/22/21 tablet,delayed release montelukast 10 mg tablet 10 mg PO HS Allergy symptoms 12/11/17 06/22/21 atorvastatin 40 mg tablet 40 mg PO 07/15/20 06/22/21 cetirizine 10 mg tablet 10 mg PO 07/15/20 06/22/21 citalopram 20 mg tablet 20 mg PO 07/15/20 06/22/21 pantoprazole 40 mg tablet,delayed 40 mg PO 07/15/20 06/22/21 release venlafaxine 37.5 mg 37.5 mg PO 07/15/20 06/22/21 capsule,extended release 24 hr furosemide 20 mg tablet 2
[2022-03-14 10:21] LABS: Adenovirus,PCR Not Detected (NotDetected); Bordetella Pertussis Not Detected (NotDetected); Chlamydophila Pneumoniae, PCR Not Detected (NotDetected); Coronavirus 19, PCR Not Detected (NotDetected); Coronavirus 229E Not Detected (NotDetected); Coronavirus NL63 Not Detected (NotDetected); Coronavirus OC43 Not Detected (NotDetected); Coronovirus HKU1,PCR Not Detected (NotDetected); Human Metapneumovirus Not Detected (NotDetected); Influenza A, PCR Not Detected (NotDetected); Influenza AH1, 2009 Not Detected (NotDetected); Influenza AH1, PCR Not Detected (NotDetected); Influenza AH3,PCR Not Detected (NotDetected); Influenza B, PCR Not Detected (NotDetected); Mycoplasma Pneumoniae, PCR Not Detected (NotDetected); Parainfluenza 1, PCR Not Detected (NotDetected); Parainfluenza 2, PCR Not Detected (NotDetected); Parainfluenza 3, PCR Not Detected (NotDetected); Parainfluenza 4, PCR Not Detected (NotDetected); Respiratory Syncytial Virus Not Detected (NotDetected); Rhinovirus/Enterovirus Not Detected (NotDetected)
[2022-03-14 10:41] LABS: UTC Strep Screen (Rapid) Negative (Negative)
[2022-03-14 10:55] VITALS: BP 130/85; PULSE 90; RESP 18; TEMP 36.9
== END 2022-03-14 10:56 | disposition home or self-care (01) ==
PROVIDERS: Emergency Provider Nurse Practitioner Family; PCP Internal Medicine Adolescent Medicine
DX: J10.1 Influenza due to other identified influenza virus with other respiratory manifestations (principal)
CPT/HCPCS: 87581; 87632; 87798; 87880; 99212; C9803; G0463; U0003; U0005

== ENCOUNTER → 2022-06-23 12:37 | Outpatient (CLI) | payer OTHER, SELFPAY ==
--- NOTE | 2022-06-23 12:40 | XR_ITS ---
FINAL REPORT CLINICAL HISTORY: LT 2nd FINGER PAIN COMPARISON: 04/13/2021 FINDINGS: Left hand Three views were obtained. There is no acute fracture or dislocation. 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 There is degenerative cyst formation in the carpal scaphoid. IMPRESSION: Degenerative changes as above. Reviewed, Interpreted and Dictated by Wili Shell MD Transcribed by Funmilayo Mayfield Authenticated and [facility]
== END ==
PROVIDERS: PCP Nurse Practitioner Family; Visit Provider Nurse Practitioner Family
DX: M79.645 Pain in left finger(s) (principal)
CPT/HCPCS: 73130

== ENCOUNTER → 2022-09-09 09:11 | Outpatient (CLI) | payer OTHER, SELFPAY ==
[2022-09-09 09:48] LABS: Basophils % 0.1 % (0.1-2.0); Eosinophils # 0.1 K/mm3 (0.0-0.4); Eosinophils % 0.8 % (0.1-12.0); Hematocrit 38.7 % (37.0-47.0); Hemoglobin 12.3 g/dL (12.2-16.2); Lymphocytes # 2.7 K/mm3 (0.7-4.5); Lymphocytes % 20.7 % (10-50); Mean Corpuscular HGB Conc 31.8 g/dL (31.8-35.4); Mean Corpuscular Hemoglobin 29.6 pg (27.0-31.2); Mean Corpuscular Volume 93.2 fl (81-99); Mean Platelet Volume 7.8 fl (7.4-10.4); Monocytes # 0.6 K/mm3 (0.1-1.0); Monocytes % 4.5 % (1.7-9.3); Neutrophils # 9.5 K/mm3 (1.8-7.8); Neutrophils % 73.9 % (37.0-80.0); Platelet Count 528 K/mm3 (142-424); Red Blood Count 4.15 M/mm3 (4.20-5.40); Red Cell Distribution Width 14.1 % (11.5-17.5); White Blood Count 12.9 K/mm3 (4.8-10.8)
[2022-09-09 10:13] LABS: Alanine Aminotransferase 16 U/L (12-78); Albumin Level 3.7 g/dl (3.5-5.0); Albumin/Globulin Ratio 1.3 (1.1-1.8); Alkaline Phosphatase 99 U/L (38-126); Anion Gap 11.8 mEq/L (5-15); Aspartate Amino Transferase 18 U/L (14-36); Bilirubin,Total 0.8 mg/dl (0.2-1.3); Blood Urea Nitrogen 8 mg/dl (7-17); Calcium 8.9 mg/dl (8.4-10.2); Carbon Dioxide 25 mmol/L (22.0-30.0); Chloride 107 mmol/L (98-107); Chol/HDL Ratio 2.7 (1-3.5); Cholesterol 129 mg/dl (140-200); Estimated Glomerular Filt Rate 90 ml/min (>60); GFR (African American) 109 ML/MIN (>60); Globulin 2.9 g/dL (1.3-3.2); Glucose 96 mg/dl (74-100); HDL Cholesterol 47 mg/dl (40-60); Potassium 3.8 mmoL/L (3.5-5.1); Sodium 140 mmol/L (136-145); Total Protein,Serum 6.6 g/dl (6.3-8.2); Triglycerides 91 mg/dl (30-150); VLDL Cholesterol 18 mg/dL (0-40)
[2022-09-09 10:30] LABS: 25-OH Vitamin D, Total 42.8 ng/mL (30-100)
[2022-09-09 10:43] LABS: Thyroid Stimulating Hormone 0.35 uIU/mL (0.465-4.68)
[2022-09-09 11:02] LABS: Vitamin B12 692 pg/mL (239-931)
== END ==
PROVIDERS: PCP Nurse Practitioner Family; Visit Provider Nurse Practitioner Family
DX: Z00.00 Encounter for general adult medical examination without abnormal findings (principal); E78.5 Hyperlipidemia, unspecified; R53.83 Other fatigue; E53.8 Deficiency of other specified B group vitamins; E55.9 Vitamin D deficiency, unspecified
CPT/HCPCS: 36415; 80053; 80061; 82306; 82607; 84443; 85025

== ENCOUNTER 2022-09-21 08:00 | Outpatient (RCR) | payer OTHER, SELFPAY | END 2022-09-21 08:05 | disposition home or self-care (01) | LOC: PT 08:00 | PROVIDERS: PCP Nurse Practitioner Family; Visit Provider Orthopaedic Surgery | DX: M25.562 Pain in left knee (principal); Z96.652 Presence of left artificial knee joint | CPT/HCPCS: 97010; 97014; 97016; 97110; 97140; 97163; 97164; 97530; G0283 ==

== ENCOUNTER → 2022-10-31 07:48 | Outpatient (CLI) | payer OTHER, SELFPAY ==
--- NOTE | 2022-10-31 07:52 | MM_ITS ---
PROCEDURE INFORMATION: Exam: MG Bilateral Screening 3D Mammography Exam date and time: 10/31/2022 7:40 AM Age: 47 years old Clinical indication: Screening mammogram TECHNIQUE: Imaging protocol: Bilateral Screening tomosynthesis and 2D mammography including computer-aided detection (CAD) when performed. COMPARISON: 1. MG MM DIG SCREENING MAMM BI W/CAD 03/04/2021 10:59 AM 2. MG DMSB DIG MAMM-SCREEN ROBBIN W/CAD 12/30/2016 4:33 PM 3. MG DMDXUAVR DIG MAMM-DX UNI ADD VIEWS-RT 02/02/2015 1:55 PM 4. MG DMSB DIG MAMM-SCREEN ROBBIN 01/16/2015 10:24 AM FINDINGS: MAMMOGRAPHY: Breast composition: The breasts are almost entirely fatty. Mass: None. Architectural distortion: No new or suspicious architectural distortion. Calcifications: No new or suspicious calcifications are present Asymmetric density: No new or suspicious asymmetric density is present Skin thickening: None. Axillary adenopathy: None. IMPRESSION: No mammographic evidence of malignancy. Recommend annual screening mammography unless otherwise clinically indicated. ASSESSMENT: BI-RADS category 1: Negative
== END ==
PROVIDERS: PCP Nurse Practitioner Family; Visit Provider Obstetrics & Gynecology Gynecology
DX: Z12.31 Encounter for screening mammogram for malignant neoplasm of breast (principal)
CPT/HCPCS: 77063; 77067

== ENCOUNTER 2022-11-03 14:05 | Emergency (ER) | payer OTHER, SELFPAY ==
[2022-11-03] VITALS (7 sets, daily range): BP systolic 116–136; BP diastolic 50–76; PULSE 70–96; RESP 16–18; TEMP 36.6–36.7; O2SAT 97–100; BMI 28.8
--- NOTE | 2022-11-03 14:15 | PC.NURSE ---
warm blanket given.
--- NOTE | 2022-11-03 14:16 | PC.NURSE ---
pt ambulatory to restroom without complications
[2022-11-03 14:27] LABS: Microscopic, Urine URINE MICROSCOPIC (MICROSCOPIC)
[2022-11-03 14:31] LABS: Appearance,Urine CLEAR (Clear); Bilirubin,Urine Negative (Negative); Blood, Urine 2+ (Negative); Color,Urine YELLOW (Yellow); Glucose,Urine (UA) Negative (Negative); Ketones,Urine Negative (Negative); Leukocyte Esterase,Urine Negative (Negative); Nitrate,Urine Negative (Negative); Protein,Urine Negative (Negative); Urobilinogen,Urine 0.2 EU/dl (0.2)
[2022-11-03 14:35] LABS: Urine Pregnancy, HCG Qual. Negative (Negative)
[2022-11-03 14:38] LABS: Alanine Aminotransferase 22 U/L (12-78); Albumin Level 3.9 g/dl (3.5-5.0); Albumin/Globulin Ratio 1.3 (1.1-1.8); Alkaline Phosphatase 127 U/L (38-126); Anion Gap 9.9 mEq/L (5-15); Aspartate Amino Transferase 22 U/L (14-36); Bilirubin,Total 0.2 mg/dl (0.2-1.3); Blood Urea Nitrogen 11 mg/dl (7-17); Calcium 8.8 mg/dl (8.4-10.2); Carbon Dioxide 26 mmol/L (22.0-30.0); Chloride 110 mmol/L (98-107); Creatinine Clearance Estimated 124 mL/min (50-200); Estimated Glomerular Filt Rate 77 ml/min (>60); GFR (African American) 93 ML/MIN (>60); Glucose 120 mg/dl (74-100); Lipase 114 U/L (23-300); Potassium 3.9 mmoL/L (3.5-5.1); Sodium 142 mmol/L (136-145); Total Protein,Serum 6.9 g/dl (6.3-8.2)
[2022-11-03 14:39] LABS: Lactic Acid 1.8 mmol/L (0.7-2.1)
[2022-11-03 14:40] LABS: Basophils % 0.2 % (0.1-2.0); Eosinophils # 0.1 K/mm3 (0.0-0.4); Eosinophils % 0.6 % (0.1-12.0); Hematocrit 41.8 % (37.0-47.0); Hemoglobin 13.1 g/dL (12.2-16.2); Lymphocytes # 1.7 K/mm3 (0.7-4.5); Lymphocytes % 8.7 % (10-50); Mean Corpuscular HGB Conc 31.2 g/dL (31.8-35.4); Mean Corpuscular Hemoglobin 28.5 pg (27.0-31.2); Mean Corpuscular Volume 91.3 fl (81-99); Mean Platelet Volume 7.7 fl (7.4-10.4); Monocytes # 0.3 K/mm3 (0.1-1.0); Monocytes % 1.7 % (1.7-9.3); Neutrophils # 16.9 K/mm3 (1.8-7.8); Neutrophils % 88.9 % (37.0-80.0); Platelet Count 538 K/mm3 (142-424); Red Blood Count 4.58 M/mm3 (4.20-5.40); Red Cell Distribution Width 14.1 % (11.5-17.5)
[2022-11-03 14:44] LABS: MANUAL DIFFERENTIAL MANUAL DIFFERENTIAL (MANUAL DIFF)
--- NOTE | 2022-11-03 14:51 | PC.NURSE ---
Pt updated on plan of care. Pillow and few ice chips provided.
--- NOTE | 2022-11-03 14:55 | CT_ITS ---
FINAL REPORT TECHNIQUE: Postcontrast axial images through the abdomen and pelvis were performed. This study was performed with techniques to keep radiation doses as low as reasonably achievable, (ALARA). Individualized dose reduction techniques using automated exposure control or adjustment of mA and/or kV according to the patient's size were employed. CLINICAL HISTORY: acute abd pain, hx colon resection d/t diverticuli COMPARISON: 05/03/2021 FINDINGS: Abdomen: The lung bases are clear. The liver is normal in size and attenuation. The patient is status post cholecystectomy. There is mild biliary ductal dilatation, may represent post cholecystectomy change. The spleen is unremarkable. The adrenals are normal. The pancreas is unremarkable. The kidneys enhance appropriately. The aorta is normal in caliber. No free fluid or adenopathy is identified. No findings for mechanical bowel obstruction are identified. Pelvis: The appendix is not identified. There are postoperative changes in the rectosigmoid colon. The urinary bladder is unremarkable. No free fluid, free air, abscess or adenopathy is identified. IMPRESSION: No acute inflammatory process. Reviewed, Interpreted and Dictated by Nils Morel III, MD Transcribed by Funmilayo Mayfield Authenticated and [facility]
[2022-11-03 14:59] LABS: Lymphocytes % 6 % (10-50); Monocytes % 3 % (2-9); Neutrophils % 89 % (42-76); Total Cells Counted 100
[2022-11-03 15:00] LABS: Squamous Epithelial Cell,Urine Occasional #/hpf (0-5)
[2022-11-03 15:02] LABS: Platelet Estimate Slight Increase
[2022-11-03 15:03] LABS: Acanthocytes 1+; Macrocytosis 1+; Ovalocytes 1+; Poikilocytosis 2+; Polychromasia 1+
--- NOTE | 2022-11-03 15:18 | PC.NURSE ---
notified of continued pain. New orders being received.
--- NOTE | 2022-11-03 15:25 | HMH.EDGENADL ---
Discharge Plan Disposition Patient Disposition: Home, Self-Care Condition: Good Prescriptions Prescriptions: No Action diclofenac sodium 75 mg tablet,delayed release (DR/EC) 75 mg PO DAILY pantoprazole 40 mg tablet,delayed release (DR/EC) 40 mg PO venlafaxine 37.5 mg capsule,extended release 24hr 37.5 mg PO atorvastatin 40 mg tablet 40 mg PO cetirizine 10 mg tablet 10 mg PO citalopram 20 mg tablet 20 mg PO hydrochlorothiazide 12.5 mg tablet 12.5 mg PO trazodone 50 mg tablet 50 mg PO furosemide 20 mg tablet 20 mg PO alprazolam 0.5 tablet 0.5 mg PO BID Patient Comments: dicyclomine 10 MG capsule 10 mg PO TID PRN (Reason: Cramping) Qty: 9 0RF phenazopyridine 200 MG tablet 200 pow PO TID Qty: 6 0RF prednisone 20 MG tablet 20 mg PO BID Qty: 10 0RF cefdinir 300 mg capsule 300 mg PO BID Qty: 20 0RF montelukast 10 MG tablet 10 mg PO HS ondansetron 4 MG tablet,disintegrating 4 mg PO Q8HP PRN (Reason: Nausea) Qty: 12 0RF aspirin 81 MG tablet,chewable 81 mg PO DAILY 30 Days Qty: 30 0RF methylprednisolone 4 MG tablet 4 mg PO DIRECTED Qty: 21 0RF Rx Instructions: Take as directed on package instructions cefdinir 300 MG capsule 300 mg PO BID Qty: 20 0RF promethazine-DM 120 ML syrup 5 ml PO Q6HP PRN (Reason: Cough) Qty: 240 0RF benzonatate 100 MG capsule 100 mg PO TIDP PRN (Reason: Cough) Qty: 30 0RF oseltamivir 75 MG capsule 75 mg PO BID Qty: 10 0RF ondansetron 4 MG tablet,disintegrating 4 mg PO Q8HP PRN (Reason: Nausea) Qty: 20 0RF ketorolac 10 MG tablet 10 mg PO Q6HP MDD 40mg/day PRN (Reason: Moderate To Severe Pain) Qty: 8 0RF Rx Instructions: Therapy initiated with IV/IM dose benzonatate [benzonatate] 100 mg capsule 100 mg PO TIDP PRN (Reason: Cough) Qty: 30 0RF ondansetron 4 mg Tablet,Disintegrating 4 mg PO Q8H PRN (Reason: Nausea) Qty: 20 0RF azithromycin [Zithromax] 250 mg tablet 250 mg PO UD DOSE PK Qty: 6 0RF Rx Instructions: Take two (2) tablets today, then one (1) tablet days #2 thru #5 benzonatate [benzonatate] 100 mg capsule 100 mg PO TIDP PRN (Reason: Cough) Qty: 30 0RF methylprednisolone 4 mg Tablets,Dose Pack 4 mg PO DIRECTED Qty: 21 0RF oseltamivir [Tamiflu] 75 mg capsule 75 mg PO BID Qty: 10 0RF Referrals Follow up/Referrals: Alia Willett APRN [Primary Care Provider] - See instructions Clinical Impressions Clinical Impression: Abdominal pain Qualifiers: Abdominal location: left lower quadrant Qualified Code(s): R10.32 - Left lower quadrant pain Hematuria Qualifiers: Hematuria type: other microscopic Qualified Code(s): R31.29 - Other microscopic hematuria Instructions Patient Instructions: DI for Acute Abdominal Pain Discharge ED Provider: Palma Bautista General Adult HPI <Krystian Walker MD - Last Filed: 11/03/22 16:24> General Chief complaint: Abdominal Pain Stated complaint: abdominal Time Seen by Provider: 11/03/22 14:09 Mode of Arrival: Ambulatory Source of Information: Patient Limitations: No Limitations Description of Symptoms (Recalled from ER Triage Doc. by RN): pt states this am she woke up with lower abdominal pain. pt denies vomiting or diarrhea. pt states pain is sharp t/o lower abdomen. pt states approx 3 years ago she had a colon resection d/t diverticulitis. LMP- currently History of Present Illness HPI narrative: This a 47-year-old female with history of diverticulitis status post bowel resection, hypertension presenting with abdominal pain. Patient states abdominal pain started today in the morning. On 11/03, patient began having suprapubic and left lower quadrant abdominal pain. Last bowel movement was today and normal for her, no blood. Patient denies fevers, chills, vomiting, dysuria or hematuria, but pain is severe in intensity and does not radi
--- NOTE | 2022-11-03 15:37 | PC.NURSE ---
pt return from CT
--- NOTE | 2022-11-03 16:47 | PC.NURSE ---
contacted rad to check on status of ct results, states preliminary report is available will send down
--- NOTE | 2022-11-03 16:53 | PC.NURSE ---
Pt updated on plan of care. Awaiting final CT report
== END 2022-11-03 17:19 | disposition home or self-care (01) ==
PROVIDERS: Emergency Medicine; Emergency Provider Emergency Medicine; PCP Nurse Practitioner Family
DX: R10.32 Left lower quadrant pain (principal); R31.9 Hematuria, unspecified; E78.5 Hyperlipidemia, unspecified; I10 Essential (primary) hypertension; F17.210 Nicotine dependence, cigarettes, uncomplicated
CPT/HCPCS: 74177; 80053; 81001; 81025; 83605; 83690; 85007; 85025; 96361; 96374; 96375; 96376; 99285; Q9967

== ENCOUNTER → 2023-03-03 15:46 | Outpatient (CLI) | payer OTHER, SELFPAY ==
[2023-03-03 16:17] LABS: Basophils % 0.5 % (0.1-2.0); Eosinophils # 0.1 K/mm3 (0.0-0.4); Eosinophils % 1.5 % (0.1-12.0); Hematocrit 41.5 % (37.0-47.0); Hemoglobin 13.5 g/dL (12.2-16.2); Lymphocytes # 2.3 K/mm3 (0.7-4.5); Lymphocytes % 28.1 % (10-50); Mean Corpuscular HGB Conc 32.5 g/dL (31.8-35.4); Mean Corpuscular Hemoglobin 29.6 pg (27.0-31.2); Mean Corpuscular Volume 91.1 fl (81-99); Monocytes # 0.4 K/mm3 (0.1-1.0); Monocytes % 5.1 % (1.7-9.3); Neutrophils # 5.3 K/mm3 (1.8-7.8); Neutrophils % 64.8 % (37.0-80.0); Platelet Count 381 K/mm3 (142-424); Red Blood Count 4.55 M/mm3 (4.20-5.40); Red Cell Distribution Width 14.2 % (11.5-17.5); White Blood Count 8.1 K/mm3 (4.8-10.8)
[2023-03-03 16:46] LABS: Alanine Aminotransferase 17 U/L (12-78); Albumin Level 3.8 g/dl (3.5-5.0); Albumin/Globulin Ratio 1.3 (1.1-1.8); Alkaline Phosphatase 102 U/L (38-126); Anion Gap 10.3 mEq/L (5-15); Aspartate Amino Transferase 21 U/L (14-36); Bilirubin,Total 0.4 mg/dl (0.2-1.3); Blood Urea Nitrogen 12 mg/dl (7-17); Calcium 8.7 mg/dl (8.4-10.2); Carbon Dioxide 22 mmol/L (22.0-30.0); Chloride 107 mmol/L (98-107); Estimated Glomerular Filt Rate 77 ml/min (>60); GFR (African American) 93 ML/MIN (>60); Globulin 2.9 g/dL (1.3-3.2); Glucose 100 mg/dl (74-100); Potassium 4.3 mmoL/L (3.5-5.1); Sodium 135 mmol/L (136-145); Total Protein,Serum 6.7 g/dl (6.3-8.2)
[2023-03-03 16:51] LABS: C-Reactive Protein 3.7 mg/L (0-4)
[2023-03-03 17:03] LABS: Free T4 (Free Thyroxine) 0.97 ng/dl (0.78-2.19)
[2023-03-03 17:17] LABS: Thyroid Stimulating Hormone 0.69 uIU/mL (0.465-4.68)
[2023-03-03 17:58] LABS: Erythrocyte Sedimentation Rate 18 mm/hr (0-20)
[2023-03-06 14:27] LABS: Anti-Cyclic Citrullinated Pept 2 units (0-19)
[2023-03-19 22:18] LABS: Rheumatoid Factor IGA < 7 U (<7); Rheumatoid Factor IGM < 7 U (<7)
== END ==
PROVIDERS: PCP Internal Medicine Adolescent Medicine; Visit Provider Physician Assistant
DX: M25.50 Pain in unspecified joint (principal); K59.9 Functional intestinal disorder, unspecified
CPT/HCPCS: 36415; 80053; 83735; 84439; 84443; 85025; 85651; 86140; 86200; 86431

== ENCOUNTER 2023-04-12 19:27 | Emergency (ER) | payer OTHER, SELFPAY ==
[2023-04-12 20:00] VITALS: BP 146/89; PULSE 82; RESP 19; TEMP 36.6; O2SAT 99; BMI 33.4
[2023-04-12 20:24] LABS: Apearance,Urine Clear (Clear); Color,Urine Yellow (Yellow)
[2023-04-12 20:25] LABS: Bilirubin,Urine Negative (Negative); Blood, Urine Negative (Negative); Glucose,Urine (UA) Negative (Negative); Ketones,Urine Negative (Negative); Protein,Urine Negative (Negative); UTC Leukocyte Esterase,Urine Negative (Negative); UTC Nitrate,Urine Negative (Negative); Urobilinogen,Urine 0.2 EU/dl (0.2)
--- NOTE | 2023-04-12 20:34 | ED_ITS ---
Discharge Plan Disposition Patient Disposition: Home, Self-Care Condition: Good Prescriptions Prescriptions: No Action diclofenac sodium 75 mg tablet,delayed release (DR/EC) 75 mg PO DAILY pantoprazole 40 mg tablet,delayed release (DR/EC) 40 mg PO venlafaxine 37.5 mg capsule,extended release 24hr 37.5 mg PO atorvastatin 40 mg tablet 40 mg PO cetirizine 10 mg tablet 10 mg PO citalopram 20 mg tablet 20 mg PO hydrochlorothiazide 12.5 mg tablet 12.5 mg PO trazodone 50 mg tablet 50 mg PO furosemide 20 mg tablet 20 mg PO alprazolam 0.5 tablet 0.5 mg PO BID Patient Comments: dicyclomine 10 MG capsule 10 mg PO TID PRN (Reason: Cramping) Qty: 9 0RF phenazopyridine 200 MG tablet 200 pow PO TID Qty: 6 0RF prednisone 20 MG tablet 20 mg PO BID Qty: 10 0RF cefdinir 300 mg capsule 300 mg PO BID Qty: 20 0RF montelukast 10 MG tablet 10 mg PO HS ondansetron 4 MG tablet,disintegrating 4 mg PO Q8HP PRN (Reason: Nausea) Qty: 12 0RF aspirin 81 MG tablet,chewable 81 mg PO DAILY 30 Days Qty: 30 0RF methylprednisolone 4 MG tablet 4 mg PO DIRECTED Qty: 21 0RF Rx Instructions: Take as directed on package instructions cefdinir 300 MG capsule 300 mg PO BID Qty: 20 0RF promethazine-DM 120 ML syrup 5 ml PO Q6HP PRN (Reason: Cough) Qty: 240 0RF benzonatate 100 MG capsule 100 mg PO TIDP PRN (Reason: Cough) Qty: 30 0RF oseltamivir 75 MG capsule 75 mg PO BID Qty: 10 0RF ondansetron 4 MG tablet,disintegrating 4 mg PO Q8HP PRN (Reason: Nausea) Qty: 20 0RF ketorolac 10 MG tablet 10 mg PO Q6HP MDD 40mg/day PRN (Reason: Moderate To Severe Pain) Qty: 8 0RF Rx Instructions: Therapy initiated with IV/IM dose benzonatate [benzonatate] 100 mg capsule 100 mg PO TIDP PRN (Reason: Cough) Qty: 30 0RF ondansetron 4 mg Tablet,Disintegrating 4 mg PO Q8H PRN (Reason: Nausea) Qty: 20 0RF azithromycin [Zithromax] 250 mg tablet 250 mg PO UD DOSE PK Qty: 6 0RF Rx Instructions: Take two (2) tablets today, then one (1) tablet days #2 thru #5 benzonatate [benzonatate] 100 mg capsule 100 mg PO TIDP PRN (Reason: Cough) Qty: 30 0RF methylprednisolone 4 mg Tablets,Dose Pack 4 mg PO DIRECTED Qty: 21 0RF oseltamivir [Tamiflu] 75 mg capsule 75 mg PO BID Qty: 10 0RF Referrals Follow up/Referrals: Darnell Montemayor MD [Primary Care Provider] - See instructions Activity Restrictions/Add. Instructions Additional Instructions/Restrictions: Take muslce relaxers as prescribed Over the counter Motrin and/or Tylenol if you can take it may help with pain Follow up with your Family Doctor if no improvement or any worsening of symptoms Follow up with your Family Doctor if pain/pressure returns in you abdomen Straight to ER if any life threatening symptoms Clinical Impressions Clinical Impression: Back pain with sciatica Instructions Patient Instructions: DI for Sciatica, DI for Back Pain With Sciatica Discharge ED Provider: Nadya Hanna [facility] General Stated complaint: lower back pain lower abd pain Mode of Arrival: Ambulatory Source of Information: Patient Limitations: No Limitations Time Seen by Provider: 04/12/23 20:35 Description of Symptoms (Recalled from Triage Doc. by RN): Pt stated that she has right flank pain that radiating to RLQ. HEENT Symptoms (Recalled from RN notes): No Resp Symptoms (Recalled from RN notes): No Skin Symptoms (Recalled from RN notes): No MS Symptoms (Recalled from RN notes): No Functional Status (Recalled from RN notes): n/a History of Present Illness Provider Complaint: Patient states that she has been having pain in the right side of her lower back that goes into her buttock area and upper leg States that she did this about a month ago and her PCP had to give her a steriod shot and some muscle relaxers and they helped States that for the last couple of days it has been hurting again States that also she had some pressure earlier in her lower abdomen and felt like she was urinating more than usual and wanted to get her urine checked to make sure that she didnt have a UTI Related Data Home Medications Medication Instructions Recorded Confirmed alprazolam 0.5 mg tablet 0.5 mg PO BID Anxiety 06/24/17 06/22/21 diclofenac sodium 75 mg 75 mg PO DAILY inflammation 12/06/17 06/22/21 tablet,delayed release montelukast 10 mg tablet 10 mg PO HS Allergy symptoms 12/11/17 06/22/21 atorvastatin 40 mg tablet 40 mg PO 07/15/20 06/22/21 cetirizine 10 mg tablet 10 mg PO 07/15/20 06/22/21 citalopram 20 mg tablet 20 mg PO 07/15/20 06/22/21 pantoprazole 40 mg tablet,delayed 40 mg PO 07/15/20 06/22/21 release venlafaxine 37.5 mg 37.5 mg PO 07/15/20 06/22/21 capsule,extended release 24 hr furosemide 20 mg tablet 20 mg PO 12/09/20 06/22/21 trazodone 50 mg tablet 50 mg PO 12/09/20 06/22/21 hydrochlorothiazide 12.5 mg tablet 12.5 mg PO 05/25/21 06/22/21 Previous Rx's Medication Instructions Recorded dicyclomine 10 mg capsule 10 mg PO TID PRN Cramping #9 caps 11/17/20 phenazopyridine 200 mg tablet 200 pow PO TID #6 tabs 12/27/20 ondansetron 4 mg disintegrating 4 mg PO Q8HP PRN Nausea #12 tabs 01/14/21 tablet aspirin 81 mg chewable tablet 81 mg PO DAILY 30 days #30 tabs 04/30/21 cefdinir 300 mg capsule 300 mg PO BID #20 caps 06/17/21 methylprednisolone 4 mg tablet 4 mg PO DIRECTED #21 tabs 06/17/21 benzonatate 100 mg capsule 100 mg PO TIDP PRN Cough #30 caps 06/30/21 ondansetron 4 mg disintegrating 4 mg PO Q8HP PRN Nausea #20 tabs 06/30/21 tablet oseltamivir 75 mg capsule 75 mg PO BID #10 caps 06/30/21 promethazine-DM 6.25 mg-15 mg/5 mL 5 ml PO Q6HP PRN Cough #240 mL 06/30/21 oral syrup prednisone 20 mg tablet 20 mg PO BID #10 tabs 07/04/21 ketorolac 10 mg tablet 10 mg PO Q6HP PRN Moderate To 09/19/21 Severe Pain #8 tabs benzonatate 100 mg capsule 100 mg PO TIDP PRN Cough #30 caps 12/01/21 ondansetron 4 mg disintegrating 4 mg PO Q8H PRN Nausea #20 tabs 12/01/21 tablet cefdinir 300 mg capsule 300 mg PO BID #20 caps 12/23/21 azithromycin 250 mg tablet 250 mg PO UD DOSE PK #6 tabs 03/14/22 (Zithromax) benzonatate 100 mg capsule 100 mg PO TIDP PRN Cough #30 caps 03/14/22 methylprednisolone 4 mg tablets in 4 mg PO DIRECTED #21 tabs 03/14/22 a dose pack oseltamivir 75 mg capsule (Tamiflu) 75 mg PO BID #10 caps 03/14/22 Allergies Allergy/AdvReac Type Severity Reaction Status Date / Time codeine Allergy Intermediate CHEST PAIN Verified 04/12/23 20:12 Worker's Comp Is this a Worker's Comp case?: No [facility] Disclaimer: The information contained in this section may have been updated after the patient was seen, as this information can be updated by other users. Medical History Hyperlipidemia Hypertension Surgical History History of cholecystectomy History of tympanostomy tube placement Social History Smoking Status: Current some day smoker tobacco type: cigarettes packs per day: 1 second hand exposure: No alcohol intake: never counseling provided: none substance use type: denies use current occupational status: employed Travel in the last 8 weeks: None household members: other housing: other current occupation: dietary currently on workmans comp current occupational exposures/hazards: No caffeine: Yes (coffee) ROS Obtained: Yes All systems reviewed & no additional complaints except as documented and Yes Systems reviewed as appropriate & no additional complaints except as documented Constitutional Constitutional: Reports system reviewed and no additional complaints, except as documented, Reports as per HPI and Denies fever(s) ENT Ears, Nose, Mouth, and Throat: Reports system reviewed and no additional complaints, except as documented and Reports as per HPI Cardiovascular Cardiovascular: Reports system reviewed and no additional complaints, except as documented and Reports as per HPI Respiratory Respiratory: Reports system reviewed and no additional complaints, except as documented and Reports as per HPI Gastrointestinal Gastrointestingal: Reports system reviewed and no additional complaints, except as documented, as per HPI and other (reports pressure like feeling in her lower abdomen earlier not having now); Denies abdominal pain Genitourinary Female Genitourinary: Reports system reviewed and no additional complaints, except as documented, Reports as per HPI, Denies dysuria and Reports urinary frequency (earlier today) Musculoskeletal Musculoskeletal: Reports system reviewed and no additional complaints, except as documented, Reports as per HPI, Reports back pain and Reports other Comments: achy like pain in right lower back going into buttock and right upper leg Denies injury Physical Exam General General appearance: alert and in no apparent distress ENT ENT exam: Present mucous membranes moist Respiratory Respiratory exam: Present normal lung sounds bilaterally; Absent respiratory distress or wheezes Cardiovascular Cardiovascular exam: Present regular rate, normal rhythm and normal heart sounds Abdominal Exam Abdominal exam: Present soft and normal bowel sounds; Absent distention, tenderness, guarding or rebound Back Exam Back exam: Present tenderness and sciatic notch tenderness (R) Back 1 view image: 1. pain in right lower back that radiates into buttock and right upper leg, denies injury Denies loss of control of bowel or bladder appears like sciatica pain Neurological Exam Neurological exam: Present alert, oriented X3 and normal gait Medical Decision Making Cassius Inquiry Pt receiving controlled substance: No Cassius was queried for this patient: No Vital Signs: 04/12/23 20:00 Temperature 97.8 F Temperature Source Oral Pulse Rate [Right Radial] 82 Respiratory Rate 19 Blood Pressure [Right Arm] 146/89 H Blood Pressure Mean [Right Arm] 108 Blood Pressure Source [Right Arm] Automatic Cuff Blood Pressure Position [Right Arm] Sitting 02 Sat by Pulse Oximetry 99 Oxygen Delivery Method Room Air Lab Data Lab results reviewed: Yes I reviewed the patient's lab results. Lab Results 04/12/23 19:57: Urine Color Yellow, Urine Appearance Clear, Urine pH 6.0, Ur Specific [place] 1.020, Urine Protein Negative, Urine Glucose (UA) Negative, Urine Ketones Negative, Urine Blood Negative, Urine Nitrate Negative, Urine B ilirubin Negative, Urine Urobilinogen 0.2, Ur Leukocyte Esterase Negative Medical Decision Narrative: Patient states that she has taken Solu medrol in the past without complications or reactions
[2023-04-12] MEDS: METHYLPREDNISOLONE SOD SUCC 125MG VIAL 125 MG IM (20:46)
[2023-04-12 20:56] VITALS: BP 146/89; PULSE 82; RESP 19; TEMP 36.6; O2SAT 99
== END 2023-04-12 20:56 | disposition home or self-care (01) ==
PROVIDERS: Emergency Provider Nurse Practitioner; PCP Internal Medicine Adolescent Medicine
DX: M54.41 Lumbago with sciatica, right side (principal); F17.210 Nicotine dependence, cigarettes, uncomplicated; E78.5 Hyperlipidemia, unspecified; I10 Essential (primary) hypertension
CPT/HCPCS: 81003; 96372; 99212; 99214; G0463

== ENCOUNTER 2023-04-19 16:01 | Outpatient (CLI) | payer OTHER, SELFPAY ==
--- NOTE | 2023-04-19 16:08 | XR_ITS ---
FINAL REPORT CLINICAL HISTORY: BACK PAIN COMPARISON: None FINDINGS: SACRUM COCCYX 3 views demonstrate no acute fracture or dislocation. The sacral arches are intact. The sacroiliac joints are unremarkable. No soft tissue abnormality is seen. IMPRESSION: No acute process. Reviewed, Interpreted and Dictated by Nils Morel III, MD Transcribed by Tea Holm Authenticated and [facility]
--- NOTE | 2023-04-19 16:08 | XR_ITS ---
FINAL REPORT CLINICAL HISTORY: BACK PAIN COMPARISON: None FINDINGS: SACROILIAC JOINTS SERIES Three views were obtained. There is no acute fracture or dislocation. There is mild degenerative change of the SI joints with mild spurring. The visualized bony structures are well aligned. No soft tissue abnormality is seen. IMPRESSION: Mild degenerative change and mild spurring without acute bony abnormality. Reviewed, Interpreted and Dictated by Nils Morel III, MD Transcribed by Tea Holm Authenticated and [facility]
== END 2023-04-19 23:59 ==
LOC: RAD 16:02
PROVIDERS: PCP Internal Medicine Adolescent Medicine; Visit Provider Physician Assistant
DX: M54.9 Dorsalgia, unspecified (principal)
CPT/HCPCS: 72202; 72220

== ENCOUNTER 2023-05-26 11:00 | Outpatient (RCR) | payer OTHER, SELFPAY ==
--- NOTE | 2023-05-03 11:55 | HMH.PTOPEV ---
PT Outpatient Evaluation Rehab PT Outpatient Evaluation Start: 05/03/23 11:36 Freq: Status: Active Protocol: Document 05/03/23 11:36 FLIP (Rec: 05/03/23 11:54 FLIP [id number]) E-signed By Luis Miguel Sena, PT Outpatient Therapy Subjective History Subjective History Micky is a 47 year old female presenting to outpatient PT with reports of chronic R sided LBP with no reports of radicular symptoms. Symptoms of insidious onset starting approx 1 year ago. Special tests indicate R upslip of the innominant. Most recent imaging of R SIJ indicates mild degenerative changes. Comorbidities include hx of B TKA, HTN, HL and L UCL recon. Chief Complaint Pain,Clicks Symptom Type Ache,Sharp,Dull Symptoms Relieved By Activity Symptoms Aggravated By Sitting Prior Functional Limitations None Current Functional Limitations Lifting,Sitting,Bending/ Stooping Symptom Description Constant but Variable Level of pain today (0-10) 6 Pain scale - at its best (0-10) 4 Pain scale - at its worst (0-10) 9 Lumbopelvic Eval Posture Thoracic Spine Posture Standing Position Increased Kyphosis Lumbar Spine Posture Standing Position Increased Lordosis Assistive device Assistive Devices None / NA Palapation tenderness right Lumbar/Sacral Palpation Findings Tenderness Lumbar/Sacral Palpation Overall Comment R SIJ 3/4 Accessory Movement S1 right Range of Motion Lumbar Spine Active Flexion Range of 78 Motion (degrees) Lumbar Spine Active Extension Range of 18 Motion (degrees) Left Lumbar Spine Lateral Flexion Active 19 Range of Motion (degrees) Right Lumbar Spine Lateral Flexion 14 Active Range of Motion (degrees) Lumbar Spine ROM Limitations Soft Tissue Tightness,Bony Restriction Manual Muscle Test Bilateral Knee Extension Strength Grade 5 Normal Knee Flexion Strength Grade 5 Normal Hip Flexion Strength Grade 5 Normal Extensor Hallucis Longus Strength Grade 5 Normal Ankle Dorsiflexion Strength Grade 5 Normal Gastronemius/Soleus Strength Grade 5 Normal Special Tests Hip Eddy (SAMATNHA) Test Positive Left,Positive Right Hip Alexandru Test Positive Left,Positive Right Hip Piriformis Test Positive Left,Positive Right Dustin Test Positive Sacroiliac Joint Compression Test Negative Left,Negative Right Sacroiliac Joint Distraction Test Negative Left,Negative Right Lumbar Long [place] Distraction Test/Manual Negative Traction Oswestry Index Section 1 Pain Intensity The pain comes and goes and is severe Section 2 Personal Care (Washing,Dresing) my way of washing or dressing even though it causes some pain Section 3 Lifting I can only lift very light weights at most Section 4 Walking I have no pain when walking Section 5 Sitting I avoid sitting because it increases my pain immediately Section 6 Standing I can stand as long as I want without pain Section 7 Sleeping I get pain in bed, but it does not prevent me from sleeping well Section 8 Social Life My social life is normal and gives me no extra pain Section 9 Traveling I get some pain when traveling , but none of my usual forms of travel m Section 10 Changing Degreee of Pain My pain is neither getting better or worse Score and Risk Level Oswestry Sc 20 Oswestry Risk Level Moderate Disability Outpatient Therapy Assessment Impairments Problems/Impairmments Palpation Tenderness,Impaired Range of Motion,Impaired Sitting,Impaired Driving, Impaired Lifting,Impaired Bending,Subjective C/O Pain Prognosis Rehab Potential Good Clinical Impression Consistent with Diagnosis Yes Short Term Goals Number of Weeks 2 Decrease Subjective C/O Pain Yes: 5/10 at worst Patient to be Ind w/ HEP Yes Long-Term Goals Number of Weeks 4-6 Decreased Palpation Tenderness Yes: 1/4 Increase Range of Motion Yes: WNL Increase Ability to Walk Yes: 30 min without difficulty Increase Ability to Stand Yes: Increase Ability to Sit Yes: Restore Ability to Lift Objects to Yes: 20# withotu difficulty Shoulder Level Restore Ability to Lift Objects Overhead Yes Improve Oswestry Score Yes: mild disability Outpatient Therapy Plan of Care Treatment Plan May Include Therapeutic Exercise Including Home Yes Exercise Program Manual Therapy Techniques Yes Neuromuscular Re-education Yes Therapeutic Activities to Return to Yes Previous Functional/Work Level Gait Training Yes ADL/Self Care Education Yes Mechanical Traction Yes Dry Needling Yes Thermal Modalities Yes Electrical Stimulation Yes Ultrasound/Phonophoresis Yes Iontophoresis Yes Parrafin Yes Orthotics/Bracing/Splinting Yes Vasopneumatic Compression Pump Yes Eval/Re-Eval Yes Frequency Times per week 2 Duration Number of Weeks 4-6 Addendums This patient is a candidate for social No or vocational rehab? Patient/Guardian verbally acknowledges Yes understanding of treatment program and consents to further treatment? Patient/Guardian verbally acknowledges Yes understanding of diagnosis, prognosis and goals for treatment? Shoulder/Elbow Eval Shoulder Objective Measurements Elbow Objective Measurements PHYSICIAN CERTIFICATION: I certify the specified therapy services for Margaux Mcgee are required, authorized, and reviewed every 30 days.
== END 2023-05-26 12:00 | disposition home or self-care (01) ==
LOC: PT 11:00
PROVIDERS: PCP Internal Medicine Adolescent Medicine; Visit Provider Physician Assistant
DX: M46.1 Sacroiliitis, not elsewhere classified (principal)
CPT/HCPCS: 20561; 97010; 97014; 97110; 97163; 97530; G0283

== ENCOUNTER 2023-05-28 22:36 | Emergency (ER) | payer OTHER, SELFPAY ==
[2023-05-28 22:37] VITALS: BP 150/81; PULSE 87; RESP 20; TEMP 36.7; O2SAT 98; BMI 30.7
[2023-05-28 22:58] LABS: Coronavirus 19, PCR Not Detected (NotDetected); Influenza A, PCR Not Detected (NotDetected); Influenza B, PCR Not Detected (NotDetected)
--- NOTE | 2023-05-28 23:05 | HMH.EDGENADL ---
Discharge Plan Disposition Patient Disposition: Home, Self-Care Condition: Good Prescriptions Prescriptions: New albuterol sulfate [Ventolin HFA] 90 mcg/actuation HFA aerosol inhaler 2 inh inhalation Q6H PRN (Reason: shortness of breath or wheezing) Qty: 6.7 0RF No Action diclofenac sodium 75 mg tablet,delayed release (DR/EC) 75 mg PO DAILY pantoprazole 40 mg tablet,delayed release (DR/EC) 40 mg PO venlafaxine 37.5 mg capsule,extended release 24hr 37.5 mg PO atorvastatin 40 mg tablet 40 mg PO cetirizine 10 mg tablet 10 mg PO citalopram 20 mg tablet 20 mg PO hydrochlorothiazide 12.5 mg tablet 12.5 mg PO trazodone 50 mg tablet 50 mg PO furosemide 20 mg tablet 20 mg PO alprazolam 0.5 tablet 0.5 mg PO BID Patient Comments: dicyclomine 10 MG capsule 10 mg PO TID PRN (Reason: Cramping) Qty: 9 0RF phenazopyridine 200 MG tablet 200 pow PO TID Qty: 6 0RF prednisone 20 MG tablet 20 mg PO BID Qty: 10 0RF cefdinir 300 mg capsule 300 mg PO BID Qty: 20 0RF montelukast 10 MG tablet 10 mg PO HS ondansetron 4 MG tablet,disintegrating 4 mg PO Q8HP PRN (Reason: Nausea) Qty: 12 0RF aspirin 81 MG tablet,chewable 81 mg PO DAILY 30 Days Qty: 30 0RF methylprednisolone 4 MG tablet 4 mg PO DIRECTED Qty: 21 0RF Rx Instructions: Take as directed on package instructions cefdinir 300 MG capsule 300 mg PO BID Qty: 20 0RF promethazine-DM 120 ML syrup 5 ml PO Q6HP PRN (Reason: Cough) Qty: 240 0RF benzonatate 100 MG capsule 100 mg PO TIDP PRN (Reason: Cough) Qty: 30 0RF oseltamivir 75 MG capsule 75 mg PO BID Qty: 10 0RF ondansetron 4 MG tablet,disintegrating 4 mg PO Q8HP PRN (Reason: Nausea) Qty: 20 0RF ketorolac 10 MG tablet 10 mg PO Q6HP MDD 40mg/day PRN (Reason: Moderate To Severe Pain) Qty: 8 0RF Rx Instructions: Therapy initiated with IV/IM dose benzonatate [benzonatate] 100 mg capsule 100 mg PO TIDP PRN (Reason: Cough) Qty: 30 0RF ondansetron 4 mg Tablet,Disintegrating 4 mg PO Q8H PRN (Reason: Nausea) Qty: 20 0RF azithromycin [Zithromax] 250 mg tablet 250 mg PO UD DOSE PK Qty: 6 0RF Rx Instructions: Take two (2) tablets today, then one (1) tablet days #2 thru #5 benzonatate [benzonatate] 100 mg capsule 100 mg PO TIDP PRN (Reason: Cough) Qty: 30 0RF methylprednisolone 4 mg Tablets,Dose Pack 4 mg PO DIRECTED Qty: 21 0RF oseltamivir [Tamiflu] 75 mg capsule 75 mg PO BID Qty: 10 0RF Referrals Follow up/Referrals: Darnell Montemayor MD [Primary Care Provider] - See instructions Activity Restrictions/Add. Instructions Additional Instructions/Restrictions: Evaluated in the ER. You are appropriate for discharge at this time. Take Tylenol or ibuprofen if needed for headache or bodyaches, do not exceed the recommended doses on the bottle. Drink plenty of water. Take the prescribed albuterol as needed for shortness of breath. Gargle salt water twice daily if needed for tonsil stone. Make an appoint with your primary care physician for reevaluation in 2 to 3 days. Return to the ER with any new, worsening, or otherwise concerning symptoms as discussed. Clinical Impressions Clinical Impression: Headache, Flu-like symptoms, Tonsil stone Discharge ED Provider: Rolando Long General Adult HPI General Chief complaint: Upper Respiratory Infection Stated complaint: SOA ESPINOZA Time Seen by Provider: 05/28/23 22:39 Mode of Arrival: Ambulatory Source of Information: Patient and Spouse Limitations: No Limitations Description of Symptoms (Recalled from ER Triage Doc. by RN): Patient reports headache, generalized, 8/10 that started when she awoke this morning. Also reports cough, congestion and sore throat with chills and body aches. No known sick contacts. History of Present Illness HPI narrative: 47-year-old female with a history of depression, diverticulitis, seasonal allergies presents to the ER with concerns of headache, cough, congestion, sore throat, chills, body aches since this morning. Patient states she has a generalized headache. She took ibuprofen approximately 5 hours prior to arrival. Denies any measured fever but has been states she felt warm to the touch earlier today. Patient denies any known sick contacts. No vomiting or diarrhea, tolerating oral intake. No chest pain, numbness, tingling, or weakness. No history of migraines, no photophobia or phonophobia. Related Data Home Medications Medication Instructions Recorded Confirmed alprazolam 0.5 mg tablet 0.5 mg PO BID Anxiety 06/24/17 06/22/21 diclofenac sodium 75 mg 75 mg PO DAILY inflammation 12/06/17 06/22/21 tablet,delayed release montelukast 10 mg tablet 10 mg PO HS Allergy symptoms 12/11/17 06/22/21 atorvastatin 40 mg tablet 40 mg PO 07/15/20 06/22/21 cetirizine 10 mg tablet 10 mg PO 07/15/20 06/22/21 citalopram 20 mg tablet 20 mg PO 07/15/20 06/22/21 pantoprazole 40 mg tablet,delayed 40 mg PO 07/15/20 06/22/21 release venlafaxine 37.5 mg 37.5 mg PO 07/15/20 06/22/21 capsule,extended release 24 hr furosemide 20 mg tablet 20 mg PO 12/09/20 06/22/21 trazodone 50 mg tablet 50 mg PO 12/09/20 06/22/21 hydrochlorothiazide 12.5 mg tablet 12.5 mg PO 05/25/21 06/22/21 Previous Rx's Medication Instructions Recorded dicyclomine 10 mg capsule 10 mg PO TID PRN Cramping #9 caps 11/17/20 phenazopyridine 200 mg tablet 200 pow PO TID #6 tabs 12/27/20 ondansetron 4 mg disintegrating 4 mg PO Q8HP PRN Nausea #12 tabs 01/14/21 tablet aspirin 81 mg chewable tablet 81 mg PO DAILY 30 days #30 tabs 04/30/21 cefdinir 300 mg capsule 300 mg PO BID #20 caps 06/17/21 methylprednisolone 4 mg tablet 4 mg PO DIRECTED #21 tabs 06/17/21 benzonatate 100 mg capsule 100 mg PO TIDP PRN Cough #30 caps 06/30/21 ondansetron 4 mg disintegrating 4 mg PO Q8HP PRN Nausea #20 tabs 06/30/21 tablet oseltamivir 75 mg capsule 75 mg PO BID #10 caps 06/30/21 promethazine-DM 6.25 mg-15 mg/5 mL 5 ml PO Q6HP PRN Cough #240 mL 06/30/21 oral syrup prednisone 20 mg tablet 20 mg PO BID #10 tabs 07/04/21 ketorolac 10 mg tablet 10 mg PO Q6HP PRN Moderate To 09/19/21 Severe Pain #8 tabs benzonatate 100 mg capsule 100 mg PO TIDP PRN Cough #30 caps 12/01/21 ondansetron 4 mg disintegrating 4 mg PO Q8H PRN Nausea #20 tabs 12/01/21 tablet cefdinir 300 mg capsule 300 mg PO BID #20 caps 12/23/21 azithromycin 250 mg tablet 250 mg PO UD DOSE PK #6 tabs 03/14/22 (Zithromax) benzonatate 100 mg capsule 100 mg PO TIDP PRN Cough #30 caps 03/14/22 methylprednisolone 4 mg tablets in 4 mg PO DIRECTED #21 tabs 03/14/22 a dose pack oseltamivir 75 mg capsule (Tamiflu) 75 mg PO BID #10 caps 03/14/22 albuterol sulfate 90 mcg/actuation 2 inh inhalation Q6H PRN shortness 05/28/23 aerosol inhaler (Ventolin HFA) of breath or wheezing #6.7 grams Allergies Allergy/AdvReac Type Severity Reaction Status Date / Time codeine Allergy Intermediate CHEST PAIN Verified 04/12/23 20:12 [facility] Disclaimer: The information contained in this section may have been updated after the patient was seen, as this information can be updated by other users. 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workmans comp current occupational exposures/hazards: No caffeine: Yes (coffee) ROS Obtained: Yes All systems reviewed & no additional complaints except as documented Constitutional Constitutional: Reports body ache, Reports chills, Denies fever(s), Reports headache(s) and Denies weakness Eyes Eyes: Denies change in vision ENT Ears, Nose, Mouth, and Throat: Denies dizziness, Reports headache(s), Reports nasal congestion and Reports sore throat Cardiovascular Cardiovascular: Denies chest pain, Denies dyspnea and Denies leg edema Respiratory Respiratory: Reports cough and Denies dyspnea Gastrointestinal Gastrointestingal: Denies constipation, diarrhea, nausea or vomiting Genitourinary Female Genitourinary: Denies dysuria Musculoskeletal Musculoskeletal: Denies arthralgias, Reports myalgias, Denies numbness and Denies tingling Integumentary/Breasts Skin/Breast: Denies change in pigmentation Neurologic Neurologic: Denies dizziness, Reports headache(s), Denies numbness, Denies tingling and Denies weakness Physical Exam General General appearance: alert and in no apparent distress Head Head exam: atraumatic and normocephalic Eye Eye exam: Present PERRL and EOMI ENT ENT exam: Present mucous membranes moist and other (Mild posterior oropharyngeal erythema without swelling or exudate. 1 tonsilith present on the left) Neck Neck exam: Present normal inspection and full ROM Chest Chest inspection: Present symmetric chest wall rise Respiratory Respiratory exam: Present normal lung sounds bilaterally; Absent respiratory distress or stridor Cardiovascular Cardiovascular exam: Present regular rate and normal rhythm Abdominal Exam Abdominal exam: Present soft; Absent distention or tenderness Extremities Exam Extremities exam: Present full ROM Neurological Exam Neurological exam: Present alert, oriented X3, CN II-XII intact and normal gait; Absent motor sensory deficit Psychiatric Psychiatric exam: Present normal affect and normal mood Skin Skin exam: Present warm and dry Medical Decision Making Cassius Inquiry Pt receiving controlled substance: No Vital Signs: 05/28/23 22:37 05/28/23 23:29 05/28/23 23:30 Temperature 98.0 F Temperature Source Oral Pulse Rate 83 85 Pulse Rate [Left Radial] 87 Respiratory Rate 20 Blood Pressure Blood Pressure [Right Arm] 150/81 H Blood Pressure Mean [Right Arm] 104 Blood Pressure Source [Right Arm] Automatic Cuff Blood Pressure Position [Right Arm] Sitting 02 Sat by Pulse Oximetry 98 Oxygen Delivery Method Room Air 05/28/23 23:10 05/28/23 23:20 05/28/23 23:30 Temperature Temperature Source Pulse Rate 82 75 84 Pulse Rate [Left Radial] Respiratory Rate Blood Pressure 145/66 H 125/64 138/70 Blood Pressure [Right Arm] Blood Pressure Mean [Right Arm] Blood Pressure Source [Right Arm] Blood Pressure Position [Right Arm] 02 Sat by Pulse Oximetry 98 99 99 Oxygen Delivery Method Lab Data Lab Results 05/28/23 22:45: SARS-CoV-2 (PCR) Not detected, Influenza A Untype (PCR) Not detected, Influenza Type B (PCR) Not detected Orders (Tests/Meds): ED MEDICATIONS Discontinued Medications Generic Name Dose Route Start Last Admin Trade Name Isabel PRN Reason Stop Dose Admin Acetaminophen 1,000 mg 05/28/23 23:05 05/28/23 23:11 Acetaminophen 500mg Tab PO 05/28/23 23:06 1,000 mg ONCE ONE Administration Albuterol/Ipratropium 3 ml 05/28/23 23:13 05/28/23 23:28 Ipratropium/Albuterol 3 Ml [facility] 05/28/23 23:14 3 ml ONCE ONE Administration ORDERS Category Date Time Status Rapid PCR Covid and Flu A/B Stat Lab 05/28/23 22:45 Completed Medical Decision Narrative: In summary, this 47year old female presents to the emergency department today with headache, body aches, sore throat, congestion, cough. On initial evaluation patient is hemodynamically stable, afebrile, cardiopulmonary exam reassuring, lungs clear to auscultation bilaterally, 96 to 98% on room air. Patient describes hearing wheezing but I do not hear any on auscultation. Posterior oropharyngeal erythema without swelling or exudate, GCS 15, no focal neurologic deficits. Remainder of exam benign. Differential diagnosis includes but is not limited to viral syndrome including COVID, influenza, patient does have history of allergies which are comorbidity of her current condition increasing her overall morbidity, however I do not appreciate wheezing on auscultation though she feels like she hears herself wheezing. I considered other etiologies of headache such as tension headache, migraine, intracranial bleed the patient has no focal deficits, no sudden onset of headache, no thunderclap type symptoms, no neuroimaging is necessary at this time though I did consider. Based on these concerns, I ordered viral testing and symptomatic management. Patient received Tylenol, DuoNeb for treatment. Labs personally reviewed demonstrate negative COVID, flu test. On reassessment patient continues to be stable. She states her breathing feels somewhat improved after receiving a DuoNeb. Albuterol was prescribed. She is appropriate for discharge at this time. Patient was given instructions on symptomatic management, follow up instructions, and return precautions for the emergency department. Patient indicated understanding and was discharged in stable condition. Critical Care Critical Care Time Critical Care Time: No
[2023-05-28 23:10] VITALS: BP 145/66; PULSE 82; O2SAT 98
[2023-05-28] MEDS: ACETAMINOPHEN 500MG TAB 1000 MG PO (23:11)
--- NOTE | 2023-05-28 23:15 | PC.NURSE ---
respiratory called for duoneb
[2023-05-28 23:20] VITALS: BP 125/64; PULSE 75; O2SAT 99
[2023-05-28] MEDS: IPRATROPIUM/ALBUTEROL 3 ML NEB IH (23:28)
[2023-05-28 23:29] VITALS: PULSE 83
[2023-05-28 23:30] VITALS: BP 138/70; PULSE 84; PULSE 85; O2SAT 99
[2023-05-29 00:10] VITALS: BP 137/95; PULSE 90; RESP 20; TEMP 37.2; O2SAT 97
== END 2023-05-29 00:12 | disposition home or self-care (01) ==
PROVIDERS: Emergency Medicine; Emergency Provider Emergency Medicine; PCP Internal Medicine Adolescent Medicine
DX: R51.9 Headache, unspecified (principal); R05.9 Cough, unspecified; R09.81 Nasal congestion; J02.9 Acute pharyngitis, unspecified; R68.83 Chills (without fever); E78.5 Hyperlipidemia, unspecified; I10 Essential (primary) hypertension; F17.210 Nicotine dependence, cigarettes, uncomplicated
CPT/HCPCS: 87636; 99283

== ENCOUNTER 2023-06-12 11:34 | Emergency (ER) | payer OTHER, SELFPAY ==
[2023-06-12 12:00] VITALS: BP 126/84; PULSE 81; RESP 17; TEMP 36.7; O2SAT 98; BMI 33.9
--- NOTE | 2023-06-12 12:12 | EXP.UTC ---
Discharge Plan Disposition Patient Disposition: Home, Self-Care Condition: Good Prescriptions Prescriptions: New pseudoephedrine HCl [Sudafed 12 Hour] 120 mg tablet extended release 120 mg PO Q12H PRN (Reason: nasal congestion) Qty: 20 0RF fluticasone propionate [Flonase Allergy Relief] 50 mcg/actuation spray,suspension 2 spray intranasal DAILY Qty: 16 0RF Rx Instructions: administer into each nostril daily No Action pantoprazole 40 mg tablet,delayed release (DR/EC) 40 mg PO DAILY montelukast 10 mg tablet 10 mg PO DAILY albuterol sulfate 90 mcg/actuation HFA aerosol inhaler 2 puff INHALATION Q4HP PRN (Reason: SOA) escitalopram oxalate 10 mg tablet 10 mg PO DAILY hydrochlorothiazide 12.5 mg tablet 12.5 mg PO DAILY Referrals Follow up/Referrals: Darnell Montemayor MD [Primary Care Provider] - See instructions Activity Restrictions/Add. Instructions Additional Instructions/Restrictions: *Monitor Temp, Over the counter Motrin or Tylenol as directed/as needed Tylenol every 4 hours and Motrin every 6 hours (as long as your family doctor has told you that you can take it) for fever or pain. and straight to ER if unable to lower temp less than 101.0 after medication given *Warm salt water gargles may help to soothe the throat *Throat Lozenges? *Warm fluids like tea with honey may help to soothe the throat? *Sleep elevated *Humidifier/Vaporizer *Flonase 2 sprays in each nostril daily but be aware that it may take 2-3 days before you notice improvement Your throat swab was sent for culture. Those results are typically sent to your primary care. Be sure to follow up in 2-3 days with your family doctor/primary care physician if no improvement so they can review those result and treat if necessary. If you don?t have a primary care doctor, I recommend you get one but in the mean time, you will have to return to a walk in clinic Follow up IMMEDIATELY for new or worsening symptoms or no Noticeable improvement over the next 48-72 hours. 911 for difficulty breathing or swallowing Clinical Impressions Clinical Impression: Viral upper respiratory illness Stand Alone Forms Stand Alone Forms: Work/School Release Instructions Patient Instructions: DI for Nasal Congestion, Fluticasone Nasal Lorida, Sore Throat Discharge ED Provider: Nadya Hanna [facility] General Stated complaint: Congestion, sore throat, pain in both ears Mode of Arrival: Ambulatory Source of Information: Patient Limitations: No Limitations Time Seen by Provider: 06/12/23 12:15 Description of Symptoms (Recalled from Triage Doc. by RN): PATIENT C/O HEADACHE, EAR PAIN, CHEST CONGESTION, FEELING LIGHT-HEADED AND DIZZINESS SINCE MONDAY HEENT Symptoms (Recalled from RN notes): Yes Resp Symptoms (Recalled from RN notes): No Skin Symptoms (Recalled from RN notes): No MS Symptoms (Recalled from RN notes): No Functional Status (Recalled from RN notes): WNL History of Present Illness Provider Complaint: Patient states that she has been having sore throat, sinus congestion, and drainage since the weekend and having body aches and chills States today she wasnt feeling any better so she came in to get checked Related Data Home Medications Medication Instructions Recorded Confirmed albuterol sulfate 90 mcg/actuation 2 puff inhalation Q4HP PRN SOA 06/12/23 06/12/23 aerosol inhaler escitalopram oxalate 10 mg tablet 10 mg PO DAILY 06/12/23 06/12/23 hydrochlorothiazide 12.5 mg tablet 12.5 mg PO DAILY 06/12/23 06/12/23 montelukast 10 mg tablet 10 mg PO DAILY 06/12/23 06/12/23 pantoprazole 40 mg tablet,delayed 40 mg PO DAILY 06/12/23 06/12/23 release Previous Rx's Medication Instructions Recorded fluticasone propionate 50 2 spray intranasal DAILY #16 grams 06/12/23 mcg/actuation nasal spray,suspension (Flonase Allergy Relief) pseudoephedrine HCl 120 mg 120 mg PO Q12H PRN nasal 06/12/23 tablet,extended release (Sudafed congestion #20 tabs 12 Hour) Allergies Allergy/AdvReac Type Severity Reaction Status Date / Time codeine Allergy Intermediate CHEST PAIN Verified 04/12/23 20:12 Worker's Comp Is this a Worker's Comp case?: No [facility] Disclaimer: The information contained in this section may have been updated after the patient was seen, as this information can be updated by other users. 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workmans comp current occupational exposures/hazards: No caffeine: Yes (coffee) ROS Obtained: Yes All systems reviewed & no additional complaints except as documented and Yes Systems reviewed as appropriate & no additional complaints except as documented Constitutional Constitutional: Reports system reviewed and no additional complaints, except as documented, Reports as per HPI, Reports body ache and Reports chills ENT Ears, Nose, Mouth, and Throat: Reports system reviewed and no additional complaints, except as documented, Reports as per HPI, Reports nasal congestion, Reports nasal discharge and Reports sore throat Cardiovascular Cardiovascular: Reports system reviewed and no additional complaints, except as documented and Reports as per HPI Respiratory Respiratory: Reports system reviewed and no additional complaints, except as documented and Reports as per HPI Gastrointestinal Gastrointestingal: Reports system reviewed and no additional complaints, except as documented and as per HPI Physical Exam General General appearance: alert and in no apparent distress ENT ENT exam: Present mucous membranes moist Expanded ENT Exam TM/Canal exam: Bilateral TM: bulging (clear fluid noted no redness) Nose exam: Absent sinus tenderness Throat exam: Present tonsillar erythema Respiratory Respiratory exam: Present normal lung sounds bilaterally; Absent respiratory distress or wheezes Cardiovascular Cardiovascular exam: Present regular rate, normal rhythm and normal heart sounds Abdominal Exam Abdominal exam: Present soft and normal bowel sounds; Absent distention or tenderness Neurological Exam Neurological exam: Present alert, oriented X3 and normal gait Medical Decision Making Cassius Inquiry Pt receiving controlled substance: No Cassius was queried for this patient: No Vital Signs: 06/12/23 12:00 Temperature 98.1 F Temperature Source Oral Pulse Rate [Right Brachial] 81 Respiratory Rate 17 Blood Pressure [Left Arm] 126/84 Blood Pressure Mean [Left Arm] 98 Blood Pressure Source [Left Arm] Automatic Cuff Blood Pressure Position [Left Arm] Sitting 02 Sat by Pulse Oximetry 98 Oxygen Delivery Method Room Air Lab Data Lab results reviewed: Yes I reviewed the patient's lab results.
[2023-06-12 12:25] VITALS: BP 126/84; PULSE 81; RESP 17; TEMP 36.7; O2SAT 98
[2023-06-12 12:30] LABS: UTC Influenza A Antigen Negative (Negative); UTC Strep Screen (Rapid) Negative (Negative)
[2023-06-12 12:31] LABS: UTC Influenza B Antigen Negative (Negative)
== END 2023-06-12 12:27 | disposition home or self-care (01) ==
PROVIDERS: Emergency Provider Nurse Practitioner; PCP Internal Medicine Adolescent Medicine
DX: J06.9 Acute upper respiratory infection, unspecified (principal); B34.9 Viral infection, unspecified; R51.9 Headache, unspecified; R42 Dizziness and giddiness; J02.9 Acute pharyngitis, unspecified; H92.09 Otalgia, unspecified ear; E78.5 Hyperlipidemia, unspecified; I10 Essential (primary) hypertension; F17.210 Nicotine dependence, cigarettes, uncomplicated
CPT/HCPCS: 87804; 87880; 99212; 99214; G0463

== ENCOUNTER 2023-07-05 09:31 | Emergency (ER) | payer OTHER, SELFPAY ==
[2023-07-05 09:45] VITALS: BP 138/75; PULSE 85; RESP 21; TEMP 36.6; O2SAT 97; BMI 33.5
--- NOTE | 2023-07-05 09:54 | EXP.UTC ---
Discharge Plan Disposition Patient Disposition: Home, Self-Care Condition: Good Prescriptions Prescriptions: New amoxicillin-pot clavulanate 875-125 mg Tablet 1 tab PO Q12H 7 Days Qty: 14 0RF methocarbamol 500 mg tablet 500 mg PO TID PRN (Reason: muscle spasm) Qty: 15 0RF No Action pantoprazole 40 mg tablet,delayed release (DR/EC) 40 mg PO DAILY montelukast 10 mg tablet 10 mg PO DAILY albuterol sulfate 90 mcg/actuation HFA aerosol inhaler 2 puff INHALATION Q4HP PRN (Reason: SOA) escitalopram oxalate 10 mg tablet 10 mg PO DAILY hydrochlorothiazide 12.5 mg tablet 12.5 mg PO DAILY pseudoephedrine HCl [Sudafed 12 Hour] 120 mg tablet extended release 120 mg PO Q12H PRN (Reason: nasal congestion) Qty: 20 0RF fluticasone propionate [Flonase Allergy Relief] 50 mcg/actuation spray,suspension 2 spray intranasal DAILY Qty: 16 0RF Rx Instructions: administer into each nostril daily Referrals Follow up/Referrals: Darnell Montemayor MD [Primary Care Provider] - See instructions Activity Restrictions/Add. Instructions Additional Instructions/Restrictions: *Monitor Temp, Over the counter Motrin or Tylenol as directed/as needed Tylenol every 4 hours and Motrin every 6 hours (as long as your family doctor has told you that you can take it) for fever or pain. and straight to ER if unable to lower temp less than 101.0 after medication given *Warm salt water gargles may help to soothe the throat *Throat Lozenges? *Warm fluids like tea with honey may help to soothe the throat? *Sleep elevated *Humidifier/Vaporizer *Flonase 2 sprays in each nostril daily but be aware that it may take 2-3 days before you notice improvement Your throat swab was sent for culture. Those results are typically sent to your primary care. Be sure to follow up in 2-3 days with your family doctor/primary care physician if no improvement so they can review those result and treat if necessary. If you don?t have a primary care doctor, I recommend you get one but in the mean time, you will have to return to a walk in clinic Follow up IMMEDIATELY for new or worsening symptoms or no Noticeable improvement over the next 48-72 hours. 911 for difficulty breathing or swallowing Clinical Impressions Clinical Impression: Sinusitis Instructions Patient Instructions: DI for Sinusitis, DI for Muscle Spasm Discharge ED Provider: Nadya Hanna [facility] [place] HPI General Stated complaint: head neck throat ear pain Mode of Arrival: Ambulatory Source of Information: Patient Limitations: No Limitations Time Seen by Provider: 07/05/23 09:54 Description of Symptoms (Recalled from Triage Doc. by RN): PATIENT C/O SORE THROAT, EAR AND NECK PAIN, AND HEADACHE X 1 WEEK HEENT Symptoms (Recalled from RN notes): Yes Resp Symptoms (Recalled from RN notes): No Skin Symptoms (Recalled from RN notes): No MS Symptoms (Recalled from RN notes): No Functional Status (Recalled from RN notes): WNL History of Present Illness Provider Complaint: Patient states that for the last week she has been having pain on the right side of her neck just behind ear down into neck area, pain in her right ear, sore throat, sinus congestion and headache States that she has been using a heating pad and it hasnt helped much and today her throat was hurting worse when she would swallow and was red and irritated so she came in Related Data Home Medications Medication Instructions Recorded Confirmed albuterol sulfate 90 mcg/actuation 2 puff inhalation Q4HP PRN SOA 06/12/23 06/12/23 aerosol inhaler escitalopram oxalate 10 mg tablet 10 mg PO DAILY 06/12/23 06/12/23 hydrochlorothiazide 12.5 mg tablet 12.5 mg PO DAILY 06/12/23 06/12/23 montelukast 10 mg tablet 10 mg PO DAILY 06/12/23 06/12/23 pantoprazole 40 mg tablet,delayed 40 mg PO DAILY 06/12/23 06/12/23 release Previous Rx's Medication Instructions Recorded fluticasone propionate 50 2 spray intranasal DAILY #16 grams 06/12/23 mcg/actuation nasal spray,suspension (Flonase Allergy Relief) pseudoephedrine HCl 120 mg 120 mg PO Q12H PRN nasal 06/12/23 tablet,extended release (Sudafed congestion #20 tabs 12 Hour) amoxicillin 875 mg-potassium 1 tab PO Q12H 7 days #14 tabs 07/05/23 clavulanate 125 mg tablet methocarbamol 500 mg tablet 500 mg PO TID PRN muscle spasm #15 07/05/23 tabs Allergies Allergy/AdvReac Type Severity Reaction Status Date / Time codeine Allergy Intermediate CHEST PAIN Verified 04/12/23 20:12 Worker's Comp Is this a Worker's Comp case?: No PFSH PFS Disclaimer: The information contained in this section may have been updated after the patient was seen, as this information can be updated by other users. 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[employer] current occupational exposures/hazards: No caffeine: Yes (coffee) ROS Obtained: Yes All systems reviewed & no additional complaints except as documented and Yes Systems reviewed as appropriate & no additional complaints except as documented Constitutional Constitutional: Reports system reviewed and no additional complaints, except as documented, Reports as per HPI and Reports headache(s) ENT Ears, Nose, Mouth, and Throat: Reports system reviewed and no additional complaints, except as documented, Reports as per HPI, Reports otalgia, Reports headache(s), Reports nasal congestion, Reports sinus pressure and Reports sore throat Cardiovascular Cardiovascular: Reports system reviewed and no additional complaints, except as documented and Reports as per HPI Respiratory Respiratory: Reports system reviewed and no additional complaints, except as documented and Reports as per HPI Gastrointestinal Gastrointestingal: Reports system reviewed and no additional complaints, except as documented and as per HPI Neurologic Neurologic: Reports headache(s) Physical Exam General General appearance: alert and in no apparent distress ENT ENT exam: Present mucous membranes moist Expanded ENT Exam TM/Canal exam: Bilateral TM: bulging Nose exam: Present sinus tenderness Throat exam: Present tonsillar erythema Expanded Neck Exam Neck exam focused ED: Present tenderness (other) Neck image: 1. reports tenderness with palpation and hurts with movement and swallowing Respiratory Respiratory exam: Present normal lung sounds bilaterally; Absent respiratory distress or wheezes Cardiovascular Cardiovascular exam: Present regular rate, normal rhythm and normal heart sounds Neurological Exam Neurological exam: Present alert, oriented X3 and normal gait Medical Decision Making Cassius Inquiry Pt receiving controlled substance: No Cassius was queried for this patient: No Vital Signs: 07/05/23 09:45 Temperature 97.8 F Temperature Source Oral Pulse Rate [Left Brachial] 85 Respiratory Rate 21 Blood Pressure [Left Arm] 138/75 Blood Pressure Mean [Left Arm] 96 Blood Pressure Source [Left Arm] Automatic Cuff Blood Pressure Position [Left Arm] Sitting 02 Sat by Pulse Oximetry 97 Oxygen Delivery Method Room Air Lab Data Lab results reviewed: Yes I reviewed the patient's lab results. Medical Decision Narrative: Patient states that she has take augmentin in the past without complicaitons or reactions
[2023-07-05 09:59] LABS: UTC Strep Screen (Rapid) Negative (Negative)
[2023-07-05 10:20] VITALS: BP 138/75; PULSE 85; RESP 21; TEMP 36.6; O2SAT 97
== END 2023-07-05 10:22 | disposition home or self-care (01) ==
PROVIDERS: Emergency Provider Nurse Practitioner; PCP Internal Medicine Adolescent Medicine
DX: J01.90 Acute sinusitis, unspecified (principal); R51.9 Headache, unspecified; R07.0 Pain in throat; R09.81 Nasal congestion; I10 Essential (primary) hypertension; E78.5 Hyperlipidemia, unspecified; F17.210 Nicotine dependence, cigarettes, uncomplicated
CPT/HCPCS: 87880; 99212; 99214; G0463

== ENCOUNTER 2023-10-17 17:20 | Emergency (ER) | payer OTHER, SELFPAY ==
[2023-10-17 17:40] VITALS: BP 163/84; PULSE 90; RESP 20; TEMP 36.8; O2SAT 97; BMI 31.9
--- NOTE | 2023-10-17 18:19 | ED_ITS ---
Discharge Plan Disposition Patient Disposition: Home, Self-Care Condition: Good Referrals Follow up/Referrals: Darnell Montemayor MD [Primary Care Provider] - See instructions Activity Restrictions/Add. Instructions Additional Instructions/Restrictions: Gargle warm salt water several times daily Make sure to stay hydrated this may help with tonsil stones Keep appointment with ENT as scheduled Return if needed Straight to ER if any life threatening symptoms Clinical Impressions Clinical Impression: Tonsil stone Instructions Patient Instructions: Sore Throat Discharge ED Provider: Nadya Hanna [facility] [place] HPI General Stated complaint: tosil stones sore throat, nausea soa Mode of Arrival: Ambulatory Source of Information: Patient Limitations: No Limitations Time Seen by Provider: 10/17/23 18:19 Description of Symptoms (Recalled from Triage Doc. by RN): PATIENT C/O SORE THROAT WITH TONSIL STONES AND BODY ACHES HEENT Symptoms (Recalled from RN notes): Yes Resp Symptoms (Recalled from RN notes): No Skin Symptoms (Recalled from RN notes): No MS Symptoms (Recalled from RN notes): No Functional Status (Recalled from RN notes): WNL History of Present Illness Provider Complaint: Patient states that she has been having issues with tonsil stones, states today her throat was hurting and feeling scratchy and she wasnt sure if she may have strep throat or tonsil stones again so she came in Related Data Allergies Allergy/AdvReac Type Severity Reaction Status Date / Time codeine Allergy Intermediate CHEST PAIN Verified 04/12/23 20:12 Worker's Comp Is this a Worker's Comp case?: No [facility] Disclaimer: The information contained in this section may have been updated after the patient was seen, as this information can be updated by other users. 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 current occupational exposures/hazards: No caffeine: Yes (coffee) ROS Obtained: Yes All systems reviewed & no additional complaints except as documented and Yes Systems reviewed as appropriate & no additional complaints except as documented Constitutional Constitutional: Reports system reviewed and no additional complaints, except as documented, Reports as per HPI and Reports body ache ENT Ears, Nose, Mouth, and Throat: Reports system reviewed and no additional complaints, except as documented, Reports as per HPI and Reports sore throat Cardiovascular Cardiovascular: Reports system reviewed and no additional complaints, except as documented and Reports as per HPI Respiratory Respiratory: Reports system reviewed and no additional complaints, except as documented and Reports as per HPI Gastrointestinal Gastrointestingal: Reports system reviewed and no additional complaints, except as documented and as per HPI Physical Exam General General appearance: alert and in no apparent distress ENT ENT exam: Present mucous membranes moist Expanded ENT Exam Throat exam: Present tonsillar erythema (mild with several tonsil stones noted on left); Absent tonsillomegaly or tonsillar exudate Respiratory Respiratory exam: Present normal lung sounds bilaterally; Absent respiratory distress or wheezes Cardiovascular Cardiovascular exam: Present regular rate, normal rhythm and normal heart sounds Neurological Exam Neurological exam: Present alert, oriented X3 and normal gait Medical Decision Making Cassius Inquiry Pt receiving controlled substance: No Cassius was queried for this patient: No Vital Signs: 10/17/23 17:40 Temperature 98.3 F Temperature Source Oral Pulse Rate [Left Brachial] 90 Respiratory Rate 20 Blood Pressure [Left Arm] 163/84 H Blood Pressure Mean [Left Arm] 110 Blood Pressure Source [Left Arm] Automatic Cuff Blood Pressure Position [Left Arm] Sitting 02 Sat by Pulse Oximetry 97 Oxygen Delivery Method Room Air Lab Data Lab results reviewed: Yes I reviewed the patient's lab results.
[2023-10-17 18:39] VITALS: BP 163/84; PULSE 90; RESP 20; TEMP 36.8; O2SAT 97
== END 2023-10-17 18:43 | disposition home or self-care (01) ==
PROVIDERS: Emergency Provider Nurse Practitioner; PCP Internal Medicine Adolescent Medicine
DX: J35.8 Other chronic diseases of tonsils and adenoids (principal); R07.0 Pain in throat
CPT/HCPCS: 99212; 99213; G0463

== ENCOUNTER 2024-01-25 18:29 | Emergency (ER) | payer OTHER, SELFPAY ==
[2024-01-25 18:45] VITALS: BP 136/89; PULSE 91; RESP 20; TEMP 36.2; O2SAT 97; BMI 34.4
--- NOTE | 2024-01-25 18:50 | ED_ITS ---
Discharge Plan Disposition Patient Disposition: Home, Self-Care Condition: Good Prescriptions Prescriptions: New amoxicillin 500 mg tablet 500 mg PO TID 10 Days Qty: 30 0RF benzonatate 100 mg capsule 100 mg PO TIDP PRN (Reason: Cough) Qty: 30 0RF ondansetron 4 mg Tablet,Disintegrating 4 mg PO Q8H PRN (Reason: Nausea) Qty: 12 0RF No Action trazodone 100 mg tablet 100 mg PO DAILY pantoprazole 40 mg tablet,delayed release (DR/EC) 40 mg PO DAILY montelukast 10 mg tablet 10 mg PO DAILY Referrals Follow up/Referrals: Alia Willett APRN [Primary Care Provider] - See instructions Activity Restrictions/Add. Instructions Additional Instructions/Restrictions: Drink plenty of fluids. Take tylenol or ibuprofen for pain or fever. Take the medications as directed. Follow up with your regular doctor. GO TO THE ER FOR ANY WORSENING SYMPTOMS Clinical Impressions Clinical Impression: Pharyngitis, Acute viral syndrome Stand Alone Forms Stand Alone Forms: Work/School Release Instructions Patient Instructions: DI for Viral Syndrome Print Language Print Language: Welsh Discharge ED Provider[place] Chano Warren [facility] [place] General Stated complaint: Sore throat,congestion,EPSINOZA,body aches Mode of Arrival: Ambulatory Source of Information: Patient Limitations: No Limitations Time Seen by Provider: 01/25/24 18:50 Description of Symptoms (Recalled from Triage Doc. by RN): PATIENT C/O SORE THROAT, BACK PAIN, HEADACHE AND CHEST CONGESTION SINCE YESTERDAY MORNING HEENT Symptoms (Recalled from RN notes): Yes Resp Symptoms (Recalled from RN notes): No Skin Symptoms (Recalled from RN notes): No MS Symptoms (Recalled from RN notes): No Functional Status (Recalled from RN notes): WNL Related Data Home Medications ?Medication ?Instructions ?Recorded ?Confirmed montelukast 10 mg tablet 10 mg PO DAILY 01/25/24 01/25/24 pantoprazole 40 mg tablet,delayed 40 mg PO DAILY 01/25/24 01/25/24 release trazodone 100 mg tablet 100 mg PO DAILY 01/25/24 01/25/24 Previous Rx's ?Medication ?Instructions ?Recorded amoxicillin 500 mg tablet 500 mg PO TID 10 days #30 tabs 01/25/24 benzonatate 100 mg capsule 100 mg PO TIDP PRN Cough #30 caps 01/25/24 ondansetron 4 mg disintegrating 4 mg PO Q8H PRN Nausea #12 tabs 01/25/24 tablet Allergies Allergy/AdvReac Type Severity Reaction Status Date / Time codeine Allergy Intermediate CHEST PAIN Verified 04/12/23 20:12 Worker's Comp Is this a Worker's Comp case?: No PFSH PFS Disclaimer: The information contained in this section may have been updated after the patient was seen, as this information can be updated by other users. 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 occupational exposures/hazards: No caffeine: Yes (coffee) ROS Obtained: Yes All systems reviewed & no additional complaints except as documented Constitutional Constitutional: Reports chills and Reports fever(s) Eyes Eyes: Denies eye discharge ENT Ears, Nose, Mouth, and Throat: Reports as per HPI Cardiovascular Cardiovascular: Denies chest pain Respiratory Respiratory: Denies chest congestion and Reports cough Gastrointestinal Gastrointestingal: Reports nausea; Denies abdominal pain, constipation, cramping, diarrhea or vomiting Musculoskeletal Musculoskeletal: Denies arthralgias Integumentary/Breasts Skin/Breast: Denies rash Neurologic Neurologic: Denies paresthesias Physical Exam General General appearance: alert and in no apparent distress Head Head exam: atraumatic, normocephalic and normal inspection Eye Eye exam: Present normal appearance, PERRL and EOMI ENT ENT exam: Present mucous membranes moist and normal external ear exam Expanded ENT Exam TM/Canal exam: Bilateral TM: erythema and bulging Nose exam: Absent sinus tenderness Mouth exam: Present normal external inspection; Absent drooling Teeth exam: Present normal inspection Throat exam: Present tonsillar erythema, tonsillomegaly and tonsillar exudate Neck Neck exam: Present normal inspection, full ROM and trachea midline; Absent tenderness, meningismus or lymphadenopathy Chest Chest inspection: Present normal inspection and symmetric chest wall rise; Absent tenderness Respiratory Respiratory exam: Present normal lung sounds bilaterally; Absent respiratory distress, wheezes, stridor or accessory muscle use Cardiovascular Cardiovascular exam: Present regular rate and normal rhythm; Absent systolic murmur or diastolic murmur Abdominal Exam Abdominal exam: Present soft and normal bowel sounds; Absent distention, tenderness, guarding, rebound or rigidity Extremities Exam Extremities exam: Present normal inspection and normal capillary refill; Absent calf tenderness Back Exam Back exam: Present normal inspection and full ROM; Absent tenderness, CVA tenderness (R) or CVA tenderness (L) Neurological Exam Neurological exam: Present alert, oriented X3 and CN II-XII intact Psychiatric Psychiatric exam: Present normal affect and normal mood Skin Skin exam: Present warm, dry, intact and normal color Medical Decision Making Medical Records Medical records reviewed: No I reviewed the patient's medical records. Screening: Per USPSTF and CDC recommendations, given the prevalence of disease in our region, it is our hospital?s policy to screen for HIV and viral Hepatitis for all patients aged 18 and over and those with ongoing risk factors. Cassius Inquiry Pt receiving controlled substance: No Vital Signs: 01/25/24 18:45 Temperature 97.2 F L Temperature Source Oral Pulse Rate [Left Brachial] 91 H Respiratory Rate 20 Blood Pressure [Left Arm] 136/89 Blood Pressure Mean [Left Arm] 104 Blood Pressure Source [Left Arm] Automatic Cuff Blood Pressure Position [Left Arm] Sitting 02 Sat by Pulse Oximetry 97 Oxygen Delivery Method Room Air Lab Data Lab results reviewed: Yes I reviewed the patient's lab results.
[2024-01-25 18:57] LABS: UTC Strep Screen (Rapid) Negative (Negative)
[2024-01-25 19:15] LABS: Coronavirus 19, PCR Not Detected (NotDetected); Influenza A, PCR Not Detected (NotDetected); Influenza B, PCR Not Detected (NotDetected)
[2024-01-25 19:31] VITALS: BP 136/89; PULSE 91; RESP 18; TEMP 36.2; O2SAT 97
== END 2024-01-25 19:32 | disposition home or self-care (01) ==
PROVIDERS: Emergency Provider Nurse Practitioner Family; PCP Nurse Practitioner Family
DX: B34.9 Viral infection, unspecified (principal); J02.9 Acute pharyngitis, unspecified; R09.81 Nasal congestion; R51.9 Headache, unspecified; M79.10 Myalgia, unspecified site; R09.89 Other specified symptoms and signs involving the circulatory and respiratory systems
CPT/HCPCS: 87636; 87880; 99212; G0381

== ENCOUNTER 2024-02-11 09:14 | Outpatient (CLI) | payer OTHER, SELFPAY ==
[2024-02-11 09:44] LABS: Basophils # 0.1 K/mm3 (0-0.2); Basophils % 0.9 % (0.1-2.0); Eosinophils # 0.1 K/mm3 (0.0-0.4); Eosinophils % 0.9 % (0.1-12.0); Lymphocytes # 2.5 K/mm3 (0.7-4.5); Lymphocytes % 27.5 % (10-50); Mean Corpuscular HGB Conc 32.5 g/dL (31.8-35.4); Mean Corpuscular Hemoglobin 29.7 pg (27.0-31.2); Mean Corpuscular Volume 91.5 fl (81-99); Mean Platelet Volume 7.1 fl (7.4-10.4); Monocytes # 0.5 K/mm3 (0.1-1.0); Neutrophils # 5.9 K/mm3 (1.8-7.8); Neutrophils % 65.6 % (37.0-80.0); Platelet Count 410 K/mm3 (142-424); Red Blood Count 4.37 M/mm3 (4.20-5.40); Red Cell Distribution Width 14.2 % (11.5-17.5); White Blood Count 8.9 K/mm3 (4.8-10.8)
[2024-02-11 10:04] LABS: Alanine Aminotransferase 16 U/L (12-78); Albumin Level 3.5 g/dl (3.5-5.0); Albumin/Globulin Ratio 1.3 (1.1-1.8); Aspartate Amino Transferase 19 U/L (14-36); Blood Urea Nitrogen 10 mg/dl (7-17); Calcium 8.6 mg/dl (8.4-10.2); Carbon Dioxide 25 mmol/L (22.0-30.0); Chloride 109 mmol/L (98-107); Cholesterol 232 mg/dl (140-200); Estimated Glomerular Filt Rate 76 ml/min (>60); GFR (African American) 92 ML/MIN (>60); Globulin 2.7 g/dL (1.3-3.2); Glucose 91 mg/dl (74-100); Total Protein,Serum 6.2 g/dl (6.3-8.2); Triglycerides 134 mg/dl (30-150); VLDL Cholesterol 27 mg/dL (0-40)
[2024-02-11 10:05] LABS: Alkaline Phosphatase 83 U/L (38-126); Anion Gap 9.4 mEq/L (5-15); Bilirubin,Total 0.9 mg/dl (0.2-1.3); HDL Cholesterol 46 mg/dl (40-60); Potassium 4.4 mmoL/L (3.5-5.1); Sodium 139 mmol/L (136-145)
[2024-02-11 10:21] LABS: 25-OH Vitamin D, Total 32.8 ng/mL (30-100)
[2024-02-11 10:36] LABS: Thyroid Stimulating Hormone 0.79 uIU/mL (0.465-4.68)
[2024-02-11 17:07] LABS: Vitamin B12 516 pg/mL (239-931)
== END 2024-02-11 23:59 | disposition home or self-care (01) ==
LOC: LAB 09:16
PROVIDERS: PCP Nurse Practitioner Family; Visit Provider Nurse Practitioner Family
DX: Z00.00 Encounter for general adult medical examination without abnormal findings (principal); E78.5 Hyperlipidemia, unspecified; G62.9 Polyneuropathy, unspecified; E53.8 Deficiency of other specified B group vitamins; E55.9 Vitamin D deficiency, unspecified
CPT/HCPCS: 36415; 80050; 80053; 80061; 82306; 82607; 84443; 85025

== ENCOUNTER 2024-03-29 16:50 | Emergency (ER) | payer OTHER, SELFPAY ==
[2024-03-29 18:25] VITALS: BP 139/85; PULSE 109; RESP 19; TEMP 37.2; O2SAT 98; BMI 33.4
--- NOTE | 2024-03-29 18:33 | EXP.UTC ---
Discharge Plan Disposition Patient Disposition: Home, Self-Care Condition: Good Prescriptions Prescriptions: No Action trazodone 100 mg tablet 100 mg PO DAILY pantoprazole 40 mg tablet,delayed release (DR/EC) 40 mg PO DAILY montelukast 10 mg tablet 10 mg PO DAILY amoxicillin 500 mg tablet 500 mg PO TID 10 Days Qty: 30 0RF benzonatate 100 mg capsule 100 mg PO TIDP PRN (Reason: Cough) Qty: 30 0RF ondansetron 4 mg Tablet,Disintegrating 4 mg PO Q8H PRN (Reason: Nausea) Qty: 12 0RF Referrals Follow up/Referrals: Darnell Montemayor MD [Primary Care Provider] - See instructions Activity Restrictions/Add. Instructions Additional Instructions/Restrictions: *Monitor Temp, Over the counter Motrin or Tylenol as directed/as needed Tylenol every 4 hours and Motrin every 6 hours (as long as your family doctor has told you that you can take it) for fever or pain. and straight to ER if unable to lower temp less than 101.0 after medication given *Warm salt water gargles may help to soothe the throat *Throat Lozenges? *Warm fluids like tea with honey may help to soothe the throat? *Sleep elevated *Humidifier/Vaporizer Follow up IMMEDIATELY for new or worsening symptoms or no Noticeable improvement over the next 48-72 hours. 911 for difficulty breathing or swallowing You were tested for today for Mini Panel test that includes, RhinoVirus, Influenza A & B, RSV and COVID19 your test result should be back in the next 4 hours, you may check your results on the [facility] [employer] [facility] portal Clinical Impressions Clinical Impression: Viral upper respiratory illness Instructions Patient Instructions: DI for Viral Upper Respiratory Infection -- Adult Print Language Print Language: Upper Sorbian Discharge ED Provider: Nadya Hanna [facility] [place] H[place] General Stated complaint: h/a, body aches, abd pain Time Seen by Provider: 03/29/24 18:33 History of Present Illness Provider Complaint: Patient states that she started feeling bad yesterday States that she has been having body aches, chills, headache, low grade fever and feeling like she is going to get diarrhea States today she was still not feeling any better so she came in to get checked worried because flu and COVID is going around Related Data Home Medications ?Medication ?Instructions ?Recorded ?Confirmed montelukast 10 mg tablet 10 mg PO DAILY 01/25/24 01/25/24 pantoprazole 40 mg tablet,delayed 40 mg PO DAILY 01/25/24 01/25/24 release trazodone 100 mg tablet 100 mg PO DAILY 01/25/24 01/25/24 Previous Rx's ?Medication ?Instructions ?Recorded amoxicillin 500 mg tablet 500 mg PO TID 10 days #30 tabs 01/25/24 benzonatate 100 mg capsule 100 mg PO TIDP PRN Cough #30 caps 01/25/24 ondansetron 4 mg disintegrating 4 mg PO Q8H PRN Nausea #12 tabs 01/25/24 tablet Allergies Allergy/AdvReac Type Severity Reaction Status Date / Time codeine Allergy Intermediate CHEST PAIN Verified 04/12/23 20:12 [facility] Disclaimer: The information contained in this section may have been updated after the patient was seen, as this information can be updated by other users. Medical History (Updated 03/29/24 @ 18:52 by Nadya Hanna APRN) Anxiety Hyperlipidemia Hypertension Surgical History History of tympanostomy tube placement History of cholecystectomy Social History Smoking Status: Current every day smoker tobacco type: cigarettes packs per day: 1 second hand exposure: No alcohol intake: never counseling provided: none substance use type: denies use current occupational status: employed Travel in the last 8 weeks: None household members: other housing: other current occupation: dietary currently on workmans comp current occupational exposures/hazards: No caffeine: Yes (coffee) Have you lived/traveled outside US in past 30 days?: No Contact w/someone who lives/traveled outside US past 30 days?: No Exposure to someone with infectious disease in past 14 days?: No Do you have a fever (greater than 100.4 F or 38 C)?: No Have you tested positive for COVID-19: No Exposed to someone with COVID-19 in past 14 days?: No Do you have a sore throat?: No Do you have a cough?: No Do you have any weakness?: No Do you have any diarrhea?: No Are you experiencing any unusual bleeding?: No Do you have any muscle aches/pain?: Yes Do you have any abdominal pain?: Yes Are you experiencing loss of taste or smell?: No ROS Obtained: Yes All systems reviewed & no additional complaints except as documented and Yes Systems reviewed as appropriate & no additional complaints except as documented Constitutional Constitutional: Reports system reviewed and no additional complaints, except as documented, Reports as per HPI, Reports body ache, Reports chills, Reports fever(s) and Reports headache(s) ENT Ears, Nose, Mouth, and Throat: Reports system reviewed and no additional complaints, except as documented, Reports as per HPI, Reports headache(s) and Reports nasal congestion Cardiovascular Cardiovascular: Reports system reviewed and no additional complaints, except as documented and Reports as per HPI Respiratory Respiratory: Reports system reviewed and no additional complaints, except as documented and Reports as per HPI Gastrointestinal Gastrointestingal: Reports system reviewed and no additional complaints, except as documented, as per HPI and cramping (at times like she is going to have diarrhea ); Denies abdominal pain, nausea or vomiting Musculoskeletal Musculoskeletal: Reports system reviewed and no additional complaints, except as documented and Reports as per HPI Neurologic Neurologic: Reports headache(s) Physical Exam General General appearance: alert and in no apparent distress ENT ENT exam: Present mucous membranes moist Expanded ENT Exam Nose exam: Absent sinus tenderness Throat exam: Present normal inspection Respiratory Respiratory exam: Present normal lung sounds bilaterally; Absent respiratory distress or wheezes Cardiovascular Cardiovascular exam: Present regular rate, normal rhythm and normal heart sounds Abdominal Exam Abdominal exam: Present soft and normal bowel sounds; Absent distention Neurological Exam Neurological exam: Present alert, oriented X3 and normal gait Medical Decision Making Medical Records Screening: Per USPSTF and CDC recommendations, given the prevalence of disease in our region, it is our hospital?s policy to screen for HIV and viral Hepatitis for all patients aged 18 and over and those with ongoing risk factors. Cassius Inquiry Pt receiving controlled substance: No Cassius was queried for this patient: No Lab Data Lab results reviewed: Yes I reviewed the patient's lab results.
[2024-03-29 18:47] LABS: UTC Influenza A Antigen Negative (Negative); UTC Influenza B Antigen Negative (Negative)
[2024-03-29 18:58] VITALS: BP 139/85; PULSE 109; RESP 19; TEMP 37.2; O2SAT 98
[2024-03-29 19:03] LABS: Coronavirus 19, PCR Not Detected (NotDetected); Human Rhinovirus Not Detected (NotDetected); Influenza A, PCR Not Detected (NotDetected); Influenza B, PCR Not Detected (NotDetected); Respiratory Syncytial Virus Not Detected (NotDetected)
== END 2024-03-29 19:02 | disposition home or self-care (01) ==
PROVIDERS: Emergency Provider Nurse Practitioner; PCP Internal Medicine Adolescent Medicine
DX: J06.9 Acute upper respiratory infection, unspecified (principal)
CPT/HCPCS: 87631; 87804; 99213; G0381

== ENCOUNTER 2024-04-14 13:34 | Emergency (ER) | payer OTHER, SELFPAY ==
--- NOTE | 2024-04-14 13:49 | EXP.UTC ---
Discharge Plan Disposition Patient Disposition: Home, Self-Care Condition: Good Prescriptions Prescriptions: New amoxicillin 875 mg tablet 875 mg PO Q12H Qty: 20 0RF benzonatate 100 mg capsule 100 mg PO TIDP PRN (Reason: Cough) Qty: 30 0RF methylprednisolone 4 mg Tablets,Dose Pack 4 mg PO DIRECTED 6 Days Qty: 21 0RF Rx Instructions: Take 1 pack as directed for 6 days No Action trazodone 100 mg tablet 100 mg PO DAILY pantoprazole 40 mg tablet,delayed release (DR/EC) 40 mg PO DAILY montelukast 10 mg tablet 10 mg PO DAILY Referrals Follow up/Referrals: Darnell Montemayor MD [Primary Care Provider] - See instructions Activity Restrictions/Add. Instructions Additional Instructions/Restrictions: Drink plenty of fluids. Take tylenol or ibuprofen for pain or fever. Take the medications as directed. Follow up with your regular doctor. GO TO THE ER FOR ANY WORSENING SYMPTOMS Don't start the oral steroids (medrol dose pack) until tomorrow since you had the shot here Clinical Impressions Clinical Impression: Otitis media, Adenopathy, cervical Stand Alone Forms Stand Alone Forms: Work/School Release Instructions Patient Instructions: Middle Ear Infection, Dexamethasone Injection Print Language Print Language: Paraguayan Discharge ED Provider: Chano Warren [facility] General Stated complaint: Right ear pain going into neck and back of head Time Seen by Provider: 04/14/24 13:49 Related Data Home Medications ?Medication ?Instructions ?Recorded ?Confirmed montelukast 10 mg tablet 10 mg PO DAILY 01/25/24 04/14/24 pantoprazole 40 mg tablet,delayed 40 mg PO DAILY 01/25/24 04/14/24 release trazodone 100 mg tablet 100 mg PO DAILY 01/25/24 04/14/24 Previous Rx's ?Medication ?Instructions ?Recorded amoxicillin 875 mg tablet 875 mg PO Q12H #20 tabs 04/14/24 benzonatate 100 mg capsule 100 mg PO TIDP PRN Cough #30 caps 04/14/24 methylprednisolone 4 mg tablets in 4 mg PO DIRECTED 6 days #21 tabs 04/14/24 a dose pack Allergies Allergy/AdvReac Type Severity Reaction Status Date / Time codeine Allergy Intermediate CHEST PAIN Verified 04/12/23 20:12 [facility] Disclaimer: The information contained in this section may have been updated after the patient was seen, as this information can be updated by other users. Medical History (Updated 04/14/24 @ 14:14 by Chano Warren APRN) Anxiety Hyperlipidemia Hypertension Surgical History History of tympanostomy tube placement History of cholecystectomy Social History Smoking Status: Current every day smoker tobacco type: cigarettes packs per day: 1 second hand exposure: No alcohol intake: never counseling provided: none substance use type: denies use current occupational status: employed Travel in the last 8 weeks: None household members: other housing: other current occupation: dietary currently on workmans comp current occupational exposures/hazards: No caffeine: Yes (coffee) Have you lived/traveled outside US in past 30 days?: No Contact w/someone who lives/traveled outside US past 30 days?: No Exposure to someone with infectious disease in past 14 days?: No Do you have a fever (greater than 100.4 F or 38 C)?: No Have you tested positive for COVID-19: No Exposed to someone with COVID-19 in past 14 days?: No Do you have a sore throat?: No Do you have a cough?: No Do you have any weakness?: No Do you have any diarrhea?: No Are you experiencing any unusual bleeding?: No Do you have any muscle aches/pain?: No Do you have any abdominal pain?: No Are you experiencing loss of taste or smell?: No ROS Obtained: Yes All systems reviewed & no additional complaints except as documented Constitutional Constitutional: Denies chills, Reports fever(s) and Reports poor appetite Eyes Eyes: Denies eye discharge ENT Ears, Nose, Mouth, and Throat: Denies ear discharge, Reports otalgia, Denies hearing loss, Denies sinus pain and Reports sore throat Cardiovascular Cardiovascular: Denies chest pain and Denies dyspnea Respiratory Respiratory: Denies chest congestion, Reports cough and Denies dyspnea Gastrointestinal Gastrointestingal: Denies abdominal pain, diarrhea, nausea or vomiting Musculoskeletal Musculoskeletal: Denies arthralgias Integumentary/Breasts Skin/Breast: Denies rash Physical Exam General General appearance: alert and in no apparent distress Head Head exam: atraumatic, normocephalic and normal inspection Eye Eye exam: Present normal appearance; Absent PERRL or EOMI ENT ENT exam: Present mucous membranes moist and normal external ear exam Expanded ENT Exam TM/Canal exam: Bilateral TM: erythema, bulging and effusion Nose exam: Absent sinus tenderness Nasal speculum exam: Bilateral: normal Mouth exam: Present normal external inspection and other; Absent drooling Teeth exam: Present normal inspection Throat exam: Present tonsillar erythema and tonsillomegaly Neck Neck exam: Present normal inspection, full ROM and trachea midline; Absent tenderness, meningismus or lymphadenopathy Chest Chest inspection: Present normal inspection and symmetric chest wall rise; Absent tenderness Respiratory Respiratory exam: Present normal lung sounds bilaterally; Absent respiratory distress, wheezes or stridor Cardiovascular Cardiovascular exam: Present regular rate, normal rhythm and normal heart sounds; Absent tachycardia or irregular rhythm Abdominal Exam Abdominal exam: Present soft and normal bowel sounds; Absent distention, tenderness, guarding, rebound or rigidity Extremities Exam Extremities exam: Present normal inspection and normal capillary refill; Absent tenderness, joint swelling or calf tenderness Back Exam Back exam: Present normal inspection and full ROM; Absent tenderness, CVA tenderness (R) or CVA tenderness (L) Neurological Exam Neurological exam: Present alert, oriented X3, CN II-XII intact, normal gait and reflexes normal; Absent motor sensory deficit Psychiatric Psychiatric exam: Present normal affect and normal mood Skin Skin exam: Present warm, dry, intact and normal color Lymphatic Lymphatic Findings: no adenopathy Medical Decision Making Medical Records Medical records reviewed: No I reviewed the patient's medical records. Screening: Per USPSTF and CDC recommendations, given the prevalence of disease in our region, it is our hospital?s policy to screen for HIV and viral Hepatitis for all patients aged 18 and over and those with ongoing risk factors. Cassius Inquiry Pt receiving controlled substance: No
[2024-04-14 13:51] VITALS: BP 134/77; PULSE 91; RESP 16; TEMP 36.7; O2SAT 96; BMI 33.2
[2024-04-14] MEDS: DEXAMETHASONE 4MG/ML 1ML VIAL 8 MG IM (14:03)
[2024-04-14 14:25] VITALS: BP 134/77; PULSE 91; RESP 16; TEMP 36.7
== END 2024-04-14 14:25 | disposition home or self-care (01) ==
PROVIDERS: Emergency Provider Nurse Practitioner Family; PCP Internal Medicine Adolescent Medicine
DX: R59.0 Localized enlarged lymph nodes (principal); H66.90 Otitis media, unspecified, unspecified ear
CPT/HCPCS: 99213; G0381; J1100

== ENCOUNTER 2024-05-04 10:35 | Emergency (ER) | payer OTHER, SELFPAY ==
[2024-05-04 10:45] VITALS: BP 139/81; PULSE 98; RESP 19; TEMP 37.1; O2SAT 98; BMI 43.0
--- NOTE | 2024-05-04 10:59 | ED_ITS ---
Discharge Plan Disposition Patient Disposition: Home, Self-Care Condition: Good Prescriptions Prescriptions: No Action amitriptyline 10 mg tablet 10 mg PO DAILY pantoprazole 40 mg tablet,delayed release (DR/EC) 40 mg PO DAILY montelukast 10 mg tablet 10 mg PO DAILY escitalopram oxalate 10 mg tablet 10 mg PO DAILY Referrals Follow up/Referrals: Darnell Montemayor MD [Primary Care Provider] - See instructions Activity Restrictions/Add. Instructions Additional Instructions/Restrictions: Monitor Temp, Over the counter Motrin or Tylenol as directed/as needed Tylenol every 4 hours and Motrin every 6 hours (as long as your family doctor has told you that you can take it) for fever or pain. and straight to ER if unable to lower temp less than 101.0 after medication given *Warm salt water gargles may help to soothe the throat *Throat Lozenges? *Warm fluids like tea with honey may help to soothe the throat? *Sleep elevated *Humidifier/Vaporizer Your throat swab was sent for culture. Those results are typically sent to your primary care. Be sure to follow up in 2-3 days with your family doctor/primary care physician if no improvement so they can review those result and treat if necessary. If you don?t have a primary care doctor, I recommend you get one but in the mean time, you will have to return to a walk in clinic Follow up IMMEDIATELY for new or worsening symptoms or no Noticeable improvement over the next 48-72 hours. 911 for difficulty breathing or swallowing You were tested for today for Mini Respiratory Panel that includes COVID19, Influenza A&B, RhinoVirus and RSV your test result should be back in the next few hours, and your result be available on the [facility] [employer] [facility] portal Clinical Impressions Clinical Impression: Viral upper respiratory illness Stand Alone Forms Stand Alone Forms: Work/School Release Instructions Patient Instructions: DI for Viral Syndrome Print Language Print Language: Maori Discharge ED Provider: Nadya Hanna [facility] [place] General Stated complaint: fever, bodyaches Mode of Arrival: Ambulatory Source of Information: Patient Limitations: No Limitations Time Seen by Provider: 05/04/24 10:59 Description of Symptoms (Recalled from Triage Doc. by RN): PATIENT C/O HEADACHE, EAR PAIN, SORE THROAT, BODY ACHES, AND STOMACH CRAMPING SINCE MONDAY MORNING HEENT Symptoms (Recalled from RN notes): Yes Resp Symptoms (Recalled from RN notes): No Skin Symptoms (Recalled from RN notes): No MS Symptoms (Recalled from RN notes): No Functional Status (Recalled from RN notes): WNL History of Present Illness Provider Complaint: Patient states that she started feeling bad a couple days ago with body aches, chills, nasal congestion scratchy throat, headache and chills States that she has been around her son that has flu and her niece has RSV and she came in wanting to get tested Related Data Home Medications ?Medication ?Instructions ?Recorded ?Confirmed amitriptyline 10 mg tablet 10 mg PO DAILY 05/04/24 05/04/24 escitalopram oxalate 10 mg tablet 10 mg PO DAILY 05/04/24 05/04/24 montelukast 10 mg tablet 10 mg PO DAILY 05/04/24 05/04/24 pantoprazole 40 mg tablet,delayed 40 mg PO DAILY 05/04/24 05/04/24 release Allergies Allergy/AdvReac Type Severity Reaction Status Date / Time codeine Allergy Intermediate CHEST PAIN Verified 04/12/23 20:12 Worker's Comp Is this a Worker's Comp case?: No [facility] Disclaimer: The information contained in this section may have been updated after the patient was seen, as this information can be updated by other users. Medical History (Updated 05/04/24 @ 11:02 by Nadya Hanna APRN) Anxiety Hyperlipidemia Hypertension Surgical History History of tympanostomy tube placement History of cholecystectomy Social History Smoking Status: Current every day smoker tobacco type: cigarettes packs per day: 1 second hand exposure: No alcohol intake: never counseling provided: none substance use type: denies use current occupational status: employed Travel in the last 8 weeks: None household members: other housing: other current occupation: dietary currently on workmans comp current occupational exposures/hazards: No caffeine: Yes (coffee) Have you lived/traveled outside US in past 30 days?: No Contact w/someone who lives/traveled outside US past 30 days?: No Exposure to someone with infectious disease in past 14 days?: No Do you have a fever (greater than 100.4 F or 38 C)?: No Have you tested positive for COVID-19: No Exposed to someone with COVID-19 in past 14 days?: No Do you have a sore throat?: No Do you have a cough?: No Do you have any weakness?: No Do you have any diarrhea?: No Are you experiencing any unusual bleeding?: No Do you have any muscle aches/pain?: No Do you have any abdominal pain?: No Are you experiencing loss of taste or smell?: No ROS Obtained: Yes All systems reviewed & no additional complaints except as documented and Yes Systems reviewed as appropriate & no additional complaints except as documented Constitutional Constitutional: Reports system reviewed and no additional complaints, except as documented, Reports as per HPI, Reports body ache, Reports chills, Reports fever(s) and Reports headache(s) ENT Ears, Nose, Mouth, and Throat: Reports system reviewed and no additional complaints, except as documented, Reports as per HPI, Reports otalgia, Reports headache(s), Reports nasal congestion, Reports nasal discharge and Reports sore throat Cardiovascular Cardiovascular: Reports system reviewed and no additional complaints, except as documented and Reports as per HPI Respiratory Respiratory: Reports system reviewed and no additional complaints, except as documented and Reports as per HPI Gastrointestinal Gastrointestingal: Reports system reviewed and no additional complaints, except as documented and as per HPI Genitourinary Female Genitourinary: Reports system reviewed and no additional complaints, except as documented and Reports as per HPI Musculoskeletal Musculoskeletal: Reports system reviewed and no additional complaints, except as documented and Reports as per HPI Neurologic Neurologic: Reports headache(s) Physical Exam General General appearance: alert and in no apparent distress ENT ENT exam: Present normal exam, normal oropharynx, mucous membranes moist and TM's normal bilaterally Respiratory Respiratory exam: Present normal lung sounds bilaterally; Absent respiratory distress or wheezes Cardiovascular Cardiovascular exam: Present regular rate, normal rhythm and normal heart sounds Abdominal Exam Abdominal exam: Present soft and normal bowel sounds; Absent distention or tenderness Neurological Exam Neurological exam: Present alert, oriented X3 and normal gait Medical Decision Making Medical Records Screening: Per USPSTF and CDC recommendations, given the prevalence of disease in our region, it is our hospital?s policy to screen for HIV and viral Hepatitis for all patients aged 18 and over and those with ongoing risk factors. Cassius Inquiry Pt receiving controlled substance: No Cassius was queried for this patient: No Vital Signs: 05/04/24 10:45 Temperature 98.7 F Temperature Source Oral Pulse Rate [Left Brachial] 98 H Respiratory Rate 19 Blood Pressure [Left Arm] 139/81 Blood Pressure Mean [Left Arm] 100 Blood Pressure Source [Left Arm] Automatic Cuff Blood Pressure Position [Left Arm] Sitting 02 Sat by Pulse Oximetry 98 Oxygen Delivery Method Room Air Lab Data Lab results reviewed: Yes I reviewed the patient's lab results.
[2024-05-04 11:06] LABS: UTC Influenza A Antigen Negative (Negative); UTC Influenza B Antigen Negative (Negative)
[2024-05-04 11:08] VITALS: BP 139/81; PULSE 98; RESP 19; TEMP 37.1; O2SAT 98
[2024-05-04 11:49] LABS: Coronavirus 19, PCR Not Detected (NotDetected); Human Rhinovirus Not Detected (NotDetected); Influenza B, PCR Not Detected (NotDetected); Respiratory Syncytial Virus Not Detected (NotDetected)
[2024-05-04 15:04] LABS: Influenza A, PCR Detected (NotDetected)
== END 2024-05-04 11:15 | disposition home or self-care (01) ==
PROVIDERS: Emergency Provider Nurse Practitioner; PCP Internal Medicine Adolescent Medicine
DX: J06.9 Acute upper respiratory infection, unspecified (principal)
CPT/HCPCS: 87631; 87804; 99213; G0381

== ENCOUNTER 2024-08-18 13:49 | Outpatient (CLI) | payer OTHER, SELFPAY ==
--- OUTSIDE RECORDS SUMMARY | 2024-08-18 13:53 | XMS_ITS | Data Portability ---
Author Organization [place] - [facility] - [facility] KeshiaDINA ADMIN Address [address] [place] [id number] Assessment Encounter Date Assessment Date Assessment LastModified by Organization Details LastModified Time 11/14/2022 11/14/2022 47-year-old female with LLQ pain, intermittent blood with wiping. She has a history of low anterior resection with colorectal anastomosis secondary to recurrent diverticulitis. She also is overdue for surveillance of area of ulceration and adenomatous tissue previously seen within the ascending colon in 2018. Last colonoscopy in 2019 with no areas of adenomatous tissue seen. -Will schedule colonoscopy for further surveillance and for evaluation of her current LLQ pain/blood per anus. [email or web address] Not available 11/14/2022 14:03:56 10/24/2023 10/24/2023 47-year-old female with lower abdominal pain, nausea, bloating, and alternating bowel habits. She has a history of low anterior resection with colorectal anastomosis secondary to recurrent diverticulitis. colonoscopy 12/2022 was unremarkable. 1) Chronic constipation/IB S: She may have some degree of pelvic floor dysfunction. Discussed considering referral for pelvic floor therapy in the future if she fails laxative trial. -Start Lubiprostone 24 mcg p.o. BID. 2) Abdominal pain: Bentyl PRN 3) Nausea: Start Zofran PRN f/u 6 weeks [email or web address] Not available 10/24/2023 16:35:12 12/08/2023 12/08/2023 48-year-old female with lower abdominal pain, nausea, bloating, and alternating bowel habits. She has a history of low anterior resection with colorectal anastomosis secondary to recurrent diverticulitis. colonoscopy 12/2022 was unremarkable. Symptoms have recently improved with lubiprostone twice daily. 1) Chronic constipation/IB S: She may have some degree of pelvic floor dysfunction. Discussed considering referral for pelvic floor therapy in the future if symptoms worsen. -Continue Lubiprostone 24 mcg p.o. BID. Linzess was previously ineffective. 2) Abdominal pain: Improved with laxative therapy. 3) Nausea: Improved with laxative therapy. f/u 1 year and PRN Not available 12/08/2023 15:21:52 Plan of Treatment Reminders Order Date Submit Date Provider Last Modified By Organization Details Last Modified Time Details Appointments Establish ed Visit 15 min 2024 03:45P M Horace Van PA-C Not available Not available Not available Lab None recorded. Referral None recorded. Procedures None recorded. Surgeries None recorded. Imaging None recorded. Medication Orders lubiprost one 24 mcg capsule 2023 024 [facility], [address] [place] [address], [facility], [place], [address], 10/24/2023 16:21:31 dicyclomi ne 20 mg tablet 2023 024 [facility], [address] [place] [address], [facility], [place], [address], 10/24/2023 16:41:53 ondansetr on 4 mg disintegr ating tablet 2023 024 [facility], [address] [place] [address], [facility], [place], [address], 10/24/2023 16:41:52 Linzess 145 mcg capsule 2022 023 [facility], [address] [place] [address], [facility], [place], [address], 11/14/2022 14:00:21 Patient TargetsNo targets recorded. Patient InstructionsNo instructions recorded. Reason for Referral None Reported. Problems Name Problem SNOMED Code Status Onset Date Resolution Date Notes Provider Name and Address Organization Details Recorded Time Chronic idiopathic constipation 15380819 Active 2022 Horace Van PA-C [address] , [place], [address] , [facility] 3 13:55:08 Abdominal pain 32172287 Active 2023 Horace Van PA-C [address] , [place], [address] , [facility] [place] 4 16:35:19 Nausea 150910147 Active 2023 Horace Van PA-C [address], [place], [address] , [facility] [place] 4 16:35:22 Problem Notes None recorded. Medical Equipment None Reported. Allergies Allergen ID Allergen Name Allergen Category Reaction Reaction Severity Criticality Documentation Date Start Date Code Code System Note Provider Name and Address Organization Details Recorded Time 74728 codeine medicatio n Not available Not available Not available 11/14/2022 2670 RxNorm Carolin Diaz [facility] & [place] 3 10:40:08 Medications Name Sig Start Date Stop Date Status Note LastModified by Organization Details LastModified Time Miralax 17 gram oral powder packet Take 5 packets 3 times a day by oral route. 2022 active Not Available Not Available Not Avai lable dicyclomine 20 mg tablet Take 1 tablet 4 times a day by oral route as needed for 30 days. 2023 active Not Available Not Available Not Avai lable ondansetron 4 mg disintegrati ng tablet Place 1 tablet twice a day by translingua l route as needed for 30 days. 2023 active Not Available Not Available Not Avai lable lubiprostone 24 mcg capsule Take 1 capsule twice a day by oral route for 30 days. 2023 active Not Available Not Available Not Avai lable Linzess 145 mcg capsule Take 1 capsule every day by oral route for 30 days. 2023 active Not Available Not Available Not Avai lable Vitals Date Recorded Body height Body mass index (BMI) Body weight Body temperature Heart rate Oxygen saturation Oxygen saturation in Arterial blood by Pulse oximetry Systolic blood pressure Diastolic blood pressure Provider Name and Address Organization Details Last Updated DateTime 3 177.8 cm 29.3 kg/m2 40510.6 4 g 98.1 [degF] 78 /min 96 % 96 % 104 mm[Hg] 77 mm[Hg] Carolin LEDESMA [facility] & [place] 3 10:38:54 Date Recorded Body height Body mass index (BMI) Body weight Oxygen saturation Oxygen saturation in Arterial blood by Pulse oximetry Heart rate Heart rate Body temperature Systolic blood pressure Diastolic blood pressure Provider Name and Address Organization Details Last Updated DateTime 4 177.8 cm 32.6 kg/m2 911959. 47 g 97 % 97 % 84 /min 86 /min 97.9 [degF] 139 mm[Hg] 84 mm[Hg] Carolin Diaz [facility] & [place] 4 15:53:03 Social History Question Answer Notes LastModified by Organizat ion Details LastModified Time Tobacco Smoking Status Never Smoker Carolin Diaz [facility] & [place] 11/14/2022 10:39:49 What Is Your Level Of Caffeine Consumption? Moderate [email or web address] Information not available 11/14/2022 Sex: Unknown Functional Status Question Answer Note LastModified by Organizat ion Details LastModified Time Do you use any illicit or recreational drugs? No [email or web address] Information not available 11/14/2022 Do you or have you ever used any other forms of tobacco or nicotine? No [email or web address] Information not available 11/14/2022 What is your level of alcohol consumption? None [email or web address] Information not available 11/14/2022 Mental Status None recorded. Family History Nothing Reported. Medical History No medical history recorded. Gynecological HistoryNo gynecological history recorded. Obstetrics History GPAL:G 0 P 0 0 0 0 Past Encounters Encounter ID Performer Location Encounter Start Date Encounter Closed Date Diagnosis/Indication Diagnosis SNOMED-CT Code Diagnosis ICD10 Code Diagnosis Note [id number] Horace Van PA-C [facility] [address] [address] 11/14/2022 10:19:07 11/14/2022 11:40:16 Chronic idiopathic constipation 73211329 K59.04 [id number] Horace Van, PA-C [facility] [address] [facility] [place] [address] 10/24/2023 15:48:47 10/24/2023 16:30:30 Chronic idiopathic constipation 56531225 K59.04 Abdominal pain 37311456 R10.9 Nausea 498514918 R11.0 [id number] Horace Van PA-C [facility] [address] [place] [address] 12/08/2023 09:25:44 12/08/2023 09:58:41 Chronic idiopathic constipation 76732062 K59.04 Abdominal pain 41732593 R10.9 Nausea 702668141 R11.0 Health Concerns Section Related Observation LastModified by Organization Detai ls LastModified Time None Recorded Concern Status LastModified by Organization Details LastModified Time None Recorded Advance Directives Directive None Recorded Payers Insurance Date Sequence Insurance Name Policy Number Policy Richardson Covered Member ID Richardson Member ID Guarantor Name 12/08/2023 1 [facility] (MEDICAID HMO) Margaux Clarkeen [id number] Margaux Everardo 12/08/2023 1 [facility] (MEDICAID REPLACEMENT - HMO) [id number] Margaux Salter Everardo [id number] Margaux Everardo 12/12/2023 1 [facility] (MEDICARE HMO) Margaux Everardo [id number] Margaux Everardo Notes Date Note Type Note Provider Name and Address Organization Details Recorded Time 11/14/2022 text/html 47-year-old femflavio moreno who was referred by Dr. Hendrix for evaluation of abdominal pain, constipation, and intermittent rectal bleeding. She has a history of recurrent sigmoid diverticulitis and underwent low anterior resection with colorectal anastomosis by Dr. Brady Turner in Apr 2019. She also has a history of area of ulceration within the ascending colon with biopsy that showed adenomatous tissue on 12/25/17. Repeat colonoscopy on 04/09/18 showed resolution of the previous ulcerated area with no evidence of adenomatous tissue. 1 year surveillance colonoscopy was recommended, but she was lost to follow-up. Today, she complains of LLQ pain that radiates to her back. She notes irregular bowel habits that are not improved with polyethylene glycol or stool softners. She notes blood with wiping. Horace Van PA-C [address] , [place], [address], [facility] 11/14/2022 14:04:21 10/24/2023 text/html Ms. Mcgee is a pleasant 47-year-old female with history of low anterior resection with colorectal anastomosis for treatment of recurrent sigmoid diverticulitis who returns to [facility] today for follow-up regarding chronic constipation and abdominal pain. She was previously treated with linzess 145 mcg p.o. daily, but did not feel that this improved her symptoms much. She is no longer taking laxative therapy. She continues to endorses abdominal discomfort, alternating bowel habits, fecal urgency, and nausea. Colonoscopy in December was unremarkable. Horace Van PA-C [address] , [place], [address], [place] [facility] 10/24/2023 16:36:24 12/08/2023 text/html PREVIOUS ( 4): Ms. Mcgee is a pleasant 47-year-old female with history of low anterior resection with colorectal anastomosis for treatment of recurrent sigmoid diverticulitis who returns to [facility] today for follow-up regarding chronic constipation and abdominal pain. She was previously treated with linzess 145 mcg p.o. daily, but did not feel that this improved her symptoms much. She is no longer taking laxative therapy. She continues to endorses abdominal discomfort, alternating bowel habits, fecal urgency, and nausea. Colonoscopy in December was unremarkable. CURRENT (12/08/23): Ms. Mcgee presents via telephonic encounter today for follow-up regarding constipation, abdominal pain, and nausea. She was recently started on treatment with Lubiprostone 24 mcg twice daily. She states her frequency of stools has improved and her pain and nausea have subsequently lessened. She feels she is managing well currently. She denies any additional complaints at this time. I spent a total of 7 minutes during this real-time clinical encounter that was initiated by the patient which started at 0907 and ended at 0914. Consent was obtained to engage in telephonic service. Greater than 50% of the time spent was devoted to counseling and coordinating care including review of patient record, patient lab data and studies as well as discussing diagnostic evaluation and workup, planned therapeutic intervention and further disposition of care. The patient requested telephonic encounter today due to difficulty making into the office due to undisclosed reasons and due to limited capability for tele video conferencing. Horace Van PA-C [address] [facility], [place], [address], [facility] [place] [facility] [place] & [place] 12/08/2023 15:22:09 OBGyn Episode No OBEpisode recorded.
--- NOTE | 2024-08-18 13:55 | XR_ITS ---
PROCEDURE INFORMATION: Exam: XR Left Ankle Exam date and time: 08/18/2024 1:52 PM Age: 48 years old Clinical indication: Ankle and foot; Bilateral; Pain, no injury TECHNIQUE: Imaging protocol: Radiologic exam of the left ankle. Views: 3 or more views. COMPARISON: CR XR FOOT LT MIN 3V 08/18/2024 1:51 PM FINDINGS: Bones/joints: No acute fracture or dislocation. Spurring along the plantar calcaneus. Soft tissues: Normal. IMPRESSION: No acute findings.
--- NOTE | 2024-08-18 13:55 | XR_ITS ---
PROCEDURE INFORMATION: Exam: XR Left Foot Exam date and time: 08/18/2024 1:51 PM Age: 48 years old Clinical indication: Ankle and foot; Bilateral; Pain, no injury TECHNIQUE: Imaging protocol: Radiologic exam of the left foot. Views: 3 or more views. COMPARISON: CR XR FOOT LT MIN 3V 08/18/2024 1:51 PM FINDINGS: Bones/joints: No acute fracture or dislocation. Spurring along the plantar calcaneus. Soft tissues: Normal. IMPRESSION: No acute findings.
--- NOTE | 2024-08-18 13:55 | XR_ITS ---
PROCEDURE INFORMATION: Exam: XR Right Foot Exam date and time: 08/18/2024 1:49 PM Age: 48 years old Clinical indication: Ankle and foot; Bilateral; Pain, no injury TECHNIQUE: Imaging protocol: Radiologic exam of the right foot. Views: 3 or more views. COMPARISON: CR XR ANKLE RT MIN 3V 08/18/2024 1:48 PM FINDINGS: Bones/joints: No acute fracture or dislocation. Spurring along the plantar calcaneus. Soft tissues: Normal. IMPRESSION: No acute findings.
--- NOTE | 2024-08-18 13:55 | XR_ITS ---
PROCEDURE INFORMATION: Exam: XR Right Ankle Exam date and time: 08/18/2024 1:48 PM Age: 48 years old Clinical indication: Ankle and foot; Bilateral; Pain, no injury TECHNIQUE: Imaging protocol: Radiologic exam of the right ankle. Views: 3 or more views. COMPARISON: CR XR ANKLE RT MIN 3V 08/18/2024 1:48 PM FINDINGS: Bones/joints: No acute fracture or dislocation. Spurring along the plantar calcaneus. Soft tissues: Normal. IMPRESSION: No acute findings.
== END 2024-08-18 23:59 | disposition home or self-care (01) ==
LOC: RAD 13:51
PROVIDERS: PCP Internal Medicine Adolescent Medicine; Visit Provider Nurse Practitioner Family
DX: M77.32 Calcaneal spur, left foot (principal); M77.31 Calcaneal spur, right foot
CPT/HCPCS: 73610; 73630

== ENCOUNTER 2024-09-23 14:24 | Outpatient (CLI) | payer OTHER, SELFPAY ==
--- OUTSIDE RECORDS SUMMARY | 2024-09-23 14:27 | XMS_ITS | Encounter Summary ---
Author Organization [employer] [employer] [facility] [employer] Address [address] [place] [address] Care Team Providers Care Judicial Clerk Name Role Phone Darnell Montemayor MD Primary Care Provider + [phone] Encounter Details Date Type Department Care Team (Late st Contact Info) Description 07/02/[address] [facility] [address] [place] [address] Provider [facility] MD Calvin Social History Tobacco Use Types Packs/Day Years Used Date Smoking Tobacco: Never Assessed Comments Unknown Sex and Gender Information Value Date Recorded Sex Assigned at Female 09/28/2021 8:29 PM CDT Legal Sex Female 8:29 PM CDT Gender Identity Female 09/28/2021 8:29 PM CDT Sexual Orientation Not on file documented as of this encounter Miscellaneous Notes * Cerner Conversion Note - [facility] Historical ProviderMD - 07/02/2018 12:29 PM EDT CR Knee 3 Vws RT Ordered: 07/02/2018 Auth (Verified) Reason for Exam: pain recent ligament repair 07/02/2018 08:21 07/02/2018 11:29 (Megan Keller PA) Reviewed by Provider, No further action required x1 07/02/2018 08:48 (DEEP ANTOINE) Provider Review Required documented in this encounter Plan of Treatment Not on file documented as of this encounter Visit Diagnoses Not on filedocumented in this encounter Care Teams Judicial Clerk Relationship Specialty Start Date End Date Darnell Montemayor MD [address] [place] [address] [place] [address] PCP - General Adolescent Medicine 06/16/22 documented as of this encounter
--- OUTSIDE RECORDS SUMMARY | 2024-09-23 14:27 | XMS_ITS | Encounter Summary ---
Author Organization [employer] Address [address] [place] [address] Care Team Providers Care Sample Grader Name Role Phone Darnell Montemayor MD Primary Care Provider [phone] Encounter Details Date Type Department Care Team (Late st Contact Info) Description 07/02/2018 Transcribed Document [facility] [address] [place] [address] Provider, [facility] MD Calvin Social History Tobacco Use Types Packs/Day Years Used Date Smoking Tobacco: Never Assessed Comments Unknown Sex and Gender Information Value Date Recorded Sex Assigned at Female 09/28/2021 8:29 PM CDT Legal Sex Female 8:29 PM CDT Gender Identity Female 09/28/2021 8:29 PM CDT Sexual Orientation Not on file documented as of this encounter Miscellaneous Notes * Cerner Conversion Note - [facility] Calvin ProviderMD - 07/02/2018 5:18 AM EDT Electronically signed by Interface, [facility] Conversion Academic Guidance Specialist Cerner at 08/24/2022 5:39 PM CDT documented in this encounter Plan of Treatment Not on file documented as of this encounter Visit Diagnoses Not on filedocumented in this encounter Care Teams Sample Grader Relationship Specialty Start Date End Date Darnell Montemayor MD [address] [place] [address] [place] [address] PCP - General Adolescent Medicine 06/16/22 documented as of this encounter
--- OUTSIDE RECORDS SUMMARY | 2024-09-23 14:27 | XMS_ITS | Encounter Summary ---
Author Organization [employer] Address [address] [place] [address] Care Team Providers Care Rn Licensed Practical Name Role Phone Darnell Moore MD Primary Care Provider + [phone] Encounter Details Date Type Department Care Team (Late st Contact Info) Description 07/02/2018 Transcribed Document [address] [address] Provider, [facility] MD Calvin Social History Tobacco Use Types Packs/Day Years Used Date Smoking Tobacco: Never Assessed Comments Unknown Sex and Gender Information Value Date Recorded Sex Assigned at Female 09/28/2021 8:29 PM CDT Legal Sex Female 8:29 PM CDT Gender Identity Female 09/28/2021 8:29 PM CDT Sexual Orientation Not on file documented as of this encounter Miscellaneous Notes * Cerner Conversion Note - [facility] Calvin Jackson MD - 07/02/2018 5:25 AM EDT [address] [place] [address] PERSON INFORMATION Name BRADY MCGEE Age 42 Years 1975 Sex Female Language Czech PCP DARNELL MOORE (REF)[facility] Marital Status Single Med Service Emergency Medicine Acct# Arrival 07/02/2018 02:03:00 Visit Reason Skin rash; Knee pain-swelling; KNEE PAIN Acuity 4 - Non - Urgent LOS 000 02:22 Depart Date: 07/02/18 04:25 AM Address: [place] [address] Comment: PROVIDER INFORMATION Provider Role Assigned Unassigned JUVENTINO MACK MD ED Physician 07/02/2018 04:03:00 Chela Castellanos, machine operator farmworker Nurse 07/02/2018 04:17:59 DIAGNOSIS Allergic drug reaction PHYS DOC NOTES VITALS INFORMATION Vital Sign Triage Latest Temp Source Oral Oral Temp Mode Fahrenheit Fahrenheit Temp Fahrenheit 97.9 Deg F 97.9 Deg F Temp Celsius 02 Sat 96 % 96 % Respiratory Rate 18 Breaths/Min 18 Breaths/Min Peripheral Pulse Rate 102 bpm 102 bpm Apical Heart Rate Blood Pressure 135 mmHg / 135 mmHg / Comment: MEDICAL INFORMATION Allergy Info: codeine Medications: Prescription Display diphenhydramine-zinc acetate topical (Benadryl Extra Strength 2%-0.1% topical cream) 1 Application, Topical, Cream, QID, X 5 Day(s), # 14 Gram, 1 Refill(s) Comment: DISCHARGE INFORMATION Discharge Disposition: Home Discharge Location: PATIENT EDUCATION INFORMATION Instructions: Contact Dermatitis Follow up: With: Address: When: Follow up with surgeon Within 2 to 3 days With: Address: When: DARNELL MOORE [address] [place] [address] [facility] (1) Within 2 to 3 days Comment: documented in this encounter Plan of Treatment Not on file documented as of this encounter Visit Diagnoses Not on filedocumented in this encounter Care Teams Rn Licensed Practical Relationship Specialty Start Date End Date Darnell Moore MD [address] [place] [address] PCP - General Adolescent Medicine 06/16/22 documented as of this encounter
--- OUTSIDE RECORDS SUMMARY | 2024-09-23 14:27 | XMS_ITS | Encounter Summary ---
Author Organization [employer] Address [address] [place] [address] Care Team Providers Care Supervisor Drawing Name Role Phone Darnell Moore MD Primary Care Provider + [phone] Encounter Details Date Type Department Care Team (Late st Contact Info) Description 07/02/2018 Transcribed Document [address] [address] Provider, [facility] MD Calvin Social History Tobacco Use Types Packs/Day Years Used Date Smoking Tobacco: Never Assessed Comments Unknown Sex and Gender Information Value Date Recorded Sex Assigned at Female 09/28/2021 8:29 PM CDT Legal Sex Female 8:29 PM CDT Gender Identity Female 09/28/2021 8:29 PM CDT Sexual Orientation Not on file documented as of this encounter Miscellaneous Notes * Cerner Conversion Note - [facility] Calvin Jackson MD - 07/02/2018 5:25 AM EDT [address] [address] Patient Information Name: BRADY HANKS Age: 42 Years Date of : 1975 Arrival Time: 07/02/2018 02:03:00 Diagnosis Allergic drug reaction Primary Care Physician: DARNELL MOORE (REF)[facility] Provider Information Primary Provider: JUVENTINO MACK MD Secondary Provider: BRADY HANKS AMANDEEP has been given the following list of patient education materials, prescriptions and follow-up instructions: Follow-up Instructions: With: Address: When: Follow up with surgeon Within 2 to 3 days With: Address: When: DARNELL MOORE [address] [place] [address] Business (1) Within 2 to 3 days Patient Education Materials: Contact Dermatitis Introduction Dermatitis is redness, soreness, and swelling (inflammation) of the skin. Contact dermatitis is a reaction to certain substances that touch the skin. There are two types of contact dermatitis: EIrritant contact dermatitis. This type is caused by something that irritates your skin, such as dry hands from washing them too much. This type does not require previous exposure to the substance for a reaction to occur. This type is more common. EAllergic contact dermatitis. This type is caused by a substance that you are allergic to, such as a nickel allergy or poison kimberley. This type only occurs if you have been exposed to the substance (allergen) before. Upon a repeat exposure, your body reacts to the substance. This type is less common. What are the causes? Many different substances can cause contact dermatitis. Irritant contact dermatitis is most commonly caused by exposure to: EMakeup. ESoaps. EDetergents. EBleaches. EAcids. EMetal salts, such as nickel. Allergic contact dermatitis is most commonly caused by exposure to: EPoisonous plants. EChemicals. EJewelry. ELatex. EMedicines. EPreservatives in products, such as clothing. What increases the risk? This condition is more likely to develop in:EPeople who have jobs that expose them to irritants or allergens. EPeople who have certain medical conditions, such as asthma or eczema. What are the signs or symptoms? Symptoms of this condition may occur anywhere on your body where the irritant has touched you or is touched by you. Symptoms include: EDryness or flaking. ERedness. ECracks. EItching. EPain or a burning feeling. EBlisters. EDrainage of small amounts of blood or clear fluid from skin cracks. With allergic contact dermatitis, there may also be swelling in areas such as the eyelids, mouth, or genitals. How is this diagnosed? This condition is diagnosed with a medical history and physical exam. A patch skin test may be performed to help determine the cause. If the condition is related to your job, you may need to see an occupational health manager.How is this treated? Treatment for this condition includes figuring out what caused the reaction and protecting your skin from further contact. Treatment may also include: ESteroid creams or ointments. Oral steroid medicines may be needed in more severe cases. EAntibiotics or antibacterial ointments, if a skin infection is present. EAntihistamine lotion or an antihistamine taken by mouth to ease itching. EA bandage (dressing). Follow these instructions at home: Skin CareEMoisturize your skin as needed. EApply cool compresses to the affected areas. ETry taking a bath with:? Epsom salts. Follow the instructions on the packaging. You can get these at your local pharmacy or grocery store. ? Baking soda. Pour a small amount into the bath as directed by your health care provider. ? Colloidal oatmeal. Follow the instructions on the packaging. You can get this at your local pharmacy or grocery store. ETry applying baking soda paste to your skin. Stir water into baking soda until it reaches a paste-like consistency. Majo notscratch your skin. EBathe less frequently, such as every other day. EBathe in lukewarm water. Avoid using hot water. MedicinesETake or apply ljxq-hmu-hgzretz and prescription medicines only as told by your health care provider. EIf you were prescribed an antibiotic medicine, take or apply your antibiotic as told by your health care provider. Do not stop using the antibiotic even if your condition starts to improve. General instructionsEKeep all follow-up visits as told by your health care provider. This is important. EAvoid the substance that caused your reaction. If you do not know what caused it, keep a journal to try to track what caused it. Write down:? What you eat. ? What cosmetic products you use. ? What you drink. ? What you wear in the affected area. This includes jewelry. EIf you were given a dressing, take care of it as told by your health care provider. This includes when to change and remove it. Contact a health care provider if: EYour condition does not improve with treatment. EYour condition gets worse. EYou have signs of infection such as swelling, tenderness, redness, soreness, or warmth in the affected area. EYou have a fever. EYou have new symptoms. Get help right away if: EYou have a severe headache, neck pain, or neck stiffness. EYou vomit. EYou feel very sleepy. EYou notice red streaks coming from the affected area. EYour bone or joint underneath the affected area becomes painful after the skin has healed. EThe affected area turns darker. EYou have difficulty breathing. This information is not intended to replace advice given to you by your health care provider. Make sure you discuss any questions you have with your health care provider. Document Released: 03/17/2001 Document Revised: 08/25/2016 Document Reviewed: 08/05/2015 ? 2017 Prisca Allergies: codeine Medication Information: Prescription Display diphenhydramine-zinc acetate topical (Benadryl Extra Strength 2%-0.1% topical cream) 1 Application, Topical, Cream, QID, X 5 Day(s), # 14 Gram, 1 Refill(s) Laboratory or Other Results This Visit (last charted value for your 07/02/2018 visit) No Laboratory or Other Results This Visit Medication Comment: Procedures: Laboratory Orders No laboratory orders were placed. Radiology Orders Name Status CR Knee 3 Vws RT Ordered Cardiology Orders No cardiology orders were placed. This statement is to verify that BRADY HANKS was seen at [facility] Emergency Department on ,07/02/2018 04:25:19. This is not a work excuse, if a work excuse was needed it will be in addition to this statement as a separate form. IMPORTANT: The examination and treatment you have received in the Emergency Department has been done to provide an appropriate evaluation and stabilizing treatment on an emergency basis only. Given the limited resources, it is not meant to be a substitute for complete medical care. The follow-up doctor you named will receive a copy of your records and all test reports. IT IS IMPORTANT THAT YOU SCHEDULE A FOLLOW-UP APPOINTMENT AND ARE RE-EVALUATED. You should report any new complaints, symptoms, or remaining problems at that time. IT IS IMPOSSIBLE FOR THE EMERGENCY DEPARTMENT TO RECOGNIZE AND TREAT ALL ELEMENTS OF INJURY OR ILLNESS IN A SINGLE VISIT. If you have been referred to a specialist physician, it means that we believe you may have a condition that requires the expertise of a specialist. KEEP IN MIND THAT THE SPECIALIST HAS HIS/HER OWN OFFICE POLICIES WHICH MAY REQUIRE PROPER INSURANCE OR PAYMENT UP FRONT BEFORE THE SPECIALIST WILL SEE YOU. It is your responsibility to call the specialist physician to make an appointment. We do not have the ability to identify specialists/physicians that work with specific insurance companies. Please be advised that all financial charges or billing practices are determined by that practice, not the hospital. If your insurance company requires that you see a specialist from their approved list, it is your responsibility to contact your insurance company to make those arrangements. It is also your responsibility to follow any other requirements of your insurance company necessary to obtain coverage for claims submitted. If you had special tests, such as EKG???s or X-rays, the interpretation of your tests given to you by the Emergency Dept. Physician is a preliminary report. Some fractures and illnesses fail to show up on preliminary tests. We will review them again within 24-48 hours. We will call you if there are any new suggestions. If your symptoms continue notify your physician. After you leave, you should follow the instructions below. In all events, you may obtain a copy of your Emergency Department visit from Medical Records. Please call to be directed to this department. We will bill your insurance; however, you are responsible today for any co-pay amounts. You will receive a separate bill for any services you may have received including: emergency, radiology, or pathology physicians. Please be sure we have an accurate contact phone number and address, should we need to call you for any reason. CIGARETTE SMOKING: The facts are clear; cigarette smoking will shorten your life. Smoking can cause many illnesses along the way. As a healthcare provider, [facility] recommends that you stop smoking. Assistance with quitting is available by contacting 9-275-AFJF-NOW. This is a free resource providing counseling, support, and referral. Or you may contact your personal physician. As part of your treatment plan, your physician may have prescribed a limited course of a controlled substance. This medication may be given to help people with moderate or severe pain or for other medical conditions, but there are risks involved with treatment. Common side effects may include nausea, constipation, drowsiness, sweating, itching, dry mouth, and rash. More serious side effects may include cognitive and motor impairment, like problems with thinking, concentrating, alertness, and movement (e.g. slowed reflexes), and driving and operating heavy machinery can be dangerous. It is important for you to talk to your physician if you have these side effects or questions. These controlled substances can produce physical dependence and be habit-forming if taken for an extended period of time, which means that the body has gotten used to them and may experience withdrawal symptoms if they are abruptly stopped. Withdrawal symptoms can include runny nose, sweating, goose bumps, diarrhea, abdominal cramping, rapid heartbeat, difficulty sleeping, and nervousness. The home medications listed are only as accurate as the information you provided. Please continue taking all of your medications prescribed by your Primary Care Provider unless specifically told to change or discontinue the medication. Please direct any questions regarding your home medications to your Primary Care Provider. YOU ARE THE MOST IMPORTANT FACTOR IN YOUR RECOVERY. ?? Follow your instructions carefully ?? Take your medicines as prescribed ?? Most important, see a provider as discussed. If you do not have a provider, we can provide a list of clinics Confidential This message and accompanying documents are covered by Electronic Communications Privacy Act 18 U.S.C. ???Sections 7778-3048,Eand contain information intended for the specified individual(s) only. This information is confidential. If you are not the intended recipient or an agent responsible for delivering it to the intended recipient, you are hereby notified that you have received the document in error and that any review, dissemination, copying, or the taking of any action based on the contents of this information is strictly prohibited. If you have received this communication in error, please notify us immediately by email, and delete the original message. 4 WAYS TO GET AHEAD OF SEPSIS SEPSIS is a MEDICAL EMERGENCY. Time matters! Infections put you and your family at risk for a life-threatening condition called sepsis. Sepsis is the body???s extreme response to an infection. It is life-threatening, and without timely treatment, sepsis can rapidly lead to tissue damage, organ failure, and . Sepsis happens when an infection you already have???in your skin, lungs, urinary tract or somewhere else???triggers a chain reaction throughout your body. 1 PREVENT INFECTIONS Take good care of chronic conditions. Talk to your doctor about getting the recommended vaccines. 2 PRACTICE GOOD HYGIENE Wash your hands frequently. Keep cuts or open sores clean and covered until they are healed. 3 KNOW THE SYMPTOMS Confusion or disorientation Shortness of breath High heart rate Fever, shivering, or feeling very cold Extreme pain or discomfort Clammy or sweaty skin 4 ACT FAST Get medical care IMMEDIATELY if you suspect sepsis or if you have an infection that???s not getting better or is getting worse. To learn more about sepsis and how to prevent infections, visit www.cdc.gov/sepsis. STROKE is an EMERGENCY Every Minute Counts ACT F.A.S.T! FACE ?? Facial droop ?? Uneven smile ARM ?? Arm numbness ?? Arm weakness SPEECH ?? Slurred speech ?? Difficulty speaking or understanding TIME ?? Call 911 and get to the hospital immediately Have the ambulance go to the nearest stroke center. STROKE Risk Factors High blood pressure High cholesterol Heart Disease Diabetes Smoking Heavy alcohol use Physical inactivity and obesity Atrial Fibrillation (irregular heartbeat) Family history of stroke Acknowledgment I hereby acknowledge receipt of these instructions and information above. I understand that I have received Emergency Treatment only which is not a substitute for complete medical care and acknowledge that all of my medical problems may not be known, identified, or treated prior to my release. I UNDERSTAND THE NEED TO ARRANGE FOLLOW-UP CARE WITH THE PHYSICIAN INDICATED. I UNDERSTAND THAT I SHOULD CONTACT MY PHYSICIAN IMMEDIATELY OR RETURN TO THE EMERGENCY DEPARTMENT IF MY CONDITION WORSENS, FAILS TO IMPROVE, OR NEW SYMPTOMS APPEAR. Vital Signs B/P PULSE RESP. RATE TEMPERATURE PULSE OX Signature of Emergency Provider Date / Time Signature of Emergency Nurse Date / Time Reminder: Be sure to sign up for the My [facility] patient portal, which gives you 24/10 access to your medical information Eincluding these discharge instructions Eusing your computer, smartphone, or tablet. Just go to [email or web address] to get started. Questions? Call . Acknowledgment I hereby acknowledge receipt of these instructions and information above. I understand that I have received Emergency Treatment only which is not a substitute for complete medical care and acknowledge that all of my medical problems may not be known, identified, or treated prior to my release. I UNDERSTAND THE NEED TO ARRANGE FOLLOW-UP CARE WITH THE PHYSICIAN INDICATED. I UNDERSTAND THAT I SHOULD CONTACT MY PHYSICIAN IMMEDIATELY OR RETURN TO THE EMERGENCY DEPARTMENT IF MY CONDITION WORSENS, FAILS TO IMPROVE, OR NEW SYMPTOMS APPEAR. Signature of Patient / Responsible Person Date / Time Please provide a telephone number where you can be reached. The best time to call is between: It is permissable to leave a message if no answer: Yes____ No____ Nurse Providing Instructions: Emergency Physician: documented in this encounter Plan of Treatment Not on file documented as of this encounter Visit Diagnoses Not on filedocumented in this encounter Care Teams Supervisor Drawing Relationship Specialty Start Date End Date Darnell Moore MD [address] [place] [id number] PCP - General Adolescent Medicine 06/16/22 documented as of this encounter
--- OUTSIDE RECORDS SUMMARY | 2024-09-23 14:27 | XMS_ITS | Encounter Summary ---
Author Organization [employer] Address [address] [place] [address] Care Team Providers Care Music Manager Name Role Phone Darnell Montemayor MD Primary Care Provider + [phone] Encounter Details Date Type Department Care Team (Late st Contact Info) Description 07/02/2018 Transcribed Document [facility] [address] [place] [address] Provider, [facility] MD Calvin Social History Tobacco [...] Miscellaneous Notes * Cerner Conversion Note - [facility] Calvin Jackson MD - 07/02/2018 5:24 AM EDT ED Discharge Entered On: 07/02/2018 4:24 EDT Performed On: 07/02/2018 4:24 EDT by Ashley Patino, Water Vessel Captain Process Patient Disposition : Discharge Personal Belongings With Patient : Yes Patient Education Completed : Yes Teaching Evaluation : Verbalizes understanding IV Discontinued : Not applicable Nursing Documentation Completed : Yes Ashley Patino, Rn - 07/02/2018 4:24 EDT ED Discharge Discharge To : Home with ambulatory/outpatient follow-up Mode Of Departure : Ambulatory Accompanied By : Significant other Discharge Instructions Reviewed With, Opportunity For Questions Given : Patient Prescriptions Given to Patient : Yes Number of Prescriptions Given : 1 Medications Given to Patient : No Ashley Patino, Rn - 07/02/2018 4:24 EDT documented in this encounter Plan of Treatment Not on file documented as of this encounter Visit Diagnoses Not on filedocumented in this encounter Care Teams Music Manager Relationship Specialty Start Date End Date Darnell Montemayor MD [address] [place] [id number] PCP - General Adolescent Medicine 06/16/22 documented as of this encounter
--- OUTSIDE RECORDS SUMMARY | 2024-09-23 14:27 | XMS_ITS | Clinical Summary ---
Author Organization [facility] Address [address] [place] [address] Care Team Providers Care Crystal Evaluator Name Role Phone Darnell Montemayor MD Primary Care Provider [phone] Allergies Active Allergy Reactions Criticality Noted Date Comments Codeine Other - please docum ent in the comment field,Unknown - Patient states they do not know rxn details Low 11/11/2011 chest pain CHEST PAIN CHEST PAIN Medications acetaminophen (Tylenol) 500 MG tablet Take 1 tablet 4 times per day 2 days before surgery, after surgery take 2 tablets 4 times per day 0 Active ALPRAZolam (Xanax) 0.5 MG tablet Take 0.5 mg by mouth 2 (two) times a day. Active atorvastatin (Lipitor) 20 MG tablet 2 tablets (40 mg). 9 Active cetirizine (ZyrTEC) 10 MG tablet Take 1 tablet (10 mg) by mouth 1 (one) time each day. Active citalopram (CeleXA) 10 MG tablet 2 tablets (20 mg). 9 Active diclofenac (Voltaren) 75 MG EC tablet Take 1 tablet (75 mg) by mouth 2 (two) times a day. 9 Active famotidine (Pepcid) 20 MG tablet Take 1 tablet (20 mg) by mouth twice a day. Active fluticasone (Flonase) 50 MCG/ACT nasal spray USE 1 SPRAY(S) IN EACH NOSTRIL ONCE DAILY FOR 14 DAYS 1 Active montelukast (Singulair) 10 MG tablet Take 1 tablet (10 mg) by mouth every night. 9 Active pantoprazole (ProtoNix) 40 MG packet Take 1 packet (40 mg) by mouth 1 (one) time each day before breakfast. 9 Active traZODone (Desyrel) 50 MG tablet Take 1 tablet (50 mg) by mouth every night. Active nicotine (Nicoderm CQ) 7 MG/24HR patch Place 1 patch on the skin 1 (one) time each day at the same time. For 6 weeks, then stop 42 patch 1 Active nicotine polacrilex (Commit) 2 MG lozenge Dissolve 1 lozenge (2 mg total) in the mouth if needed for smoking cessation. 100 lozenge 1 1 Active hydroCHLOROthiazide (Microzide) 12.5 MG capsule Take 1 capsule (12.5 mg) by mouth 1 (one) time each day. Active ibuprofen 400 MG tablet Take 1 tablet (400 mg) by mouth every 6 (six) hours if needed for moderate pain. Active cyanocobalamin (Vitamin B-12) 500 MCG tablet Take 1 tablet (500 mcg) by mouth 1 (one) time each day. Active cholecalciferol (Vitamin D) 50 MCG (2000 UT) capsule Take 25 capsules (50,000 Units) by mouth. Active ondansetron ODT (Zofran-ODT) 4 MG disintegrating tablet Take 1 tablet (4 mg) by mouth every 8 (eight) hours if needed for nausea or vomiting. 9 tablet 4 Active HYDROcodone-acetami nophen (Westerlo) 5-325 MG tablet Take 1 tablet (5 mg of hydrocodone) by mouth every 6 (six) hours if needed for severe pain. 45 tablet 4 Active acetaminophen (Tylenol) 500 MG tablet Take 1 tablet (500 mg) by mouth every 6 (six) hours if needed for fever or headaches. 100 tablet 4 Active ibuprofen 400 MG tablet Take 1 tablet (400 mg) by mouth every 6 (six) hours if needed for headaches, fever or moderate pain. 100 tablet 4 Active Active Problems Problem Noted Date Diagnosed Date HTN (hypertension) 11/29/2023 High cholesterol 11/29/2023 Gastroesophageal reflux disease without esophagi tis 11/29/2023 Hyperplasia of tonsils and adenoids 11/29/2023 Tonsillith 10/20/2023 Chronic tonsillitis 10/20/2023 Primary osteoarthritis of left knee 11/17/2021 Overview (11/17/2021): Added automatically from request for surgery [id number] Tobacco abuse 01/12/2021 Other chest pain 01/12/2021 Mixed hyperlipidemia 01/12/2021 Family History Medical History Relation Name Comments Heart disease Father Conversions - Other Other Patient denies medical problems Relation Name Status Comments Father Other Social History Tobacco Use Types Packs/Day Years Used Date Smoking Tobacco: Former Cigarettes Smokeless Tobacco: Former Quit: 05/31/2023 Tobacco Cessation:Counseling Given: Yes Alcohol Use Standard Drinks/Week Comments Yes 0 (1 standard drink = 0.6 oz pur e alcohol) Socially Comments No Sex and Gender Information Value Date Recorded Sex Assigned at Not on file Legal Sex Female 8:26 PM EDT Gender Identity Not on file Sexual Orientation Not on file Last Filed Vital Signs Vital Sign Reading Time Taken Comments Blood Pressure 145/101 11/29/2023 12:45 PM EDT Pulse 66 11/29/2023 12:45 PM EDT Temperature 36 C (96.8 F) 11/29/2023 12:40 PM EDT Respiratory Rate 8 11/29/2023 12:45 PM EDT Oxygen Saturation 96% 11/29/2023 12:45 PM EDT Inhaled Oxygen Concentration - - Weight 104 kg (230 lb 2.6 oz) 11/29/2023 8:53 AM EDT Height 180.3 cm (5' 11 ) 11/29/2023 8:53 AM EDT Body Mass Index 32.1 11/29/2023 8:53 AM EDT Plan of Treatment Upcoming Encounters Date Type Department Care Team (Late st Contact Info) Description 10/30/2024 1:40 PM EDT Office Visit Obstetrics & Gynecology [address] [place] [address] Stephanie Castro, BUS MONITOR, CNM [address] [place] [address] Health Maintenance Due Date Last Done Comments [facility]-Depression Screening 1975 [facility]-/Child/Adol SDOH Screenings 1975 [facility]- SDOH Screenings 1992 [facility]-Adult SDOH Screenings 1992 [facility]-Pap Smear 10/30/1995 [facility]-Cervical Cancer Screening 2004 [facility]-HPV/Cotest 2004 [facility]-Hepatitis B Vaccines (2 of 3 - 19+ 3-dose series) 01/19/2017 12/22/2016 CT Colonography 10/30/2019 Colonoscopy 10/30/2019 FIT-DNA 10/30/2019 FIT 10/30/2019 FOBT 10/30/2019 Sigmoidoscopy 10/30/2019 [facility]-Colorectal Cancer Screening 10/30/2019 [id number] Vaccine (2 - 20 24-25 season) 2023 07/06/2020 [facility]-DTaP,Tdap,and Td Vaccine s (2 - Td or Tdap) 12/11/2023 12/10/2013 [facility]-Zoster Vaccines (1 of 2) 2024 [facility]-Influenza Vaccine (Seaso n Ended) 2024 01/23/2017 [facility]-HIV Screening Completed 12/17/2020 [facility]-Hepatitis C Screening Completed 12/17/2020 [facility]-Obesity Intervention Completed 10/20/2023 HPV Vaccines Aged Out No longer eligi ble based on patient's age to complete this topic [facility]-HIB Vaccines Aged Out No longer e ligible based on patient's age to complete this topic [facility]-Hepatitis A Vaccines Aged Out No longer eligible based on patient's age to complete this topic [facility]-IPV Vaccines Aged Out No longer e ligible based on patient's age to complete this topic [facility]-Pneumococcal Vaccine: Pediatrics (0 to 5 Years) and At-Risk Patients (6 to 49 Years) Aged Out No long er eligible based on patient's age to complete this topic [facility]-Rotavirus Vaccines Aged Out No lo nger eligible based on patient's age to complete this topic Procedures Procedure Name Priority Date/Time Associated Diagnosis Comments HEPATITIS C ANTIBODY - ED W/REFLEX TO HCV QUANT PCR STAT 12/17/2020 5:57 PM EDT HIV 1/2 ANTIBODY/ANTIGEN SCREEN WITH REFLEX TO HIV I/II DIFFERENTIATION STAT 12/17/2020 5:57 PM EDT from Last 3 Months or Most Recently Relevant to Health Maintenance Results * HIV 1 & 2 Antibody/Antigen Screen (12/17/2020 5:57 PM EDT) HIV 1 & 2 Antibody/Anti gen Screen Nonreactive Nonreactive 12/17/2020 8:23 PM EDT [facility] Blood Venous blood specimen / Unknown Venipuncture / Unknown 12/17/2020 5:57 PM EDT 12/17/2020 6:29 PM EDT Alexei Yang MD LAB BLOOD ORDERABLES Final Res ult Performing Organization Address City/[facility] Co de Phone Number [facility] [address] [place] [address] * [place] Hepatitis C Antibody (12/17/2020 5:57 PM EDT) Pathologist [facility] Hepatitis C Antibody Negative Negative 12/17/2020 7:56 PM EDT HEALTHCARE LAB Blood Venous blood specimen / Unknown Venipuncture / Unknown 12/17/2020 5:57 PM EDT 12/17/2020 6:29 PM EDT Alexei Yang MD LAB BLOOD ORDERABLES Final Res ult Performing Organization Address City/[facility] Co de Phone Number [facility]ALTH[facility]ARE [facility] [address] [place] [address] from Last 3 Months or Most Recently Relevant to Health Maintenance Insurance [employer] Care Teams Crystal Evaluator Relationship Specialty Start Date End Date Darnell Montemayor MD [address] [place] [address] PCP - General 08/14/20
--- OUTSIDE RECORDS SUMMARY | 2024-09-23 14:27 | XMS_ITS | Encounter Summary ---
Author Organization [employer] [facility] [employer] Address [address] [place] [address] Care Team Providers Care Varnish Blender Name Role Phone Darnell Moore MD Primary Care Provider + [phone] Encounter Details Date Type Department Care Team (Late st Contact Info) Description 07/02/2018 Transcribed Document [facility] [address] [place] [address] Provider, [facility] MD Calvin Social History Tobacco [...] Miscellaneous Notes * Cerner Conversion Note - [facility] Calvin ProviderMD - 07/02/2018 5:12 AM EDT Patient: BRADY MCGEE Age: 42 years Sex: Female : 1975 Associated Diagnoses: Allergic drug reaction Author: JUVENTINO MACK MD Basic Information Additional information: Chief Complaint from Nursing Triage Note : Chief Complaint 07/02/2018 2:11 EDT Chief Complaint 05/22/18 pt had ligament tear repair by [facility]. pt report red raised knot on lateral aspect of knee since Monday. reports gradual increase in redness. increase pain with ambulation . History of Present Illness The patient presents with 42-year-old female complaining of a red pruritic rash at 2 sites on her right knee where physical therapy has been placing some type of pain patch. Patient reports itching at the site and some swelling under the skin. There is no heat or diffuse joint inflammation. There is no evidence of infection.. The onset was 7 days ago. The course/duration of symptoms is worsening. The character of symptoms is pain. The degree of symptoms is moderate. Risk factors consist of none. Prior episodes: none. Therapy today: none. Review of Systems Constitutional symptoms: No fever, no chills. Skin symptoms: No jaundice, Eye symptoms: Vision unchanged. ENMT symptoms: No ear pain, Respiratory symptoms: No shortness of breath, Cardiovascular symptoms: No chest pain, Gastrointestinal symptoms: No abdominal pain, Genitourinary symptoms: No dysuria, Musculoskeletal symptoms: No back pain, Neurologic symptoms: No dizziness, Endocrine symptoms: No polyuria, Additional review of systems information: All other systems reviewed and otherwise negative. Health Status Allergies: Allergic Reactions (Selected) Severity Not Documented Codeine- No reactions were documented.. Past Medical/ Family/ Social History Medical history Cardiovascular: no coronary artery disease. Surgical history: No active procedure history items have been selected or recorded.. Family history: No family history items have been selected or recorded.. Social history: Social & Psychosocial Habits No Data Available . Additional Past History: Patient status post knee surgery approximately one half months ago for torn meniscus.. Physical Examination Vital Signs Vital Signs/Vital Measures 07/02/2018 2:11 EDT Temperature Source Oral Temperature Mode Fahrenheit Temperature, Fahrenheit 97.9 Deg F Clinical Temperature, C 36.6 Deg C Peripheral Pulse Rate 102 bpm HI Respiratory Rate 18 Breaths/Min Systolic Blood Pressure 135 mmHg Oxygen Saturation 96 % Oxygen Therapy Mode Room air . Measurements 07/02/2018 2:11 EDT Height Source Stated Height Entry Format [place] Height/Length, NEPALI (ft) 5 ft Height/Length NEPALI 10 Inch CLINICALHEIGHT 177.8 cm [place] Body Weight 68.02 kg Weight Source, ED Critical estimated dosing weight Weight Entry Format [place] Weight Uzbek lb 250 lb CLINICALWEIGHT 113.64 kg Body Surface Area (BSA) 2.3 m2 Body Mass Index 35.9 kg/m2 HI . Oxygen Saturation 07/02/2018 2:11 EDT Oxygen Saturation 96 % . General: Alert, mild distress. Skin: Patient has a round area with a diameter approximately 4 cm on the lateral superior right knee and a similar place on the medial inferior right knee. Both places are pruritic and slightly raised physical therapy. Neck: Supple. Cardiovascular: Regular rate and rhythm. Respiratory Gastrointestinal: Soft, Non distended. Neurological: Alert and oriented to person, place, time, and situation. Psychiatric: Cooperative. Medical Decision Making Orders Include Previous Orders (Selected) Inpatient Orders Ordered ED Clinical Reconciliation: Ordered (Exam Completed) CR Knee 3 Vws RT: Completed ED Adult Fall Risk Assessment: ED Adult Triage: ED body finisher: . Radiology results: X-ray, Right knee no apparent abnormality. Impression and Plan Diagnosis Allergic drug reaction - Discharge, Emergency medicine, Medical Plan Condition: Unchanged. Prescriptions: Prescription Philosophy Lecturer Pharmacy: Benadryl Extra Strength 2%-0.1% topical cream (Prescribe): 1 Application, Topical, QID, for 5 Day(s), 14 Gram, 1 Refill(s). Patient was given the following educational materials: Contact Dermatitis. Follow up with: DARNELL MOORE Within 2 to 3 days; Follow up with surgeon Within 2 to 3 days. Addendum Radiology contacted me regarding the patient's right knee x-ray which was completed earlier this morning. There is a 3.2 cm rounded sclerotic focus in the lateral tibial metaphysis. Patient had previous surgery on this knee. Reviewed x-ray with Dr. Melgar, focal area felt to be postsurgical change on the x-ray. Patient was contacted by telephone and instructed to follow with her orthopedic surgeon regarding the x-ray abnormality. Patient with verbal understanding and agreeable to plan of care. documented in this encounter Plan of Treatment Not on file documented as of this encounter Visit Diagnoses Not on filedocumented in this encounter Care Teams Varnish Blender Relationship Specialty Start Date End Date Darnell Moore MD [address] [place] [id number] PCP - General Adolescent Medicine 06/16/22 documented as of this encounter
--- OUTSIDE RECORDS SUMMARY | 2024-09-23 14:27 | XMS_ITS | Encounter Summary ---
Author Organization [employer] [facility] [employer] Address [address] [place] [address] Care Team Providers Care Director Of Learning Name Role Phone Darnell Montemayor MD Primary Care Provider + [phone] Encounter Details Date Type Department Care Team (Late st Contact Info) Description 07/02/2018 Transcribed Document [facility] [address] [place] [address] Provider, [facility] MD Calvin Social History Tobacco Use Types Packs/Day Years Used Date Smoking Tobacco: Never Assessed Comments Unknown Sex and Gender Information Value Date Recorded Sex Assigned at Female 09/28/2021 8:29 PM CDT Legal Sex Female 8:29 PM CDT Gender Identity Female 09/28/2021 8:29 PM CDT Sexual Orientation Not on file documented as of this encounter Miscellaneous Notes * Cerner Conversion Note - [facility] Calvin ProviderMD - 07/02/2018 3:03 AM EDT ED Triage Entered On: 07/02/2018 2:16 EDT Performed On: 07/02/2018 2:11 EDT by Sandra De La Rosa Rn ED Triage Across the Room Triage Date/Time : 07/02/2018 2:11 EDT Chief Complaint : 05/22/18 pt had ligament tear repair by [facility]. pt report red raised knot on lateral aspect of knee since Monday. reports gradual increase in redness. increase pain with ambulation Sandra De La Rosa Rn - 07/02/2018 2:11 EDT DCP GENERIC CODE Tracking Acuity : 4 - Non - Urgent Tracking Group : [facility] ED Sandra De La Rosa Rn - 07/02/2018 2:11 EDT Mode of Arrival : Ambulatory Transported to ED by : Private vehicle To Room Via : Ambulate Accompanied By : Significant other ED Vital Signs : Document Height & Weight : Document ED Allergies : Document ED Reason for Visit : Document Last Menstrual Period : 06/13/2018 EDT Tetanus Immunization : Less than 5 years Tried to Harm Yourself in the Past? : No Thoughts of Harming/Killing Yourself : No Recent Thoughts of Harming/Killing Others : No Gristmill Operator Needed : No Sandra De La Rosa Rn - 07/02/2018 2:11 EDT Infectious Disease History Infectious Disease History : Chicken pox/Shingles Fever/Chills Last 48 Hours : No Travel To Regions with Travel Advisories : No Travel Outside [place] Within Last 30 Days : No Contact With Traveler to Advisory Region : No Tuberculosis Symptoms : None Sandra De La Rosa Rn - 07/02/2018 2:11 EDT Vital Signs ED Temperature Source : Oral Temperature Mode : Fahrenheit Temperature, Fahrenheit : 97.9 Deg F ED Pain : Yes Clinical Temperature, C : 36.6 Deg C Oxygen Therapy Mode : Room air Peripheral Pulse Rate : 102 bpm (HI) Respiratory Rate : 18 Breaths/Min Systolic Blood Pressure : 135 mmHg Oxygen Saturation : 96 % Sandra De La Rosa Rn - 07/02/2018 2:11 EDT Allergy (As Of: 07/02/2018 02:16:52 EDT) Allergies (Active) codeine Estimated Onset Date: Unspecified ; Comments: Comment 1: CP & Back pain ; Created By: Sandra De La Rosa Rn; Reaction Status: Active ; Category: Drug ; Substance: codeine ; Type: Allergy ; Updated By: Sandra De La Rosa Rn; Reviewed Date: 07/02/2018 2:16 EDT Diagnosis Control ED (As Of: 07/02/2018 02:16:52 EDT) Diagnoses(Active) Knee pain-swelling Date: 07/02/2018 ; Diagnosis Type: Reason For Visit ; Confirmation: Complaint of ; Clinical Dx: Knee pain-swelling ; Classification: Medical ; Clinical Service: Non-Specified ; Code: PNED ; Probability: 0 ; Diagnosis Code: [id number] ED Height and Weight Height Source : Stated Height Entry Format : [place] Height, Feet : 5 ft(Converted to: 152 cm, 60 Inch) Height, Inches : 10 Inch(Converted to: 0 ft 10 Inch, 25.40 cm) Clinical Height : 177.8 cm Weight Source, ED : Critical estimated dosing weight Weight Entry Format : [place] Weight, Pounds : 250 lb Clinical Dosing Weight : 113.64 kg Body Surface Area (BSA) : 2.3 m2 Body Mass Index : 35.9 kg/m2 (HI) [place] Body Weight (IBW) : 68.02 kg Sandra De La Rosa Rn - 07/02/2018 2:11 EDT Pain Assessment Pain Assessment : Initial assessment Pain Scale Used : 0-10 Scale Sandra De La Rosa Rn - 07/02/2018 2:11 EDT Pain Scale Intensity : 6 Sandra De La Rosa Rn - 07/02/2018 2:11 EDT Image 4 - Images currently included in the form version of this document have not been included in the text rendition version of the form. Electronically signed by Gail [facility] Conversion Tester Vibrator Equipment Cerner at 08/24/2022 5:40 PM CDT documented in this encounter Plan of Treatment Not on file documented as of this encounter Visit Diagnoses Not on filedocumented in this encounter Care Teams Director Of Learning Relationship Specialty Start Date End Date Darenll Montemayor MD [address] [place] [id number] PCP - General Adolescent Medicine 06/16/22 documented as of this encounter
--- OUTSIDE RECORDS SUMMARY | 2024-09-23 14:28 | XMS_ITS | Referral Summary ---
Author Organization [employer] Address [address] [place] [address] Care Team Providers Care Broom Worker Name Role Phone Darnell Montemayor MD Primary Care Provider + [phone] Allergies Active Allergy Reactions Criticality Noted Date Comments Codeine Palpitations Low 06/27/2022 Chest pain Medications traZODone (DESYREL) 50 MG tablet Take 1 tablet (50 mg total) by mouth nightly. 06/12/2022 Active atorvastatin (LIPITOR) 40 MG tablet Take 1 tablet (40 mg total) by mouth in the morning. 06/12/2022 Active cetirizine (ZyrTEC) 10 MG tablet Take 1 tablet (10 mg total) by mouth in the morning. 06/12/2022 Active escitalopram oxalate (LEXAPRO) 10 MG tablet Take 1 tablet (10 mg total) by mouth in the morning. 06/07/2022 Active montelukast (SINGULAIR) 10 mg tablet Take 1 tablet (10 mg total) by mouth in the morning. 06/12/2022 Active medroxyPROGESTE Andrea (PROVERA) 10 MG tablet Take by mouth. 04/28/2022 Active hydroCHLOROthia zide (HYDRODIURIL) 12.5 MG tablet Take 1 tablet (12.5 mg total) by mouth in the morning. 06/07/2022 Active diclofenac (VOLTAREN) 50 MG EC tablet Take by mouth. 05/09/2022 Active pantoprazole (PROTONIX) 40 MG tablet Take 1 tablet (40 mg total) by mouth in the morning. 06/12/2022 Active venlafaxine (EFFEXOR-XR) 37.5 MG 24 hr capsule Take 1 capsule (37.5 mg total) by mouth in the morning. 04/13/2022 Active fluticasone propionate (FLONASE) 50 mcg/actuation nasal spray 1 spray in the morning. 05/06/2022 Active cholecalciferol , vitamin D3, 50 mcg (2,000 unit) Cap Take 25 capsules (50,000 Units total) by mouth. Active cyanocobalamin, vitamin B-12, 500 MCG tablet Take 1 tablet (500 mcg total) by mouth in the morning. Active ondansetron (ZOFRAN) 4 MG tablet Take 1 tablet (4 mg total) by mouth as needed for Nausea. Active Active Problems Problem Noted Date Diagnosed Date Hypertension Tobacco abuse GERD (controlled) Social History Tobacco Use Types Packs/Day Years Used Date Smoking Tobacco: Every Day Cigarettes 1 20 Smokeless Tobacco: Never Tobacco Cessation:Ready to Q uit: Not Asked; Counseling Given: Not Answered Alcohol Use Standard Drinks/Week Comments Yes 0 (1 standard drink = 0.6 oz pur e alcohol) occassional Interpersonal Safety Answer Date Record ed Family or friends hurt you Not on file 04/21 Family or friends insult you Not on file Family or friends threaten you Not on file 0 04/21/2023 Family or friends scream or curse at you Not on file 04/21/2023 Housing Stability Answer Date Recorded Living situation today Not on file Living situation problems Not on file 2023 Food Insecurity Answer Date Recorded Food run out past 12 months Not on file 04/03 Food did not last past 12 months Not on file 04/21/2023 Employment Answer Date Recorded Help finding and keeping a job Not on file 0 04/21/2023 Family and Community Support Answer Dequan e Recorded Help with Day to Day Activities Not on file 04/21/2023 Feeling Lonely or Isolated Not on file 04/21 Educational Attainment Answer Date Holden rded Speak language other than [place]inean at home Not on file 04/21/2023 Want help with school or training Not on file 04/21/2023 Depression Answer Date Recorded PHQ-2 Risk Not on file 04/21/2023 Disabilities Answer Date Recorded Difficulty concentrating Not on file 024 Difficulty doing errands alone Not on file 0 04/21/2023 Substance Use Answer Date Recorded Used prescription meds for non-medical reasons N ot on file 04/21/2023 Used illegal drugs past 12 months Not on file 04/21/2023 Comments No Sex and Gender Information Value Date Recorded Sex Assigned at Female 09/28/2021 8:29 PM CDT Legal Sex Female 8:29 PM CDT Gender Identity Female 09/28/2021 8:29 PM CDT Sexual Orientation Not on file Last Filed Vital Signs Vital Sign Reading Time Taken Comments Blood Pressure 131/81 07/13/2022 2:29 PM EDT Pulse 90 07/13/2022 2:29 PM EDT Temperature 36.7 C (98.1 F) 07/13/2022 2:03 PM EDT Respiratory Rate 20 07/13/2022 2:29 PM EDT Oxygen Saturation 99% 07/13/2022 2:29 PM EDT Inhaled Oxygen Concentration - - Weight 92.7 kg (204 lb 6.4 oz) 07/13/2022 8:10 A M EDT Height 175.3 cm (5' 9 ) 06/27/2022 10:17 AM EDT Body Mass Index 30.18 06/27/2022 10:17 AM EDT Plan of Treatment Not on file Medical Devices Implanted Type Area Varnish Remover Device Identifier Shelf Expiration Date Model / Serial / Lot Cement Bone Smplx Tobra 40gm 6197-9-001 - [id number] Implanted:Qty : 2 on 07/13/2022 by Bismark Weston MD at [facility] IMPLANTS Left: Knee ANIKET:[employer] 11/01/2023 6197-9-00 1 / / [id number] Tib Id Cr Imp Sz4 [id number] - [id number] Implanted:Qty : 1 on 07/13/2022 by Bismark Weston MD at [facility] IMPLANTS Left: Knee CONFORMIS 07/02/2023 [id number] / / [id number] Imp Fem Cr Iden Sz4 Rt [id number] - [id number] Implanted:Qty : 1 on 07/13/2022 by Bismark Weston MD at [facility] TOTAL JOINT CONSTRUCT Left: Knee CONFORMIS 07/02/2023 [id number] / / [id number] Imp Patella Itotal 32x6mm [id number] - [id number] Implanted:Qty : 1 on 07/13/2022 by Bismark Weston MD at [facility] TOTAL JOINT CONSTRUCT Left: Knee CONFORMIS 04/02/2024 [id number] / / [id number] Insrt Tib Identity Sz 4n 6mm L [id number] - [id number] Implanted:Qty : 1 on 07/13/2022 by Bismark Weston MD at [facility] TOTAL JOINT CONSTRUCT Left: Knee CONFORMIS 06/01/2023 [id number] / / [id number] Insurance [place] [id number] [facility] Advance Directives For more information, please contact: [phone] * Full Code (Latest Code Status on File) Date Activated Date Inactivated Comments 07/13/2022 1:44 PM 07/13/2022 5:15 PM * Full Code Date Activated Date Inactivated Comments 07/13/2022 7:15 AM 07/13/2022 1:44 PM Care Teams Broom Worker Relationship Specialty Start Date End Date Darnell Montemayor MD [address] [place] [id number] PCP - General Adolescent Medicine 06/16/22
--- OUTSIDE RECORDS SUMMARY | 2024-09-23 14:28 | XMS_ITS | Clinical Summary ---
Author Organization [employer] Address [address] [place] [address] Care Team Providers Care President Commercial Bank Name Role Phone Darnell Montemayor MD Primary Care Provider + [phone] Allergies Active Allergy Reactions Criticality Noted Date [...] Date Holden rded Speak language other than Belizean at home Not on file 04/21/2023 Want [...] 06/27/2022 10:17 AM EDT Plan of Treatment Health Maintenance Due Date Last Done Comments CT Colonography 1974 Colonoscopy 1974 Colorectal Cancer Screening 1974 FOBT/FIT 1974 Fit-DNA (Cologuard) 1974 Sigmoidoscopy 1974 Depression Screening (12+) 1986 HIV Screening 1989 Hepatitis C Screening 1992 Pneumococcal Vaccine: 0-49 Years (1 of 2 - PCV) 1993 Pap Smear 10/30/1995 Breast Cancer Screening 2014 Lipid Panel 10/30/2019 Tobacco Cessation Counseling and Screening (12+) 07/1307/13/2022 COVID-19 VACCINE (2 - season) 12/03/202308/2020 DTAP/TDAP/TD VACCINES (2 - Td or Tdap) 12/11/2023 Influenza Vaccine (Season Ended) 2024 Medical Devices Implanted Type Area Correctional Medicine Physician Device Identifier Shelf Expiration Date Model / Serial / Lot Cement Bone Smplx Tobra 40gm 6197-9-001 - [id number] Implanted:Qty : 2 on 07/13/2022 by Bismark Weston MD at [facility] IMPLANTS Left: Knee ANIKET:[employer] 11/01/2023 6197-9-00 1 / / [id number] Try Tib Id Cr Imp Sz4 [id number] - [id number] Implanted:Qty : 1 on 07/13/2022 by Bismark Weston MD at [facility] IMPLANTS Left: Knee CONFORMIS 07/02/2023 [id number] / / [id number] Imp Fem Cr Iden Sz4 Rt [id number] - [id number] Implanted:Qty : 1 on 07/13/2022 by Bismark Weston MD at [facility] TOTAL JOINT CONSTRUCT Left: Knee CONFORMIS 07/02/2023 [id number] N / / [id number] Imp Patella Itotal 32x6mm [id number] - [id number] Implanted:Qty : 1 on 07/13/2022 by Bismark Weston MD at [facility] TOTAL JOINT CONSTRUCT Left: Knee CONFORMIS 04/02/2024 [id number] / / [id number] Insrt Tib Identity Sz 4n 6mm L [id number] - [id number] Implanted:Qty : 1 on 07/13/2022 by Bismark Weston MD at [facility] TOTAL JOINT CONSTRUCT Left: Knee CONFORMIS 06/01/2023 [id number] / / [id number] Insurance [place] [id number] [facility] Advance Directives For more information, please contact: [phone] * Full Code (Latest Code Status on File) Date Activated Date Inactivated Comments 07/13/2022 1:44 PM 07/13/2022 5:15 PM * Full Code Date Activated Date Inactivated Comments 07/13/2022 7:15 AM 07/13/2022 1:44 PM Care Teams President Commercial Bank Relationship Specialty Start Date End Date Darnell Montemayor MD [address] [place] [address] PCP - General Adolescent Medicine 06/16/22
--- OUTSIDE RECORDS SUMMARY | 2024-09-23 14:28 | XMS_ITS | Encounter Summary ---
Author Organization [id number] Address [address] [place] [place] [address] Care Team Providers Care Sales And Marketing Manager Name Role Phone Darnell Montemayor MD Primary Care Provider + [phone] Encounter Details Date Type Department Care Team (Late st Contact Info) Description 07/02/2018 Transcribed Document [facility] [address] [place] [address] Provider, [facility] [place] MD Calvin Social History Tobacco Use Types Packs/Day Years Used Date Smoking Tobacco: Never Assessed Comments Unknown Sex and Gender Information Value Date Recorded Sex Assigned at Female 09/28/2021 8:29 PM CDT Legal Sex Female 8:29 PM CDT Gender Identity Female 09/28/2021 8:29 PM CDT Sexual Orientation Not on file documented as of this encounter Miscellaneous Notes * Cerner Conversion Note - [facility] [place] Calvin Jackson MD - 07/02/2018 3:03 AM EDT ED Assessment Entered On: 07/02/2018 3:29 EDT Performed On: 07/02/2018 3:25 EDT by Giacomo Carbajal Rn ED Quick Look Assessment Level of Consciousness : Alert, Awake Affect/Behavior : Appropriate, Calm, Cooperative Orientation : Oriented x 4 Skin Temperature : Warm Skin Description : Normal for ethnicity Giacomo Carbajal Rn - 07/02/2018 3:25 EDT ED General-Functional Assess Information Obtained From : Patient Communication Barrier : None Primary Language : Bhutanese Any Spiritual/Cultural Needs or Requests : No Currently in Unsafe Situation : No Giacomo Carbajal Rn - 07/02/2018 3:25 EDT Social Habits Smoking Status : Never (less than 100 in lifetime; none in last 30 days) Smokeless Tobacco Status : Never Desires Tobacco Cessation Calc : 0 Giacomo Carbajal Rn - 07/02/2018 3:25 EDT Social History (As Of: 07/02/2018 03:29:11 EDT) Musculoskeletal Musculoskeletal Assessment WDL : WDL with exceptions Musculoskeletal Assessment Comment : pt had RT knee arthroscopy on 05/22/18 for a torn medial meniscus. She has 2 red rasied rashes on her knee that are from the pain/adhesive patch from therapy. No calf pain with plantar or dorsiflexion. 2+ pedal pulses. Inscisions are clean and dry. Giacomo Carbajal Rn - 07/02/2018 3:25 EDT Electronically signed by Gail [facility] [place] Conversion Maintenance Aide Cerner at 08/24/2022 5:40 PM CDT documented in this encounter Plan of Treatment Not on file documented as of this encounter Visit Diagnoses Not on filedocumented in this encounter Care Teams Sales And Marketing Manager Relationship Specialty Start Date End Date Darnell Montemayor MD [address] [place] [address] PCP - General Adolescent Medicine 06/16/22 documented as of this encounter
--- OUTSIDE RECORDS SUMMARY | 2024-09-23 14:28 | XMS_ITS | Encounter Summary ---
Author Organization [facility] Address [address] [place] [address] Care Team Providers Care Cotton Classer Name Role Phone Darnell Montemayor MD Primary Care Provider [phone] Reason for Referral * Consultation (Routine) - Closed Specialty Diagnoses / Procedures Referred By Krystina noonan Referred To Contact Otolaryngology Diagnoses Other chronic diseases of tonsils and adenoids Emiliano Vargas MD [address] [facility], [address] [address] Phone: tel: fax: Referral ID Status Reason Start Date Expiration Date V isits Requested Visits Authorized [id number] Closed Specialty Services Required 08/31/2023 03/01/2025 1 1 Encounter Details Date Type Department Care Team (Late st Contact Info) Description 08/31/2023 [facility] [address] [place] [address] Emiliano Vargas MD [address] [place] [address], [place] [phone] Other chronic diseases of tonsils and adenoids (Primary Dx) Social History Tobacco Use Types Packs/Day Years Used Date Smoking Tobacco: Some Days Cigarettes Smokeless Tobacco: Never Alcohol Use Standard Drinks/Week Comments Yes 0 (1 standard drink = 0.6 oz pur e alcohol) Socially Comments Unknown Sex and Gender Information Value Date Recorded Sex Assigned at Not on file Legal Sex Female 8:26 PM EDT Gender Identity Not on file Sexual Orientation Not on file documented as of this encounter Plan of Treatment Upcoming Encounters Date Type Department Care Team (Late st Contact Info) Description 10/30/2024 1:40 PM EDT Office Visit Obstetrics & Gynecology [address] [place] [address] Stephanie Castro, RAFTSMAN, CNM [address] [place] [address] Scheduled Referrals Name Type Priority Associated Diagnoses Order Schedule Ambulatory Referral to ENT Outpatient Referral Routine Other chronic diseases of tonsils and adenoids 1 Occurrences starting 08/31/2023 until 03/02/2025 documented as of this encounter Visit Diagnoses Diagnosis Other chronic diseases of tonsils and adenoids- Primary documented in this encounter Additional Health Concerns Assessment Noted Time A fall risk assessment has been complete d for the patient 10/18/2021 2:56 PM EDT documented as of this encounter Care Teams Cotton Classer Relationship Specialty Start Date End Date Darnell Montemayor MD [address] [place] [address] PCP - General 08/14/20 documented as of this encounter
[2024-09-23 15:13] LABS: Basophils % 0.4 % (0.1-2.0); Eosinophils # 0.1 Kmm3 (0.0-0.4); Eosinophils % 1.2 % (0.1-12.0); Hematocrit 37.4 % (37.0-47.0); Hemoglobin 12.7 g/dL (12.2-16.2); Immature Granulocytes # 0.03 10^3uL; Immature Granulocytes % 0.3 %; Lymphocytes # 2.7 K/mm3 (0.7-4.5); Lymphocytes % 26.9 % (10-50); Mean Corpuscular Hemoglobin 29.6 pg (27.0-31.2); Mean Corpuscular Volume 87.2 fl (81-99); Mean Platelet Volume 9.4 fl (7.4-10.4); Monocytes # 0.6 K/mm3 (0.1-1.0); Monocytes % 5.7 % (1.7-9.3); Neutrophils # 6.5 K/mm3 (1.8-7.8); Neutrophils % 65.5 % (37.0-80.0); Nucleated Red Blood Cells # 0 10^3/uL; Nucleated Red Blood Cells % 0 %; Platelet Count 386 K/mm3 (142-424); Red Blood Count 4.29 M/mm3 (4.20-5.40); Red Cell Distribution Width 13.6 % (11.5-17.5); Red Cell Distribution Width-SD 43.8 fL; White Blood Count 9.9 K/mm3 (4.8-10.8)
[2024-09-23 15:34] LABS: Alanine Aminotransferase 26 U/L (12-78); Albumin Level 3.8 g/dl (3.5-5.0); Albumin/Globulin Ratio 1.4 (1.1-1.8); Alkaline Phosphatase 115 U/L (38-126); Anion Gap 5.8 mEq/L (5-15); Aspartate Amino Transferase 26 U/L (14-36); Bilirubin,Total 0.4 mg/dl (0.2-1.3); Blood Urea Nitrogen 8 mg/dl (7-17); Calcium 9.6 mg/dl (8.4-10.2); Carbon Dioxide 29 mmol/L (22.0-30.0); Chloride 105 mmol/L (98-107); Estimated Glomerular Filt Rate 76 ml/min (>60); GFR (African American) 92 ML/MIN (>60); Globulin 2.8 g/dL (1.3-3.2); Glucose 106 mg/dl (74-100); Potassium 3.8 mmoL/L (3.5-5.1); Sodium 136 mmol/L (136-145); Total Protein,Serum 6.6 g/dl (6.3-8.2); Uric Acid 5.6 mg/dl (2.5-6.2)
[2024-09-23 15:39] LABS: C-Reactive Protein 11.3 mg/L (0-4)
[2024-09-23 15:42] LABS: Erythrocyte Sedimentation Rate 45 mm/hr (0-20)
[2024-09-23 16:23] LABS: Vitamin B12 435 pg/mL (239-931)
[2024-09-24 09:09] LABS: Thyroid Stimulating Hormone 0.71 uIU/mL (0.465-4.68)
[2024-09-24 10:34] LABS: RA Latex Turbid. <10.0 IU/mL (<14.0)
[2024-09-24 11:07] LABS: Folate 7.28 ng/mL
[2024-09-25 16:17] LABS: Antinuclear Antibodies, IFA Negative (.)
[2024-09-28 11:38] LABS: Cotinine 316.9 ng/mL (.); Nicotine 14.6 ng/mL (.)
[2024-09-28 18:16] LABS: 1,25 Dihydroxy Vitamin D 29 pg/mL (.); 1,25-Dihydroxy, Vitamin D-2 <10 pg/mL (.); 1,25-Dihydroxy, Vitamin D-3 29 pg/mL (.)
== END 2024-09-23 23:59 | disposition home or self-care (01) ==
LOC: LAB 14:25
PROVIDERS: PCP Internal Medicine Adolescent Medicine; Visit Provider Podiatrist
DX: B35.1 Tinea unguium (principal)
CPT/HCPCS: 36415; 80053; 80323; 82607; 82652; 82746; 84443; 84550; 85025; 85651; 86038; 86140; 86431; 87102; 87206; 87220

== ENCOUNTER 2024-10-02 09:45 | Outpatient (CLI) | payer OTHER, SELFPAY ==
--- OUTSIDE RECORDS SUMMARY | 2024-10-02 09:48 | XMS_ITS | Encounter Summary ---
Author Organization [employer] ([place], [place], [place], [place]) Address [address] [place] [address] Care Team Providers Care Display Associate Name Role Phone Darnell Montemayor MD Primary Care Provider + [phone] Encounter Details Date Type Department Care Team (Late st Contact Info) Description 07/02/2018 Transcribed Document [facility] 1 [place] [address] Provider, lauri Simpson MD Social History Tobacco Use Types Packs/Day Years Used Date Smoking Tobacco: Never Assessed Comments Unknown Sex and Gender Information Value Date Recorded Sex Assigned at Female 09/28/2021 8:29 PM CDT Legal Sex Female 8:29 PM CDT Gender Identity Female 09/28/2021 8:29 PM CDT Sexual Orientation Not on file documented as of this encounter Miscellaneous Notes * Cerner Conversion Note - [facility] Calvin ProviderMD - 07/02/2018 3:03 AM EDT ED Assessment [...] Communication Barrier : None Primary Language : Beninese Any Spiritual/Cultural Needs or Requests : No Currently in Unsafe Situation : No Budke, Tayonna, Rn - 07/02/2018 3:25 EDT Social Habits [...] - 07/02/2018 3:25 EDT Electronically signed by [employer] Conversion Senior Clinical Study Manager Cerner at 08/24/2022 5:40 PM CDT documented in this encounter Plan of Treatment Not on file documented as of this encounter Visit Diagnoses Not on filedocumented in this encounter Care Teams Display Associate Relationship Specialty Start Date End Date Darnell Montemayor MD [address] [place] [address] PCP - General Adolescent Medicine 06/16/22 documented as of this encounter
--- OUTSIDE RECORDS SUMMARY | 2024-10-02 09:48 | XMS_ITS | Encounter Summary ---
Author Organization [employer] ([place], [place], [place]) Address [address] [place] [address] Care Team Providers Care Business Development Executive Name Role Phone Darnell Montemayor MD Primary Care Provider [phone] Encounter Details Date Type Department Care Team (Late st Contact Info) Description 07/02/2018 Transcribed Document [facility] [address] [place] [address] Provider, [facility] MD Calvin Social History Tobacco Use Types Packs/Day Years Used Date Smoking Tobacco: Never Assessed Comments Unknown Sex and Gender Information Value Date Recorded Sex Assigned at Female 09/28/2021 8:29 PM CDT Legal Sex Female 8:29 PM CDT Gender Identity Female 09/28/2021 8:29 PM CDT Sexual Orientation Not on file documented as of this encounter Miscellaneous Notes * Cerner Conversion Note - [facility] Calvin ProviderMD - 07/02/2018 5:18 AM EDT Electronically signed by Interface, [facility] Conversion Lime Slaker Cerner at 08/24/2022 5:39 PM CDT documented in this encounter Plan of Treatment Not on file documented as of this encounter Visit Diagnoses Not on filedocumented in this encounter Care Teams Business Development Executive Relationship Specialty Start Date End Date Darnell Montemayor MD [address] [place] [address] PCP - General Adolescent Medicine 06/16/22 documented as of this encounter
--- OUTSIDE RECORDS SUMMARY | 2024-10-02 09:48 | XMS_ITS | Encounter Summary ---
Author Organization [employer] ([place], [place], [place], [place]) Address [address] [place] [address] Care Team Providers Care Admitting Supervisor Name Role Phone Darnell Montemayor MD Primary Care Provider + [phone] Encounter Details Date Type Department Care Team (Late st Contact Info) Description 07/02/2018 Transcribed Document [facility] 1 [place] [address] Provider, [facility] MD Calvin Social History Tobacco Use Types Packs/Day Years Used Date Smoking Tobacco: Never Assessed Comments Unknown Sex and Gender Information Value Date Recorded Sex Assigned at Female 09/28/2021 8:29 PM CDT Legal Sex Female 8:29 PM CDT Gender Identity Female 09/28/2021 8:29 PM CDT Sexual Orientation Not on file documented as of this encounter Miscellaneous Notes * Cerner Conversion Note - [facility] Calvin ProviderMD - 07/02/2018 3:03 AM EDT [...] - Non - Urgent Tracking Group : [facility] Sandra De La Rosa Rn - [...] Recent Thoughts of Harming/Killing Others : No Business Sales Consultant Needed : No Sandra De La Rosa [...] PNED ; Probability: 0 ; Diagnosis Code: [id number] ED Height and Weight Height Source : Stated Height Entry Format : [place] Height, Feet : 5 ft(Converted to: 152 cm, 60 Inch) Height, Inches : 10 Inch(Converted to: 0 ft 10 Inch, 25.40 cm) Clinical Height : 177.8 cm Weight Source, ED : Critical estimated dosing weight Weight Entry Format : [place] Weight, Pounds : 250 lb Clinical Dosing Weight : 113.64 kg Body Surface Area (BSA) : 2.3 m2 Body Mass Index : 35.9 kg/m2 (HI) [place] Body Weight (IBW) : 68.02 kg Sandra [...] the text rendition version of the form. documented in this encounter Plan of Treatment Not on file documented as of this encounter Visit Diagnoses Not on filedocumented in this encounter Care Teams Admitting Supervisor Relationship Specialty Start Date End Date Darnell Montemayor MD [address] [place] [address] PCP - General Adolescent Medicine 06/16/22 documented as of this encounter
--- OUTSIDE RECORDS SUMMARY | 2024-10-02 09:48 | XMS_ITS | Encounter Summary ---
Author Organization [facility] Address [address] [place] [address] Care Team Providers Care Dietitian Chief Name Role Phone Darnell Montemayor MD Primary Care Provider [phone] Reason for Referral * Consultation (Routine) - Closed Specialty Diagnoses / Procedures Referred By Krystina noonan Referred To Contact Otolaryngology Diagnoses Other chronic diseases of tonsils and adenoids Emiliano Vargas MD [address] [facility], [address] [address] Phone: tel: fax: Referral ID Status Reason Start Date Expiration Date V isits Requested Visits Authorized [id number] Closed Specialty Services Required 08/31/2023 03/01/2025 1 1 Encounter Details Date Type Department Care Team (Late st Contact Info) Description 08/31/2023 [facility] [address] [place] [address] Emiliano Vargas MD [address] [place] [address], [place] [phone] Other chronic diseases of tonsils and adenoids [...] EDT Office Visit Obstetrics & Gynecology [address] [place] [address] Stephanie Castro, 21 DEALER, CNM [address] [place] [address] Scheduled Referrals Name Type Priority [...] documented as of this encounter Care Teams Dietitian Chief Relationship Specialty Start Date End Date Darnell Montemayor MD [address] [place] [address] PCP - General 08/14/20 documented as of this encounter
--- OUTSIDE RECORDS SUMMARY | 2024-10-02 09:48 | XMS_ITS | Clinical Summary ---
Author Organization [facility] Address [address] [place] [address] Care Team Providers Care Photo Tech Name Role Phone Darnell Montemayor MD Primary Care Provider [phone] Allergies Active Allergy Reactions Criticality Noted Date [...] vomiting. 9 tablet 4 Active HYDROcodone-acetami nophen ([place]) 5-325 MG tablet Take 1 tablet (5 [...] (11/17/2021): Added automatically from request for surgery [id number] Tobacco abuse 01/12/2021 Other chest pain 01/12/2021 [...] Visit Obstetrics & Gynecology [address] [place] [address] Stephanie Castro, SENSOR TECHNICIAN, CNM [address] [place] [address] Health Maintenance Due Date Last Done Comments [facility]-Depression Screening 1974 [facility]-/Child/Adol SDOH Screenings 1974 [facility]- SDOH Screenings 1992 [facility]-Adult SDOH Screenings 1992 [facility]-Pap Smear 10/30/1995 [facility]-Cervical Cancer Screening 2004 [facility]-HPV/Cotest 2004 [facility]-Hepatitis B Vaccines (2 of 3 - 19+ 3-dose series) 01/19/2017 12/22/2016 CT Colonography 10/30/2019 Colonoscopy 10/30/2019 FIT-DNA 10/30/2019 FIT 10/30/2019 FOBT 10/30/2019 Sigmoidoscopy 10/30/2019 [facility]-Colorectal Cancer Screening 10/30/2019 [id number] Vaccine (2 - 20 24-25 season) 2023 [...] ORDERABLES Final Res ult Performing Organization Address City/[facility] Co de Phone Number [facility] [address] [place] [address] * [place] Hepatitis C Antibody (12/17/2020 5:57 PM EDT) Pathologist [facility] [place] Hepatitis C Antibody Negative Negative 12/17/2020 7:56 PM EDT [facility] Blood Venous blood specimen / Unknown Venipuncture / Unknown 12/17/2020 5:57 PM EDT 12/17/2020 6:29 PM EDT Alexei Yang MD LAB BLOOD ORDERABLES Final Res ult Performing Organization Address City/[facility] Co de Phone Number [facility] [address] [place] [address] from Last 3 Months or Most Recently Relevant to Health Maintenance Insurance [employer] Care Teams Photo Tech Relationship Specialty Start Date End Date Darnell Montemayor MD [address] [place] [address] PCP - General 08/14/20
--- OUTSIDE RECORDS SUMMARY | 2024-10-02 09:48 | XMS_ITS | Encounter Summary ---
Author Organization [employer] ([place], [place], [place], [place]) Address [address] [place] [address] Care Team Providers Care Acid Pumper Name Role Phone Darnell Moore MD Primary Care Provider + [phone] Encounter Details Date Type Department Care Team (Late st Contact Info) Description 07/02/2018 Transcribed Document [facility] 1 [place] [address] Provider, [facility] MD Calvin Social [...] Conversion Note - [facility] Calvin ProviderMD - 07/02/2018 5:25 AM EDT [address] [place] [address] PERSON INFORMATION Name BRADY MCGEE Age 42 Years 1975 Sex Female Language Chinese PCP DARNELL MOORE (REF)MD-[facility] Marital Status Single Med Service Emergency Medicine Acct# Arrival 07/02/2018 02:03:00 Visit Reason Skin rash; Knee pain-swelling; KNEE PAIN Acuity 4 - Non - Urgent LOS 000 02:22 Depart Date: 07/02/18 04:25 AM Address: [place] [address] Comment: PROVIDER INFORMATION Provider Role Assigned Unassigned JUVENTINO MACK MD ED Physician 07/02/2018 04:03:00 Chela Castellanos, freight solicitor Nurse 07/02/2018 04:17:59 DIAGNOSIS Allergic drug reaction [...] days With: Address: When: DARNELL MOORE [address] [place] [address] Business (1) Within 2 to 3 days Comment: Electronically signed by Gail [facility] Conversion Shop Coordinator Cerner at 08/24/2022 5:40 PM CDT documented in this encounter Plan of Treatment Not on file documented as of this encounter Visit Diagnoses Not on filedocumented in this encounter Care Teams Acid Pumper Relationship Specialty Start Date End Date Darnell Moore MD [address] [place] [address] PCP - General Adolescent Medicine 06/16/22 documented as of this encounter
--- OUTSIDE RECORDS SUMMARY | 2024-10-02 09:48 | XMS_ITS | Encounter Summary ---
Author Organization [employer] ([place], [place], [place], [place]) Address [address] [place] [address] Care Team Providers Care Podiatry Assistant Name Role Phone Darnell Moore MD Primary Care Provider + [phone] Encounter Details Date Type Department Care Team (Late st Contact Info) Description 07/02/2018 Transcribed Document [facility] 1 [place] [address] Provider, [facility] MD Calvin Social [...] * Cerner Conversion Note - [facility] Historical ProviderMD - 07/02/2018 5:12 AM EDT Patient: [...] EDT Height Source Stated Height Entry Format [place] Height/Length, GRENADIAN (ft) 5 ft Height/Length GRENADIAN 10 Inch CLINICALHEIGHT 177.8 cm [place] Body Weight 68.02 kg Weight Source, ED Critical estimated dosing weight Weight Entry Format [place] Weight Malian lb 250 lb CLINICALWEIGHT 113.64 kg Body [...] Fall Risk Assessment: ED Adult Triage: ED certified genetic counselor: . Radiology results: X-ray, Right knee no apparent abnormality. Impression and Plan Diagnosis Allergic drug reaction - Discharge, Emergency medicine, Medical Plan Condition: Unchanged. Prescriptions: Prescription Index Editor Pharmacy: Benadryl Extra Strength 2%-0.1% topical cream [...] on filedocumented in this encounter Care Teams Podiatry Assistant Relationship Specialty Start Date End Date Darnell Moore MD [address] [place] [address] PCP - General Adolescent Medicine 06/16/22 documented as of this encounter
--- OUTSIDE RECORDS SUMMARY | 2024-10-02 09:48 | XMS_ITS | Encounter Summary ---
Author Organization [employer] ([place], [place], [place], [place]) Address [address] [place] [address] Care Team Providers Care Well Shooter Name Role Phone Darnell Moore MD Primary Care Provider + [phone] Encounter Details Date Type Department Care Team (Late st Contact Info) Description 07/02/2018 Transcribed Document [facility] 1 [place] [address] Provider, Netta Simpson MD Social History Tobacco Use Types [...] Cerner Conversion Note - [facility] Calvin ProviderMD - 07/02/2018 5:25 AM EDT [address] [address] Patient Information Name: BRADY MCGEE Age: 42 Years Date of : 1975 Arrival Time: 07/02/2018 02:03:00 Diagnosis Allergic drug reaction Primary Care Physician: DARNELL MOORE (REF)MD-[facility] Provider Information Primary Provider: JUVENTINO MACK MD Secondary Provider: BRADY MCGEE AMANDEEP has been given the following list of patient education materials, prescriptions and follow-up instructions: Follow-up Instructions: With: Address: When: Follow up with surgeon Within 2 to 3 days With: Address: When: DARNELL MOORE [address] [place], [place] [id number] Business (1) Within 2 to 3 days [...] you may need to see an occupational therapist aide.How is this treated? Treatment for this condition [...] Avoid using hot water. MedicinesETake or apply atrx-fmu-izchjvy and prescription medicines only as told by [...] This statement is to verify that BRADY MCGEE was seen at [facility] Emergency Department on ,07/02/2018 04:25:19. This [...] along the way. As a healthcare provider, [facility] recommends that you stop smoking. Assistance with quitting is available by contacting 4-079-AFPP-NOW. This is a free resource providing counseling, [...] Electronic Communications Privacy Act 18 U.S.C. ???Sections 0388-4965,Eand contain information intended for the specified individual(s) [...] sure to sign up for the My [facility] patient portal, which gives you / access to your medical information Eincluding these discharge instructions Eusing your computer, smartphone, or tablet. Just go to [employer] to get started. Questions? Call . Acknowledgment [...] on filedocumented in this encounter Care Teams Well Shooter Relationship Specialty Start Date End Date Darnell Moore MD [address] [place] [address] PCP - General Adolescent Medicine 06/16/22 documented as of this encounter
--- OUTSIDE RECORDS SUMMARY | 2024-10-02 09:48 | XMS_ITS | Encounter Summary ---
Author Organization [employer] ([place], [place], [place], [place]) Address [address] [place] [address] Care Team Providers Care Network Consultant Name Role Phone Darnell Montemayor MD Primary Care Provider + [phone] Encounter Details Date Type Department Care Team (Late st Contact Info) Description 07/02/2018 Transcribed Document [facility] 1 [place] [address] Provider [facility] MD Calvin Social History Tobacco Use Types Packs/Day Years Used Date Smoking Tobacco: Never Assessed Comments Unknown Sex and Gender Information Value Date Recorded Sex Assigned at Female 09/28/2021 8:29 PM CDT Legal Sex Female 8:29 PM CDT Gender Identity Female 09/28/2021 8:29 PM CDT Sexual Orientation Not on file documented as of this encounter Miscellaneous Notes * Cerner Conversion Note - [facility] Historical ProviderMD - 07/02/2018 12:29 PM EDT [...] on filedocumented in this encounter Care Teams Network Consultant Relationship Specialty Start Date End Date Darnell Montemayor MD [address] [place] [address] PCP - General Adolescent Medicine 06/16/22 documented as of this encounter
--- OUTSIDE RECORDS SUMMARY | 2024-10-02 09:48 | XMS_ITS | Encounter Summary ---
Author Organization [employer] ([place], [place], [place], [place]) Address [address] [place] [address] Care Team Providers Care Head Butler Name Role Phone Darnell Montemayor MD Primary Care Provider + [phone] Encounter Details Date Type Department Care Team (Late st Contact Info) Description 07/02/2018 Transcribed Document [facility] 1 [place] [address] Provider, lauri Simpson MD Social [...] Miscellaneous Notes * Cerner Conversion Note - [facility] Calvin ProviderMD - 07/02/2018 5:24 AM EDT ED Discharge Entered On: 07/02/2018 4:24 EDT Performed On: 07/02/2018 4:24 EDT by Ashley Patino Sausage Grinder Process Patient Disposition : Discharge Personal Belongings With Patient : Yes Patient Education Completed : Yes Teaching Evaluation : Verbalizes understanding IV Discontinued : Not applicable Nursing Documentation Completed : Yes Ashley Patino Rn - 07/02/2018 4:24 EDT ED Discharge [...] on filedocumented in this encounter Care Teams Head Butler Relationship Specialty Start Date End Date Darnell Montemayor MD [address] [place] [address] PCP - General Adolescent Medicine 06/16/22 documented as of this encounter
--- OUTSIDE RECORDS SUMMARY | 2024-10-02 09:51 | XMS_ITS | Referral Summary ---
Author Organization [employer] ([place], [place], [place], [place]) Address [address] [place] [address] Care Team Providers Care Plant Accountant Name Role Phone Darnell Montemayor MD Primary Care Provider + [phone] Allergies Active Allergy Reactions Criticality Noted Date [...] = 0.6 oz pur e alcohol) occassional Food Insecurity Answer Date Recorded Food run [...] Date Holden rded Speak language other than Turkish at home Not on file 04/21/2023 Want help with school or training Not on file 04/21/2023 Substance Use Answer Date Recorded Used [...] on file Medical Devices Implanted Type Area Chief Growth Officer Device Identifier Shelf Expiration Date Model / Serial / Lot Cement Bone Smplx Tobra 40 6197-9-001 - [id number] Implanted:Qty : 2 on 07/13/2022 by Bismark Weston MD at [facility] IMPLANTS Left: Knee ANIKET:[employer] 11/01/2023 6197-9-00 1 / / [id number] Try Tib Id Cr Imp Sz4 [id number] - [id number] Implanted:Qty : 1 on 07/13/2022 by Bismark Weston MD at [facility] IMPLANTS Left: Knee CONFORMIS 07/02/2023 [id number] / / [id number] Imp Fem Cr Iden Sz4 Rt [id number] - [id number] Implanted:Qty : 1 on 07/13/2022 by Bismark Weston MD at [facility] TOTAL JOINT CONSTRUCT Left: Knee CONFORMIS 07/02/2023 [id number] / / [id number] Imp Patella Itotal 32x6mm [id number] - [id number] Implanted:Qty : 1 on 07/13/2022 by Bismark Weston MD at [facility] TOTAL JOINT CONSTRUCT Left: Knee CONFORMIS 04/02/2024 [id number] / / [id number] Insrt Tib Identity Sz 4n 6mm L [id number] - [id number] Implanted:Qty : 1 on 07/13/2022 by Bismark Weston MD at [facility] TOTAL JOINT CONSTRUCT Left: Knee CONFORMIS 06/01/2023 [id number] / / [id number] Insurance AETNA [facility] [place] Advance Directives For more information, please contact: [phone] * Full Code (Latest Code Status on File) Date Activated Date Inactivated Comments 07/13/2022 1:44 PM 07/13/2022 5:15 PM * Full Code Date Activated Date Inactivated Comments 07/13/2022 7:15 AM 07/13/2022 1:44 PM Care Teams Plant Accountant Relationship Specialty Start Date End Date Darnell Montemayor MD [address] [place] [address] PCP - General Adolescent Medicine 06/16/22
--- NOTE | 2024-10-02 10:00 | US_ITS ---
FINAL REPORT CLINICAL HISTORY: Left Lower Extremity Mass(Foot Ankle) FINDINGS: Limited sonographic images of the left lower extremity were obtained. No discrete mass or cystic lesion is identified. There is a small amount of fluid anterior to the ankle joint, may be related to a small effusion. IMPRESSION: Possible small effusion. Reviewed, Interpreted and Dictated by Wili Shell MD Transcribed by Funmilayo Mayfield Authenticated and [facility]
--- NOTE | 2024-10-02 10:30 | US_ITS ---
FINAL REPORT CLINICAL HISTORY: Right Lower Extremity Mass(Foot Ankle) FINDINGS: Limited sonographic images of the right lower extremity was obtained. At the level of the palpable abnormality, there appears to be a subcutaneous fluid collection measuring 3.3 x 0.4 cm. This does not appear to be associated with deeper structures. IMPRESSION: Subcutaneous fluid collection as detailed above. Recommend ankle MRI to better characterize. Reviewed, Interpreted and Dictated by Wili Shell MD Transcribed by Funmilayo Mayfield Authenticated and [facility]
== END 2024-10-02 23:59 | disposition home or self-care (01) ==
LOC: RAD 09:46
PROVIDERS: PCP Internal Medicine Adolescent Medicine; Visit Provider Podiatrist
DX: M79.89 Other specified soft tissue disorders (principal); R93.6 Abnormal findings on diagnostic imaging of limbs; D17.24 Benign lipomatous neoplasm of skin and subcutaneous tissue of left leg
CPT/HCPCS: 76882

== ENCOUNTER 2024-10-17 14:20 | Outpatient (CLI) | payer OTHER, SELFPAY ==
--- OUTSIDE RECORDS SUMMARY | 2024-10-17 14:24 | XMS_ITS | Encounter Summary ---
Author Organization [employer] ([place], [place], [place], [place]) Address [address] [place] [address] Care Team Providers Care Supervisor Train Operations Name Role Phone Darnell Moore MD Primary Care Provider + [phone] Encounter Details Date Type Department Care Team (Late st Contact Info) Description 07/02/2018 Transcribed Document [facility] Radiology 1 [place] [address] Provider, [facility] MD Calvin [...] EDT Height Source Stated Height Entry Format [place] Height/Length, SPANISH (ft) 5 ft Height/Length SPANISH 10 Inch CLINICALHEIGHT 177.8 cm [place] Body Weight 68.02 kg Weight Source, ED Critical estimated dosing weight Weight Entry Format [place] Weight Bahraini lb 250 lb CLINICALWEIGHT 113.64 kg Body [...] Fall Risk Assessment: ED Adult Triage: ED document controller: . Radiology results: X-ray, Right knee no apparent abnormality. Impression and Plan Diagnosis Allergic drug reaction - Discharge, Emergency medicine, Medical Plan Condition: Unchanged. Prescriptions: Prescription Artificial Breeding Distributor Pharmacy: Benadryl Extra Strength 2%-0.1% topical cream [...] filedocumented in this encounter Care Teams Supervisor Train Operations Relationship Specialty Start Date End Date Darnell Moore MD [address] [place] [address] PCP - General Adolescent Medicine 06/16/22 documented as of this encounter
--- OUTSIDE RECORDS SUMMARY | 2024-10-17 14:24 | XMS_ITS | Encounter Summary ---
Author Organization [facility] Address [address] [place] [address] Care Team Providers Care Manager Pmo Name Role Phone Darnell Montemayor MD Primary Care Provider [phone] Reason for Referral * Consultation (Routine) - Closed Specialty Diagnoses / Procedures Referred By Krystina noonan Referred To Contact Otolaryngology Diagnoses Other chronic diseases of tonsils and adenoids Emiliano Vargas MD [address] [facility], [address] [address] Phone: tel: fax: Referral ID Status Reason Start Date Expiration Date V isits Requested Visits Authorized [id number] Closed Specialty Services Required 08/31/2023 03/01/2025 1 1 Encounter Details Date Type Department Care Team (Late st Contact Info) Description 08/31/2023 [facility] [address] [place] [address] Emiliano Vargas MD [address] [place] [address], [place] [phone] Other chronic diseases of tonsils and adenoids [...] EDT Office Visit Obstetrics & Gynecology [address] [place] [address] Stephanie Castro, MATERIALS CLERK, CNM [address] [place] [address] Scheduled Referrals Name Type Priority [...] documented as of this encounter Care Teams Manager Pmo Relationship Specialty Start Date End Date Darnell Montemayor MD [address] [place] [address] PCP - General 08/14/20 documented as of this encounter
--- OUTSIDE RECORDS SUMMARY | 2024-10-17 14:24 | XMS_ITS | Encounter Summary ---
Author Organization [employer] ([place], [place], [place], [place]) Address [address] [place] [address] Care Team Providers Care Meat Lugger Name Role Phone Darnell Montemayor MD Primary Care Provider [phone] Encounter Details Date Type Department Care Team (Late st Contact Info) Description 07/02/2018 Transcribed Document [facility] 1 [place] [address] Provider, [facility] MD Calvin Social History Tobacco Use Types Packs/Day Years Used Date Smoking Tobacco: Never Assessed Comments Unknown Sex and Gender Information Value Date Recorded Sex Assigned at Female 09/28/2021 8:29 PM CDT Legal Sex Female 8:29 PM CDT Gender Identity Female 09/28/2021 8:29 PM CDT Sexual Orientation Not on file documented as of this encounter Miscellaneous Notes * Cerner Conversion Note - [facility] Calvin ProviderMD - 07/02/2018 5:18 AM EDT Electronically signed by Interface, [facility] Conversion Cigar Head Piercer Cerner at 08/24/2022 5:39 PM CDT documented in this encounter Plan of Treatment Not on file documented as of this encounter Visit Diagnoses Not on filedocumented in this encounter Care Teams Meat Lugger Relationship Specialty Start Date End Date Darnell Montemayor MD [address] [place] [address] PCP - General Adolescent Medicine 06/16/22 documented as of this encounter
--- OUTSIDE RECORDS SUMMARY | 2024-10-17 14:24 | XMS_ITS | Encounter Summary ---
Author Organization [employer] ([place], [place], [place], [place]) Address [address] [place] [address] Care Team Providers Care Twisting Machine Operator Name Role Phone Darnell Montemayor MD Primary Care Provider + [phone] Encounter Details Date Type Department Care Team (Late st Contact Info) Description 07/02/2018 Transcribed Document [facility] 1 [place] [address] Provider [facility] MD Calvin Social History Tobacco Use Types Packs/Day Years Used Date Smoking Tobacco: Never Assessed Comments Unknown Sex and Gender Information Value Date Recorded Sex Assigned at Female 09/28/2021 8:29 PM CDT Legal Sex Female 8:29 PM CDT Gender Identity Female 09/28/2021 8:29 PM CDT Sexual Orientation Not on file documented as of this encounter Miscellaneous Notes * Cerner Conversion Note - [facility] Historical ProviderMD - 07/02/2018 12:29 PM EDT [...] on filedocumented in this encounter Care Teams Twisting Machine Operator Relationship Specialty Start Date End Date Darnell Montemayor MD [address] [place] [address] PCP - General Adolescent Medicine 06/16/22 documented as of this encounter
--- OUTSIDE RECORDS SUMMARY | 2024-10-17 14:24 | XMS_ITS | Encounter Summary ---
Author Organization [employer] ([place], [place], [place], [place]) Address [address] [place] [address] Care Team Providers Care Credit Department Manager Name Role Phone Darnell Montemayor MD Primary Care Provider + [phone] Encounter Details Date Type Department Care Team (Late st Contact Info) Description 07/02/2018 Transcribed Document [facility] 1 [place] [address] Provider, [facility] MD Calvin Social History Tobacco Use Types Packs/Day Years Used Date Smoking Tobacco: Never Assessed Comments Unknown Sex and Gender Information Value Date Recorded Sex Assigned at Female 09/28/2021 8:29 PM CDT Legal Sex Female 8:29 PM CDT Gender Identity Female 09/28/2021 8:29 PM CDT Sexual Orientation Not on file documented as of this encounter Miscellaneous Notes * Cerner Conversion Note - [facility] Calvin ProviderMD - 07/02/2018 5:24 AM EDT ED Discharge Entered On: 07/02/2018 4:24 EDT Performed On: 07/02/2018 4:24 EDT by Ashley Patino Molded Parts Inspector Process Patient Disposition : Discharge Personal Belongings [...] on filedocumented in this encounter Care Teams Credit Department Manager Relationship Specialty Start Date End Date Darnell Montemayor MD [address] [place] [address] PCP - General Adolescent Medicine 06/16/22 documented as of this encounter
--- OUTSIDE RECORDS SUMMARY | 2024-10-17 14:24 | XMS_ITS | Referral Summary ---
Author Organization [employer] ([place], [place], [place], [place]) Address [address] [place] [address] Care Team Providers Care Lineman Service Or Work Dispatcher Name Role Phone Darnell Montemayor MD Primary Care Provider + [phone] Allergies Active Allergy Reactions Criticality Noted Date [...] Date Holden rded Speak language other than Vincentian at home Not on file 04/21/2023 Want [...] on file Medical Devices Implanted Type Area Greeter Guest Services Device Identifier Shelf Expiration Date Model / Serial / Lot Cement Bone Smplx Tobra 40 6197-9-001 - [id number] Implanted:Qty : 2 on 07/13/2022 by Bismark Weston MD at [facility] IMPLANTS Left: Knee ANIKET:[employer] 11/01/2023 6197-9-00 1 / / [id number] Try Tib Id Cr Imp Sz4 [id number] - [id number] Implanted:Qty : 1 on 07/13/2022 by Bismark Weston MD at [facility] IMPLANTS Left: Knee CONFORMIS 07/02/2023 [id number] / / [id number] Imp Fem Cr Iden Sz4 Rt [id number] - [id number] Implanted:Qty : 1 on 07/13/2022 by Bismark Weston MD at [facility] TOTAL JOINT CONSTRUCT Left: Knee CONFORMIS 07/02/2023 [id number] / / [id number] Imp Patella Itotal 32x6mm [id number] - [id number] Implanted:Qty : 1 on 07/13/2022 by Bismark Weston MD at [facility] TOTAL JOINT CONSTRUCT Left: Knee CONFORMIS 04/02/2024 [id number] / / [id number] Insrt Tib Identity Sz 4n 6mm L [id number] - [id number] Implanted:Qty : 1 on 07/13/2022 by Bismark Weston MD at [facility] TOTAL JOINT CONSTRUCT Left: Knee CONFORMIS 06/01/2023 [id number] / / [id number] Insurance A[employer]NA [facility] [place] OF [place] Advance Directives For more information, please contact: [phone] * Full Code (Latest Code Status on File) Date Activated Date Inactivated Comments 07/13/2022 1:44 PM 07/13/2022 5:15 PM * Full Code Date Activated Date Inactivated Comments 07/13/2022 7:15 AM 07/13/2022 1:44 PM Care Teams Lineman Service Or Work Dispatcher Relationship Specialty Start Date End Date Darnell Montemayor MD [address] [place] [address] PCP - General Adolescent Medicine 06/16/22
--- OUTSIDE RECORDS SUMMARY | 2024-10-17 14:24 | XMS_ITS | Encounter Summary ---
Author Organization [employer] ([place], [place], [place], [place]) Address [address] [place] [address] Care Team Providers Care Keno Clerk Name Role Phone Darnell Montemayor MD Primary Care Provider + [phone] Encounter Details Date Type Department Care Team (Late st Contact Info) Description 07/02/2018 Transcribed Document [facility] Radiology 1 [place] [address] Provider, [facility] MD Calvin Social History Tobacco Use [...] Notes * Cerner Conversion Note - [facility] Calvin ProviderMD - 07/02/2018 3:03 AM EDT [...] - Non - Urgent Tracking Group : [facility] ED Sandra De La Rosa Rn - [...] Recent Thoughts of Harming/Killing Others : No Music Typographer Needed : No Sandra De La Rosa [...] PNED ; Probability: 0 ; Diagnosis Code: [id number] ED Height and Weight Height Source : Stated Height Entry Format : [place] Height, Feet : 5 ft(Converted to: 152 cm, 60 Inch) Height, Inches : 10 Inch(Converted to: 0 ft 10 Inch, 25.40 cm) Clinical Height : 177.8 cm Weight Source, ED : Critical estimated dosing weight Weight Entry Format : [place] Weight, Pounds : 250 lb Clinical Dosing Weight : 113.64 kg Body Surface Area (BSA) : 2.3 m2 Body Mass Index : 35.9 kg/m2 (HI) [place] Body Weight (IBW) : 68.02 kg Sandra [...] on filedocumented in this encounter Care Teams Keno Clerk Relationship Specialty Start Date End Date Darnell Montemayor MD [address] [place] [address] PCP - General Adolescent Medicine 06/16/22 documented as of this encounter
--- OUTSIDE RECORDS SUMMARY | 2024-10-17 14:24 | XMS_ITS | Data Portability ---
Author Organization [place] - [facility] - [facility] ADMIN Address [address] [place] [id number] Assessment Encounter Date Assessment Date Assessment LastModified [...] of her current LLQ pain/blood per anus. [email or web address] Not available 11/14/2022 14:03:56 10/24/2023 10/24/2023 47-year-old [...] Nausea: Start Zofran PRN f/u 6 weeks [email or web address] Not available 10/24/2023 16:35:12 12/08/2023 12/08/2023 48-year-old [...] laxative therapy. f/u 1 year and PRN [email or web address] Not available 12/08/2023 15:21:52 Plan of Treatment [...] lubiprost one 24 mcg capsule 2023 024 [facility], [address] [place] [address], [address], [place], [address], 10/24/2023 16:21:31 dicyclomi ne 20 mg tablet 2023 024 [facility], [address] [place] [address], [address], [place], [address], 10/24/2023 16:41:53 ondansetr on 4 mg disintegr ating tablet 2023 024 [facility], [address] [place] [address], [address], [place], [address], 10/24/2023 16:41:52 Linzess 145 mcg capsule 2022 023 [facility], [address] [place] [address], [address], [place], [address], 11/14/2022 14:00:21 Patient TargetsNo targets recorded. Patient InstructionsNo instructions recorded. Reason for Referral None Reported. Problems Name Problem SNOMED Code Status Onset Date Resolution Date Notes Provider Name and Address Organization Details Recorded Time Chronic idiopathic constipation 33497887 Active 2022 Horace Van PA-C [address] , [place], [address] , [place] [facility] & [place] 3 13:55:08 Abdominal pain 35605078 Active 2023 Horace Van PA-C [address] [facility], [place], [address] , [facility] & [place] 4 16:35:19 Nausea 098106994 Active 2023 Horace Van PA-C [address] [facility], [place], [address] , [facility] & [place] 4 16:35:22 Problem Notes None recorded. Medical Equipment None Reported. Allergies Allergen ID Allergen Name Allergen Category Reaction Reaction Severity Criticality Documentation Date Start Date Code Code System Note Provider Name and Address Organization Details Recorded Time 15923 codeine medicatio n Not available Not available Not available 11/14/2022 2670 [facility] [place] 3 10:40:08 Medications Name Sig Start Date [...] Heart rate Heart rate Body temperature Systolic And Diastolic Provider Name and Address Organization Details Last Updated DateTime 4 177.8 cm 32.6 kg/m2 789312. 47 g 97 % 97 % 84 /min 86 /min 97.9 [degF] 139/84 mm[Hg] Carolin LEDESMA DINA [facility] & [place] 4 15:53:03 Date Recorded Body height Body mass index (BMI) Body weight Body temperature Heart rate Oxygen saturation Oxygen saturation in Arterial blood by Pulse oximetry Systolic And Diastolic Provider Name and Address Organization Details Last Updated DateTime 3 177.8 cm 29.3 kg/m2 73279.6 4 g 98.1 [degF] 78 /min 96 % 96 % 104/77 mm[Hg] Carolin LEDESMA [facility] & [place] 3 10:38:54 Social History Question Answer Notes LastModified by Organizat ion Details LastModified Time Tobacco Smoking Status Never Smoker Carolin Diaz [facility] CALLIE [facility] & [place] 11/14/2022 10:39:49 What Is Your Level Of Caffeine Consumption? Moderate [email or web address] Information not available 11/14/2022 Sex: Unknown Functional Status Question Answer Note LastModified by Organizat ion Details LastModified Time Do you use any illicit or recreational drugs? No [email or web address] Information not available 11/14/2022 Do you or have you ever used any other forms of tobacco or nicotine? No [email or web address] Information not available 11/14/2022 What is your level of alcohol consumption? None [email or web address] Information not available 11/14/2022 Mental Status None recorded. Family History Nothing Reported. Medical History No medical history recorded. Gynecological HistoryNo gynecological history recorded. Obstetrics History GPAL:G 0 P 0 0 0 0 Past Encounters Encounter ID Performer Location Encounter Start Date Encounter Closed Date Diagnosis/Indication Diagnosis SNOMED-CT Code Diagnosis ICD10 Code Diagnosis Note [id number] Horace Van PA-C [facility] [address] [address] 11/14/2022 10:19:07 11/14/2022 11:40:16 Chronic idiopathic constipation 54271783 K59.04 [id number] Horace Van PA-C [facility] [place] [address] [place] [address] 10/24/2023 15:48:47 10/24/2023 16:30:30 Chronic idiopathic constipation 66317965 K59.04 Abdominal pain 43041925 R10.9 Nausea 122941690 R11.0 [id number] Horace Van PA-C [facility] [address] [place] [address] 12/08/2023 09:25:44 12/08/2023 09:58:41 Chronic idiopathic constipation 23085784 K59.04 Abdominal pain 22050768 R10.9 Nausea 170303807 R11.0 Health Concerns Section Related Observation LastModified by Organization Detai ls LastModified Time None Recorded Concern Status LastModified by Organization Details LastModified Time None Recorded Advance Directives Directive None Recorded Payers Insurance Date Sequence Insurance Name Policy Number Policy Richardson Covered Member ID Richardson Member ID Guarantor Name 12/08/2023 1 [facility] (MEDICAID HMO) Margaux Everardo [id number] Margaux Everardo 12/08/2023 1 [facility] (MEDICAID REPLACEMENT - HMO) [id number] Margaux Salter Everardo [id number] Margaux Mcgee 12/12/2023 1 [facility] (MEDICARE HMO) Margaux Everardo [id number] Margaux Everardo Notes Date Note Type Note Provider Name and Address Organization Details Recorded Time 11/14/2022 text/html 47-year-old fema josh who was referred by Dr. Hendrix for [...] with wiping. Horace Van PA-C [address], [place], [address], [place] - [facility] & [place] 11/14/2022 14:04:21 10/24/2023 text/html Ms. 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 She was previously treated with linzess 145 mcg p.o. daily, but did not feel that this improved her symptoms much. She is no longer taking laxative therapy. She continues to endorses abdominal discomfort, alternating bowel habits, fecal urgency, and nausea. Colonoscopy in December was unremarkable. Horace Van PA-C [address], [place], [address], [facility] - [facility] & [place] 10/24/2023 16:36:24 12/08/2023 text/html PREVIOUS ( 4): Ms. 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 Horace Van PA-C [address], [place], [address], [facility] - [facility] - [facility] 12/08/2023 15:22:09 OBGyn Episode No OBEpisode recorded.
--- OUTSIDE RECORDS SUMMARY | 2024-10-17 14:24 | XMS_ITS | Clinical Summary ---
Author Organization [employer] ([place], [place], [place], [place]) Address [address] [place] [address] Care Team Providers Care Eating Disorder Psychologist Name Role Phone Darnell Montemayor MD Primary Care Provider + [phone] Allergies Active Allergy Reactions Criticality Noted Date [...] Date Holden rded Speak language other than Slovenian at home Not on file 04/21/2023 Want [...] - Td or Tdap) 12/11/2023 Influenza Vaccine (#1) 2024 Medical Devices Implanted Type Area Electronics Lead Device Identifier Shelf Expiration Date Model / Serial / Lot Cement Bone Smplx Tobra 40gm 6197-9-001 - [id number] Implanted:Qty : 2 on 07/13/2022 by Bismark Weston MD at [facility] IMPLANTS Left: Knee ANIKET:[employer] 11/01/2023 [id number] 1 / / [id number] Tib Id Cr Imp Sz4 [id number] - [id number] Implanted:Qty : 1 on 07/13/2022 by Bismrak Weston MD at [facility] IMPLANTS Left: Knee CONFORMIS 07/02/2023 [id number] / / [id number] Imp Fem Cr Iden Sz4 Rt [id number] - [id number] Implanted:Qty : 1 on 07/13/2022 by Bismark Weston MD at [facility] TOTAL JOINT CONSTRUCT Left: Knee CONFORMIS 07/02/2023 [id number] / / [id number] Imp Patella Itotal 32x6mm [id number] - [id number] Implanted:Qty : 1 on 07/13/2022 by Bismark Weston MD at [facility] TOTAL JOINT [employer]STRU[employer] Left: Knee CONFORMIS 04/02/2024 [id number] / / [id number] Insrt Tib Identity Sz 4n 6mm L [id number] - [id number] Implanted:Qty : 1 on 07/13/2022 by Bismark Weston MD at [facility] TOTAL JOINT CONSTRUCT Left: Knee CONFORMIS 06/01/2023 [id number] / / [id number] Insurance [place] [id number] AENA [facility] Advance Directives For more information, please contact: [phone] * Full Code (Latest Code Status on File) Date Activated Date Inactivated Comments 07/13/2022 1:44 PM 07/13/2022 5:15 PM * Full Code Date Activated Date Inactivated Comments 07/13/2022 7:15 AM 07/13/2022 1:44 PM Care Teams Eating Disorder Psychologist Relationship Specialty Start Date End Date Darnell Montemayor MD [address] [place] [address] [place] [address] PCP - General Adolescent Medicine 06/16/22
--- OUTSIDE RECORDS SUMMARY | 2024-10-17 14:24 | XMS_ITS | Encounter Summary ---
Author Organization [employer] ([place], [place], [place], [place]) Address [address] [place] [address] Care Team Providers Care Staffing Administrator Name Role Phone Darnell Moore MD Primary Care Provider + [phone] Encounter Details Date Type Department Care Team (Late st Contact Info) Description 07/02/2018 Transcribed Document [facility] 1 [place] [address] Provider, Netta Simpson MD Social [...] Notes * Cerner Conversion Note - [facility] Calvin ProviderMD - 07/02/2018 5:25 AM EDT [address] [address] Patient Information Name: BRADY MCGEE Age: 42 Years Date of : 1975 Arrival Time: 07/02/2018 02:03:00 Diagnosis Allergic drug reaction Primary Care Physician: DARNELL MOORE (REF)[facility] Provider Information Primary Provider: JUVENTINO MACK MD Secondary Provider: BRADY MCGEE AMANDEEP has been given the following list of patient education materials, prescriptions and follow-up instructions: Follow-up Instructions: With: Address: When: Follow up with surgeon Within 2 to 3 days With: Address: When: DARNELL MOORE [address] [place], [place] [id number] Business (1) Within 2 to 3 days [...] job, you may need to see an licensed occupational therapist.How is this treated? Treatment for this condition [...] Avoid using hot water. MedicinesETake or apply [id number] and prescription medicines only as told by [...] verify that BRADY MCGEE was seen at [facility] Emergency Department on ,07/02/2018 04:25:19. This [...] along the way. As a healthcare provider, [facility] recommends that you stop smoking. Assistance with quitting is available by contacting 2-618-NGEE-NOW. This is a free resource providing counseling, [...] Electronic Communications Privacy Act 18 U.S.C. ???Sections 3330-4822,Eand contain information intended for the specified individual(s) [...] sure to sign up for the [facility] patient portal, which gives you / access to your medical information Eincluding these discharge instructions Eusing your computer, smartphone, or tablet. Just go to [employer] to get started. Questions? Call . Acknowledgment [...] on filedocumented in this encounter Care Teams Staffing Administrator Relationship Specialty Start Date End Date Darnell Moore MD [address] [place] [address] [place] [address] PCP - General Adolescent Medicine 06/16/22 documented as of this encounter
--- OUTSIDE RECORDS SUMMARY | 2024-10-17 14:24 | XMS_ITS | Encounter Summary ---
Author Organization [employer] ([place], [place], [place], [place]) Address [address] [place] [address] Care Team Providers Care Testing Projects Administrator Name Role Phone Darnell Montemayor MD Primary Care Provider + [phone] Encounter Details Date Type Department Care Team (Late st Contact Info) Description 07/02/2018 Transcribed Document [facility] Radiology 1 [place] [address] Provider, lauri Simpson MD Social [...] Notes * Cerner Conversion Note - [facility] Calvin ProviderMD - 07/02/2018 3:03 AM [...] Communication Barrier : None Primary Language : Maori Any Spiritual/Cultural Needs or Requests : No [...] Giacomo Carbajal Rn - 07/02/2018 3:25 EDT documented in this encounter Plan of Treatment Not on file documented as of this encounter Visit Diagnoses Not on filedocumented in this encounter Care Teams Testing Projects Administrator Relationship Specialty Start Date End Date Darnell Montemayor MD [address] [place] [address] PCP - General Adolescent Medicine 06/16/22 documented as of this encounter
--- OUTSIDE RECORDS SUMMARY | 2024-10-17 14:24 | XMS_ITS | Clinical Summary ---
Author Organization [facility] Address [address] [place] [address] Care Team Providers Care Case Liner Name Role Phone Darnell Montemayor MD Primary Care Provider [phone] Allergies Active Allergy Reactions Criticality Noted Date [...] vomiting. 9 tablet 4 Active HYDROcodone-acetami nophen ([place]) 5-325 MG tablet Take 1 tablet (5 [...] (11/17/2021): Added automatically from request for surgery [id number] Tobacco abuse 01/12/2021 Other chest pain 01/12/2021 [...] Visit Obstetrics & Gynecology [address] [place] [address] Stephanie Castro, HOME WORKER, CNM [address] [place] [address] Health Maintenance Due Date Last Done Comments [facility]-Depression Screening 1975 [facility]-/Child/Adol SDOH Screenings 1975 [facility]- SDOH Screenings 1992 [facility]-Adult SDOH Screenings 1992 [facility]-Pap Smear 10/30/1995 [facility]-Cervical Cancer Screening 2004 [facility]-HPV/Cotest 2004 [facility]-Hepatitis B Vaccines (2 of 3 - 19+ 3-dose series) 01/19/2017 12/22/2016 CT Colonography 10/30/2019 Colonoscopy 10/30/2019 FIT-DNA 10/30/2019 FIT 10/30/2019 FOBT 10/30/2019 Sigmoidoscopy 10/30/2019 [facility]-Colorectal Cancer Screening 10/30/2019 [id number] Vaccine (2 - 20 24-25 season) 2023 07/06/2020 [facility]-DTaP,Tdap,and Td Vaccine s (2 - Td or Tdap) 12/11/2023 12/10/2013 [facility]-Zoster Vaccines (1 of 2) 2024 [facility]-Influenza Vaccine (#1) 2024 01/23/2017 [facility]-HIV Screening Completed 12/17/2020 [facility]-Hepatitis [...] ORDERABLES Final Res ult Performing Organization Address City/[facility] Co de Phone Number [facility] [address] [place] [address] * [place] Hepatitis C Antibody (12/17/2020 5:57 PM EDT) Pathologist [facility] Hepatitis C Antibody Negative Negative 12/17/2020 7:56 PM EDT [facility] Blood Venous blood specimen / Unknown Venipuncture / Unknown 12/17/2020 5:57 PM EDT 12/17/2020 6:29 PM EDT Alexei Yang MD LAB BLOOD ORDERABLES Final Res ult Performing Organization Address City/[facility]/ZIP Co de Phone Number [facility]ALTH[facility]ARE [facility] [address] [place] [address] from Last 3 Months or Most Recently Relevant to Health Maintenance Insurance [employer] Care Teams Case Liner Relationship Specialty Start Date End Date Darnell Montemayor MD [address] [place] [address] PCP - General 08/14/20
--- OUTSIDE RECORDS SUMMARY | 2024-10-17 14:24 | XMS_ITS | Encounter Summary ---
Author Organization [employer] ([place], [place], [place], [place]) Address [address] [place] [address] Care Team Providers Care Buildings And Grounds Coordinator Name Role Phone Darnell Moore MD Primary Care Provider + [phone] Encounter Details Date Type Department Care Team (Late st Contact Info) Description 07/02/2018 Transcribed Document [facility] Radiology 1 [place] [address] Provider, [facility] MD Calvin Social History Tobacco Use [...] Notes * Cerner Conversion Note - [facility] Calvin ProviderMD - 07/02/2018 5:25 AM EDT [address] [place] [address] PERSON INFORMATION Name BRADY MCGEE Age 42 Years 1975 Sex Female Language Libyan PCP DARNELL MOORE (REF)[facility] Marital Status Single Med Service Emergency Medicine Acct# Arrival 07/02/2018 02:03:00 Visit Reason Skin rash; Knee pain-swelling; KNEE PAIN Acuity 4 - Non - Urgent LOS 000 02:22 Depart Date: 07/02/18 04:25 AM Address: [place] [address] Comment: PROVIDER INFORMATION Provider Role Assigned Unassigned JUVENTINO MACK MD ED Physician 07/02/2018 04:03:00 Chela Castellanos, latex fashions designer Nurse 07/02/2018 04:17:59 DIAGNOSIS Allergic drug reaction [...] days With: Address: When: DARNELL MOORE [address] [place] [address] Business (1) Within 2 to 3 days Comment: Electronically signed by Gail [facility] Conversion Garbage Stoker Cerner at 08/24/2022 5:40 PM CDT documented in this encounter Plan of Treatment Not on file documented as of this encounter Visit Diagnoses Not on filedocumented in this encounter Care Teams Buildings And Grounds Coordinator Relationship Specialty Start Date End Date Darnell Moore MD [address] [place] [address] PCP - General Adolescent Medicine 06/16/22 documented as of this encounter
--- NOTE | 2024-10-17 14:45 | MR_ITS ---
PROCEDURE INFORMATION: Exam: MR Left Lower Extremity Joint Without and With Contrast; Ankle Exam date and time: 10/17/2024 2:36 PM Age: 48 years old Clinical indication: Other: Mass; Additional info: Evaluate soft tissue mass where markers are located at TECHNIQUE: Imaging protocol: Magnetic resonance imaging of the left lower extremity without and with contrast. Exam focused on the ankle. Contrast material: PROHANCE; Contrast volume: 22 ml; Contrast route: IV; COMPARISON: CR XR ANKLE LT MIN 3V 08/18/2024 1:52 PM FINDINGS: Bones/joints: Unremarkable. No bone abnormalities. Articular cartilage is normal. No joint effusion. LIGAMENTS: Distal tibiofibular syndesmosis: Unremarkable. No tear. Anterior talofibular ligament: Unremarkable. No tear. Posterior talofibular ligament: Unremarkable. No tear. Calcaneofibular ligament: Unremarkable. No tear. Deltoid ligament complex: Unremarkable. No tear. TENDONS: Flexor tendons of foot: Unremarkable as visualized. Tibialis posterior tendon: Unremarkable as visualized. Peroneal tendons: Mildly flattened contour proximal peroneal brevis tendon. Unremarkable peroneus longus tendon. Extensor tendons of foot: Marked symptomatic area corresponds to extensor hallucis longus and digitorum tendons with mildly complex surrounding fluid collection in tendon sheaths, although less pronounced than in contralateral side. Tendons themselves grossly intact and unremarkable. Tibialis anterior tendon: Unremarkable as visualized. Achilles tendon: Unremarkable as visualized. Tarsal canal (Sinus tarsi): Unremarkable. Normal signal of the fat. Tarsal tunnel: Unremarkable. Soft tissues: Unremarkable. Plantar fascia: Plantar fascia is unremarkable. IMPRESSION: 1. Complex fluid collection in tendon sheath of extensor hallucis longus and digitorum tendons without tendinous disruption suspicious for tenosynovitis. 2. Proximal peroneal brevis tendinous contour suspicious for chronic, partial-thickness tear.
--- NOTE | 2024-10-17 16:00 | MR_ITS ---
PROCEDURE INFORMATION: Exam: MR Right Lower Extremity Joint Without and With Contrast; Ankle Exam date and time: 10/17/2024 2:36 PM Age: 48 years old Clinical indication: Other: Mass; Additional info: Evaluate soft tissue mass placed where markers are located at TECHNIQUE: Imaging protocol: Magnetic resonance imaging of the right lower extremity without and with contrast. Exam focused on the ankle. Contrast material: PROHANCE; Contrast volume: 22 ml; Contrast route: IV; COMPARISON: CR XR FOOT RT MIN 3V 08/18/2024 1:49 PM FINDINGS: Bones/joints: Unremarkable. No bone abnormalities. Articular cartilage is normal. No joint effusion. LIGAMENTS: Distal tibiofibular syndesmosis: Unremarkable. No tear. Anterior talofibular ligament: Unremarkable. No tear. Posterior talofibular ligament: Unremarkable. No tear. Calcaneofibular ligament: Unremarkable. No tear. Deltoid ligament complex: Unremarkable. No tear. TENDONS: Flexor tendons of foot: Unremarkable as visualized. Tibialis posterior tendon: Unremarkable as visualized. Peroneal tendons: Unremarkable as visualized. Extensor tendons of foot: Marked symptomatic area corresponds to extensor hallucis longus and digitorum tendons complex surrounding fluid collection in tendon sheath. Tendons themselves grossly intact and unremarkable. Tibialis anterior tendon: Unremarkable as visualized. Achilles tendon: Unremarkable as visualized. Tarsal canal (Sinus tarsi): Unremarkable. Normal signal of the fat. Tarsal tunnel: Unremarkable. Soft tissues: Unremarkable. Plantar fascia: Plantar fascia is unremarkable. IMPRESSION: Complex fluid collection in tendon sheath of extensor hallucis longus and digitorum tendons without tendinous disruption suspicious for sequelae of tenosynovitis.
[2024-10-17] MEDS: GADOTERIDOL INJ 20ML SYRINGE 20 ML IV (16:42)
[2024-10-17] MEDS: GADOTERIDOL INJ 10ML SYRINGE 2 ML IV (16:42)
[2024-10-17] MEDS: SODIUM CHLORIDE 0.9% 10ML SYR (RAD ONLY) 10 ML IV (16:42)
== END 2024-10-17 23:59 | disposition home or self-care (01) ==
LOC: RAD 14:20
PROVIDERS: PCP Internal Medicine Adolescent Medicine; Visit Provider Podiatrist
DX: M67.874 Other specified disorders of tendon, left ankle and foot (principal); R93.6 Abnormal findings on diagnostic imaging of limbs; M79.89 Other specified soft tissue disorders; M79.673 Pain in unspecified foot; D17.24 Benign lipomatous neoplasm of skin and subcutaneous tissue of left leg
CPT/HCPCS: 73723; A9576

== ENCOUNTER 2024-11-09 09:45 | Outpatient (CLI) | payer OTHER, SELFPAY ==
--- OUTSIDE RECORDS SUMMARY | 2024-11-09 09:49 | XMS_ITS | Encounter Summary ---
Author Organization [employer] ([place], [place], [place], [place]) Address [address] [place] [address] Care Team Providers Care Medical Editor Name Role Phone Darnell Montemayor MD Primary Care Provider + [phone] Encounter Details Date Type Department Care Team (Late st Contact Info) Description 07/02/2018 Transcribed Document [facility] [address] [place] [address] Provider [facility] MD [place] Social History Tobacco Use Types Packs/Day Years Used Date Smoking Tobacco: Never Assessed Comments Unknown Sex and Gender Information Value Date Recorded Sex Assigned at Female 09/28/2021 8:29 PM CDT Legal Sex Female 8:29 PM CDT Gender Identity Female 09/28/2021 8:29 PM CDT Sexual Orientation Not on file documented as of this encounter Miscellaneous Notes * Cerner Conversion Note - [facility] Historical ProviderMD - 07/02/2018 12:29 PM EDT CR Knee 3 Vws RT Ordered: 07/02/2018 Auth (Verified) Reason for Exam: pain recent ligament repair 07/02/2018 08:21 07/02/2018 11:29 (Megan Keller PA) Reviewed by Provider, No further action required x1 07/02/2018 08:48 (DEEP ANTOINE) Provider Review Required Electronically signed by Netta Reynolds Conversion Executive Director Sheltered [employer]ner at 08/24/2022 5:40 PM CDT documented in this encounter Plan of Treatment Not on file documented as of this encounter Visit Diagnoses Not on filedocumented in this encounter Care Teams Medical Editor Relationship Specialty Start Date End Date Darnell Montemayor MD [address] [place] [address] PCP - General Adolescent Medicine 06/16/22 documented as of this encounter
--- OUTSIDE RECORDS SUMMARY | 2024-11-09 09:49 | XMS_ITS | Encounter Summary ---
Author Organization [employer] ([place], [place], [place], [place]) Address [address] [place] [address] Care Team Providers Care Manager E Commerce Name Role Phone Darnell Montemayor MD Primary Care Provider [phone] Encounter Details Date Type Department Care Team (Late st Contact Info) Description 07/02/2018 Transcribed Document [facility] 1 [place] [address] Provider, [facility] MD Calvin Social History [...] Miscellaneous Notes * Cerner Conversion Note - [facility] Calvin ProviderMD - 07/02/2018 5:18 AM EDT Electronically signed by Interface, [facility] Conversion Email Campaign Manager Cerner at 08/24/2022 5:39 PM CDT documented in this encounter Plan of Treatment Not on file documented as of this encounter Visit Diagnoses Not on filedocumented in this encounter Care Teams Manager E Commerce Relationship Specialty Start Date End Date Darnell Montemayor MD [address] [place] [address] PCP - General Adolescent Medicine 06/16/22 documented as of this encounter
--- OUTSIDE RECORDS SUMMARY | 2024-11-09 09:49 | XMS_ITS | Encounter Summary ---
Author Organization [employer] ([place], [place], [place], [place]) Address [address] [place] [address] Care Team Providers Care Construction Rep Name Role Phone Darnell Moore MD Primary Care Provider + [phone] Encounter Details Date Type Department Care Team (Late st Contact Info) Description 07/02/2018 Transcribed Document [facility] 1 [place] [address] Provider, Netta Simpson MD Social [...] Calvin ProviderMD - 07/02/2018 5:25 AM EDT [address] [address] Patient Information Name: BRADY MCGEE Age: 42 Years Date of : 1975 Arrival Time: 07/02/2018 02:03:00 Diagnosis Allergic drug reaction Primary Care Physician: DARNELL MOORE (REF)MD-[facility] Provider Information Primary Provider: JUVENTINO MACK MD Secondary Provider: BRADY MCGEE AMANDEEP has been given the following list of patient education materials, prescriptions and follow-up instructions: Follow-up Instructions: With: Address: When: Follow up with surgeon Within 2 to 3 days With: Address: When: DARNELL MOORE [address] [place], [place] [id number] Business (1) Within 2 to 3 days [...] may need to see an occupational health rn.How is this treated? Treatment for this condition [...] Avoid using hot water. MedicinesETake or apply [id number] and prescription medicines only as told by [...] verify that BRADY MCGEE was seen at [facility] Emergency Department on ,07/02/2018 04:25:19. This [...] along the way. As a healthcare provider, [facility] recommends that you stop smoking. Assistance with quitting is available by contacting 4-873-HSQJ-NOW. This is a free resource providing counseling, [...] Electronic Communications Privacy Act 18 U.S.C. ???Sections 8317-7927,Eand contain information intended for the specified individual(s) [...] sure to sign up for the My [facility] patient portal, which gives you / access to your medical information Eincluding these discharge instructions Eusing your computer, smartphone, or tablet. Just go to [employer] to get started. Questions? Call . Acknowledgment [...] on filedocumented in this encounter Care Teams Construction Rep Relationship Specialty Start Date End Date Darnell Moore MD [address] [place] [address] PCP - General Adolescent Medicine 06/16/22 documented as of this encounter
--- OUTSIDE RECORDS SUMMARY | 2024-11-09 09:49 | XMS_ITS | Encounter Summary ---
Author Organization [employer] ([place], [place], [place], [place]) Address [address] [place] [address] Care Team Providers Care Biometrician Name Role Phone Darnell Montemayor MD Primary Care Provider + [phone] Encounter Details Date Type Department Care Team (Late st Contact Info) Description 07/02/2018 Transcribed Document [facility] Radiology 1 [place] [address] Provider, lauri Simpson MD Social [...] Miscellaneous Notes * Cerner Conversion Note - [facility] Calvin ProviderMD - 07/02/2018 3:03 AM [...] Communication Barrier : None Primary Language : Tamazight Any Spiritual/Cultural Needs or Requests : No [...] on filedocumented in this encounter Care Teams Biometrician Relationship Specialty Start Date End Date Darnell Montemayor MD [address] [place] [address] PCP - General Adolescent Medicine 06/16/22 documented as of this encounter
--- OUTSIDE RECORDS SUMMARY | 2024-11-09 09:49 | XMS_ITS | Encounter Summary ---
Author Organization [employer] ([place], [place], [place], [place]) Address [address] [place] [address] Care Team Providers Care Service Or Work Dispatcher Chief Name Role Phone Darnell Moore MD Primary Care Provider + [phone] Encounter Details Date Type Department Care Team (Late st Contact Info) Description 07/02/2018 Transcribed Document [facility] Radiology 1 [place] [address] Provider, [facility] MD Calvin Social History Tobacco Use Types Packs/Day Years Used Date Smoking Tobacco: Never Assessed Comments Unknown Sex and Gender Information Value Date Recorded Sex Assigned at Female 09/28/2021 8:29 PM CDT Legal Sex Female 8:29 PM CDT Gender Identity Female 09/28/2021 8:29 PM CDT Sexual Orientation Not on file documented as of this encounter Miscellaneous Notes * Cerner Conversion Note - [facility] Historical ProviderMD - 07/02/2018 5:12 AM EDT [...] EDT Height Source Stated Height Entry Format [place] Height/Length, SWEDISH (ft) 5 ft Height/Length SWEDISH 10 Inch CLINICALHEIGHT 177.8 cm Browder Body Weight 68.02 kg Weight Source, ED Critical estimated dosing weight Weight Entry Format [place] Weight [place] Citizen lb 250 lb CLINICALWEIGHT 113.64 kg Body [...] Fall Risk Assessment: ED Adult Triage: ED stacker straightener: . Radiology results: X-ray, Right knee no apparent abnormality. Impression and Plan Diagnosis Allergic drug reaction - Discharge, Emergency medicine, Medical Plan Condition: Unchanged. Prescriptions: Prescription Astronautical Engineer Pharmacy: Benadryl Extra Strength 2%-0.1% topical cream [...] on filedocumented in this encounter Care Teams Service Or Work Dispatcher Chief Relationship Specialty Start Date End Date Darnell Moore MD [address] [place] [address] PCP - General Adolescent Medicine 06/16/22 documented as of this encounter
--- OUTSIDE RECORDS SUMMARY | 2024-11-09 09:49 | XMS_ITS | Encounter Summary ---
Author Organization [employer] ([place], [place], [place], [place]) Address [address] [place] [address] Care Team Providers Care Mini Shifter Name Role Phone Darnell Moore MD Primary Care Provider + [phone] Encounter Details Date Type Department Care Team (Late st Contact Info) Description 07/02/2018 Transcribed Document [facility] Radiology [address] [place] [address] Provider, [facility] MD Calvin Social [...] Conversion Note - [facility] Calvin ProviderMD - 07/02/2018 5:25 AM EDT [address] [place] [address] PERSON INFORMATION Name BRADY MCGEE Age 42 Years 1975 Sex Female Language Hong Konger PCP DARNELL MOORE (REF)MD-[facility] Marital Status Single Med Service Emergency Medicine Acct# Arrival 07/02/2018 02:03:00 Visit Reason Skin rash; Knee pain-swelling; KNEE PAIN Acuity 4 - Non - Urgent LOS 000 02:22 Depart Date: 07/02/18 04:25 AM Address: [place] [address] Comment: PROVIDER INFORMATION Provider Role Assigned Unassigned JUVENTINO MACK MD ED Physician 07/02/2018 04:03:00 Chela Castellanos, green chain worker Nurse 07/02/2018 04:17:59 DIAGNOSIS Allergic drug reaction [...] days With: Address: When: DARNELL MOORE [address] [place] [address] Business (1) Within 2 to 3 days Comment: Electronically signed by Gail [facility] Conversion Direct Customer Service Representative Cerner at 08/24/2022 5:40 PM CDT documented in this encounter Plan of Treatment Not on file documented as of this encounter Visit Diagnoses Not on filedocumented in this encounter Care Teams Mini Shifter Relationship Specialty Start Date End Date Darnell Moore MD [address] [place] [address] PCP - General Adolescent Medicine 06/16/22 documented as of this encounter
--- OUTSIDE RECORDS SUMMARY | 2024-11-09 09:49 | XMS_ITS | Referral Summary ---
Author Organization [employer] ([place], [place], [place], [place]) Address [address] [place] [address] Care Team Providers Care Refinery Process Engineer Name Role Phone Darnell Montemayor MD Primary Care Provider + [phone] Allergies Active Allergy Reactions Criticality Noted Date [...] Date Holden rded Speak language other than Sudanese at home Not on file 04/21/2023 Want [...] on file Medical Devices Implanted Type Area Speech Coach Device Identifier Shelf Expiration Date Model / Serial / Lot Cement Bone Smplx Tobra 40 6197-9-001 - [id number] Implanted:Qty : 2 on 07/13/2022 by Bismark Weston MD at [facility] IMPLANTS Left: Knee ANIKET:[employer] 11/01/2023 6197-9-00 1 / / [id number] Try Tib Id Cr Imp Sz4 [id number] - [id number] Implanted:Qty : 1 on 07/13/2022 by Bismark Weston MD at [facility] IMPLANTS Left: Knee CONFORMIS 07/02/2023 [id number] / / [id number] Imp Fem Cr Iden Sz4 Rt [id number] - [id number] Implanted:Qty : 1 on 07/13/2022 by Bismark Weston MD at [facility] TOTAL JOINT CONSTRUCT Left: Knee CONFORMIS 07/02/2023 [id number] / / [id number] Imp Patella Itotal 32x6mm [id number] - [id number] Implanted:Qty : 1 on 07/13/2022 by Bismark Weston MD at [facility] TOTAL JOINT CONSTRUCT Left: Knee CONFORMIS 04/02/2024 [id number] / / [id number] Insrt Tib Identity Sz 4n 6mm L [id number] - [id number] Implanted:Qty : 1 on 07/13/2022 by Bismark Weston MD at [facility] TOTAL JOINT CONSTRUCT Left: Knee CONFORMIS 06/01/2023 [id number] / / [id number] Insurance [employer] [facility] [place] Advance Directives For more information, please contact: [phone] * Full Code (Latest Code Status on File) Date Activated Date Inactivated Comments 07/13/2022 1:44 PM 07/13/2022 5:15 PM * Full Code Date Activated Date Inactivated Comments 07/13/2022 7:15 AM 07/13/2022 1:44 PM Care Teams Refinery Process Engineer Relationship Specialty Start Date End Date Darnell Montemayor MD [address] [place] [address] PCP - General Adolescent Medicine 06/16/22
--- OUTSIDE RECORDS SUMMARY | 2024-11-09 09:49 | XMS_ITS | Encounter Summary ---
Author Organization [employer] ([place], [place], [place], [place]) Address [address] [place] [address] Care Team Providers Care Application Integration Architect Name Role Phone Darnell Montemayor MD Primary Care Provider + [phone] Encounter Details Date Type Department Care Team (Late st Contact Info) Description 07/02/2018 Transcribed Document [facility] 1 [place] [address] Provider, lauri Simpson MD Social [...] [facility] Calvin ProviderMD - 07/02/2018 5:24 AM EDT ED Discharge Entered On: 07/02/2018 4:24 EDT Performed On: 07/02/2018 4:24 EDT by Ashley Patino Probate Clerk Process Patient Disposition : Discharge Personal Belongings [...] on filedocumented in this encounter Care Teams Application Integration Architect Relationship Specialty Start Date End Date Darnell Montemayor MD [address] [place] [address] PCP - General Adolescent Medicine 06/16/22 documented as of this encounter
--- OUTSIDE RECORDS SUMMARY | 2024-11-09 09:49 | XMS_ITS | Clinical Summary ---
Author Organization [employer] ([place], [place], [place], [place]) Address [address] [place] [address] Care Team Providers Care Superintendent Marine Name Role Phone Darnell Montemayor MD Primary Care Provider + [phone] Allergies Active Allergy Reactions Criticality Noted Date [...] Date Holden rded Speak language other than Uzbek at home Not on file 04/21/2023 Want [...] Screening 1989 Hepatitis C Screening 1992 Pneumococcal 50+ years (1 of 2 - PCV) 1993 Pap Smear 10/30/1995 Breast Cancer Screening 2014 Lipid Panel 10/30/2019 Tobacco Cessation Counseling and Screening (12+) 07/1307/13/2022 COVID-19 VACCINE (2 - season) 12/03/202308/2020 DTAP/TDAP/TD VACCINES (2 - Td or Tdap) 12/11/2023 Shingles Vaccine (Zoster) (1 of 2) 2024 Influenza Vaccine (#1) 2024 Medical Devices Implanted Type Area Business Reporter Device Identifier Shelf Expiration Date Model / Serial / Lot Cement Bone Smplx Tobra 40gm [id number] - [id number] Implanted:Qty : 2 on 07/13/2022 by Bismark Weston MD at [facility] IMPLANTS Left: Knee ANIKET:[employer] 11/01/2023 6197-9-00 1 / / [id number] Try Tib Id Cr Imp Sz4 [id number] - [id number] Implanted:Qty : 1 on 07/13/2022 by Bismark Weston MD at [facility] IMPLANTS Left: Knee CONFORMIS 07/02/2023 [id number] / / [id number] Imp Fem Cr Iden Sz4 Rt [id number] - [id number] Implanted:Qty : 1 on 07/13/2022 by Bismark Weston MD at [facility] TOTAL JOINT CONSTRUCT Left: Knee CONFORMIS 07/02/2023 [id number] N / / [id number] Imp Patella Itotal 32x6mm [id number] - [id number] Implanted:Qty : 1 on 07/13/2022 by Bismark Weston MD at [facility] TOTAL JOINT CONSTRUCT Left: Knee CONFORMIS 04/02/2024 [id number] / / [id number] Insrt Tib Identity Sz 4n 6mm L [id number] - [id number] Implanted:Qty : 1 on 07/13/2022 by Bismark Weston MD at [facility] TOTAL JOINT CONSTRUCT Left: Knee CONFORMIS 06/01/2023 [id number] / / [id number] [place] [address] [facility] Advance Directives For more information, please contact: [phone] * Full Code (Latest Code Status on File) Date Activated Date Inactivated Comments 07/13/2022 1:44 PM 07/13/2022 5:15 PM * Full Code Date Activated Date Inactivated Comments 07/13/2022 7:15 AM 07/13/2022 1:44 PM Care Teams Superintendent Marine Relationship Specialty Start Date End Date Darnell Montemayor MD [address] [place] [address] PCP - General Adolescent Medicine 06/16/22
--- OUTSIDE RECORDS SUMMARY | 2024-11-09 09:49 | XMS_ITS | Encounter Summary ---
Author Organization [employer] ([place], [place], [place], [place]) Address [address] [place] [address] Care Team Providers Care Dairy Department Manager Name Role Phone Darnell Montemayor MD Primary Care Provider + [phone] Encounter Details Date Type Department Care Team (Late st Contact Info) Description 07/02/2018 Transcribed Document [facility] Radiology 1 [place] [address] Provider, [facility] MD Calvin Social History Tobacco [...] Miscellaneous Notes * Cerner Conversion Note - [facility] Calvin ProviderMD - 07/02/2018 3:03 [...] - Non - Urgent Tracking Group : [facility] ED Sandra De La Rosa Rn [...] Recent Thoughts of Harming/Killing Others : No Real Estate Professional Needed : No Sandra De La Rosa [...] PNED ; Probability: 0 ; Diagnosis Code: [id number] ED Height and Weight Height Source : Stated Height Entry Format : [place] Height, Feet : 5 ft(Converted to: 152 cm, 60 Inch) Height, Inches : 10 Inch(Converted to: 0 ft 10 Inch, 25.40 cm) Clinical Height : 177.8 cm Weight Source, ED : Critical estimated dosing weight Weight Entry Format : [place] Weight, Pounds : 250 lb Clinical Dosing Weight : 113.64 kg Body Surface Area (BSA) : 2.3 m2 Body Mass Index : 35.9 kg/m2 (HI) [place] Body Weight (IBW) : 68.02 kg Sandra [...] on filedocumented in this encounter Care Teams Dairy Department Manager Relationship Specialty Start Date End Date Darnell Montemayor MD [address] [place] [address] PCP - General Adolescent Medicine 06/16/22 documented as of this encounter
--- OUTSIDE RECORDS SUMMARY | 2024-11-09 09:49 | XMS_ITS | Clinical Summary ---
Author Organization [facility] Address [address] [place] [address] Care Team Providers Care Maple Products Supervisor Name Role Phone Darnell Montemayor MD Primary Care Provider [phone] Allergies Active Allergy Reactions Criticality Noted Date [...] vomiting. 9 tablet 4 Active HYDROcodone-acetami nophen ([place]) 5-325 MG tablet Take 1 tablet (5 [...] (11/17/2021): Added automatically from request for surgery [id number] Tobacco abuse 01/12/2021 Other chest pain 01/12/2021 [...] Care Team (Late st Contact Info) Description 01/15/2025 8:20 AM EDT Office Visit Obstetrics & Gynecology [address] [place] [address] Stephanie Castro, FOOD SELECTOR, CNM [address] [place] [address] Health Maintenance Due Date Last Done Comments [facility]-Depression Screening 1975 [facility]-/Child/Adol SDOH Screenings 1975 [facility]- SDOH Screenings 1992 [facility]-Adult SDOH Screenings 1992 [facility]-Pap Smear 10/30/1995 [facility]-Cervical Cancer Screening 2004 [facility]-HPV/Cotest 2004 [facility]-Hepatitis B Vaccines (2 of 3 - 19+ 3-dose series) 01/19/2017 12/22/2016 CT Colonography 10/30/2019 Colonoscopy 10/30/2019 FIT-DNA 10/30/2019 FIT 10/30/2019 FOBT 10/30/2019 Sigmoidoscopy 10/30/2019 [facility]-Colorectal Cancer Screening 10/30/2019 [id number] Vaccine (2 - Ja nssen risk series) 08/03/2020 07/06/2020 [facility]-DTaP,Tdap,and Td Vaccine s (2 - Td or Tdap) 12/11/2023 12/10/2013 [facility]-Breast Cancer Screening 2024 [facility]-Pneumococcal Vaccine: 50 + Years (1 of 1 - PCV) 2024 [facility]-Zoster Vaccines (1 of 2) 2024 [facility]-Influenza [...] 2 Antibody/Antigen Screen (12/17/2020 5:57 PM EDT) Pathologist [facility] HIV 1 & 2 Antibody/Anti gen Screen Nonreactive Nonreactive 12/17/2020 8:23 PM EDT HEALTHCARE LAB Blood Venous blood specimen / Unknown Venipuncture / Unknown 12/17/2020 5:57 PM EDT 12/17/2020 6:29 PM EDT Alexei Yang MD LAB BLOOD ORDERABLES Final Res ult Performing Organization Address City/[facility]/ZIP Co de Phone Number HEALTHCARE LAB [address] [place] [address] * [place] Hepatitis C Antibody (12/17/2020 5:57 PM EDT) Pathologist [facility] Hepatitis C Antibody Negative Negative 12/17/2020 7:56 PM EDT HEALTHCARE LAB Blood Venous blood specimen / Unknown Venipuncture / Unknown 12/17/2020 5:57 PM EDT 12/17/2020 6:29 PM EDT Alexei Yang MD LAB BLOOD ORDERABLES Final Res ult Performing Organization Address City/[facility] Co de Phone Number HEALTHCARE LAB [address] [place] [address] from Last 3 Months or Most Recently Relevant to Health Maintenance Insurance [facility] Care Teams Maple Products Supervisor Relationship Specialty Start Date End Date Darnell Montemayor MD [address] [place] [address] PCP - General 08/14/20
--- OUTSIDE RECORDS SUMMARY | 2024-11-09 09:49 | XMS_ITS | Clinical Summary ---
Author Organization [facility] Address [address] [place] [address] Care Team Providers Care Jewelry Making Instructor Name Role Phone System, Provider Not In Primary Care Provider Un available Allergies Active Allergy Reactions Criticality Noted Date Comments Codeine Other (See Comments) 10/16/2017 CHEST PAIN Medications montelukast (SINGULAIR) 10 MG tablet Take 10 mg by mouth Every Night. Active pantoprazole (PROTONIX) 40 MG EC tablet Take 40 mg by mouth Daily. Active famotidine (PEPCID) 20 MG tablet Take 20 mg by mouth 2 (Two) Times a Day. Active citalopram (CeleXA) 10 MG tablet Take 10 mg by mouth Daily. Active metroNIDAZOLE (FLAGYL) 500 MG tablet Take 500 mg by mouth 3 (Three) Times a Day. Active ALPRAZolam (XANAX) 0.5 MG tablet Take 0.5 mg by mouth 2 (Two) Times a Day As Needed for Anxiety. Active atorvastatin (LIPITOR) 20 MG tablet Take 20 mg by mouth Every Night. Active cetirizine (zyrTEC) 10 MG tablet Take 10 mg by mouth Daily. Active varenicline (CHANTIX) 1 MG tablet Take 1 mg by mouth 2 (Two) Times a Day. Active oxyCODONE-acetamino phen (PERCOCET) 5-325 MG per tablet Take 1 tablet by mouth Every 4 (Four) Hours As Needed for Moderate Pain . 6 tablet 8 Active ondansetron ODT (ZOFRAN-ODT) 4 MG disintegrating tablet Take 1 tablet by mouth Every 4 (Four) Hours. 12 tablet 8 Active Social History Tobacco Use Types Packs/Day Years Used Date Smoking Tobacco: Some Days Alcohol Use Standard Drinks/Week Comments No 0 (1 standard drink = 0.6 oz pur e alcohol) Abuse Screen Answer Date Recorded Unsafe at Home or Work/School Not on file Feels Threatened by Someone? Not on file 03/2023 Does Anyone Keep You from Co ntacting Others or Doint Things Outside the Home? Not on file 01/12/2023 Physical Sign of Abuse Present Not on file 1 Housing Stability Answer Date Recorded Current Living Arrangements Not on file 01/01 Potentially Unsafe Housing Conditions Not on jaden e 01/12/2023 Family and Community Support Answer Dequan e Recorded Help with Day-to-Day Activities Not on file 01/12/2023 Lonely or Isolated Not on file 01/12/2023 Employment Answer Date Recorded Do you want help finding or keeping work or a valarie b? Not on file 01/12/2023 Disabilities Answer Date Recorded Concentrating, Remembering, or Making Decisions Difficulty Not on file 01/12/2023 Doing Errands Independently Difficulty Not on fi le 01/12/2023 Education Answer Date Recorded Help with school or training? Not on file Preferred Language Not on file 01/12/2023 Comments Unknown Sex and Gender Information Value Date Recorded Sex Assigned at Not on file Legal Sex Female 5:21 PM EDT Gender Identity Not on file Sexual Orientation Not on file Last Filed Vital Signs Vital Sign Reading Time Taken Comments Blood Pressure 101/75 10/16/2017 11:46 PM EDT Pulse 105 10/16/2017 11:46 PM EDT Temperature 36.9 C (98.5 F) 10/16/2017 5:22 PM EDT Respiratory Rate 16 10/16/2017 11:46 PM EDT Oxygen Saturation 98% 10/16/2017 11:46 PM EDT Inhaled Oxygen Concentration - - Weight 113 kg (250 lb) 10/16/2017 5:22 PM EDT Height 177.8 cm (5' 10 ) 10/16/2017 5:22 PM EDT Body Mass Index 35.87 10/16/2017 5:22 PM EDT Plan of Treatment Health Maintenance Due Date Last Done Comments ANNUAL PHYSICAL 1975 Annual Gynecologic Pelvic and Breast Exam 1975 HEPATITIS C SCREENING 1975 TDAP/TD VACCINES (1 - Tdap) 1993 MAMMOGRAM 2014 COLOGUARD 10/30/2019 COLON CANCER SCREENING 5 YEAR SIGMOIDOSCOPY 10/30/2019 COLONOSCOPY 10/30/2019 COLORECTAL CANCER SCREENING 10/30/2019 CT COLONOGRAPHY 10/30/2019 FECAL OCCULT BLOOD TEST 10/30/2019 FIT Testing (1 year) 10/30/2019 COVID-19 Vaccine (1 - 2023- season) 2023 Pneumococcal Vaccine 50+ (1 of 1 - PCV) 2024 ZOSTER VACCINE (1 of 2) 2024 INFLUENZA VACCINE 01/01/[address] [facility] Care Teams Jewelry Making Instructor Relationship Specialty Start Date End Date System, [place] [address] PCP - General 10/16/17
--- OUTSIDE RECORDS SUMMARY | 2024-11-09 09:49 | XMS_ITS | Encounter Summary ---
Author Organization [facility] Address [address] [place] [address] Care Team Providers Care Coupon Redemption Clerk Name Role Phone Darnell Montemayor MD Primary Care Provider [phone] Reason for Referral * Consultation (Routine) - Closed Specialty Diagnoses / Procedures Referred By Krystina noonan Referred To Contact Otolaryngology Diagnoses Other chronic diseases of tonsils and adenoids Emiliano Vargas MD 114[address] [facility], [address] [address] Phone: tel: fax: Referral ID Status Reason Start Date Expiration Date V isits Requested Visits Authorized [id number] Closed Specialty Services Required 08/31/2023 03/01/2025 1 1 Encounter Details Date Type Department Care Team (Late st Contact Info) Description 08/31/2023 Community [facility] [address] [place] [address] Emiliano Vargas MD 114[address] [facility], [place] [address] Other chronic diseases of tonsils and adenoids [...] EDT Office Visit Obstetrics & Gynecology [address] [place] [address] Stephanie Castro, PARKING ANALYST, CNM [address] [place] [address] Scheduled Referrals Name Type Priority [...] documented as of this encounter Care Teams Coupon Redemption Clerk Relationship Specialty Start Date End Date Darnell Montemayor MD [address] [place] [address] PCP - General 08/14/20 documented as of this encounter
[2024-11-09 10:09] LABS: Hematocrit 39.6 % (37.0-47.0); Hemoglobin 13.4 g/dL (12.2-16.2); Immature Granulocytes % 0.5 %; Mean Corpuscular HGB Conc 33.8 g/dL (31.8-35.4); Mean Corpuscular Hemoglobin 30.1 pg (27.0-31.2); Mean Corpuscular Volume 89.0 fl (81-99); Nucleated Red Blood Cells % 0 %; Platelet Count 484 K/mm3 (142-424); Red Blood Count 4.45 M/mm3 (4.20-5.40); Red Cell Distribution Width-SD 45.4 fL; White Blood Count 11.7 K/mm3 (4.8-10.8)
[2024-11-09 10:20] LABS: Alanine Aminotransferase 28 U/L (12-78); Albumin Level 3.9 g/dl (3.5-5.0); Albumin/Globulin Ratio 1.5 (1.1-1.8); Alkaline Phosphatase 135 U/L (38-126); Anion Gap 10.0 mEq/L (5-15); Aspartate Amino Transferase 27 U/L (14-36); Bilirubin,Total 0.7 mg/dl (0.2-1.3); Blood Urea Nitrogen 8 mg/dl (7-17); Calcium 9.3 mg/dl (8.4-10.2); Carbon Dioxide 26 mmol/L (22.0-30.0); Chloride 105 mmol/L (98-107); Cholesterol 279 mg/dl (140-200); Creatinine,Serum 0.80 mg/dl (0.52-1.04); Estimated Glomerular Filt Rate 76 ml/min (>60); GFR (African American) 92 ML/MIN (>60); Globulin 2.6 g/dL (1.3-3.2); Glucose 101 mg/dl (74-100); HDL Cholesterol 57 mg/dl (40-60); Potassium 4.0 mmoL/L (3.5-5.1); Sodium 137 mmol/L (136-145); Total Protein,Serum 6.5 g/dl (6.3-8.2); Triglycerides 130 mg/dl (30-150)
[2024-11-09 10:37] LABS: 25-OH Vitamin D, Total 31.1 ng/mL (30-100)
[2024-11-09 10:51] LABS: Thyroid Stimulating Hormone 0.99 uIU/mL (0.465-4.68)
[2024-11-09 11:10] LABS: Vitamin B12 403 pg/mL (239-931)
== END 2024-11-09 23:59 | disposition home or self-care (01) ==
LOC: LAB 09:47
PROVIDERS: PCP Internal Medicine Adolescent Medicine; Visit Provider Nurse Practitioner Family
DX: Z00.00 Encounter for general adult medical examination without abnormal findings (principal); E78.5 Hyperlipidemia, unspecified; R40.0 Somnolence; E53.8 Deficiency of other specified B group vitamins; E53.9 Vitamin B deficiency, unspecified
CPT/HCPCS: 36415; 80053; 80061; 82306; 82607; 84443; 85025

== ENCOUNTER 2024-11-14 16:27 | Outpatient (CLI) | payer OTHER, SELFPAY ==
--- NOTE | 2024-11-14 | XR_ITS ---
PROCEDURE INFORMATION: Exam: XR Left Knee Exam date and time: 11/14/2024 4:35 PM Age: 49 years old Clinical indication: Pain; Left; Prior surgery; Surgery date: 6+ months; Surgery type: Total knee replacement; Additional info: Left anterior knee pain TECHNIQUE: Imaging protocol: Radiologic exam of the left knee. Views: 3 views. COMPARISON: US EXTREMITY LT LIMITED 10/02/2024 10:02 AM FINDINGS: Bones/joints: Left total knee arthroplasty with intact hardware. No acute fracture identified. Soft tissues: Normal. IMPRESSION: No acute finding.
--- OUTSIDE RECORDS SUMMARY | 2024-11-14 16:32 | XMS_ITS | Encounter Summary ---
Author Organization [employer] ([place], [place], [place], [place]) Address [address] [place] [address] Care Team Providers Care Manager Development Name Role Phone Darnell Montemayor MD Primary Care Provider + [phone] Encounter Details Date Type Department Care Team (Late st Contact Info) Description 07/02/2018 Transcribed Document [facility] 1 [place] [address] Provider, lauri Simpson MD Social [...] Note - [facility] Calvin ProviderMD - 07/02/2018 5:24 AM EDT ED Discharge Entered On: 07/02/2018 4:24 EDT Performed On: 07/02/2018 4:24 EDT by Ashley Patino Syruper Process Patient Disposition : Discharge Personal Belongings [...] filedocumented in this encounter Care Teams Manager Development Relationship Specialty Start Date End Date Darnell Montemayor MD [address] [place] [address] PCP - General Adolescent Medicine 06/16/22 documented as of this encounter
--- OUTSIDE RECORDS SUMMARY | 2024-11-14 16:32 | XMS_ITS | Encounter Summary ---
Author Organization [employer] ([place], [place], [place], [place]) Address [address] [place] [address] Care Team Providers Care Vault Cashier Name Role Phone Darnell Montemayor MD Primary Care Provider [phone] Encounter Details Date Type Department Care Team (Late st Contact Info) Description 07/02/2018 Transcribed Document [facility] 1 [place] [address] Provider, [facility] MD Calvin Social History Tobacco Use Types Packs/Day Years Used Date Smoking Tobacco: Never Assessed Comments Unknown Sex and Gender Information Value Date Recorded Sex Assigned at Female 09/28/2021 8:29 PM CDT Legal Sex Female 8:29 PM CDT Gender Identity Female 09/28/2021 8:29 PM CDT Sexual Orientation Not on file documented as of this encounter Miscellaneous Notes * Cerner Conversion Note - [facility] Calvin ProviderMD - 07/02/2018 5:18 AM EDT Electronically signed by Interface, [facility] Conversion Strap Stitcher Cerner at 08/24/2022 5:39 PM CDT documented in this encounter Plan of Treatment Not on file documented as of this encounter Visit Diagnoses Not on filedocumented in this encounter Care Teams Vault Cashier Relationship Specialty Start Date End Date Darnell Montemayor MD [address] [place] [address] PCP - General Adolescent Medicine 06/16/22 documented as of this encounter
--- OUTSIDE RECORDS SUMMARY | 2024-11-14 16:32 | XMS_ITS | Encounter Summary ---
Author Organization [employer] ([place], [place], [place], [place]) Address [address] [place] [address] Care Team Providers Care Program Evaluator Name Role Phone Darnell Moore MD Primary Care Provider + [phone] Encounter Details Date Type Department Care Team (Late st Contact Info) Description 07/02/[address] [facility] Radiology 1 [place] [address] Provider, [facility] MD Calvin Social History Tobacco [...] Miscellaneous Notes * Cerner Conversion Note - [facility] Historical ProviderMD - 07/02/2018 5:12 AM EDT [...] EDT Height Source Stated Height Entry Format [place] Height/Length, MALTESE (ft) 5 ft Height/Length MALTESE 10 Inch CLINICALHEIGHT 177.8 cm [place] Body Weight 68.02 kg Weight Source, ED Critical estimated dosing weight Weight Entry Format [place] Weight [place] Citizen lb 250 lb CLINICALWEIGHT 113.64 kg [...] Fall Risk Assessment: ED Adult Triage: ED shipping agent: . Radiology results: X-ray, Right knee no apparent abnormality. Impression and Plan Diagnosis Allergic drug reaction - Discharge, Emergency medicine, Medical Plan Condition: Unchanged. Prescriptions: Prescription Accuracy Expert Pharmacy: Benadryl Extra Strength 2%-0.1% topical cream [...] on filedocumented in this encounter Care Teams Program Evaluator Relationship Specialty Start Date End Date Darnell Moore MD [address] [place] [address] PCP - General Adolescent Medicine 06/16/22 documented as of this encounter
--- OUTSIDE RECORDS SUMMARY | 2024-11-14 16:33 | XMS_ITS | Clinical Summary ---
Author Organization [facility] Address [address] [place] [address] Care Team Providers Care Accordion Maker Name Role Phone System, Provider Not In [...] of 2) 2024 INFLUENZA VACCINE 01/01/2025 Insurance [facility] Care Teams Accordion Maker Relationship Specialty Start Date End Date System, [place] [address] PCP - General 10/16/17
--- OUTSIDE RECORDS SUMMARY | 2024-11-14 16:33 | XMS_ITS | Encounter Summary ---
Author Organization [employer] ([place], [place], [place], [place]) Address [address] [place] [address] Care Team Providers Care Before School Name Role Phone Darnell Montemayor MD Primary Care Provider + [phone] Encounter Details Date Type Department Care Team (Late st Contact Info) Description 07/02/2018 Transcribed Document [facility] Radiology 1 [place] [address] Provider, [facility] MD Calvin Social History Tobacco Use Types Packs/Day Years Used Date Smoking Tobacco: Never Assessed Comments Unknown Sex and Gender Information Value Date Recorded Sex Assigned at Female 09/28/2021 8:29 PM CDT Legal Sex Female 8:29 PM CDT Gender Identity Female 09/28/2021 8:29 PM CDT Sexual Orientation Not on file documented as of this encounter Miscellaneous Notes * Cerner Conversion Note - [facility] Calvin ProviderMD - 07/02/2018 3:03 AM [...] - Non - Urgent Tracking Group : [facility] ED Sandra De La Rosa Rn [...] Recent Thoughts of Harming/Killing Others : No Vice President Of Sales Needed : No Sandra De La Rosa [...] PNED ; Probability: 0 ; Diagnosis Code: [id number] ED Height and Weight Height Source : Stated Height Entry Format : [place] Height, Feet : 5 ft(Converted to: 152 cm, 60 Inch) Height, Inches : 10 Inch(Converted to: 0 ft 10 Inch, 25.40 cm) Clinical Height : 177.8 cm Weight Source, ED : Critical estimated dosing weight Weight Entry Format : [place] Weight, Pounds : 250 lb Clinical Dosing Weight : 113.64 kg Body Surface Area (BSA) : 2.3 m2 Body Mass Index : 35.9 kg/m2 ([place]) [place] Body Weight (IBW) : 68.02 kg Sandra [...] on filedocumented in this encounter Care Teams Before School Relationship Specialty Start Date End Date Darnell Montemayor MD [address] [place] [address] PCP - General Adolescent Medicine 06/16/22 documented as of this encounter
--- OUTSIDE RECORDS SUMMARY | 2024-11-14 16:33 | XMS_ITS | Encounter Summary ---
Author Organization [employer] ([place], [place], [place], [place]) Address [address] [place] [address] Care Team Providers Care Manufacturer Name Role Phone Darnell Montemayor MD Primary Care Provider + [phone] Encounter Details Date Type Department Care Team (Late st Contact Info) Description 07/02/2018 Transcribed Document [facility] 1 [place] [address] Provider [facility] MD Calvin Social History Tobacco Use Types Packs/Day Years Used Date Smoking Tobacco: Never Assessed Comments Unknown Sex and Gender Information Value Date Recorded Sex Assigned at Female 09/28/2021 8:29 PM CDT Legal Sex Female 8:29 PM CDT Gender Identity Female 09/28/2021 8:29 PM CDT Sexual Orientation Not on file documented as of this encounter Miscellaneous Notes * Cerner Conversion Note - [facility] Historical ProviderMD - 07/02/2018 12:29 PM [...] on filedocumented in this encounter Care Teams Manufacturer Relationship Specialty Start Date End Date Darnell Montemayor MD [address] [place] [address] PCP - General Adolescent Medicine 06/16/22 documented as of this encounter
--- OUTSIDE RECORDS SUMMARY | 2024-11-14 16:33 | XMS_ITS | Encounter Summary ---
Author Organization [employer] ([place], [place], [place]) Address [address] [place] [address] Care Team Providers Care Slubber Runner Name Role Phone Darnell Montemayor MD Primary Care Provider + [phone] Encounter Details Date Type Department Care Team (Late st Contact Info) Description 07/02/2018 Transcribed Document [facility] Radiology 1 [place] [address] Provider, lauri Simpson MD Social [...] [facility] Calvin ProviderMD - 07/02/2018 3:03 AM EDT [...] Communication Barrier : None Primary Language : Persian Any Spiritual/Cultural Needs or Requests : No [...] on filedocumented in this encounter Care Teams Slubber Runner Relationship Specialty Start Date End Date Darnell Montemayor MD [address] [place] [address] PCP - General Adolescent Medicine 06/16/22 documented as of this encounter
--- OUTSIDE RECORDS SUMMARY | 2024-11-14 16:33 | XMS_ITS | Encounter Summary ---
Author Organization [employer] ([place], [place], [place], [place]) Address [address] [place] [address] Care Team Providers Care Calciner Feeder Name Role Phone Darnell Moore MD Primary Care Provider + [phone] Encounter Details Date Type Department Care Team (Late st Contact Info) Description 07/02/2018 Transcribed Document [facility] 1 [place] [address] Provider, Netta Simpson MD Social [...] [facility] Calvin ProviderMD - 07/02/2018 5:25 AM EDT [address] [address] Patient Information Name: BRADY MCGEE Age: 42 Years Date of : 1975 Arrival Time: 07/02/2018 02:03:00 Diagnosis Allergic drug reaction Primary Care Physician: DARNELL MOORE (REF)MD-[facility] Provider Information Primary Provider: JUVENTINO MACK MD Secondary Provider: BRADY MCGEE AMANDEEP has been given the following list of patient education materials, prescriptions and follow-up instructions: Follow-up Instructions: With: Address: When: Follow up with surgeon Within 2 to 3 days With: Address: When: DARNELL MOORE [address] [place], [place] [id number] Business (1) Within 2 to 3 days [...] job, you may need to see an administrative support specialist.How is this treated? Treatment for this condition [...] Avoid using hot water. MedicinesETake or apply gnvi-vbd-[id number] and prescription medicines only as told by [...] verify that BRADY MCGEE was seen at [facility] Emergency Department on ,07/02/2018 04:25:19. This [...] along the way. As a healthcare provider, [facility] recommends that you stop smoking. Assistance with quitting is available by contacting 7-274-RVTY-NOW. This is a free resource providing counseling, [...] Electronic Communications Privacy Act 18 U.S.C. ???Sections 6482-0843,Eand contain information intended for the specified individual(s) [...] sure to sign up for the [facility] patient portal, which gives you / access to your medical information Eincluding these discharge instructions Eusing your computer, smartphone, or tablet. Just go to Language Learning Class to get started. Questions? Call . Acknowledgment [...] Yes____ No____ Nurse Providing Instructions: Emergency Physician: Electronically signed by Netta Reynolds Conversion Retail Department Supervisor Cerner at 08/24/2022 5:39 PM CDT documented in this encounter Plan of Treatment Not on file documented as of this encounter Visit Diagnoses Not on filedocumented in this encounter Care Teams Calciner Feeder Relationship Specialty Start Date End Date Darnell Moore MD [address] [place] [address] PCP - General Adolescent Medicine 06/16/22 documented as of this encounter"
--- OUTSIDE RECORDS SUMMARY | 2024-11-14 16:33 | XMS_ITS | Clinical Summary ---
Author Organization [facility] Address [address] [place] [address] Care Team Providers Care Database Administration Manager Name Role Phone Darnell Montemayor MD Primary Care Provider [phone] Allergies Active Allergy Reactions Criticality Noted Date [...] vomiting. 9 tablet 4 Active HYDROcodone-acetami nophen ([place]) 5-325 MG tablet Take 1 tablet (5 [...] (11/17/2021): Added automatically from request for surgery [id number] Tobacco abuse 01/12/2021 Other chest pain 01/12/2021 [...] Visit Obstetrics & Gynecology [address] [place] [address] Stephanie Castro, BARREL POLISHER INSIDE, CNM [address] [place] [address] Health Maintenance Due Date Last Done Comments [facility]-Depression Screening 1975 [facility]-/Child/Adol SDOH Screenings 1975 [facility]- SDOH Screenings 1992 [facility]-Adult SDOH Screenings 1992 [facility]-Pap Smear 10/30/1995 [facility]-Cervical Cancer Screening 2004 [facility]-HPV/Cotest 2004 [facility]-Hepatitis B Vaccines (2 of 3 - 19+ 3-dose series) 01/19/2017 12/22/2016 CT Colonography 10/30/2019 Colonoscopy 10/30/2019 FIT-DNA 10/30/2019 FIT 10/30/2019 FOBT 10/30/2019 Sigmoidoscopy 10/30/2019 [facility]-Colorectal Cancer Screening 10/30/2019 [id number]-[id number]-17 Vaccine (2 - Ja nssen risk series) [...] Antibody/Antigen Screen (12/17/2020 5:57 PM EDT) Pathologist [facility] HIV 1 & 2 Antibody/Anti gen Screen Nonreactive Nonreactive 12/17/2020 8:23 PM EDT HEALTHCARE LAB Blood Venous blood specimen / Unknown Venipuncture / Unknown 12/17/2020 5:57 PM EDT 12/17/2020 6:29 PM EDT Alexei Yang MD LAB BLOOD ORDERABLES Final Res ult Performing Organization Address City/[facility]/ZIP Co de Phone Number HEALTHCARE LAB [address] [place] [address] * [place] Hepatitis C Antibody (12/17/2020 5:57 PM EDT) Pathologist [facility] Hepatitis C Antibody Negative Negative 12/17/2020 7:56 PM EDT HEALTHCARE LAB Blood Venous blood specimen / Unknown Venipuncture / Unknown 12/17/2020 5:57 PM EDT 12/17/2020 6:29 PM EDT Alexei Yang MD LAB BLOOD ORDERABLES Final Res ult Performing Organization Address City/[facility] Co de Phone Number HEALTHCARE LAB [address] [place] [address] from Last 3 Months or Most Recently Relevant to Health Maintenance [facility] Care Teams Database Administration Manager Relationship Specialty Start Date End Date Darnell Montemayor MD [address] [place] [address] PCP - General 08/14/20
--- OUTSIDE RECORDS SUMMARY | 2024-11-14 16:33 | XMS_ITS | Encounter Summary ---
Author Organization [employer] ([place], [place], [place], [place]) Address [address] [place] [address] Care Team Providers Care Risk Engineer Name Role Phone Darnell Moore MD Primary Care Provider + [phone] Encounter Details Date Type Department Care Team (Late st Contact Info) Description 07/02/2018 Transcribed Document [facility] Radiology 1 [place] [address] Provider, [facility] MD Calvin Social History Tobacco [...] Miscellaneous Notes * Cerner Conversion Note - [facility] Calvin ProviderMD - 07/02/2018 5:25 AM EDT [address] [place] [address] PERSON INFORMATION Name BRADY MCGEE Age 42 Years 1975 Sex Female Language Icelandic PCP DARNELL MOORE (REF)[facility] Marital Status Single Med Service Emergency Medicine Acct# Arrival 07/02/2018 02:03:00 Visit Reason Skin rash; Knee pain-swelling; KNEE PAIN Acuity 4 - Non - Urgent LOS 000 02:22 Depart Date: 07/02/18 04:25 AM Address: [place] [address] Comment: PROVIDER INFORMATION Provider Role Assigned Unassigned JUVENTINO MACK MD ED Physician 07/02/2018 04:03:00 Chela Castellanos, senior insight manager international Nurse 07/02/2018 04:17:59 DIAGNOSIS Allergic drug reaction [...] days With: Address: When: DARNELL MOORE [address] [place] [address] Business (1) Within 2 to 3 days Comment: documented in this encounter Plan of Treatment Not on file documented as of this encounter Visit Diagnoses Not on filedocumented in this encounter Care Teams Risk Engineer Relationship Specialty Start Date End Date Darnell Moore MD [address] [place] [address] PCP - General Adolescent Medicine 06/16/22 documented as of this encounter
--- OUTSIDE RECORDS SUMMARY | 2024-11-14 16:33 | XMS_ITS | Encounter Summary ---
Author Organization [facility] Address [address] [place] [address] Care Team Providers Care Farm Agent Name Role Phone Darnell Montemayor MD Primary Care Provider [phone] Reason for Referral * Consultation (Routine) - Closed Specialty Diagnoses / Procedures Referred By Krystina noonan Referred To Contact Otolaryngology Diagnoses Other chronic diseases of tonsils and adenoids Emiliano Vargas MD 1140 [facility], [address] [address] Phone: tel: fax: Referral ID Status Reason Start Date Expiration Date V isits Requested Visits Authorized [id number] Closed Specialty Services Required 08/31/2023 03/01/2025 1 1 Encounter Details Date Type Department Care Team (Late st Contact Info) Description 08/31/2023 Community [facility] Community Practice [address] [place] [address] Emiliano Vargas MD 114[address] [facility], [place] [address] Other chronic diseases of tonsils and adenoids [...] EDT Office Visit Obstetrics & Gynecology [address] [place] [address] Stephanie Castro, PROGRAMMING ENGINEER, CNM [address] [place] [address] Scheduled Referrals Name Type Priority [...] documented as of this encounter Care Teams Farm Agent Relationship Specialty Start Date End Date Darnell Montemayor MD [address] [place] [address] PCP - General 08/14/20 documented as of this encounter
--- OUTSIDE RECORDS SUMMARY | 2024-11-14 16:33 | XMS_ITS | Clinical Summary ---
Author Organization [employer] ([place], [place], [place], [place]) Address [address] [place] [address] Care Team Providers Care Job Lithographer Name Role Phone Darnell Montemayor MD Primary Care Provider + [phone] Allergies Active Allergy Reactions Criticality Noted Date [...] Date Holden rded Speak language other than Citizen [place] at home Not on file 04/21/2023 Want [...] (#1) 2024 Medical Devices Implanted Type Area Weekday Babysitter Device Identifier Shelf Expiration Date Model / Serial / Lot Cement Bone Smplx Tobra 40gm 6197-9-001 - [id number] Implanted:Qty : 2 on 07/13/2022 by Bismark Weston MD at [facility] IMPLANTS Left: Knee ANIKET:[employer] 11/01/2023 6197-9-00 1 / / [id number] Try Tib Id Cr Imp Sz4 [id number] - [id number] Implanted:Qty : 1 on 07/13/2022 by Bismark Weston MD at [facility] IMPLANTS Left: Knee CONFORMIS 07/02/2023 [id number] / / [id number] Imp Fem Cr Iden Sz4 Rt [id number] - [id number] Implanted:Qty : 1 on 07/13/2022 by Bismark Weston MD at [facility] TOTAL JOINT CONSTRUCT Left: Knee CONFORMIS 07/02/2023 [id number] / / [id number] Imp Patella Itotal 32x6mm [id number] - [id number] Implanted:Qty : 1 on 07/13/2022 by Bismark Weston MD at [facility] TOTAL JOINT CONSTRUCT Left: Knee CONFORMIS 04/02/2024 [id number] / / [id number] Insrt Tib Identity Sz 4n 6mm L [id number] - [id number] Implanted:Qty : 1 on 07/13/2022 by Bismark Weston MD at [facility] TOTAL JOINT CONSTRUCT Left: Knee CONFORMIS 06/01/2023 [id number] / / [id number] [address] [facility] Advance Directives For more information, please contact: [phone] * Full Code (Latest Code Status on File) Date Activated Date Inactivated Comments 07/13/2022 1:44 PM 07/13/2022 5:15 PM * Full Code Date Activated Date Inactivated Comments 07/13/2022 7:15 AM 07/13/2022 1:44 PM Care Teams Job Lithographer Relationship Specialty Start Date End Date Darnell Montemayor MD [address] [place] [address] PCP - General Adolescent Medicine 06/16/22
--- OUTSIDE RECORDS SUMMARY | 2024-11-14 16:33 | XMS_ITS | Referral Summary ---
Author Organization [employer] ([place], [place], [place], [place]) Address [address] [place] [address] Care Team Providers Care Molecular Technologist Name Role Phone Darnell Montemayor MD Primary Care Provider + [phone] Allergies Active Allergy Reactions Criticality Noted Date [...] Date Holden rded Speak language other than Niuean at home Not on file 04/21/2023 Want [...] on file Medical Devices Implanted Type Area Hydraulic Billet Maker Device Identifier Shelf Expiration Date Model / Serial / Lot Cement Bone Smplx Tobra 40 6197-9-001 - [id number] Implanted:Qty : 2 on 07/13/2022 by Bismark Weston MD at [facility] IMPLANTS Left: Knee ANIKET:[employer] 11/01/2023 6197-9-00 1 / / [id number] Try Tib Id Cr Imp Sz4 [id number] - [id number] Implanted:Qty : 1 on 07/13/2022 by Bismark Weston MD at [facility] IMPLANTS Left: Knee CONFORMIS 07/02/2023 [id number] / / [id number] Imp Fem Cr Iden Sz4 Rt [id number] - [id number] Implanted:Qty : 1 on 07/13/2022 by Bismark Weston MD at [facility] TOTAL JOINT CONSTRUCT Left: Knee CONFORMIS 07/02/2023 [id number] / / [id number] Imp Patella Itotal 32x6mm [id number] - [id number] Implanted:Qty : 1 on 07/13/2022 by Bismark Weston MD at [facility] TOTAL JOINT CONSTRUCT Left: Knee CONFORMIS 04/02/2024 [id number] / / [id number] Insrt Tib Identity Sz 4n 6mm L [id number] - [id number] Implanted:Qty : 1 on 07/13/2022 by Bismark Weston MD at [facility] TOTAL JOINT CONSTRUCT Left: Knee CONFORMIS 06/01/2023 [id number] / / [id number] Insurance [facility] [place] Advance Directives For more information, please contact: [phone] * Full Code (Latest Code Status on File) Date Activated Date Inactivated Comments 07/13/2022 1:44 PM 07/13/2022 5:15 PM * Full Code Date Activated Date Inactivated Comments 07/13/2022 7:15 AM 07/13/2022 1:44 PM Care Teams Molecular Technologist Relationship Specialty Start Date End Date Darnell Montemayor MD [address] [place] [address] PCP - General Adolescent Medicine 06/16/22
== END 2024-11-14 23:59 | disposition home or self-care (01) ==
LOC: RAD 16:28
PROVIDERS: PCP Nurse Practitioner Family; Visit Provider Nurse Practitioner Family
DX: M25.562 Pain in left knee (principal); Z96.652 Presence of left artificial knee joint
CPT/HCPCS: 73562

== ENCOUNTER → 2024-12-12 07:55 | Outpatient (CLI) | payer OTHER, SELFPAY ==
--- OUTSIDE RECORDS SUMMARY | 2024-12-06 09:15 | XMS_ITS | Encounter Summary ---
Author Organization Healthcare Address [address] 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 Pt states pap and breast exam. Encounter Details Date Type Department Care Team (Late st Contact Info) Description 12/06/2024 9:15 AM EDT Office Visit Obstetrics & Gynecology [address] [place] [address] Linda Purdy, BAKER BISCUIT [address] [place] [address] Encounter for gynecological examination without abnormal finding (Primary Dx); Hot flashes; Other fatigue; Routine screening for STI (sexually transmitted infection) Social History Tobacco Use Types Packs/Day Years Used Date Smoking Tobacco: Former Cigarettes Smokeless Tobacco: Former Quit: 05/31/2023 Alcohol Use Standard Drinks/Week Comments Yes 0 (1 standard drink = 0.6 oz pur e alcohol) Socially PHQ-2 Answer Date Recorded Patient Health Questionnaire-2 Score 0 12/06/2024 Comments No Sex and Gender Information Value Date Recorded Sex Assigned at Not on file Legal Sex Female 8:26 PM EDT Gender Identity Not on file Sexual Orientation Not on file documented as of this encounter Last Filed Vital Signs Vital Sign Reading Time Taken Comments Blood Pressure 127/79 12/06/2024 9:30 AM EDT Pulse 104 12/06/2024 9:30 AM EDT Temperature 36.4 C (97.5 F) 12/06/2024 9:30 AM EDT Respiratory Rate - - Oxygen Saturation 96% 12/06/2024 9:30 AM EDT Inhaled Oxygen Concentration - - Weight 112 kg (246 lb 0.5 oz) 12/06/2024 9:30 AM EDT Height 180.3 cm (5' 11 ) 12/06/2024 9:30 AM EDT Body Mass Index 34.31 12/06/2024 9:30 AM EDT documented in this encounter Functional Status * Over the past 2 weeks, how often have you been bothered by any of the following problems? Question Answer Date of Assessment Author Little interest or pleasure in doing things Not at all 12/06/2024 9:32 AM EDT Beckie Huang Feeling down, depressed, or hopeless Not at all 12/06/2024 9:32 AM EDT Beckie Huang Patient Health Questionnaire -2 Score 0 12/06/2024 9:32 AM EDT Beckie Huang * If you checked off any problems on this questionnaire so far, Question Answer Date of Assessment Author How difficult have these problems made it for you to do your work, take care of things at home, or get along with other people? Not difficult at all 12/06/2024 9:32 AM EDT Beckie Huang documented as of this encounter Miscellaneous Notes * Progress Notes - Linda Purdy, BAKER BISCUIT - 12/06/2024 9:15 AM EDT Gynecology Health Maintenance Note Subjective Margaux Mcgee is a 49 y.o. here for a routine gynecology health maintenance visit. The following chart sections have been reviewed and updated: Tobacco Allergies Meds Med Hx OB Status Fam Hx Soc Hx Here today for annual exam. Denies history of abnormal pap smear screenings in the past. Denies breast concerns. Denies bowel/bladder issues. Denies vaginal concerns including itch/odor/burn/discharge. Desires STD screening today. Denies family history of ovarian or uterine cancers. Maternal great grandmother w/ breast cancer. Notes occasional hot flashes and fatigue, manageable at this time. Recently had labs w/ PCP- no records available for review. Signing a records release today. Interested in having hormone labs collected after determining what labs have already been collected. LMP: 11/15/24 Cycles: Regular. 28-30 days w/ 3-4 days of bleeding Pap: Due MMG: UTD Colon: UTD, due in 2027 Review of Systems Constitutional: Positive for fatigue. HENT: Negative. Eyes: Negative. Respiratory: Negative. Cardiovascular: Negative. Gastrointestinal: Negative. Endocrine: Positive for heat intolerance. Genitourinary: Negative. Musculoskeletal: Negative. Skin: Negative. Allergic/Immunologic: Negative. Neurological: Negative. Hematological: Negative. Psychiatric/Behavioral: Negative. Objective Visit Vitals BP 127/79 Pulse 104 Temp 36.4 ??C (97.5 ??F) Body mass index is 34.31 kg/m??. Physical Exam Constitutional: Appearance: Normal appearance. Genitourinary: Vulva, bladder, rectum and urethral meatus normal. Right Labia: No rash, tenderness, lesions or skin changes. Left Labia: No tenderness, lesions, skin changes or rash. No vaginal discharge, tenderness or bleeding. Right Adnexa: not tender and no mass present. Left Adnexa: not tender and no mass present. No cervical motion tenderness, discharge or friability. Uterus is not enlarged, tender or irregular. No uterine mass detected. Breasts: Right: Normal. Left: Normal. HENT: Head: Normocephalic and atraumatic. Right Ear: External ear normal. Left Ear: External ear normal. Nose: Nose normal. Cardiovascular: Rate and Rhythm: Normal rate. Pulmonary: Effort: Pulmonary effort is normal. Abdominal: General: Abdomen is flat. Palpations: Abdomen is soft. Musculoskeletal: General: Normal range of motion. Cervical back: Normal range of motion. Neurological: General: No focal deficit present. Mental Status: She is alert and oriented to person, place, and time. Skin: General: Skin is warm and dry. Psychiatric: Mood and Affect: Mood normal. Behavior: Behavior normal. Thought Content: Thought content normal. Judgment: Judgment normal. Vitals and nursing note reviewed. Exam conducted with a sales engagement manager present. Assessment Assessment & Plan Encounter for gynecological examination without abnormal finding Orders: Neisseria gonorrhea DNA by PCR Chlamydia trachomatis DNA by PCR Trichomonas Vaginalis Antigen Pap Test Hot flashes Other fatigue Routine screening for STI (sexually transmitted infection) Orders: Chlamydia trachomatis DNA by PCR; Future Neisseria gonorrhea DNA by PCR; Future - Pap today. - MMG and colonoscopy UTD. - Education provided on menopause. Discussed treatment strategies including OTC supplements, hormonal contraceptives vs. HRT, and and SSRI/SNRI. Education provided on R/B, MOA, and possible side effects associated with medications. Smoker- advised she will have to stop smoking before she is a candidate for HRT. - Having records transferred from PCP- will order labs and schedule lab appointment for additional blood work once labs reviewed. - Reviewed health maintenance including diet, regular exercise, dietary supplementation and periodic exams. - Answered all patient questions. Agreeable to plan of care - RTC prn or annually. documented in this encounter Plan of Treatment Upcoming Encounters Date Type Department Care Team (Late st Contact Info) Description 12/11/2025 9:15 AM EDT Office Visit Obstetrics & Gynecology [address] [place] [address] Linda Purdy APRN [address] [place] [address] Scheduled Orders Name Type Priority Associated Diagnoses Orde r Schedule Chlamydia trachomatis DNA by PCR Microbiology Routine Routine screening for STI (sexually transmitted infection) Expected: 12/06/2024 (Approximate), Expires: 06/09/2026 Neisseria gonorrhea DNA by PCR Microbiology Routine Routine screening for STI (sexually transmitted infection) Expected: 12/06/2024 (Approximate), Expires: 06/09/2026 High Risk Human Papillomavirus (HPV) PCR with Genotyping Microbiology Routine Encounter for gynecological examination without abnormal finding Ordered: 12/11/2024 documented as of this encounter Procedures Procedure Name Priority Date/Time Associated Diagnosis Comments TRICHOMONAS VAGINALIS ANTIGEN Routine 12/06/2024 10:14 AM EDT Encounter for gynecological examination without abnormal finding CHLAMYDIA TRACHOMATIS DNA BY PCR Routine 12/06/2024 10:14 AM EDT Encounter for gynecological examination without abnormal finding NEISSERIA GONORRHEA DNA BY PCR Routine 12/06/2024 10:14 AM EDT Encounter for gynecological examination without abnormal finding PAP TEST - CYTOLOGY Routine 12/06/2024 1 0:14 AM EDT Encounter for gynecological examination without abnormal finding documented in this encounter Results * Pap Test (12/06/2024 10:14 AM EDT) Case Report Cytology Case: [id number] Authorizing Provider: Linda Purdy APRN Collected: 12/06/2024 1014 Ordering Location: Obstetrics & Gynecology Received: 12/09/2024 0843 First Screen: Mayuri Arvizu Specimen: ThinPrep Pap Test, Liquid-Based Cervical/Vaginal 12/11/2024 3:[address] [facility] Interpretation NEGATIVE FOR INTRAEPITHELIAL LESION OR MALIGNANCY 12/11/2024 3:[address] [facility] at 1558 EDT Specimen Adequacy Satisfactory for evaluation; endocervical/tiwari sformation zone component absent/insufficie nt. Slide scanned and imaged by [employer] Imaging System with manual review of all selected youngblood. 12/11/2024 3:[address] [facility] Cervical cytology is a screening test primarily for squamous cancers and precursors and has associated false negative and positive results. New technologies such as liquid based sampling may decrease but will not eliminate all false negative results. Regular screening and follow-up of unexplained clinical signs and symptoms are recommended to minimize false negative results. Please see the ASCCP website (www.asccp.org)fo r followup recommendations. If HPV testing was requested, correlation with the results is suggested (please call Microbiology at [phone] for results). 12/11/2024 3:[address] [facility] Menstrual Status Cyclic 12/12/19 25 3:[address] [facility] Contraceptive History Not Applicable 12/11/2024 3:[address] [facility] Screening Type Routine Screen 2024 3:[address] [facility] High Risk? No 12/11/2024 3:[address] [facility] HPV Testing Requested? Request HPV Testing Regardless of Pap Test Findings 12/11/2024 3:[address] [facility] Previous Cancer History No 12/11/2024 3:58 PM EDT [facility] Clinical Information Z01.419 - Encounter for gynecological examination without abnormal finding [ICD-10-CM] 12/11/2024 3:[address] [facility] Last Menstrual Period 11/15/2024 12/11/2024 3:58 PM EDT [facility] Thin Prep Vaginal and cervical cytologic material / Unknown 12/06/2024 10:14 AM EDT 12/09/2024 8:43 AM EDT [facility] ORDER[facility] Fin al Result Performing Organization Address [facility]/ZIP Co de Phone Number [facility] [address] [place] [address] * Trichomonas Vaginalis Antigen (12/06/2024 10:14 AM EDT) Trichomonas vaginalis Antigen Result Negative Negative 12/07/2024 7:[address] [facility] Swab Vaginal structure / Unknown Non-blood Collection / Unknown 12/06/2024 10:14 AM EDT 12/06/2024 2:[address] [facility] - 12/07/2024 7:05 AM EDT This test was developed and its performance characteristics determined by [facility]. It has not been cleared or approved by the US Food and Drug Administration. FDA does not require this test to go through premarket FDA review. This test is used for clinical purposes. It should not be regarded as investigational or for research. This laboratory is certified under the Clinical Laboratory Improvement Amendments (CLIA) as qualified to perform high complexity clinical laboratory testing. Linda B [facility] MICROBIOLOGY - GENERAL ORDERABLES Final Result Performing Organization Address [facility] Co de Phone Number [facility] [address] [place] [address] * Chlamydia trachomatis DNA by PCR (12/06/2024 10:14 AM EDT) Chlamydia trachomatis DNA PCR Result Not Detected Not Detected 12/08/2024 1:[address] [facility] Swab Vaginal structure / Unknown Non-blood Collection / Unknown 12/06/2024 10:14 AM EDT 12/06/2024 2:[address] [facility] - 12/08/2024 1:57 PM EDT This test is performed by the nanoRETE m2000 instrument for Real Time PCR C. trachomatis and N. gonorrhea. This test is FDA approved for use with endocervical, vaginal, and urine specimens. This test is used for clinical purposes. It should not be regarded as invesigational or for research. The [facility] is certified under the Clinical Laboratory Improvement Amendments of 1988 (CLIA-88) as qualified to perform high complexity clinical laboratory testing. Linda Webroot [facility] [facility] MICROBIOLOGY - GENERAL ORDERABLES Final Result Performing Organization Address [facility] Co de Phone Number [facility] [address] [place] [address] * Neisseria gonorrhea DNA by PCR (12/06/2024 10:14 AM EDT) Neisseria gonorrhea DNA PCR Result Not Detected Not Detected. 12/08/2024 1:57 PM EDT [facility] Swab Vaginal structure / Unknown Non-blood Collection / Unknown 12/06/2024 10:14 AM EDT 12/06/2024 2:[address] [facility] - 12/08/2024 1:57 PM EDT This test is performed by the Wong m2000 instrument for Real Time PCR C. trachomatis and N. gonorrhea. This test is FDA approved for use with endocervical, vaginal, and urine specimens. This test is used for clinical purposes. It should not be regarded as invesigational or for research. The [facility] is certified under the Clinical Laboratory Improvement Amendments of 1988 (CLIA-88) as qualified to perform high complexity clinical laboratory testing. us Linda B Gurwinder [facility] MICROBIOLOGY - GENERAL ORDERABLES Final Result Performing Organization Address [facility] Co de Phone Number [facility] [address] [place] [address] documented in this encounter Visit Diagnoses Diagnosis Encounter for gynecological examination without abnormal finding- Primary Hot flashes Other fatigue Routine screening for STI (sexually transmitted infection) Screening examination for venereal disease documented in this encounter Additional Health Concerns Assessment Noted Time A fall risk assessment has been complete d for the patient 12/06/2024 9:32 AM EDT A Body Mass Index follow-up plan has been documented for the patient 12/06/2024 10:28 AM EDT documented as of this encounter Care Teams In Store Representative Relationship Specialty Start Date End Date Darnell Montemayor MD [address] [place] [address] PCP - General 08/14/20 documented as of this encounter
--- OUTSIDE RECORDS SUMMARY | 2024-12-12 07:57 | XMS_ITS | Encounter Summary ---
Author Organization [employer] ([place], [place], [place], [place]) Address [address] [place] [address] Care Team Providers Care Pressure Tank Operator Name Role Phone Darnell Montemayor MD Primary Care Provider [phone] Encounter Details Date Type Department Care Team (Late st Contact Info) Description 07/02/2018 Transcribed Document [facility] [address] [place] [address] Provider, [facility] MD Calvin Social History Tobacco [...] Miscellaneous Notes * Cerner Conversion Note - [facility] Calvin ProviderMD - 07/02/2018 5:18 AM EDT Electronically signed by Interface, [facility] Conversion Timber Supervisor Cerner at 08/24/2022 5:39 PM CDT documented in this encounter Plan of Treatment Not on file documented as of this encounter Visit Diagnoses Not on filedocumented in this encounter Care Teams Pressure Tank Operator Relationship Specialty Start Date End Date Darnell Montemayor MD [address] [place] [address] [place] [id number] PCP - General Adolescent Medicine 06/16/22 documented as of this encounter
--- OUTSIDE RECORDS SUMMARY | 2024-12-12 07:57 | XMS_ITS | Encounter Summary ---
Author Organization Healthcare Address [address] [place] [address] Care Team Providers Care Plasterer Helper Name Role Phone Darnell Montemayor MD Primary Care Provider [phone] Encounter Details Date Type Department Care Team (Late st Contact Info) Description 12/09/2024 Results Follow-Up Obstetrics & Gynecology [address] [place] [address] Linda Purdy, FOOD PRODUCTION MACHINE OPERATOR [address] [place] [address] Social History Tobacco Use Types Packs/Day Years [...] EDT Office Visit Obstetrics & Gynecology [address] [place] [address] Linda Purdy, FOOD PRODUCTION MACHINE OPERATOR [address] [place] [address] documented as of this encounter Visit Diagnoses Not on filedocumented in this encounter Additional Health Concerns Assessment Noted Time A fall risk assessment has been complete d for the patient 12/06/2024 9:32 AM EDT A Body Mass Index follow-up plan has been documented for the patient 12/06/2024 10:28 AM EDT documented as of this encounter Care Teams Plasterer Helper Relationship Specialty Start Date End Date Darnell Montemayor MD [address] [place] [address] PCP - General 08/14/20 documented as of this encounter
--- OUTSIDE RECORDS SUMMARY | 2024-12-12 07:57 | XMS_ITS | Encounter Summary ---
Author Organization [employer] ([place], [place], [place], [place]) Address [address] [place] [address] Care Team Providers Care Wellness Instructor Name Role Phone Darnell Moore MD Primary Care Provider + [phone] Encounter Details Date Type Department Care Team (Late st Contact Info) Description 07/02/2018 Transcribed Document [facility] [address] [place] [address] Provider, [facility] MD [...] Cerner Conversion Note - [facility] Historical ProviderMD - 07/02/2018 5:12 AM EDT [...] EDT Height Source Stated Height Entry Format [place] Height/Length, BANGLADESHI (ft) 5 ft Height/Length BANGLADESHI 10 Inch CLINICALHEIGHT 177.[address] Body Weight 68.02 kg Weight Source, ED Critical estimated dosing weight Weight Entry Format [place] Weight Dutch lb 250 lb CLINICALWEIGHT 113.64 kg Body [...] Fall Risk Assessment: ED Adult Triage: ED corporate travel coordinator: . Radiology results: X-ray, Right knee no apparent abnormality. Impression and Plan Diagnosis Allergic drug reaction - Discharge, Emergency medicine, Medical Plan Condition: Unchanged. Prescriptions: Prescription Director Clinical Information Services Pharmacy: Benadryl Extra Strength 2%-0.1% topical cream [...] on filedocumented in this encounter Care Teams Wellness Instructor Relationship Specialty Start Date End Date Darnell Moore MD [address] [place] [address] PCP - General Adolescent Medicine 06/16/22 documented as of this encounter
--- OUTSIDE RECORDS SUMMARY | 2024-12-12 07:57 | XMS_ITS | Encounter Summary ---
Author Organization [employer] ([place], [place], [place], [place]) Address [address] [place] [address] Care Team Providers Care Cancer Registry Coordinator Name Role Phone Darnell Montemayor MD Primary Care Provider + [phone] Encounter Details Date Type Department Care Team (Late st Contact Info) Description 07/02/2018 Transcribed Document [facility] [address] [place] [address] Provider, lauri Simpson MD Social [...] Miscellaneous Notes * Cerner Conversion Note - [facility] Calvin ProviderMD - 07/02/2018 5:24 AM EDT ED Discharge Entered On: 07/02/2018 4:24 EDT Performed On: 07/02/2018 4:24 EDT by Ashley Patino Music Leader Process Patient Disposition : Discharge Personal Belongings [...] on filedocumented in this encounter Care Teams Cancer Registry Coordinator Relationship Specialty Start Date End Date Darnell Montemayor MD [address] [place] [id number] PCP - General Adolescent Medicine 06/16/22 documented as of this encounter
--- OUTSIDE RECORDS SUMMARY | 2024-12-12 07:57 | XMS_ITS | Encounter Summary ---
Author Organization Healthcare Address [address] [place] [id number] Care Team Providers Care Channel Machine Operator Name Role Phone Darnell Montemayor MD Primary Care Provider [phone] Encounter Details Date Type Department Care Team (Latest Contact Info) Description 12/06/2024 Travel Social History Tobacco Use Types Packs/Day Years [...] on file documented as of this encounter Functional Status * Over the [...] Beckie Huang documented as of this encounter Plan of Treatment Upcoming Encounters Date Type Department Care Team (Late Contact Info) Description 12/11/2025 9:15 AM EDT Office Visit Obstetrics & Gynecology [address] [place] [address] Linda Purdy, CORE WINDER [address] [place] [address] documented as of this encounter Visit Diagnoses Not on filedocumented in this encounter Additional Health Concerns Assessment Noted Time A fall risk assessment has been complete d for the patient 12/06/2024 9:32 AM EDT A Body Mass Index follow-up plan has been documented for the patient 12/06/2024 10:28 AM EDT documented as of this encounter Care Teams Channel Machine Operator Relationship Specialty Start Date End Date Darnell Montemayor MD [address] [place] [id number] PCP - General 08/14/20 documented as of this encounter
--- OUTSIDE RECORDS SUMMARY | 2024-12-12 07:58 | XMS_ITS | Encounter Summary ---
Author Organization [employer] ([place], [place], [place], [place]) Address [address] [place] [address] Care Team Providers Care Business Enterprise Officer Name Role Phone Darnell Montemayor MD Primary Care Provider + [phone] Encounter Details Date Type Department Care Team (Late st Contact Info) Description 07/02/2018 Transcribed Document [facility] [address] [place] [address] Provider, lauri Simpson MD Social [...] Miscellaneous Notes * Cerner Conversion Note - [facility] Calvin ProviderMD - 07/02/2018 3:03 AM [...] Communication Barrier : None Primary Language : Citizen Of [place] Any Spiritual/Cultural Needs or Requests : No [...] filedocumented in this encounter Care Teams Business Enterprise Officer Relationship Specialty Start Date End Date Darnell Montemayor MD [address] [place] [id number] PCP - General Adolescent Medicine 06/16/22 documented as of this encounter
--- OUTSIDE RECORDS SUMMARY | 2024-12-12 07:58 | XMS_ITS | Encounter Summary ---
Author Organization [employer] ([place], [place], [place], [place]) Address [address] [place] [address] Care Team Providers Care Resource Room Special Education Teacher Name Role Phone Darnell Montemayor MD Primary Care Provider + [phone] Encounter Details Date Type Department Care Team (Late st Contact Info) Description 07/02/2018 Transcribed Document [facility] [address] [place] [address] Provider, [facility] MD [place] Social History Tobacco [...] Miscellaneous Notes * Cerner Conversion Note - [facility] Calvin ProviderMD - 07/02/2018 3:03 [...] - Non - Urgent Tracking Group : [facility] ED Sandra De La Rosa Rn - [...] Recent Thoughts of Harming/Killing Others : No Stonemason Needed : No Sandra De La Rosa [...] PNED ; Probability: 0 ; Diagnosis Code: [id number] ED Height and Weight Height Source : [...] Body Mass Index : 35.9 kg/m2 (HI) [place] Body Weight (IBW) : 68.02 kg Sandra [...] on filedocumented in this encounter Care Teams Resource Room Special Education Teacher Relationship Specialty Start Date End Date Darnell Montemayor MD [address] [place] [address] PCP - General Adolescent Medicine 06/16/22 documented as of this encounter
--- OUTSIDE RECORDS SUMMARY | 2024-12-12 07:58 | XMS_ITS | Encounter Summary ---
Author Organization [employer] ([place], [place], [place], [place]) Address [address] [place] [address] Care Team Providers Care Environmental Services Aide Name Role Phone Darnell Moore MD Primary Care Provider + [phone] Encounter Details Date Type Department Care Team (Late st Contact Info) Description 07/02/2018 Transcribed Document [facility] Radiology [address] [place] [address] Provider, [facility] MD Calvin Social History Tobacco Use Types Packs/Day Years Used Date Smoking Tobacco: Never Assessed Comments Unknown Sex and Gender Information Value Date Recorded Sex Assigned at Female 09/28/2021 8:29 PM CDT Legal Sex Female 8:29 PM CDT Gender Identity Female 09/28/2021 8:29 PM CDT Sexual Orientation Not on file documented as of this encounter Miscellaneous Notes * Cerner Conversion Note - [facility] Calvin ProviderMD - 07/02/2018 5:25 AM EDT [address] [place] [address] PERSON INFORMATION Name BRADY MCGEE Age 42 Years 1975 Sex Female Language Irish PCP DARNELL MOORE (REF)MD-[facility] Marital Status Single Med Service Emergency Medicine Acct# Arrival 07/02/2018 02:03:00 Visit Reason Skin rash; Knee pain-swelling; KNEE PAIN Acuity 4 - Non - Urgent LOS 000 02:22 Depart Date: 07/02/18 04:25 AM Address: [place] [address] Comment: PROVIDER INFORMATION Provider Role Assigned Unassigned JUVENTINO MACK MD ED Physician 07/02/2018 04:03:00 Chela Castellanos, dry cleaner helper Nurse 07/02/2018 04:17:59 DIAGNOSIS Allergic drug reaction [...] days With: Address: When: DARNELL MOORE [address] [place] [address] Business (1) Within 2 to 3 days Comment: Electronically signed by [facility] Conversion Cnc Router Operator Cerner at 08/24/2022 5:40 PM CDT documented in this encounter Plan of Treatment Not on file documented as of this encounter Visit Diagnoses Not on filedocumented in this encounter Care Teams Environmental Services Aide Relationship Specialty Start Date End Date Darnell Moore MD [address] [place] [address] PCP - General Adolescent Medicine 06/16/22 documented as of this encounter
--- OUTSIDE RECORDS SUMMARY | 2024-12-12 07:58 | XMS_ITS | Referral Summary ---
Author Organization [employer] ([place], [place], [place], [place]) Address [address] [place] [address] Care Team Providers Care Coin Rolling Machine Operator Name Role Phone Darnell Montemayor MD Primary Care Provider + [phone] Allergies Active Allergy Reactions Criticality Noted Date [...] Date Holden rded Speak language other than Bruneian at home Not on file 04/21/2023 Want [...] on file Medical Devices Implanted Type Area Retread Supervisor Device Identifier Shelf Expiration Date Model / Serial / Lot Cement Bone Smplx Tobra 40 6197-9-001 - [id number] Implanted:Qty : 2 on 07/13/2022 by Bismark Weston MD at [facility] IMPLANTS Left: Knee ANIKET:[employer] 11/01/2023 6197-9-00 1 / / [id number] Try Tib Id Cr Imp Sz4 [id number] - [id number] Implanted:Qty : 1 on 07/13/2022 by Bismark Weston MD at [facility] IMPLANTS Left: Knee CONFORMIS 07/02/2023 [id number] / / [id number] Imp Fem Cr Iden Sz4 Rt [id number] - [id number] Implanted:Qty : 1 on 07/13/2022 by Bismark Weston MD at [facility] TOTAL JOINT CONSTRUCT Left: Knee CONFORMIS 07/02/2023 [id number] / / [id number] Imp Patella Itotal 32x6mm [id number] - [id number] Implanted:Qty : 1 on 07/13/2022 by Bismark Weston MD at [facility] TOTAL JOINT CONSTRUCT Left: Knee CONFORMIS 04/02/2024 [id number] / / [id number] Insrt Tib Identity Sz 4n 6mm L [id number] - [id number] Implanted:Qty : 1 on 07/13/2022 by Bismark Weston MD at [facility] TOTAL JOINT CONSTRUCT Left: Knee CONFORMIS 06/01/2023 [id number] / / [id number] Insurance [employer] [facility] [place] Advance Directives For more information, please contact: [phone] * Full Code (Latest Code Status on File) Date Activated Date Inactivated Comments 07/13/2022 1:44 PM 07/13/2022 5:15 PM * Full Code Date Activated Date Inactivated Comments 07/13/2022 7:15 AM 07/13/2022 1:44 PM Care Teams Coin Rolling Machine Operator Relationship Specialty Start Date End Date Darnell Montemayor MD [address] [place] [address] PCP - General Adolescent Medicine 06/16/22
--- OUTSIDE RECORDS SUMMARY | 2024-12-12 07:58 | XMS_ITS | Encounter Summary ---
Author Organization [employer] ([place], [place], [place], [place]) Address [address] [place] [address] Care Team Providers Care Procedures Tech Name Role Phone Darnell Montemayor MD Primary Care Provider + [phone] Encounter Details Date Type Department Care Team (Late st Contact Info) Description 07/02/2018 Transcribed Document [facility] [address] [place] [address] Provider [facility] MD Calvin Social History Tobacco Use [...] Notes * Cerner Conversion Note - [facility] Historical ProviderMD - 07/02/2018 12:29 PM [...] on filedocumented in this encounter Care Teams Procedures Tech Relationship Specialty Start Date End Date Darnell Montemayor MD [address] [place] [address] PCP - General Adolescent Medicine 06/16/22 documented as of this encounter
--- OUTSIDE RECORDS SUMMARY | 2024-12-12 07:58 | XMS_ITS | Clinical Summary ---
Author Organization [employer] ([place], [place], [place], [place]) Address [address] [place] [address] Care Team Providers Care Culinary Instructor Name Role Phone Darnell Montemayor MD Primary Care Provider + [phone] Allergies Active Allergy Reactions Criticality Noted Date [...] Date Holden rded Speak language other than Ethiopian at home Not on file 04/21/2023 Want [...] Tobacco Cessation Counseling and Screening (12+) 07/1307/13/2022 DTAP/TDAP/TD VACCINES (2 - Td or Tdap) 12/11/2023 Shingles Vaccine (Zoster) (1 of 2) 2024 COVID-19 VACCINE (2 - season) 12/02/202408/2020 Influenza Vaccine (#1) 2024 Medical Devices Implanted Type Area Facilities Painter Device Identifier Shelf Expiration Date Model / Serial / Lot Cement Bone Smplx Tobra 40gm 6197-9-001 - [id number] Implanted:Qty : 2 on 07/13/2022 by Bismark Weston MD at [facility] IMPLANTS Left: Knee ANIKET:[employer] 11/01/2023 6197-9-00 1 / / [id number] Try Tib Id Cr Imp Sz4 [id number] - [id number] Implanted:Qty : 1 on 07/13/2022 by Bismark Weston MD at [facility] IMPLANTS Left: Knee CONFORMIS 07/02/2023 [id number] / / [id number] Imp Fem Cr Iden Sz4 Rt [id number] - [id number] Implanted:Qty : 1 on 07/13/2022 by Bismark Weston MD at [facility] TOTAL JOINT CONSTRUCT Left: Knee CONFORMIS 07/02/2023 [id number] / / [id number] Imp Patella Itotal 32x6mm [id number] - [id number] Implanted:Qty : 1 on 07/13/2022 by Bismark Weston MD at [facility] TOTAL JOINT CONSTRUCT Left: Knee CONFORMIS 04/02/2024 [id number] / / [id number] Insrt Tib Identity Sz 4n 6mm L [id number] - [id number] Implanted:Qty : 1 on 07/13/2022 by Bismark Weston MD at [facility] TOTAL JOINT CONSTRUCT Left: Knee CONFORMIS 06/01/2023 [id number] / / [id number] [place] [address] [facility] Advance Directives For more information, please contact: [phone] * Full Code (Latest Code Status on File) Date Activated Date Inactivated Comments 07/13/2022 1:44 PM 07/13/2022 5:15 PM * Full Code Date Activated Date Inactivated Comments 07/13/2022 7:15 AM 07/13/2022 1:44 PM Care Teams Culinary Instructor Relationship Specialty Start Date End Date Darnell Montemayor MD [address] [place] [address] PCP - General Adolescent Medicine 06/16/22
--- OUTSIDE RECORDS SUMMARY | 2024-12-12 07:58 | XMS_ITS | Encounter Summary ---
Author Organization [employer] ([place], [place], [place], [place]) Address [address] [place] [address] Care Team Providers Care Rn Transport Name Role Phone Darnell Moore MD Primary Care Provider + [phone] Encounter Details Date Type Department Care Team (Late st Contact Info) Description 07/02/2018 Transcribed Document [facility] [address] [place] [address] Provider, Netta Simpson MD Social [...] Miscellaneous Notes * Cerner Conversion Note - [facility] Calvin ProviderMD - 07/02/2018 5:25 AM EDT [address] [address] Patient Information Name: BRADY MCGEE Age: 42 Years Date of : 1975 Arrival Time: 07/02/2018 02:03:00 Diagnosis Allergic drug reaction Primary Care Physician: DARNELL MOORE (REF)MD-[facility] Provider Information Primary Provider: JUVENTINO MACK MD Secondary Provider: BRADY MCGEE AMANDEEP has been given the following list of patient education materials, prescriptions and follow-up instructions: Follow-up Instructions: With: Address: When: Follow up with surgeon Within 2 to 3 days With: Address: When: DARNELL MOORE [address] [place], [place] [id number] Business (1) Within 2 to 3 days [...] you may need to see an occupational therapy asst.How is this treated? Treatment for this condition [...] Avoid using hot water. MedicinesETake or apply bhqu-gpm-revvqgr and prescription medicines only as told by [...] verify that BRADY MCGEE was seen at [facility] on ,07/02/2018 04:25:19. This is [...] along the way. As a healthcare provider, [facility] recommends that you stop smoking. Assistance with quitting is available by contacting 2-765-YTQE-NOW. This is a free resource providing counseling, [...] Electronic Communications Privacy Act 18 U.S.C. ???Sections 2303-5297,Eand contain information intended for the specified individual(s) [...] sure to sign up for the [facility] patient portal, which gives you / access to your medical information Eincluding these discharge instructions Eusing your computer, smartphone, or tablet. Just go to [employer] to get started. Questions? Call . Acknowledgment [...] filedocumented in this encounter Care Teams Rn Transport Relationship Specialty Start Date End Date Darnell Moore MD [address] [place] [address] PCP - General Adolescent Medicine 06/16/22 documented as of this encounter
--- OUTSIDE RECORDS SUMMARY | 2024-12-12 07:58 | XMS_ITS | Clinical Summary ---
Author Organization [facility] Address [address] [place] [address] Care Team Providers Care Segment Assembler Name Role Phone System, Provider Not In [...] TEST 10/30/2019 FIT Testing (1 year) 10/30/2019 Pneumococcal Vaccine 50+ (1 of 1 - PCV) 2024 ZOSTER VACCINE (1 of 2) 2024 COVID-19 Vaccine (1 - season) 2024 INFLUENZA VACCINE 01/01/2025 Insurance [facility] Care Teams Segment Assembler Relationship Specialty Start Date End Date System, [place] [address] PCP - General 10/16/17
--- OUTSIDE RECORDS SUMMARY | 2024-12-12 07:58 | XMS_ITS | Clinical Summary ---
Author Organization [facility] Address [address] [place] [address] Care Team Providers Care Pile Operator Name Role Phone Darnell Montemayor MD Primary Care Provider [phone] Allergies Active Allergy Reactions Criticality Noted Date Comments Codeine Other - please docum ent in the comment field,Unknown - Patient states they do not know rxn details Low 11/11/2011 chest pain CHEST PAIN CHEST PAIN Medications acetaminophen (Tylenol) 500 MG tablet Take 1 tablet 4 times per day 2 days before surgery, after surgery take 2 tablets 4 times per day 08/14/19 20 Active ALPRAZolam (Xanax) 0.5 MG tablet Take 0.5 mg by mouth 2 (two) times a day. Active cetirizine (ZyrTEC) 10 MG tablet Take 1 tablet (10 mg) by mouth 1 (one) time each day. Active diclofenac (Voltaren) 75 MG EC tablet Take 1 tablet (75 mg) by mouth 2 (two) times a day. 12/06/19 19 Active fluticasone (Flonase) 50 MCG/ACT nasal spray USE 1 SPRAY(S) IN EACH NOSTRIL ONCE DAILY FOR 14 DAYS 04/05/19 21 Active montelukast (Singulair) 10 MG tablet Take 1 tablet (10 mg) by mouth every night. 12/06/19 19 Active pantoprazole (ProtoNix) 40 MG packet Take 1 packet (40 mg) by mouth 1 (one) time each day before breakfast. 12/06/19 19 Active traZODone (Desyrel) 50 MG tablet Take 1 tablet (50 mg) by mouth every night. Active nicotine (Nicoderm CQ) 7 MG/24HR patch Place 1 patch on the skin 1 (one) time each day at the same time. For 6 weeks, then stop 42 patch 01/12/20 Active nicotine polacrilex (Commit) 2 MG lozenge Dissolve 1 lozenge (2 mg total) in the mouth if needed for smoking cessation. 100 lozenge 1 01/12/20 Active Additional Information Patient not taking.Reported on 12/06/2024 hydroCHLOROthiazi de (Microzide) 12.5 MG capsule Take 1 capsule [...] needed for nausea or vomiting. 9 tablet 11/29/19 24 Active HYDROcodone-aceta minophen ([place]) 5-325 MG tablet Take 1 tablet (5 mg of hydrocodone) by mouth every 6 (six) hours if needed for severe pain. 45 tablet 11/29/19 24 Active Additional Information Patient not taking.Reported on 12/06/2024 acetaminophen (Tylenol) 500 MG tablet Take 1 tablet (500 mg) by mouth every 6 (six) hours if needed for fever or headaches. 100 tablet 11/29/19 24 Active Additional Information Patient not taking.Reported on 12/06/2024 ibuprofen 400 MG tablet Take 1 tablet (400 mg) by mouth every 6 (six) hours if needed for headaches, fever or moderate pain. 100 tablet 11/29/19 24 Active Additional Information Patient not taking.Reported on 12/06/2024 amitriptyline (Elavil) 50 MG tablet 11/13/19 25 Active escitalopram (Lexapro) 10 MG tablet Escitalopram Oxalate 10 MG Oral Tablet QTY: 30 Days: 30 Refills: 0 Written: 06/11/24 Patient Instructions: 03/14/20 23 Active itraconazole (Sporanox) 100 MG capsule 10/08/19 25 Active sucralfate (Carafate) 1 g tablet Take 1 tablet 4 times a day by oral route for 30 days. 12/06/19 25 Active hydroCHLOROthiazi de 12.5 MG PO tablet 10/01/19 25 Active atorvastatin (Lipitor) 20 MG tablet 2 tablets (40 mg). 12/06/19 025 Discontinu ed(Per Patient Report) citalopram (CeleXA) 10 MG tablet 2 tablets (20 mg). 12/06/19 025 Discontinu ed(Per Patient Report) famotidine (Pepcid) 20 MG tablet Take 1 tablet (20 mg) by mouth twice a day. Discontinu ed(Per Patient Report) Active Problems Problem Noted Date Diagnosed Date HTN (hypertension) 11/29/2023 High cholesterol 11/29/2023 Gastroesophageal reflux disease without esophagi tis 11/29/2023 Hyperplasia of tonsils and adenoids 11/29/2023 Tonsillith 10/20/2023 Chronic tonsillitis 10/20/2023 Primary osteoarthritis of left knee 11/17/2021 Overview (11/17/2021): Added automatically from request for surgery [id number] Tobacco abuse 01/12/2021 Other chest pain 01/12/2021 Mixed hyperlipidemia 01/12/2021 Encounters Date Type Department Care Team Description 12/09/2024 Results Follow-Up Obstetrics & Gynecology [address] [place] [address] Linda Purdy APRN 12/06/2024 9:15 AM EDT Office Visit Obstetrics & Gynecology [address] [place] [address] Linda Purdy APRN Encounter for gynecological examination without abnormal finding (Primary Dx); Hot flashes; Other fatigue; Routine screening for STI (sexually transmitted infection) 12/06/2024 Travel from Last 3 Months Family History Medical History Relation Name Comments Heart disease Father Breast cancer Maternal Great-Grandmother Conversions - Other Maternal Great-Grandmother Patient denies medical problems Relation Name Status Comments Father Maternal Great-Grandmother Other Social History Tobacco Use Types Packs/Day [...] F) 12/06/2024 9:30 AM EDT Respiratory Rate 8 11/29/2023 12:45 PM EDT Oxygen Saturation 96% 12/06/2024 9:30 AM EDT Inhaled Oxygen Concentration - - Weight 112 kg (246 lb 0.5 oz) 12/06/2024 9:30 AM EDT Height 180.3 cm (5' 11 ) 12/06/2024 9:30 AM EDT Body Mass Index 34.31 12/06/2024 9:30 AM EDT Plan of Treatment Upcoming Encounters Date Type Department Care Team (Late st Contact Info) Description 12/11/2025 9:15 AM EDT Office Visit Obstetrics & Gynecology [address] [place] [address] Linda Purdy, CRUSHER PLANT OPERATOR [address] [place] [address] Health Maintenance Due Date Last Done Comments [facility]-/Child/Adol SDOH Screenings 1975 [facility]- SDOH Screenings 1992 [facility]-Adult SDOH Screenings 1992 [facility]-Pap Smear 10/30/1995 12/06/2024 [facility]-Cervical Cancer Screening 2004 [facility]-HPV/Cotest 2004 12/06/2024 [facility]-Hepatitis B Vaccines (2 of 3 - 19+ 3-dose series) 01/19/2017 12/22/2016 CT Colonography 10/30/2019 Colonoscopy 10/30/2019 FIT-DNA 10/30/2019 FIT 10/30/2019 FOBT 10/30/2019 Sigmoidoscopy 10/30/2019 [facility]-Colorectal Cancer Screening 10/30/2019 [id number] Vaccine (2 - Suellen risk series) 08/03/2020 07/06/2020 [facility]-Breast Cancer Screening 2024 [facility]-Pneumococcal Vaccine: 50 + Years (1 of 1 - PCV) 2024 [facility]-Zoster Vaccines (1 of 2) 2024 [facility]-Influenza Vaccine (#1) 2024 01/23/2017 [facility]-Depression Screening 12/06/2025 12/06/2024 [facility]-DTaP,Tdap,and Td Vaccine s (3 - Td or Tdap) 11/14/2034 11/14/2024, 12/10/2013 [facility]-HIV Screening Completed 12/17/2020 [facility]-Hepatitis C Screening Completed 12/17/2020 [facility]-Obesity Intervention Completed 025, 10/20/2023 HPV Vaccines Aged Out No longer [...] Procedure Name Priority Date/Time Associated Diagnosis Comments PAP TEST - CYTOLOGY Routine 12/06/2024 1 0:14 AM EDT Encounter for gynecological examination without abnormal finding TRICHOMONAS VAGINALIS ANTIGEN Routine 12/06/2024 10:14 AM EDT Encounter for gynecological examination without abnormal finding CHLAMYDIA TRACHOMATIS DNA BY PCR Routine 12/06/2024 10:14 AM EDT Encounter for gynecological examination without abnormal finding NEISSERIA GONORRHEA DNA BY PCR Routine 12/06/2024 10:14 AM EDT Encounter for gynecological examination without abnormal finding HEPATITIS C ANTIBODY - ED W/REFLEX TO HCV QUANT PCR STAT 12/17/2020 5:57 PM EDT HIV 1/2 ANTIBODY/ANTIGEN SCREEN WITH REFLEX TO HIV I/II DIFFERENTIATION STAT 12/17/2020 5:57 PM EDT from Last 3 Months or Most Recently Relevant to Health Maintenance Results * Trichomonas Vaginalis Antigen (12/06/2024 10:14 AM EDT) Trichomonas vaginalis Antigen Result Negative Negative 12/07/2024 7:05 AM EDT [facility] Swab Vaginal structure / Unknown Non-blood Collection / Unknown 12/06/2024 10:14 AM EDT 12/06/2024 2:03 PM EDT Narrative [facility] - 12/07/2024 7:05 AM EDT This test was developed and its performance characteristics determined by [facility] Clinical Microbiology Laboratory. It has not been [...] perform high complexity clinical laboratory testing. Linda Purdy APRN LAB MICROBIOLOGY - GENERAL ORDERABLES Final Result [facility] [address] [place] [address] * Chlamydia trachomatis DNA by PCR (12/06/2024 10:14 AM EDT) Chlamydia trachomatis DNA PCR Result Not Detected Not Detected 12/08/2024 1:57 PM EDT [facility] Swab Vaginal structure / Unknown Non-blood Collection / Unknown 12/06/2024 10:14 AM EDT 12/06/2024 2:05 PM EDT Narrative [facility] - 12/08/2024 1:57 PM EDT This test is performed by the Wong m2000 instrument for Real Time PCR C. trachomatis and N. gonorrhea. This test is FDA approved for use with endocervical, vaginal, and urine specimens. This test is used for clinical purposes. It should not be regarded as invesigational or for research. The [facility] Microbiology Laboratory is certified under the Clinical Laboratory Improvement Amendments of 1988 (CLIA-88) as qualified to perform high complexity clinical laboratory testing. Linda Purdy APRN LAB MICROBIOLOGY - GENERAL ORDERABLES Final Result Performing Organization Address [facility]/ZIP Co de Phone Number [facility] [address] [place] [address] * Neisseria gonorrhea DNA by PCR (12/06/2024 10:14 AM EDT) Neisseria gonorrhea DNA PCR Result Not Detected Not Detected. 12/08/2024 1:57 PM EDT [facility] Swab Vaginal structure / Unknown Non-blood Collection / Unknown 12/06/2024 10:14 AM EDT 12/06/2024 2:05 PM EDT Narrative [facility] - 12/08/2024 1:57 PM EDT This test is performed by the Wong m2000 instrument for Real Time PCR C. trachomatis and N. gonorrhea. This test is FDA approved for use with endocervical, vaginal, and urine specimens. This test is used for clinical purposes. It should not be regarded as invesigational or for research. The [facility] Microbiology [facility] is certified under the Clinical Laboratory Improvement Amendments of 1988 (CLIA-88) as qualified to perform high complexity clinical laboratory testing. us Linda Purdy APRN LAB MICROBIOLOGY - GENERAL ORDERABLES Final Result Performing Organization Address City/[facility] Co de Phone Number [facility] [address] [place] [address] * Pap Test (12/06/2024 10:14 AM EDT) Case Report Cytology Case: [id number] Authorizing Provider: Linda Purdy APRN Collected: 12/06/2024 1014 Ordering Location: Obstetrics & Gynecology Received: 12/09/2024 0843 First Screen: Mayuri Arvizu Specimen: ThinPrep Pap Test, Liquid-Based Cervical/Vaginal 12/11/2024 3:58 PM EDT [facility] Interpretation NEGATIVE FOR INTRAEPITHELIAL LESION OR MALIGNANCY 12/11/2024 3:58 PM EDT [facility] at 1558 EDT Specimen Adequacy Satisfactory for evaluation; endocervical/tiwari sformation zone component absent/insufficie nt. Slide scanned and imaged by ThinPrep Imaging System with manual review of all selected youngblood. 12/11/2024 3:58 PM EDT [facility] Cervical cytology is a screening [...] results is suggested (please call Microbiology at [phone] for results). 12/11/2024 3:58 PM EDT [facility] Menstrual Status Cyclic 12/12/19 3:58 PM EDT [facility] Contraceptive History Not Applicable 12/11/2024 3:58 PM EDT [facility] Screening Type Routine Screen 2024 3:58 PM EDT [facility] High Risk? No 12/11/2024 3:58 PM EDT [facility] HPV Testing Requested? Request HPV Testing Regardless of Pap Test Findings 12/11/2024 3:58 PM EDT [facility] Previous Cancer History No 12/11/2024 3:58 PM EDT [facility] Clinical Information Z01.419 - Encounter for gynecological examination without abnormal finding [ICD-10-CM] 12/11/2024 3:58 PM EDT [facility] Last Menstrual Period 11/15/2024 12/11/2024 3:58 PM EDT [facility] Thin Prep Vaginal and cervical cytologic material / Unknown 12/06/2024 10:14 AM EDT 12/09/2024 8:43 AM EDT us Linda Purdy APRN LAB CYTOLOGY ORDERABLES Fin al Result [facility] [address] [place] [address] * HIV 1 & 2 Antibody/Antigen Screen (12/17/2020 5:57 PM EDT) HIV 1 & 2 Antibody/Anti gen Screen Nonreactive Nonreactive 12/17/2020 8:23 PM EDT [facility] Blood Venous blood specimen / Unknown Venipuncture / Unknown 12/17/2020 5:57 PM EDT 12/17/2020 6:29 PM EDT us Alexei Yang MD LAB BLOOD ORDERABLES Final Res ult Performing Organization Address City/[facility]/ZIP Co de Phone Number [facility] [address] [place] [address] * [place] Hepatitis C Antibody (12/17/2020 5:57 PM EDT) Hepatitis C Antibody Negative Negative 12/17/2020 7:56 PM EDT [facility] Blood Venous blood specimen / Unknown Venipuncture / Unknown 12/17/2020 5:57 PM EDT 12/17/2020 6:29 PM EDT us Aelxei Yang MD LAB BLOOD ORDERABLES Final Res ult Performing Organization Address City/[facility] Co de Phone Number [facility] [address] [place] [address] from Last 3 Months or Most Recently Relevant to Health Maintenance Insurance [employer] Care Teams Pile Operator Relationship Specialty Start Date End Date Darnell Montemayor MD [address] [place] [address] PCP - General 08/14/20
--- OUTSIDE RECORDS SUMMARY | 2024-12-12 07:58 | XMS_ITS | Encounter Summary ---
Author Organization [facility] Address [address] [id number] Care Team Providers Care Aircraft Machinist Name Role Phone Darnell Montemayor MD Primary Care Provider [phone] Reason for Referral * Consultation (Routine) - Closed Specialty Diagnoses / Procedures Referred By Krystina noonan Referred To Contact Otolaryngology Diagnoses Other chronic diseases of tonsils and adenoids Emiliano Vargas MD [address] [facility], [place] [address] Phone: tel: fax: Referral ID Status Reason Start Date Expiration Date V isits Requested Visits Authorized [id number] Closed Specialty Services Required 08/31/2023 03/01/2025 1 1 Encounter Details Date Type Department Care Team (Late st Contact Info) Description 08/31/2023 Community [facility] [address] [place] [address] Emiliano Vargas MD [address] [facility], [place] [address] Other chronic diseases of tonsils and adenoids [...] EDT Office Visit Obstetrics & Gynecology [address] [place] [address] Linda Purdy, PUBLIC HEALTH CLINICAL NURSE SPECIALIST [address] [place] [address] Scheduled Referrals Name Type Priority [...] documented as of this encounter Care Teams Aircraft Machinist Relationship Specialty Start Date End Date Darnell Montemayor MD [address] [place] [address] PCP - General 08/14/20 documented as of this encounter
== END ==
LOC: SL 07:56
PROVIDERS: PCP Nurse Practitioner Family; Visit Provider Nurse Practitioner Family
DX: G47.33 Obstructive sleep apnea (adult) (pediatric) (principal); G47.10 Hypersomnia, unspecified; I10 Essential (primary) hypertension; E66.9 Obesity, unspecified
CPT/HCPCS: G0399

== ENCOUNTER 2025-02-06 14:02 | Outpatient (CLI) | payer OTHER, SELFPAY ==
--- OUTSIDE RECORDS SUMMARY | 2024-12-30 07:00 | XMS_ITS | Continuity of Care Document ---
Author Organization [facility] Phone Care Team Providers Care Calculus Professor Name Role Phone RAMAKRISHNA MAR Admitting RAMAKRISHNA MAR Primary Attending RAMAKRISHNA MAR Unavailable PHUONG MOORE Primary Care ALLERGIES AND ADVERSE REACTIONS ALLERGIES AND ADVERSE REACTIONS Code System Allergy Substance Adverse Reaction Date Reaction (Severity) Comment Status Reported By Updated By 2800 RXNorm CODEINE Adverse reaction to substance (Moderate) chest pain active [id number] on May 13, 2022 3:41:[address] [facility] FAMILY HISTORY RELATION: Father Status: LIVING SNOMED-CT Diagnosis Age At Onset [id number] Heart disease RELATION: Mother Status: LIVING SNOMED-CT Diagnosis Age At Onset [id number] Hypertensive disorder RESULTS Patient: LATONYA Salter Date of : 1975 LABORATORY RESULTS Information is not available LABORATORY NARRATIVE RESULTS Information is not available RADIOLOGY RESULTS ORDER 100: CT ABD PEL W/ IV AND ORAL (LOINC: 80105-8) ORDER DATE: December 27, 2024 11:58:[address] [facility] PERFORMING LAB: [address] [id number] Final Result Date: December 27, 2024 3:36:[address] [address] Name: BRADY HANKS Exam Date: 12/27/2024 : 1975 Age 49 years Gender: F Physician: RAMAKRISHNA MAR Facility: [facility] Facility HSV: Outpatient Exam: CT ABD PEL W/ (IV & ORAL) EXAM: CT ABDOMEN AND PELVIS WITH CONTRAST INDICATION: generalized abdominal pain . Burning sensation right upper abdomen for one year. TECHNIQUE: CT of the abdomen and pelvis was performed following IV contrast administration. Sagittal and coronal reformats. This examination was performed using one or more the following dose reduction techniques: Automated exposure control; adjustment of the mA and kV according the patient's size; iterative reconstruction technique. Unless specified, no imaging follow-up is recommended for incidental findings. IV CONTRAST:100 mL Isovue-300 ORAL CONTRAST:Administered. No oral contrast dose information was submitted by the performing technologist. COMPARISON: January 17, 2020. FINDINGS: LOWER CHEST: No acute abnormality. LIVER: Diffuse low-attenuation, suggesting steatosis. No focal hepatic abnormality. SPLEEN: Normal size and attenuation. No focal abnormality. PANCREAS: No peripancreatic inflammatory change, pancreatic ductal dilatation or pancreatic mass. GALLBLADDER AND BILIARY TRACT: Esophageal changes of cholecystectomy. No abnormal biliary ductal dilatation. ADRENAL GLANDS: No adrenal nodule. KIDNEYS: No renal calculi or hydronephrosis. Bilaterally symmetric renal enhancement. No obvious solid renal cortical mass. Ureters appear normal bilaterally. URINARY BLADDER: Unremarkable. PELVIC ORGANS: Age appropriate appearance of the uterus and adnexa. No free pelvic fluid. No pathologic appearing pelvic or superficial inguinal mass or adenopathy surgical clips posterior to the uterus on the right. VASCULAR: No abdominal aortic aneurysm or dissection. Normal enhancement of the celiac axis, superior mesenteric and inferior mesenteric arteries. No evidence for significant renal artery stenosis. No evidence for renal, splenic or portal vein thrombosis. No evidence of hepatic, portal, splenic or superior mesenteric vein thrombosis. Unremarkable IVC. DISTAL ESOPHAGUS, STOMACH AND DUODENUM: Unremarkable. Legally authenticated by DMITRY CISNEROS 2024-12-27 11:36:00 SMALL INTESTINE: No dilated small bowel loops or obvious small bowel wall thickening. COLON: No colonic dilatation or obvious wall thickening. APPENDIX: Normal. ABDOMINAL WALL: No obvious acute abdominal wall abnormality or superficial soft tissue mass. MUSCULOSKELETAL: No obvious acute osseous abnormality. Degenerative changes of the lower thoracic and lumbar spine. OTHER: No free air or free fluid. No mesenteric or retroperitoneal adenopathy. IMPRESSION: 1. No acute abnormality. 2. Hepatic steatosis. 3. Cholecystectomy. Electronically signed by: Parish Cervantes DO 12/27/2024 11:36 AM EDT Dictated By: Parish Cervantes Transcribed By: Transcribed On: 12/27/2024 11:36 AM Electronically signed by: Parish Cervantes 12/27/2024 Thank you for referring BRADY HANKS to [facility]. Legally authenticated by DMITRY CISNEROS 2024-12-27 11:36:00 PATHOLOGY NARRATIVE RESULTS Information is not available MICROBIOLOGY RESULTS No Micro Labs/Results Exist for Patient BLOOD ADMIN RESULTS Information is not available MEDICATIONS HOME MEDICATIONS Status RXNORM NDC Medication Dose Route Frequency Dates Comments Reported By Updated By Drug Treatment Unknown DISCHARGE MEDICATIONS Status RXNORM NDC Medication Dose Route Frequency Dates Dis pense Data Comments Physician Updated By No Discharge Medication Info rmation Available INPATIENT MEDICATIONS Status RXNORM NDC Medication Dose Route Frequency Rat e Quantity Dates Indication Dispense Data Comments Physician Updated By No Inpatient Medication Info rmation Available SOCIAL HISTORY SOCIAL HISTORY - Smoking Status SNOMED-CT Social History Element Description Effective Dates Offered Cessation Comment Updated By [id number] Historical Tobacco smoking status Current Every Day Smoker 1 PPD [id number] on December 16, 2022 3:41:[address] [facility] [id number] Historical Tobacco smoking status Former Smoker Quit 2 weeks ago [id number] on April 23, 2019 11:47:[address] [facility] [id number] Historical Tobacco smoking status Current Some Day Smoker [id number] on February 07, 2019 6:53:[address] [facility] SOCIAL HISTORY - Gender Sex: Female SOCIAL HISTORY - Status : status i nformation is not available Intention in Next Year: intention information is not available SOCIAL HISTORY - Assessments Code System Description Status Date Value of Assessment Updated By Comment Assessment Information is no t available SOCIAL HISTORY - [place] Affiliation [place] information is not av ailable SOCIAL HISTORY - Legal Sex Legal Sex information is not available SOCIAL HISTORY - Sexual Behavior Sexual Orientation Gender Identity SNOMED-CT Description SNO MED -CT Description Activity Level No of Partners Partner Type UpdatedBy Information is not available SOCIAL HISTORY - Occupation Occupation information is no t available HEALTH CONCERNS Problems Concern Status Health Concern problem infor mation not available. Smoking Status Status Years Used Consumed packs p er day Health Concern smoking histo ry information not available. Family History Concern Status Health Concern family histor y information not available. ENCOUNTERS ENCOUNTER INFORMATION Reason for Visit CT ABD/PELVIS W/ Admission December 27, 2024 11:46:00 AM U [facility] [address] [facility] [address] Discharge December 27, 2024 11:46:00 AM U TC DISCHARGED TO HOME OR SELF CARE ENCOUNTER DIAGNOSES Notes information is not sue ilable. Code System Diagnosis Onset Date Diagnosis information is not available. ABSTRACT DIAGNOSES Code System Diagnosis Updated By Abatement Date R10.84 ICD10 GENERALIZED ABDOMINAL PAIN I [id number] on December 30, 2024 11:59:35 AM [place] K76.0 ICD10 FATTY (CHANGE OF ) LIVER, NOT ELSEWHERE CLASSIFIED [id number] on December 30, 2024 11:59:35 AM UT Z90.49 ICD10 ACQUIRED ABSENCE OF OTHER SPECIFIED PARTS OF DIGESTIVE TRACT [id number] on December 30, 2024 11:59:36 AM [place] CARE TEAM Care Calculus Professor Role RAMAKRISHNA MAR Admitting RAMAKRISHNA MAR Primary Attending RAMAKRISHNA MAR Referring PHUONG MOORE Primary Care CARE TEAM CARE office support Role on Team Location Telecom Status Start Date End Dequan e Updated By ISABELA CALDERON Referring normal December 27, 2024 4:00:00 AM [place] December 27, 2024 11:46:00 AM UTC [id number] on December 27, 2024 11:48:22 AM [place] [facility] PCP normal December 23, 2024 12:42:09 PM UT December 27, 2024 11:46:00 AM UTC [id number] on December 27, 2024 11:48:[address] [facility] ISABELA CALDERON Attending normal December 23, 2024 12:42:08 PM UT December 27, 2024 11:46:00 AM UTC [id number] on December 27, 2024 11:48:[address] [facility] ISABELA CALDERON Admitting normal December 23, 2024 12:42:08 PM UTC December 27, 2024 11:46:00 AM UTC [id number] on December 27, 2024 11:48:22 AM UT
--- NOTE | 2025-02-06 14:04 | XR_ITS ---
FINAL REPORT CLINICAL HISTORY: left hand pain FINDINGS: AP, oblique, and lateral views of the left hand were obtained. There is no prior exam for comparison. There is no acute fracture of the left hand. There is advanced degenerative disease at the first carpometacarpal joint. There is a lucent lesion in the proximal pole of the scaphoid, likely a cyst. The soft tissues are normal. IMPRESSION: Advanced degenerative disease as above. Reviewed, Interpreted and Dictated by Telma Solares MD Transcribed by Funmilayo Mayfield Authenticated and [facility]
--- NOTE | 2025-02-06 14:04 | XR_ITS ---
FINAL REPORT CLINICAL HISTORY: right hand pain FINDINGS: AP, lateral and oblique views of the right hand were obtained. There is no prior exam for comparison. There is no acute fracture or dislocation. There is multi joint degenerative disease, most pronounced involving the first carpometacarpal joint. The soft tissues are normal. IMPRESSION: Multijoint degenerative disease. Reviewed, Interpreted and Dictated by Telma Solares MD Transcribed by Funmilayo Mayfield Authenticated and [facility]
--- OUTSIDE RECORDS SUMMARY | 2025-02-06 14:09 | XMS_ITS | Continuity of Care Document ---
Author Organization [facility] - [facility], [facility] Address [address] [place] [address] Care Team Providers Care Hands And Dial Inspector Name Role Phone [facility] 591 Primary Care Provider [phone] Assessment Encounter Date Assessment Date Assessment LastModified by Organization Details LastModified Time 01/21/2025 01/21/2025 49-year-old female with abdominal pain, bloating, and constipation. She has a history of low anterior resection with colorectal anastomosis secondary to recurrent diverticulitis. colonoscopy 12/2022 was unremarkable. Symptoms previously improved with osmotic laxative therapy, which she is no longer taking. 1) Chronic constipation/IB S: She recalls insurance did not cover Linzess well. She was inconsistent with use of Lubiprostone. -Start Ibsrela 50 mg p.o. twice daily. Rx sent to [facility]. 2) Abdominal pain: CT imaging c/w constipation. IBS-C is likely. Treatment per above. 3) Nausea: Monitor during laxative therapy. f/u 8 weeks. [email or web address] Not available 01/21/2025 20:21:19 Plan of Treatment Reminders Order Date Submit Date Provider Last Modified By Organization Details Last Modified Time Details Appointments Telehealt h Visit 15 min 2024 03:45P M Horace Van PA-C Not available Not available Not available Lab None recorded. Referral None recorded. Procedures None recorded. Surgeries None recorded. Imaging None recorded. Medication Orders Ibsrela 50 mg tablet 2024 025 [place] [facility], [address], [place], [id number], 01/21/2025 20:20:52 Patient Targets Encounter Date Encounter Id Patient Goals Patient Target Last Modified By Organization Details Last Modified Time 01/21/2025 u pinpoint anything that was particularly worrisome to when I go in her look at it myself you look constipated to me do you feel constipated a little bit but albeit quite thin I guess maybe to get it down your main I have [email or web address] Not available 01/21/2025 15:23:18 Patient InstructionsNo instructions recorded. Reason for Referral None Reported. Results Created Date Observation Date Name Description Value Unit Range Abnormal Flag Note LastModifiedBy Organization Detail LastModifiedTime 12/28/1912/27/2024 CT ABD pel w/ (IV [facility] [address] [place] [address] Phone: Fax: Name: BRADY MCGEE Exam Date: 025 : 975 Age 49 years Gender : F Access ion: [id number] Physic lion: HORACE VAN Facili ty: [facility] Facili ty HSV: Outpat ient Exam: CT ABD PEL W/ (IV ^ ORAL) EXAM: CT ABDOME N AND PELVIS WITH CONTRA ST INDICA TION: genera lized abdomi nal pain . Burnin g sensat ion right upper abdome n for one year. TECHNI QUE: CT of the abdome n and pelvis was perfor med follow ing IV contra st admini strati on. Sagitt al and riggs l reform ats. This examin ation was perfor med using one or more the follow ing dose reduct ion techni ques: Automa timothy exposu re contro l; adjust ment of the mA and kV accord ing the patien t's size; iterat mu recons tructi on techni que. Unless specif ied, no imagin g follow -up is recomm ended for incide ntal findin gs. IV CONTRA ST:100 mL Isovue -[address]:Adm iniste red. No oral contra st dose inform ation was submit timothy by the perfor denice techno logist . COMPAR ROXIE: Octobe r 2019. FINDIN GS: LOWER CHEST: No acute abnorm ality. LIVER: Diffus e low-at tenuat ion, sugges ting steato sis. No focal hepati c abnorm ality. SPLEEN : Normal size and attenu ation. No focal abnorm ality. PANCRE : No peripa ncreat ic inflam matory change , pancre atic ductal dilata tion or pancre atic mass. GALLBL ADDER AND BILIAR Y TRACT: Esopha geal change s of cholec ystect lionel. No abnorm al biliar y ductal dilata tion. ADRENA L GLANDS : No adrena l nodule . KIDNEY S: No renal calcul i or hydron ephros is. Bilate rally symmet salome renal enhanc ement. No obviou s solid renal cortic al mass. Ureter s appear normal bilate rally. URINAR Y BLADDE R: Unrema rkable . PELVIC ORGANS : Age approp riate appear ance of the uterus and adnexa . No free pelvic fluid. No pathol ogic appear ing pelvic or superf icial inguin al mass or adenop athy surgic al clips vice president client services ior to the uterus on the right. VASCUL AR: No abdomi nal aortic aneury sm or dissec tion. Normal enhanc ement of the celiac axis, superi or mesent ronald and inferi or mesent ronald arteri es. No eviden ce for signif icant renal artery stenos is. No eviden ce for renal, spleni c or portal vein thromb osis. No eviden ce of hepati c, portal , spleni c or superi or mesent ronald vein thromb osis. Unrema rkable IVC. DISTAL ESOPHA GENA, STOMAC H AND DUODEN UM: Unrema rkable . Legall y authen ticate d by DMITRY CISNEROS 12-27 11:36: 00 SMALL INTEST INE: No dilate d small bowel loops or obviou s small bowel wall thicke obey. COLON: No coloni c dilata tion or obviou s wall thicke obey. APPEND IX: Normal . ABDOMI NAL WALL: No obviou s acute abdomi nal wall abnorm ality or superf icial soft tissue mass. MUSCUL OSKELE JOHAN: No obviou s acute osseou s abnorm ality. Degene rative change s of the lower thorac ic and lumbar spine. OTHER: No free air or free fluid. No mesent ronald or retrop eriton eal adenop athy. IMPRES WILL: 1. No acute abnorm ality. 2. Hepati c steato sis. 3. Cholec ystect lionel. Electr onical ly signed by: Parish Cervantes DO 2024 11:36 AM EDT RP Workst ation: [id number] Dictat ed By: Parish Cervantes Transc ribed By: Transc ribed On: 025 11:36 AM Electr onical ly signed by: Parish Cervantes 025 Thank you for referr BRADY Briceño to [facility] al. Legall y authen ticate d by DMITRY CISNEROS 12-27 11:36: 00 CC'ed Logic: Orderi ng Provid er: ISABELA DURBIN Attend ing Provid er: ISABELA DURBIN Referr ing Provid er: ISABELA DURBIN Admitt ing Provid er: ISABELA DURBIN [email or web address] [facility] [address] , [place], [address], 12/27/2024 14:48:00 Result Notes None recorded. Problems Name Problem SNOMED Code Status Onset Date Resolution Date Notes Provider Name and Address Organization Details Recorded Time Chronic idiopathic constipation 77400993 Active 2022 Horace Van PA-C [address], [place], [address] , [place] - [facility] & [place] 3 13:55:08 Abdominal pain 00063180 Active 2023 Horace Van PA-C [address], [place], [address] , [place] - [facility] & [place] 4 16:35:19 Nausea 757441016 Active 2023 Horace Van PA-C [address], [place], [address] , [facility] & [place] 4 16:35:22 Upper abdominal pain 75047838 Active [address], [place], [address] , [facility] & [place] 5 16:16:59 Generalized abdominal pain 389466809 Active [address], [place], [address] , [facility] & [place] 5 16:18:42 Irritable bowel syndrome characterized by constipation 270572929 Active [address], [place], [address] , [facility] & [place] 5 20:20:17 Problem Notes None recorded. Medical Equipment None Reported. Allergies Allergen ID Allergen Name Allergen Category Reaction Reaction Severity Criticality Documentation Date Start Date Code Code System Note Provider Name and Address Organization Details Recorded Time 03940 codeine medicatio n Not available Not available Not available 11/14/2022 2670 [facility] [place] [place] 3 10:40:08 Medications Name Sig Start Date Stop Date Status Note LastModified by Organization Details LastModified Time Miralax 17 gram oral powder packet Take 5 packets 3 times a day by oral route. 2022 active Not Available Not Available Not Avai lable ibuprofen 800 mg tablet TAKE 1 TABLET BY MOUTH THREE TIMES DAILY active Not Available Not Available No t Available sucralfate 1 gram tablet Take 1 tablet 4 times a day by oral route for 30 days. 2024 active Not Available Not Available Not Avai lable amitriptyli ne 50 mg tablet TAKE 1 TABLET BY MOUTH AT BEDTIME active Not Available Not Available No t Available amoxicillin 875 mg tablet TAKE 1 TABLET BY MOUTH EVERY 12 HOURS 12/05 completed Not Available Not Available Not Available dicyclomine 20 mg tablet Take 1 tablet 4 times a day by oral route as needed for 30 days. 2023 active Not Available Not Available Not Avai lable benzonatate 100 mg capsule TAKE 1 CAPSULE BY MOUTH THREE TIMES DAILY NEEDED FOR COUGH active Not Available Not Available No t Available pantoprazol e 40 mg tablet,gisella yed release TAKE 1 TABLET BY MOUTH ONCE DAILY active Not Available Not Available No t Available montelukast 10 mg tablet TAKE 1 TABLET BY MOUTH ONCE DAILY IN THE EVENING active Not Available Not Available No t Available methylpredn isolone 4 mg tablets in a dose pack TAKE BY MOUTH DIRECTED ON INSIDE OF PACKAGE FOR 6 DAYS 12/05 completed Not Available Not Available Not Available ondansetron 4 mg disintegrat ing tablet Place 1 tablet twice a day by transling ual route as needed for 30 days. 2023 active Not Available Not Available Not Avai lable escitalopra m 10 mg tablet TAKE 1 TABLET BY MOUTH ONCE DAILY active Not Available Not Available No t Available lubiproston e 24 mcg capsule Take 1 capsule twice a day by oral route for 30 days. 2023 active Not Available Not Available Not Avai lable hydrochloro thiazide 12.5 mg tablet TAKE 1 TABLET BY MOUTH ONCE DAILY active Not Available Not Available No t Available Linzess 145 mcg capsule Take 1 capsule every day by oral route for 30 days. 2023 active Not Available Not Available Not Avai lable Ibsrela 50 mg tablet Take 1 tablet twice a day by oral route for 90 days. 2024 active Not Available Not Available Not Avai lable Vitals None Recorded Social History Question Answer Notes LastModified by Organizat ion Details LastModified Time Tobacco Smoking Status Never Smoker Carolin Diaz [facility], [place] - [facility] & [place] 11/14/2022 10:39:49 What Is Your Level Of Caffeine Consumption? Moderate [email or web address] Information not available 11/14/2022 Sex: Unknown Functional Status Question Answer Note LastModified by Organizat ion Details LastModified Time Do you use any illicit or recreational drugs? No [email or web address] Information not available 11/14/2022 Do you or have you ever used any other forms of tobacco or nicotine? No [email or web address] Information not available 11/14/2022 What is your level of alcohol consumption? None [email or web address] Information not available 11/14/2022 Mental Status None recorded. Family History Nothing Reported. Medical History No medical history recorded. Gynecological HistoryNo gynecological history recorded. Obstetrics History GPAL:G 0 P 0 0 0 0 Immunizations Vaccine Type Date Status Note Provider Nam e and Address Organization Details Recorded Time Tdap 4 completed Not Available [facility] 01/21/2025 15:33:17 Hep B, adult 7 completed Not Available [facility] 01/21/2025 15:33:17 Influenza, split virus, quadrivalent, preservative 7 completed Not Available [facility] 01/21/2025 15:33:17 COVID-19 vaccine, vector-nr, rS-Ad26, PF, 0.5 mL 1 completed Not Available [facility] 01/21/2025 15:33:17 Tdap 5 completed Not Available [facility] 01/21/2025 15:33:17 Past Encounters Encounter ID Performer Location Encounter Start Date Encounter Closed Date Diagnosis/Indication Diagnosis SNOMED-CT Code Diagnosis ICD10 Code Diagnosis IMO Codes Diagnosis Note [id number] Horace Van PA-C [facility] [address] [address] 01/21/2025 14:54:59 01/21/2025 15:32:07 Generalized abdominal pain 568780292 R10.84 538900 Family his tory of tubular adenomatous polyp of colon 4638735172 95865178 Z83.710 [id number] Repeat colonoscop y 12/2027 due to history of adenomatou s polyp. History of sigmoid colectomy 107650141 Z90.49 467288 Irritable bowel syndrome characterized by constipation 558031901 K58.1 [id number] Health Concerns Section Related Observation LastModified by Organization Detai ls LastModified Time None Recorded Concern Status LastModified by Organization Details LastModified Time None Recorded Payers Encounter Date Sequence Insurance Name Policy Number Policy Richardson Covered Member ID Richardson Member ID Guarantor Name 01/21/2025 1 [employer] (MEDICARE HMO) Brady Mcgee [id number] Brady Mcgee Notes Date Note Type Note Provider Name and Address Organization Details Recorded Time 01/21/2025 text/html PREVIOUS (12/05/24): Ms. Mcgee is a pleasant 49-year-old female who returns to the office today for annual follow-up regarding history of low-anterior resection for recurrent sigmoid diverticulitis, chronic constipation, and chronic abdominal pain and nausea. She has recently been experiencing intermittent upper abdominal burning discomfort under the right ribcage. She also experiences lower abdominal pain and continued issues with constipation. She has continued pantoprazole. Her upper abdominal pain does not feel like heartburn to her. The pain is somewhat worse after she eats. It is also worse sometimes with leaning forward. She no longer experiences nausea. She is prescribed 800 mg ibuprofen for arthritis, that she takes occasionally. She is taking lubiprostone once daily but still feels constipated despite this. She tried taking it twice daily, but states it gave her diarrhea. CURRENT (01/21/25): Ms. Mcgee presents via Audio-Video encounter today for 6 week follow-up regarding abdominal pain. She underwent CT abd/pelvic recently with no acute abnormality seen. Hepatic steatosis was noted. I have personally reviewed those images today and note retained stool throughout the colon, sparing the rectum and sigmoid colon. Her primary complaint today is persistent abdominal bloating. Audio and Video visit performed utilizing [employer] HIPAA compliant platform. Participants: Provider-Horace Van PA-C and Patient-Brady Mcgee. Patient is at home, provider is at the office. Verbal consent was obtained to engage in televideo service. I spent a total of 12 minutes during this real-time AUDIO-VIDEO clinical encounter that was initiated by the patient which started at 1520 and ended at 1531. Horace Van PA-C [address], [place], [address], [facility] - [place] [facility] [place] & [place] 01/21/2025 20:21:40 OBGyn Episode No OBEpisode recorded.
--- OUTSIDE RECORDS SUMMARY | 2025-02-06 14:09 | XMS_ITS | Encounter Summary ---
Author Organization [facility] Address [address] [id number] Care Team Providers Care Machine Or Machinery Mechanic Name Role Phone Darnell Montemayor MD Primary Care Provider [phone] Reason for Referral * Consultation (Routine) - Closed Specialty Diagnoses / Procedures Referred By Krystina noonan Referred To Contact Otolaryngology Diagnoses Other chronic diseases of tonsils and adenoids Emiliano Vargas MD [address] [facility], [place] [address] Phone: tel: fax: Referral ID Status Reason Start Date Expiration Date V isits Requested Visits Authorized [id number] Closed Specialty Services Required 08/31/2023 03/01/2025 1 1 Encounter Details Date Type Department Care Team (Late st Contact Info) Description 08/31/2023 [facility] [address] [place] [address] Emiliano Vargas MD [address] [facility], [place] [address] Other chronic diseases of tonsils and adenoids [...] EDT Office Visit Obstetrics & Gynecology [address] [place] [address] Linda Purdy, STEAMBOAT CAPTAIN [address] [place] [address] Scheduled Referrals Name Type Priority [...] documented as of this encounter Care Teams Machine Or Machinery Mechanic Relationship Specialty Start Date End Date Darnell Montemayor MD [address] [place] [address] PCP - General 08/14/20 documented as of this encounter
--- OUTSIDE RECORDS SUMMARY | 2025-02-06 14:09 | XMS_ITS | Encounter Summary ---
Author Organization Healthcare Address [address] [place] [address] Care Team Providers Care Lan Specialist Name Role Phone Darnell Montemayor MD Primary Care Provider [phone] Encounter Details Date Type Department Care Team (Late st Contact Info) Description 12/09/2024 Results Follow-Up Obstetrics & Gynecology [address] [place] [address] Linda Purdy, PAPER CONSERVATOR [address] [place] [address] Social History Tobacco Use Types [...] EDT Office Visit Obstetrics & Gynecology [address] [place] [address] Linda Purdy, PAPER CONSERVATOR [address] [place] [address] documented as of this encounter Visit Diagnoses Not on filedocumented in this encounter Additional Health Concerns Assessment Noted Time A fall risk assessment has been complete d for the patient 12/06/2024 9:32 AM EDT A Body Mass Index follow-up plan has been documented for the patient 12/06/2024 10:28 AM EDT documented as of this encounter Care Teams Lan Specialist Relationship Specialty Start Date End Date Darnell Montemayor MD [address] [place] [address] PCP - General 08/14/20 documented as of this encounter
--- OUTSIDE RECORDS SUMMARY | 2025-02-06 14:09 | XMS_ITS | Encounter Summary ---
Author Organization Healthcare Address [address] [place] [address] Care Team Providers Care Senior Stock Plan Administrator Name Role Phone Darnell Montemayor MD Primary Care Provider [phone] Encounter Details Date Type Department Care Team (Late st Contact Info) Description 12/31/2024 Telephone Obstetrics & Gynecology [address] [place] [address] Linda Purdy, TRIM CREW SUPERVISOR [address] [place] [address] Social History Tobacco Use Types [...] as of this encounter Miscellaneous Notes * Telephone Encounter - Pk Rasheed - 01/01/2025 9:30 AM EDT Called and discussed those results with Margaux and she voiced understanding. * Telephone Encounter - Batsheva Weiss - 12/31/2024 8:55 AM EDT Clinical Concern/Question Reason for Call: Pt is still waiting on the results of one of her test results and hasn't heard anything back. Please call pt. Best contact number: [phone] (mobile) Optimal time of day to reach caller: ANYTIME Additional comments/information from caller: Not Applicable Note: Please do not reply to this message. Follow-up communication and further actions as a result of this message need to be communicated with the patient directly, if the patient is not active onMyChart. If the patient is active on MyChart, they will receive notification of the communication/outcome via nxtControl. documented in this encounter Plan of Treatment Upcoming Encounters Date Type Department Care Team (Late st Contact Info) Description 12/11/2025 9:15 AM EDT Office Visit Obstetrics & Gynecology [address] [place] [address] Linda Purdy, TRIM CREW SUPERVISOR [address] [place] [address] documented as of this encounter Visit Diagnoses Not on filedocumented in this encounter Additional Health Concerns Assessment Noted Time A fall risk assessment has been complete d for the patient 12/06/2024 9:32 AM EDT A Body Mass Index follow-up plan has been documented for the patient 12/06/2024 10:28 AM EDT documented as of this encounter Care Teams Senior Stock Plan Administrator Relationship Specialty Start Date End Date Darnell Montemayor MD [address] [place] [address] PCP - General 08/14/20 documented as of this encounter
--- OUTSIDE RECORDS SUMMARY | 2025-02-06 14:09 | XMS_ITS | Data Portability ---
Author Organization [place] [facility] [place] [facility] ADMIN Address [address] [place] [address] Care Team Providers Care Consumer Marketing Manager Name Role Phone [phone] Primary Care Provider Assessment Encounter Date Assessment Date Assessment LastModified [...] of her current LLQ pain/blood per anus. [email or web address] Not available 11/14/2022 14:03:56 10/24/2023 10/24/2023 47-year-old [...] Nausea: Start Zofran PRN f/u 6 weeks [email or web address] Not available 10/24/2023 16:35:12 12/08/2023 12/08/2023 48-year-old [...] laxative therapy. f/u 1 year and PRN [email or web address] Not available 12/08/2023 15:21:52 12/05/2024 12/05/2024 49-year-old female with upper abdominal burning and intermittent lower abdominal pain, bloating, and constipation. She has a history of low anterior resection with colorectal anastomosis secondary to recurrent diverticulitis. colonoscopy 12/2022 was unremarkable. Symptoms previously improved with lubiprostone twice daily, however she is only taking this once daily currently. 1) Chronic constipation/IB S 2) Abdominal pain: Improved with laxative therapy. 3) Nausea: Improved with laxative therapy. f/u 1 year and PRN Not available 12/05/2024 17:25:23 01/21/2025 01/21/2025 49-year-old female with abdominal pain, [...] Monitor during laxative therapy. f/u 8 weeks. [email or web address] Not available 01/21/2025 20:21:19 Plan of Treatment Reminders Order Date Submit Date Provider Last Modified By Organization Details Last Modified Time Details Appointments Telehealt h Visit 15 min 2024 03:45P Harleen Van PA-C Not available Not available Not available Lab None recorded. Referral None recorded. Procedures None recorded. Surgeries None recorded. Imaging CT, abdomen + pelvis, w/ contrast - With IV and oral contrast 2024 025 [id number] [facility] [place] Number, [address] [facility], [place], [address], 12/23/2024 10:52:00 Medication Orders Ibsrela 50 mg tablet [address], [place], [id number], 01/21/2025 20:20:52 sucralfat e 1 gram tablet 2024 025 [facility], [address] [place] [address], [id number], 12/05/2024 16:29:49 lubiprost one 24 mcg capsule 2023 024 [facility], [address] [place] [address], [id number], 10/24/2023 16:21:31 dicyclomi ne 20 mg tablet 2023 024 [facility], [address] [place] [address], [id number], 10/24/2023 16:41:53 ondansetr on 4 mg disintegr ating tablet 2023 024 [facility], [address] [place] [address], [address], 10/24/2023 16:41:52 Linzess 145 mcg capsule 2022 023 [facility], [address] [place] [address], [address], 11/14/2022 14:00:21 Patient Targets Encounter Date Encounter Id Patient Goals Patient Target Last Modified By Organization Details Last Modified Time 01/21/2025 u pinpoint anything that was particularly worrisome to when I go in her look at it myself you look constipated to me do you feel constipated a little bit but albeit quite thin I guess maybe to get it down your main I have Not available 01/21/2025 15:23:18 Patient InstructionsNo instructions recorded. Reason for Referral None Reported. 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 [...] [place] 025 Thank you for referr MARGAUX Briceño to [facility]. Legall y authen ticate d by DMITRY CISNEROS 12-27 11:36: 00 CC'ed Logic: Orderi ng Provid er: ISABELA DURBIN Attend ing Provid er: ISABELA DURBIN Referr ing Provid er: ISABELA DURBIN Admitt ing Provid er: ISABELA DURBIN [facility] [address] , [place], [address], 12/27/2024 14:48:00 Result Notes None recorded. Problems Name Problem SNOMED Code Status Onset Date Resolution Date Notes Provider Name and Address Organization Details Recorded Time Chronic idiopathic constipation 23274211 Active 2022 Horace Van PA-C [address] , [place], [address] , [place] [facility] & [place] 3 13:55:08 Abdominal pain 62872861 Active 2023 Horace Van PA-C [address] , [place], [address] , [place] [facility] & [place] 4 16:35:19 Nausea 134821951 Active 2023 Horace Van PA-C [address], [place], [address] , [place] [facility] & [place] 4 16:35:22 Upper abdominal pain 05948287 Active 2024 Horace Van PA-C [address], [place], [address] , [facility] & [place] 5 16:16:59 Generalized abdominal pain 793106273 Active 2024 Horace Van PA-C [address], [place], [address] , [facility] & [place] 5 16:18:42 Irritable bowel syndrome characterized by constipation 092577524 Active 2024 Horace Van PA-C [address], [place], [address] , [facility] & [place] 5 20:20:17 Problem Notes None recorded. Medical Equipment None Reported. Allergies Allergen ID Allergen Name Allergen Category Reaction Reaction Severity Criticality Documentation Date Start Date Code Code System Note Provider Name and Address Organization Details Recorded Time 70781 codeine medicatio n Not available Not available Not available 11/14/2022 2670 RxNorm Carolin Emily [facility] & [place] 3 10:40:08 Medications Name Sig Start Date [...] Updated DateTime 4 177.8 cm 32.6 kg/m2 222737. 47 g 97 % 97 % 84 /min 86 /min 97.9 [degF] 139/84 mm[Hg] Carolin Diaz [facility] 4 15:53:03 Date Recorded Body height Body mass index (BMI) Body weight Body temperature Heart rate Oxygen saturation Oxygen saturation in Arterial blood by Pulse oximetry Systolic And Diastolic Provider Name and Address Organization Details Last Updated DateTime 3 177.8 cm 29.3 kg/m2 12963.6 4 g 98.1 [degF] 78 /min 96 % 96 % 104/77 mm[Hg] Craolin Diaz [facility] & [place] 3 10:38:54 Date Recorded Body height Body mass index (BMI) Body weight Body temperature Oxygen saturation Oxygen saturation in Arterial blood by Pulse oximetry Heart rate Systolic And Diastolic Provider Name and Address Organization Details Last Updated DateTime 5 177.8 cm 33 kg/m2 201940. 25 g 98.2 [degF] 99 % 99 % 100 /min 128/90 mm[Hg] Grisel Browne [facility] & [place] 5 15:41:50 Social History Question Answer Notes LastModified by [employer] Details LastModified Time Tobacco Smoking Status Never Smoker Carolin mcnally [facility] & [place] 11/14/2022 10:39:49 What Is Your Level Of Caffeine Consumption? Moderate [email or web address] Information not available 11/14/2022 Sex: Unknown Functional Status Question Answer Note LastModified by [employer] Details LastModified Time Do you use any illicit or recreational drugs? No [email or web address] Information not available 11/14/2022 Do you or have you ever used any other forms of tobacco or nicotine? No [email or web address] Information not available 11/14/2022 What is your level of alcohol consumption? None [email or web address] Information not available 11/14/2022 Mental Status None recorded. Family History Nothing Reported. Medical History No medical history recorded. Gynecological HistoryNo gynecological history recorded. Obstetrics History GPAL:G 0 P 0 0 0 0 Immunizations Vaccine Type Date Status Note Provider Nam e and Address Organization Details Recorded Time Tdap 4 completed Not Available [facility] 01/21/2025 15:33:17 Hep B, adult 7 completed Not Available [facility] 01/21/2025 15:33:17 Influenza, split virus, quadrivalent, preservative 7 completed Not Available [facility] 01/21/2025 15:33:17 COVID-19 vaccine, vector-nr, rS-Ad26, PF, 0.5 mL 1 completed Not Available [facility] 01/21/2025 15:33:17 Tdap 5 completed Not Available [facility] 01/21/2025 15:33:17 Past Encounters Encounter ID Performer Location Encounter Start Date Encounter Closed Date Diagnosis/Indication Diagnosis SNOMED-CT Code Diagnosis ICD10 Code Diagnosis IMO Codes Diagnosis Note [id number] Horace Van PA-C [facility] [place] [address] 11/14/2022 10:19:07 11/14/2022 11:40:16 Chronic idiopathic constipation 36022720 K59.04 [id number] Horace Van PA-C [facility] [place] [address] 10/24/2023 15:48:47 10/24/2023 16:30:30 Chronic idiopathic constipation 57962405 K59.04 Abdominal pain 63198091 R10.9 Nausea 879212619 R11.0 [id number] Horace Van PA-C [facility] [place] [address] 12/08/2023 09:25:44 12/08/2023 09:58:41 Chronic idiopathic constipation 54508726 K59.04 Abdominal pain 76981805 R10.9 Nausea 866391801 R11.0 [id number] Horace Van PA-C [facility] [place] [address] 12/05/2024 15:14:53 12/05/2024 16:30:58 Chronic idiopathic constipation 40357429 K59.04 -Recommend ed she add a daily fiber supplement -She will try to increase lubiprosto ne back to twice daily and monitor her symptoms. She had improvemen t with this previously . Generalize d abdominal pain 169503382 R10.84 970455 -We will obtain a CT abd/pelvis with contrast for further evaluation . She has both upper and lower abdominal pain that seem to be seperate issues.-We will add sucralfate for burning upper abdominal pain. Recommende d she hold ibuprofen for now.-Consi shailesh endoscopic examinatio n with continued symptoms. Family his tory of tubular adenomatous polyp of colon 9233906458 01434853 Z83.710 [id number] Repeat colonscopy 12/2027 due to history of adenomatou s polyp. History of sigmoid colectomy 488311393 Z90.49 [id number] Horace Van PA-C [facility] [address] [facility] [address] [place] [address] 01/21/2025 14:54:59 01/21/2025 15:32:07 Generalized abdominal pain 759518222 R10.84 719010 Family his tory of tubular adenomatous polyp of colon 8016357016 48606001 Z83.710 [id number] Repeat colonoscop y 12/2027 due to history of adenomatou s polyp. History of sigmoid colectomy 424523247 Z90.49 540590 Irritable bowel syndrome characterized by constipation 582963820 K58.1 316417 Health Concerns Section Related Observation LastModified by Organization Detai ls LastModified Time None Recorded Concern Status LastModified by Organization Details LastModified Time None Recorded Advance Directives Directive None Recorded Payers Insurance Date Sequence Insurance Name Policy Number Policy Richardson Covered Member ID Richardson Member ID Guarantor Name 01/20/2025 1 [facility] (MEDICAID HMO) Margaux Clarkeen [id number] Margaux Everardo 01/20/2025 1 [facility] ([facility]AC[facility] - HMO) [id number] Margaux Salter Everardo [id number] Margauxsarmad Hanks 01/20/2025 1 [facility] (MEDICARE HMO) Margaux Everardo [id number] Margaux Hanks Notes Date Note Type Note Provider Name and Address Organization Details Recorded Time 11/14/2022 text/html 47-year-old female who was referred by Dr. Hendrix for evaluation of abdominal pain, constipation, and intermittent rectal bleeding. She has a history of recurrent sigmoid diverticulitis and underwent low anterior resection with colorectal anastomosis by Dr. Ronald Turner in Apr 2019. She also has [...] wiping. Horace Van PA-C [address], [place], [address], [facility] 11/14/2022 14:04:21 10/24/2023 text/html Ms. Hanks is a pleasant 47-year-old female with history of low anterior resection with colorectal anastomosis for treatment of recurrent sigmoid diverticulitis who returns to [facility] today for follow-up regarding chronic constipation and abdominal pain. She was previously treated with linzess 145 mcg p.o. daily, but did not feel that this improved her symptoms much. She is no longer taking laxative therapy. She continues to endorses abdominal discomfort, alternating bowel habits, fecal urgency, and nausea. Colonoscopy in December was unremarkable. Horace Van PA-C [address], [place], [address], [facility] 10/24/2023 16:36:24 12/08/2023 text/html PREVIOUS (10/24/23): Ms. Hanks is a pleasant 47-year-old female with history of low anterior resection with colorectal anastomosis for treatment of recurrent sigmoid diverticulitis who returns to [facility] today for follow-up regarding chronic constipation and abdominal pain. She was previously treated with linzess 145 mcg p.o. daily, but did not feel that this improved her symptoms much. She is no longer taking laxative therapy. She continues to endorses abdominal discomfort, alternating bowel habits, fecal urgency, and nausea. Colonoscopy in December was unremarkable. CURRENT (12/08/23): Ms. Hanks presents via telephonic encounter today for follow-up [...] for tele video conferencing. Horace Van PA-C [address] , [place], [address], [facility] 12/08/2023 15:22:09 12/05/2024 text/html Ms. Hanks is a pleasant 49-year-old female who returns [...] experiences nausea. She is prescribed 800 mg iburprofen for arthritis, that she takes occasionally. She is taking lubiprostone once daily but still feels constipated despite this. She tried taking it twice daily, but states it gave her diarrhea. Horace Van PA-C [address] , [place], [address], [facility] 12/05/2024 17:27:08 01/21/2025 text/html PREVIOUS (12/05/24): Ms. Hanks is a pleasant 49-year-old female who returns [...] it gave her diarrhea. CURRENT (01/21/25): Ms. Hanks presents via Audio-Video encounter today for 6 week follow-up regarding abdominal pain. She underwent CT abd/pelvic recently with no acute abnormality seen. Hepatic steatosis was noted. I have personally reviewed those images today and note retained stool throughout the colon, sparing the rectum and sigmoid colon. Her primary complaint today is persistent abdominal bloating. Audio and Video visit performed utilizing [employer] HIPAA compliant platform. Participants: Provider-Horace Van PA-C and Patient-Margaux Hanks. Patient is at home, provider is at the office. Verbal consent was obtained to engage in televideo service. I spent a total of 12 minutes during this real-time AUDIO-VIDEO clinical encounter that was initiated by the patient which started at 1520 and ended at 1531. Horace Van PA-C [address] , [place], [address], [facility] [place] & [place] 01/21/2025 20:21:40 OBGyn Episode No OBEpisode recorded.
--- OUTSIDE RECORDS SUMMARY | 2025-02-06 14:09 | XMS_ITS | Clinical Summary ---
Author Organization [facility] Address [address] [place] [address] Care Team Providers Care String Studies Director Name Role Phone Darnell Montemayor MD Primary Care Provider [phone] Allergies Active Allergy Reactions Criticality Noted Date [...] Additional Information Patient not taking.Reported on 12/06/2024 hydroCHLOROthiazid e (Microzide) 12.5 MG capsule Take 1 capsule [...] or vomiting. 9 tablet 11/29/19 24 Active HYDROcodone-acetam inophen ([place]) 5-325 MG tablet Take 1 tablet (5 [...] route for 30 days. 12/06/19 25 Active hydroCHLOROthiazid e 12.5 MG PO tablet 10/01/19 25 Active Active Problems Problem Noted Date Diagnosed Date HTN (hypertension) 11/29/2023 High cholesterol 11/29/2023 Gastroesophageal reflux disease without esophagi tis 11/29/2023 Hyperplasia of tonsils and adenoids 11/29/2023 Tonsillith 10/20/2023 Chronic tonsillitis 10/20/2023 Primary osteoarthritis of left knee 11/17/2021 Overview (11/17/2021): Added automatically from request for surgery [id number] Tobacco abuse 01/12/2021 Other chest pain 01/12/2021 Mixed hyperlipidemia 01/12/2021 Encounters Date Type Department Care Team Description 12/31/2024 Telephone Obstetrics & Gynecology [address] [place] [address] Linda Purdy APRN 12/09/2024 Results Follow-Up Obstetrics & Gynecology [address] [place] [address] Linda Purdy APRN 12/06/2024 9:15 AM EDT Office Visit Obstetrics & Gynecology [address] [place] [address] Linda Purdy, STUD MASTER/MISTRESS Encounter for gynecological examination without abnormal finding [...] EDT Office Visit Obstetrics & Gynecology [address] [place] [address] Linda Purdy, STUD MASTER/MISTRESS [address] [place] [address] Health Maintenance Due Date Last Done Comments [facility]-/Child/Adol SDOH Screenings 1974 [facility]- SDOH Screenings 1992 [facility]-Adult SDOH Screenings 1992 [facility]-Hepatitis B Vaccines (2 of 3 - 19+ 3-dose series) 01/19/2017 12/22/2016 CT Colonography 10/30/2019 Colonoscopy 10/30/2019 FIT-DNA 10/30/2019 FIT 10/30/2019 FOBT 10/30/2019 Sigmoidoscopy 10/30/2019 [facility]-Colorectal Cancer Screening 10/30/2019 NJX-TETDS-32 Vaccine (2 - Suellen risk series) 08/03/2020 07/06/2020 [facility]-Breast Cancer Screening 2024 [facility]-Pneumococcal Vaccine: 50 + Years (1 of 1 - PCV) 2024 [facility]-Zoster Vaccines (1 of 2) 2024 [facility]-Influenza Vaccine (#1) 2024 01/23/2017 [facility]-Depression Screening 12/06/2025 12/06/2024 [facility]-Pap Smear 12/07/2027 12/06/2024 [facility]-Cervical Cancer Screening 12/06/2029 [facility]-HPV/Cotest 12/06/2029 12/06/2024 [facility]-DTaP,Tdap,and Td Vaccine s (3 - [...] Encounter for gynecological examination without abnormal finding HIGH RISK HUMAN PAPILLOMAVIRUS (HPV) PCR WITH GENOTYPING Routine 12/06/2024 10:14 AM EDT Encounter for [...] Recently Relevant to Health Maintenance Results * (ABNORMAL) High Risk Human Papillomavirus (HPV) PCR with Genotyping (12/06/2024 10:14 AM EDT) High Risk Human Papillomavirus (HPV) PCR Interpretation Detected(A) Not Detected 12/31/2024 8:38 AM EDT [facility] High Risk Human Papillomavirus (HPV) PCR Genotype 16 Not Detected Not Detected 12/31/2024 8:38 AM EDT [facility] High Risk Human Papillomavirus (HPV) PCR Genotype 18 Result Not Detected Not Detected 12/31/2024 8:38 AM EDT [facility] (HPV) Other High Risk HPV Genotypes (Not 16 or 18) Detected(A) Not Detected 12/31/2024 8:38 AM EDT [facility] Thin Prep Cervix uteri structure / Unknown 12/06/2024 10:14 AM EDT 12/12/2024 10:27 AM EDT Narrative [facility] - 12/31/2024 8:38 AM EDT This test is performed by the [employer]00 instrument Real Time PCR HPV DNA and genotype testing. This test is FDA approved for use with cervical and endocervical specimens. This test is used for clinical purposes. It should not be regarded as investigational or for research. The test specifically identifies HPV-16 and HPV-18 while concurrently detecting the rest of the high risk types (31, 33, 35, 39, 45, 51, 52, 56, 58, 59, 66 and 68). The [facility] Clinical Microbiology Laboratory is certified under the Clinical Laboratory Improvement Amendments of 1988 (CLIA-88) as qualified to perform high complexity clinical laboratory testing. us Linda Purdy APRN LAB MICROBIOLOGY - GENERAL ORDERABLES Final Result [facility] [address] [place] [address] * Trichomonas Vaginalis Antigen (12/06/2024 10:14 AM EDT) Trichomonas vaginalis Antigen Result Negative Negative 12/07/2024 7:05 AM EDT [facility] Swab Vaginal structure / Unknown Non-blood Collection / Unknown 12/06/2024 10:14 AM EDT 12/06/2024 2:03 PM EDT Narrative [facility] - 12/07/2024 7:05 AM EDT This test was developed and its performance characteristics determined by [facility] Microbiology [facility]. It has [...] LAB MICROBIOLOGY - GENERAL ORDERABLES Final Result [facility] [address] [place] [address] * Chlamydia trachomatis DNA by PCR (12/06/2024 10:14 AM EDT) Chlamydia trachomatis DNA PCR Result Not Detected Not Detected 12/08/2024 1:57 PM EDT [facility] Swab Vaginal structure / Unknown Non-blood Collection / Unknown 12/06/2024 10:14 AM EDT 12/06/2024 2:05 PM EDT Narrative [facility] - 12/08/2024 1:57 PM EDT This test is performed by the [employer] instrument for Real Time PCR C. trachomatis and N. gonorrhea. This test is FDA approved for use with endocervical, vaginal, and urine specimens. This test is used for clinical purposes. It should not be regarded as invesigational or for research. The [facility] Clinical Microbiology Laboratory is certified under the Clinical Laboratory Improvement Amendments of 1988 (CLIA-88) as qualified to perform high complexity clinical laboratory testing. Linda Purdy APRN LAB MICROBIOLOGY - GENERAL ORDERABLES Final Result Performing Organization Address City/[facility]/ZIP Co de Phone Number [facility] [address] [place] [address] * Neisseria gonorrhea DNA by PCR (12/06/2024 10:14 AM EDT) Neisseria gonorrhea DNA PCR Result Not Detected Not Detected. 12/08/2024 1:57 PM EDT [facility] Swab Vaginal structure / Unknown Non-blood Collection / Unknown 12/06/2024 10:14 AM EDT 12/06/2024 2:05 PM EDT Narrative [facility] - 12/08/2024 1:57 PM EDT This test is performed by the [employer] instrument for Real Time PCR C. trachomatis and N. gonorrhea. This test is FDA approved for use with endocervical, vaginal, and urine specimens. This test is used for clinical purposes. It should not be regarded as invesigational or for research. The [facility] Clinical Microbiology Laboratory is certified under the Clinical Laboratory Improvement Amendments of 1988 (CLIA-88) as qualified to perform high complexity clinical laboratory testing. Linda Purdy APRN LAB MICROBIOLOGY - GENERAL ORDERABLES Final Result Performing Organization Address [facility] Co de Phone Number [facility] [address] [place] [address] * Pap Test (12/06/2024 10:14 AM EDT) Case Report Cytology Case: [id number] Authorizing Provider: Linda Purdy APRN Collected: 12/06/2024 1014 Ordering Location: Obstetrics & Gynecology Received: 12/09/2024 0843 First Screen: Mayuri Arvizu Specimen: ThinPrep Pap Test, Liquid-Based Cervical/Vaginal 12/11/2024 3:58 PM EDT [facility] Interpretation NEGATIVE FOR INTRAEPITHELIAL LESION OR MALIGNANCY 12/11/2024 3:58 PM EDT [facility] at 1558 EDT Specimen Adequacy Satisfactory for evaluation; endocervical/tiwari sformation zone component absent/insufficie nt. Slide scanned and imaged by ThinPrep Imaging System with manual review of all selected youngblood. 12/11/2024 3:58 PM EDT [facility] Cervical cytology is a screening test [...] results is suggested (please call Microbiology at [phone] for results). 12/11/2024 3:58 PM EDT [facility] Menstrual Status Cyclic 12/12/19 3:58 PM EDT [facility] Contraceptive History Not Applicable 12/11/2024 3:58 PM EDT [facility] Screening Type Routine Screen 2024 3:58 PM EDT [facility] High Risk? No 12/11/2024 3:58 PM EDT [facility] HPV Testing Requested? Request HPV Testing Regardless of Pap Test Findings 12/11/2024 3:58 PM EDT [facility] Previous Cancer History No 12/11/2024 3:58 PM EDT [facility] Clinical Information Z01.419 - Encounter for gynecological examination without abnormal finding [ICD-10-CM] 12/11/2024 3:58 PM EDT [facility] Last Menstrual Period 11/15/2024 12/11/2024 3:58 PM EDT [facility] Thin Prep Vaginal and cervical cytologic material / Unknown 12/06/2024 10:14 AM EDT 12/09/2024 8:43 AM EDT us Linda Purdy APRN LAB CYTOLOGY ORDERABLES Fin al Result [facility] [address] [place] [address] * HIV 1 & 2 Antibody/Antigen Screen (12/17/2020 5:57 PM EDT) HIV 1 & 2 Antibody/Anti gen Screen Nonreactive Nonreactive 12/17/2020 8:23 PM EDT [facility] Blood Venous blood specimen / Unknown Venipuncture / Unknown 12/17/2020 5:57 PM EDT 12/17/2020 6:29 PM EDT Alexei Yang MD LAB BLOOD ORDERABLES Final Res ult [facility] [address] [place] [address] * [place] Hepatitis C Antibody (12/17/2020 5:57 PM EDT) Pathologist [facility] Hepatitis C Antibody Negative Negative 12/17/2020 7:56 PM EDT [facility] Blood Venous blood specimen / Unknown Venipuncture / Unknown 12/17/2020 5:57 PM EDT 12/17/2020 6:29 PM EDT Alexei Yang MD LAB BLOOD ORDERABLES Final Res ult Performing Organization Address City/[facility]/ZIP Co de Phone Number [facility] [address] [place] [address] from Last 3 Months or Most Recently Relevant to Health Maintenance [facility] Care Teams String Studies Director Relationship Specialty Start Date End Date Darnell Montemayor MD [address] [place] [address] [facility] - General 08/14/20
--- OUTSIDE RECORDS SUMMARY | 2025-02-06 14:09 | XMS_ITS | Clinical Summary ---
Author Organization [facility] Address [address] [place] [address] Care Team Providers Care Director Maternal Child Name Role Phone System, Provider Not In [...] VACCINE (1 of 2) 2024 INFLUENZA VACCINE 11/01/2024 Insurance [employer] Care Teams Director Maternal Child Relationship Specialty Start Date End Date System, [place] [address] PCP - General 10/16/17
== END 2025-02-06 23:59 | disposition home or self-care (01) ==
LOC: RAD 14:03
PROVIDERS: PCP Nurse Practitioner Family; Visit Provider Physician Assistant
DX: M19.041 Primary osteoarthritis, right hand (principal); M19.042 Primary osteoarthritis, left hand
CPT/HCPCS: 73130